=== PATIENT | female | born 1955 | race Caucasian/White ===

== ENCOUNTER 2021-11-22 07:41 | Inpatient (IN) | payer MEDICAID, OTHER ==
[~2021-11-22] VITALS: Ht 162.6 cm; Wt 72.6 kg
[2021-11-22] MEDS ORDERED: ONDANSETRON HCL 4 MG/2 ML VIAL ONE (08:42)
[2021-11-22] MEDS ORDERED: ONDANSETRON HCL 4 MG/2 ML VIAL IV ONE (08:45)
[2021-11-22] MEDS ORDERED: SODIUM CHLORIDE 0.9% 1,000 ML IV ONE ×2 (08:45→16:15)
[2021-11-22 08:47] LABS: Basophils # (auto) 0 10 ^3/uL (0-0.2); Basophils % (auto) 0.3 % (0.0-2.0); Eosinophils # (auto) 0 10 ^3/uL (0-0.8); Eosinophils % (auto) 0.1 % (0.0-7.0); Hematocrit 38.8 % (36.0-46.0); Hemoglobin 12.7 g/dL (12.2-16.2); Lymphocytes # (auto) 0.5 10 ^3/uL (0.4-5.4); Lymphocytes % (auto) 8.2 % (10.0-50.0); Mean Corpuscular Hemoglobin 30.4 pg (28.0-32.0); Mean Corpuscular Hgb Conc. 32.8 g/dL (32.0-36.0); Mean Corpuscular Volume 92.6 fL (80.0-100.0); Monocytes # (auto) 0.3 10 ^3/uL (0-1.3); Monocytes % (auto) 5.1 % (0.0-12.0); Neutrophils # (auto) 5.3 10 ^3/uL (1.6-8.6); Neutrophils % (auto) 86.3 % (37.0-80.0); Nucleated Red Blood Cells % 0.1 %; Red Blood Cells 4.19 10^6/uL (4.0-5.20); Red Cell Distribution Width 14.7 % (11.8-14.3); White Blood Cell 6.2 10^3/uL (4.4-10.8)
[2021-11-22 09:07] LABS: Calcium 9.7 mg/dL (8.5-10.1)
[2021-11-22 09:12] LABS: Bilirubin, Total 0.6 mg/dL (0.2-1.0); Total Protein 8.4 g/dL (6.4-8.2)
[2021-11-22] MEDS ORDERED: MORPHINE SULFATE 4 MG/ML SYR/VIAL IV ONE (09:15)
[2021-11-22 09:18] LABS: Potassium 2.8 mmol/L (3.5-5.1)
[2021-11-22] MEDS ORDERED: POTASSIUM EFFERVESENT TAB 25 MEQ PO ONE (10:15)
[2021-11-22] MEDS ORDERED: cloNIDine HCL 0.1 MG TAB PO ONE ×2 (11:15)
[2021-11-22] MEDS ORDERED: cefTRIAXone 1GM/50ML D5W 50 ML IV ONE (11:15)
[2021-11-22 12:04] LABS: BUN/Creatinine Ratio 14.1
[2021-11-22] MEDS ORDERED: KETOROLAC TROMETH 30 MG/ML 1ML VIAL IV ONE (12:45)
[2021-11-22] MEDS ORDERED: HYDROmorphone HCL 2 MG/ML VL/or syr IV ONE (13:00)
[2021-11-22] MEDS ORDERED: ACETAMINOPHEN 500 MG TAB PO PRN (16:00)
[2021-11-22] MEDS ORDERED: MORPHINE SULFATE INJ 2 MG/ml SYRG IV PRN (16:00)
[2021-11-22] MEDS ORDERED: ONDANSETRON HCL 4 MG/2 ML VIAL IV PRN (16:00)
[2021-11-22] MEDS ORDERED: NITROGLYCERIN 0.4 MG SL TAB SL PRN (16:00)
[2021-11-22] MEDS ORDERED: DexAMETHasone SOD PHOS 10MG/1ML VIAL INJ IV ONE (16:15)
[2021-11-22] MEDS ORDERED: SODIUM CHLORIDE 0.9% 1,000 ML IV SCH (16:15)
[2021-11-22 16:38] LABS: Urine Bacteria FEW /hpf (None Seen); Urine Blood 2+ /uL (Negative); Urine Specific Gravity 1.012 (1.001-1.035); Urine WBC 1 /hpf (0 - 5)
[2021-11-22 16:40] VITALS: BP 194/86
[2021-11-22 17:17] LABS: CRP High Sensitivity 0.46 mg/dL (< 0.3); Magnesium 1.7 mg/dL (1.6-2.6)
[2021-11-22 17:31] LABS: BUN/Creatinine Ratio 11.5; Calcium 9.1 mg/dL (8.5-10.1); Potassium 3.1 mmol/L (3.5-5.1)
[2021-11-22 17:44] LABS: Thyroid Stimulating Hormone 0.37 uIU/mL (0.358-3.74)
[2021-11-22] MEDS ORDERED: POTASSIUM CHL 20MEQ/100ML 100 ML IV ONE (20:15)
[2021-11-22] MEDS ORDERED: POTASSIUM CHL 20 Meq TABLET PO ONE (20:15)
[2021-11-22] MEDS ORDERED: MAGNESIUM SULFATE 1GM/100ML 100 ML IV ONE (20:15)
[2021-11-22] MEDS: MORPHINE SULFATE INJ 2 MG/ml SYRG IV PRN (20:16)
[2021-11-22] MEDS: SODIUM CHLORIDE 0.9% 1,000 ML IV SCH (20:30)
[2021-11-22] MEDS ORDERED: IOHEXOL 350 MG/ML 100ML IJ ONE (20:32)
[2021-11-22] MEDS ORDERED: amLODIPine BESYLATE 5 MG TAB PO SCH (22:00)
[2021-11-22] MEDS: BUDESONIDE (INHALATION) 180 MCG IH IN SCH (22:00)
[2021-11-22] MEDS: cloNIDine HCL 0.1 MG TAB PO SCH (22:10)
[2021-11-22] MEDS: ENOXAPARIN SOD 40 MG/0.4 ML SYRINGE SC SCH (22:10)
[2021-11-22] MEDS ORDERED: CLON-818 PO (22:49)
[2021-11-22] MEDS ORDERED: AMLO-489 PO (22:50)
[2021-11-23] MEDS: MORPHINE SULFATE INJ 2 MG/ml SYRG IV PRN ×3 (06:10→17:58)
[2021-11-23] MEDS: BUDESONIDE (INHALATION) 180 MCG IH IN SCH ×2 (06:10→18:26)
[2021-11-23] MEDS: ALBUTEROL SULF HFA 90MCG INH 200DOSE IN PRN ×2 (06:19→18:35)
[2021-11-23 06:56] LABS: Basophils # (auto) 0 10 ^3/uL (0-0.2); Basophils % (auto) 0.3 % (0.0-2.0); Eosinophils # (auto) 0 10 ^3/uL (0-0.8); Eosinophils % (auto) 0.1 % (0.0-7.0); Hematocrit 44.2 % (36.0-46.0); Hemoglobin 14.9 g/dL (12.2-16.2); Lymphocytes # (auto) 1.1 10 ^3/uL (0.4-5.4); Mean Corpuscular Hgb Conc. 33.7 g/dL (32.0-36.0); Mean Corpuscular Volume 92.1 fL (80.0-100.0); Monocytes # (auto) 0.5 10 ^3/uL (0-1.3); Monocytes % (auto) 8.9 % (0.0-12.0); Neutrophils % (auto) 70.7 % (37.0-80.0); Nucleated Red Blood Cells % 0.1 %; Red Cell Distribution Width 14.8 % (11.8-14.3); White Blood Cell 5.7 10^3/uL (4.4-10.8)
[2021-11-23 08:00] VITALS: BP 155/98
[2021-11-23 09:00] VITALS: BP 177/106
[2021-11-23 10:00] VITALS: BP 155/80
[2021-11-23] MEDS: AZITHROMYCIN 500MG/ 250ML 250 ML IV SCH (10:01)
[2021-11-23] MEDS: DexAMETHasone SOD PHOS 10MG/1ML VIAL INJ IV SCH (10:02)
[2021-11-23] MEDS: ENOXAPARIN SOD 40 MG/0.4 ML SYRINGE SC SCH ×2 (10:02→22:04)
[2021-11-23] MEDS: PANTOPRAZOLE 40 MG/10 ML VIAL INJ IV SCH (10:02)
[2021-11-23] MEDS: cloNIDine HCL 0.1 MG TAB PO SCH ×2 (10:03→22:07)
[2021-11-23] MEDS: amLODIPine BESYLATE 5 MG TAB PO SCH (10:03)
[2021-11-23] MEDS: SODIUM CHLORIDE 0.9% 1,000 ML IV SCH (10:05)
[2021-11-23 10:10] LABS: Potassium 3.4 mmol/L (3.5-5.1)
[2021-11-23 10:12] LABS: Albumin 3.3 g/dL (3.4-5.0); BUN/Creatinine Ratio 14.6; Bilirubin, Total 0.3 mg/dL (0.2-1.0); Calcium 9.3 mg/dL (8.5-10.1); Total Protein 8.5 g/dL (6.4-8.2)
[2021-11-23 13:00] VITALS: BP 155/80
[2021-11-23] MEDS ORDERED: MORPHINE SULFATE 4 MG/ML SYR/VIAL IV PRN (21:15)
[2021-11-23 22:00] VITALS: BP 167/105
[2021-11-23] MEDS: HYDROmorphone HCL 2 MG/ML VL/or syr IV PRN (22:06)
[2021-11-24] VITALS: BP 139/79
[2021-11-24] MEDS: HYDROmorphone HCL 2 MG/ML VL/or syr IV PRN ×4 (03:18→14:04)
[2021-11-24 05:00] VITALS: BP 167/83
[2021-11-24] MEDS: BUDESONIDE (INHALATION) 180 MCG IH IN SCH (07:22)
[2021-11-24] MEDS: ALBUTEROL SULF HFA 90MCG INH 200DOSE IN PRN (07:22)
[2021-11-24 08:00] VITALS: BP 163/83
[2021-11-24] MEDS: ENOXAPARIN SOD 40 MG/0.4 ML SYRINGE SC SCH (10:25)
[2021-11-24] MEDS: DexAMETHasone SOD PHOS 10MG/1ML VIAL INJ IV SCH (10:26)
[2021-11-24] MEDS: PANTOPRAZOLE 40 MG/10 ML VIAL INJ IV SCH (10:26)
[2021-11-24] MEDS: cloNIDine HCL 0.1 MG TAB PO SCH (10:26)
[2021-11-24] MEDS: amLODIPine BESYLATE 5 MG TAB PO SCH (10:27)
[2021-11-24] MEDS: AZITHROMYCIN 500MG/ 250ML 250 ML IV SCH (10:27)
[2021-11-24 13:00] VITALS: BP 137/77
[2021-11-24] MEDS ORDERED: CLON-818 PO (13:10)
[2021-11-24] MEDS ORDERED: ALBUAER3 IN (13:10)
[2021-11-24] MEDS ORDERED: PRED20TA2 PO (13:10)
[2021-11-24] MEDS ORDERED: AMLO-489 PO (13:10)
[2021-11-24 14:28] VITALS: BP 163/83
[2021-11-24 16:14] VITALS: BP 137/77
[2021-11-24] MEDS ORDERED: ASPITAB34 PO (17:34)
[2021-11-24] MEDS ORDERED: cloNIDine HCL 0.1 MG TAB PO SCH (22:00)
[2021-11-25] MEDS ORDERED: amLODIPine BESYLATE 5 MG TAB PO SCH (10:00)
== END 2021-11-24 16:40 | disposition home or self-care (01) | DRG 137 ==
LOC: EDBD 07:41 → ER 07:41 → TELE 16:14 → TELE-CENTR 11-23 08:14
PROVIDERS: ADMIT Registered Nurse; ATTEND Hospitalist
DX: U07.1 COVID-19 (principal); J12.82 Pneumonia due to coronavirus disease 2019; E87.6 Hypokalemia; R79.89 Other specified abnormal findings of blood chemistry; G43.909 Migraine, unspecified, not intractable, without status migrainosus; I10 Essential (primary) hypertension; I25.2 Old myocardial infarction; Z90.49 Acquired absence of other specified parts of digestive tract; Z95.1 Presence of aortocoronary bypass graft; Z86.711 Personal history of pulmonary embolism
CPT/HCPCS: 36415; 70450; 71045; 71275; 74176; 80048; 80053; 81001; 83036; 83605; 83615; 83735; 83880; 84443; 84484; 85025; 85379; 86141; 87040; 93005; 94640; 96365; 96375; C9113; G0378; J0696; J1100; J1885; J2405; J3480

== ENCOUNTER 2021-12-10 09:51 | Inpatient (IN) | payer MEDICAID ==
[~2021-12-10] VITALS: Ht 172.7 cm; Wt 75.3 kg
[~2021-12-10 09:51] MED LIST: ALBUAER3 IN; AMLO-489 PO; ASPITAB34 PO; CLON-818 PO; PRED20TA2 PO
[2021-12-10 10:41] LABS: Basophils # (auto) 0 10 ^3/uL (0-0.2); Basophils % (auto) 0.4 % (0.0-2.0); Eosinophils # (auto) 0 10 ^3/uL (0-0.8); Eosinophils % (auto) 0.5 % (0.0-7.0); Hematocrit 36.5 % (36.0-46.0); Hemoglobin 12.1 g/dL (12.2-16.2); Mean Corpuscular Hemoglobin 30.7 pg (28.0-32.0); Mean Corpuscular Hgb Conc. 33.1 g/dL (32.0-36.0); Mean Corpuscular Volume 92.6 fL (80.0-100.0); Monocytes # (auto) 0.7 10 ^3/uL (0-1.3); Monocytes % (auto) 9.4 % (0.0-12.0); Neutrophils # (auto) 6.1 10 ^3/uL (1.6-8.6); Neutrophils % (auto) 76.7 % (37.0-80.0); Red Blood Cells 3.94 10^6/uL (4.0-5.20); Red Cell Distribution Width 15.4 % (11.8-14.3); White Blood Cell 7.9 10^3/uL (4.4-10.8)
[2021-12-10 10:53] LABS: Albumin 3.7 g/dL (3.4-5.0); BUN/Creatinine Ratio 15.5; Calcium 9.3 mg/dL (8.5-10.1); Potassium 3.5 mmol/L (3.5-5.1)
[2021-12-10] MEDS ORDERED: ONDANSETRON HCL 4 MG/2 ML VIAL IV ONE (11:30)
[2021-12-10] MEDS ORDERED: ASPirin 81 mg TAB PO ONE (11:30)
[2021-12-10] MEDS ORDERED: MORPHINE SULFATE 4 MG/ML SYR/VIAL IV ONE (11:30)
[2021-12-10 11:51] LABS: Bilirubin, Total 0.8 mg/dL (0.2-1.0); Total Protein 8.1 g/dL (6.4-8.2)
[2021-12-10 12:14] LABS: Partial Thromboplastin Time 29.1 sec (24.6-33.4)
[2021-12-10] MEDS ORDERED: MORPHINE SULFATE INJ 2 MG/ml SYRG IV PRN (13:45)
[2021-12-10] MEDS ORDERED: NITROGLYCERIN 0.4 MG SL TAB SL PRN (13:45)
[2021-12-10] MEDS ORDERED: PANTOPRAZOLE 40 MG/10 ML VIAL INJ IV ONE (14:15)
[2021-12-10] MEDS ORDERED: DEXTROSE (50%) 50ML SYRG IV PRN (14:15)
[2021-12-10] MEDS: ACCU-CHEK COMFORT CURVE STRIP VI SCH ×2 (17:00→22:00)
[2021-12-10] MEDS: InsuLIN REG 1unit/0.01ml Soln (100units/ml) SC SCH ×2 (17:00→22:00)
[2021-12-10] MEDS: MORPHINE SULFATE INJ 2 MG/ml SYRG IV PRN ×2 (17:44→22:03)
[2021-12-10] MEDS: FUROSEMIDE 20 MG/2 ML VIAL IV SCH (18:29)
[2021-12-10 20:26] LABS: Urine Bacteria NONE SEEN /hpf (None Seen); Urine Blood TRACE /uL (Negative); Urine Specific Gravity 1.005 (1.001-1.035); Urine WBC 1 /hpf (0 - 5)
[2021-12-10 20:53] LABS: Alcohol, Urine < 3.0 mg/dL (0-10); Amphetamine Screen, Urine NEGATIVE (NEGATIVE); Benzodiazephine Screen, Urine NEGATIVE (NEGATIVE); Cannabinoid Screen, Urine NEGATIVE (NEGATIVE); Cocaine Screen, Urine NEGATIVE (NEGATIVE); Opiate Scree,Urine NEGATIVE (NEGATIVE); Phencyclidine Screen, Urine NEGATIVE (NEGATIVE)
[2021-12-10 21:02] LABS: Barbiturate Scree,Urine NEGATIVE (NEGATIVE)
[2021-12-10] MEDS: ENOXAPARIN SOD 80 MG/0.8ML SYRINGE SC SCH (21:59)
[2021-12-10] MEDS ORDERED: ATORVASTATIN 20 MG TAB PO SCH (22:00)
[2021-12-10] MEDS: CARVEDILOL 12.5 MG TAB PO SCH (22:02)
[2021-12-11] VITALS (8 sets, daily range): BP systolic 112–163; BP diastolic 65–91
[2021-12-11] MEDS: MORPHINE SULFATE INJ 2 MG/ml SYRG IV PRN ×5 (02:25→18:51)
[2021-12-11] MEDS ORDERED: AMLO-489 PO (03:09)
[2021-12-11] MEDS ORDERED: FURO1TAB33 PO (03:09)
[2021-12-11] MEDS ORDERED: LOSA-39 PO (03:09)
[2021-12-11] MEDS ORDERED: CALC667C PO (03:09)
[2021-12-11] MEDS: hydrALAZINE HCL 20 MG/ML VL IV PRN ×2 (05:49→13:49)
[2021-12-11] MEDS: FUROSEMIDE 20 MG/2 ML VIAL IV SCH ×2 (05:49→17:40)
[2021-12-11 06:04] LABS: Basophils # (auto) 0 10 ^3/uL (0-0.2); Basophils % (auto) 0.7 % (0.0-2.0); Eosinophils # (auto) 0 10 ^3/uL (0-0.8); Eosinophils % (auto) 0.6 % (0.0-7.0); Hematocrit 37.1 % (36.0-46.0); Hemoglobin 12.1 g/dL (12.2-16.2); Lymphocytes # (auto) 1.9 10 ^3/uL (0.4-5.4); Lymphocytes % (auto) 25.8 % (10.0-50.0); Mean Corpuscular Hemoglobin 29.9 pg (28.0-32.0); Mean Corpuscular Hgb Conc. 32.6 g/dL (32.0-36.0); Mean Corpuscular Volume 91.7 fL (80.0-100.0); Monocytes # (auto) 0.9 10 ^3/uL (0-1.3); Monocytes % (auto) 11.6 % (0.0-12.0); Neutrophils # (auto) 4.6 10 ^3/uL (1.6-8.6); Neutrophils % (auto) 61.3 % (37.0-80.0); Red Blood Cells 4.04 10^6/uL (4.0-5.20); White Blood Cell 7.5 10^3/uL (4.4-10.8)
[2021-12-11] MEDS: InsuLIN REG 1unit/0.01ml Soln (100units/ml) SC SCH ×4 (06:21→21:48)
[2021-12-11] MEDS: ACCU-CHEK COMFORT CURVE STRIP VI SCH ×4 (06:21→22:39)
[2021-12-11 06:42] LABS: Potassium 3.3 mmol/L (3.5-5.1)
[2021-12-11 06:54] LABS: Albumin 3.3 g/dL (3.4-5.0); BUN/Creatinine Ratio 15.7; Bilirubin, Total 0.5 mg/dL (0.2-1.0); Calcium 9.2 mg/dL (8.5-10.1); Magnesium 1.8 mg/dL (1.6-2.6)
[2021-12-11] MEDS ORDERED: ADENOSINE 62 MG in GIVE UN-DILUTED 0 ML IV STA (07:33)
[2021-12-11] MEDS: ENOXAPARIN SOD 80 MG/0.8ML SYRINGE SC SCH ×2 (09:39→21:48)
[2021-12-11] MEDS: CARVEDILOL 12.5 MG TAB PO SCH ×2 (09:40→21:47)
[2021-12-11] MEDS: ASPirin 81 mg TAB PO SCH (09:40)
[2021-12-11] MEDS: amLODIPine BESYLATE 5 MG TAB PO SCH (09:40)
[2021-12-11] MEDS ORDERED: ENOXAPARIN SOD 40 MG/0.4 ML SYRINGE SC SCH (10:00)
[2021-12-11] MEDS ORDERED: PANTOPRAZOLE 40 MG/10 ML VIAL INJ IV SCH (10:00)
[2021-12-11] MEDS ORDERED: LORA0.5T20 GT (13:56)
[2021-12-11] MEDS ORDERED: MAGNESIUM OXIDE 400 MG TAB PO ONE (14:00)
[2021-12-11] MEDS ORDERED: POTASSIUM CHL 20 Meq TABLET PO ONE ×2 (14:00→17:45)
[2021-12-11] MEDS ORDERED: LORazepam 2MG/ML-1ML VIAL IV ONE (14:30)
[2021-12-11] MEDS: LORazepam 2MG/ML-1ML VIAL IV PRN ×2 (14:39→22:45)
[2021-12-11] MEDS ORDERED: GABAPENTIN 100 MG CAP PO ONE (17:45)
[2021-12-11] MEDS ORDERED: ONDANSETRON HCL 4 MG/2 ML VIAL IV PRN (18:30)
[2021-12-11] MEDS: GABAPENTIN 100 MG CAP PO SCH (21:48)
[2021-12-12] MEDS: MORPHINE SULFATE INJ 2 MG/ml SYRG IV PRN ×5 (04:06→22:50)
[2021-12-12 05:00] VITALS: BP 137/77
[2021-12-12 05:44] LABS: Basophils # (auto) 0.1 10 ^3/uL (0-0.2); Basophils % (auto) 0.7 % (0.0-2.0); Eosinophils # (auto) 0 10 ^3/uL (0-0.8); Eosinophils % (auto) 0.6 % (0.0-7.0); Lymphocytes # (auto) 1.9 10 ^3/uL (0.4-5.4); Lymphocytes % (auto) 26.1 % (10.0-50.0); Mean Corpuscular Hemoglobin 29.8 pg (28.0-32.0); Mean Corpuscular Hgb Conc. 32.5 g/dL (32.0-36.0); Mean Corpuscular Volume 91.8 fL (80.0-100.0); Monocytes # (auto) 0.5 10 ^3/uL (0-1.3); Monocytes % (auto) 7.4 % (0.0-12.0); Neutrophils # (auto) 4.7 10 ^3/uL (1.6-8.6); Neutrophils % (auto) 65.2 % (37.0-80.0); Red Blood Cells 4.03 10^6/uL (4.0-5.20); Red Cell Distribution Width 16.4 % (11.8-14.3); White Blood Cell 7.2 10^3/uL (4.4-10.8)
[2021-12-12 05:57] LABS: Albumin 2.9 g/dL (3.4-5.0); Calcium 8.9 mg/dL (8.5-10.1); Potassium 3.4 mmol/L (3.5-5.1)
[2021-12-12 06:00] LABS: BUN/Creatinine Ratio 18.2; Bilirubin, Total 0.5 mg/dL (0.2-1.0); Total Protein 6.7 g/dL (6.4-8.2)
[2021-12-12] MEDS: ACCU-CHEK COMFORT CURVE STRIP VI SCH ×4 (06:32→22:23)
[2021-12-12] MEDS: InsuLIN REG 1unit/0.01ml Soln (100units/ml) SC SCH ×4 (06:34→22:00)
[2021-12-12] MEDS: GABAPENTIN 100 MG CAP PO SCH ×3 (06:56→22:21)
[2021-12-12] MEDS: LORazepam 2MG/ML-1ML VIAL IV PRN (06:58)
[2021-12-12 09:00] VITALS: BP 139/58
[2021-12-12] MEDS: ASPirin 81 mg TAB PO SCH (09:28)
[2021-12-12] MEDS: amLODIPine BESYLATE 5 MG TAB PO SCH (09:30)
[2021-12-12] MEDS: ENOXAPARIN SOD 80 MG/0.8ML SYRINGE SC SCH (09:31)
[2021-12-12] MEDS: CARVEDILOL 12.5 MG TAB PO SCH ×2 (09:40→22:20)
[2021-12-12] MEDS ORDERED: POTASSIUM CHL 20 Meq TABLET PO ONE (12:00)
[2021-12-12] MEDS: ALPRAZolam 0.25 MG TAB PO PRN (12:30)
[2021-12-12 13:00] VITALS: BP 130/71
[2021-12-12] MEDS ORDERED: POTASSIUM CHL 10 Meq TABLET PO ONE (14:15)
[2021-12-12 16:41] VITALS: BP 129/76
[2021-12-12 20:00] VITALS: BP 132/78
[2021-12-12] MEDS: RIVAROXABAN 15 MG TAB PO SCH (22:21)
[2021-12-13] MEDS: MORPHINE SULFATE INJ 2 MG/ml SYRG IV PRN ×3 (03:52→15:35)
[2021-12-13 04:37] LABS: Albumin 2.8 g/dL (3.4-5.0); Potassium 3.5 mmol/L (3.5-5.1)
[2021-12-13 04:38] LABS: BUN/Creatinine Ratio 14.4
[2021-12-13 04:46] LABS: Bilirubin, Total 0.4 mg/dL (0.2-1.0); Total Protein 6.9 g/dL (6.4-8.2)
[2021-12-13 05:00] VITALS: BP 143/84
[2021-12-13] MEDS: GABAPENTIN 100 MG CAP PO SCH ×2 (06:18→13:40)
[2021-12-13] MEDS: ACCU-CHEK COMFORT CURVE STRIP VI SCH ×3 (06:19→17:38)
[2021-12-13] MEDS: InsuLIN REG 1unit/0.01ml Soln (100units/ml) SC SCH ×3 (06:34→17:00)
[2021-12-13 08:00] VITALS: BP 139/84
[2021-12-13] MEDS: CARVEDILOL 12.5 MG TAB PO SCH (08:38)
[2021-12-13] MEDS: amLODIPine BESYLATE 5 MG TAB PO SCH (08:39)
[2021-12-13] MEDS: ALPRAZolam 0.25 MG TAB PO PRN (08:39)
[2021-12-13] MEDS: RIVAROXABAN 15 MG TAB PO SCH (08:42)
[2021-12-13 09:00] VITALS: BP 139/84
[2021-12-13] MEDS ORDERED: FUROSEMIDE 20 MG TAB PO SCH (10:00)
[2021-12-13] MEDS ORDERED: POTASSIUM CHL 10 Meq TABLET PO SCH (10:00)
[2021-12-13] MEDS ORDERED: DULO30CA PO (11:54)
[2021-12-13] MEDS ORDERED: CLON0.1T PO (11:54)
[2021-12-13] MEDS ORDERED: GAB100C PO (11:54)
[2021-12-13] MEDS ORDERED: DULoxetine HCL 30 MG CAP PO ONE (12:00)
[2021-12-13 12:28] LABS: Hepatitis A Ab IgM Negative
[2021-12-13 12:31] LABS: Hepatitis B Core IgM Negative
[2021-12-13 12:38] LABS: Hepatitis C Antibody Positive (Negative)
[2021-12-13 13:00] VITALS: BP 114/66
[2021-12-13 14:21] VITALS: BP 136/76
[2021-12-13 17:00] VITALS: BP 141/74
== END 2021-12-13 18:38 | disposition home or self-care (01) | DRG 198 ==
LOC: ER 09:51 → TELE 13:43 → TELE-WESTW 12-11 01:58
PROVIDERS: ADMIT Registered Nurse; ATTEND Internal Medicine
DX: I25.10 Atherosclerotic heart disease of native coronary artery without angina pectoris (principal); I11.0 Hypertensive heart disease with heart failure; I50.9 Heart failure, unspecified; E11.9 Type 2 diabetes mellitus without complications; Z95.1 Presence of aortocoronary bypass graft; I48.91 Unspecified atrial fibrillation; R01.1 Cardiac murmur, unspecified; E78.5 Hyperlipidemia, unspecified; F32.A Depression, unspecified; F41.9 Anxiety disorder, unspecified; R74.01 Elevation of levels of liver transaminase levels; R79.89 Other specified abnormal findings of blood chemistry; R91.1 Solitary pulmonary nodule; Z20.822 Contact with and (suspected) exposure to COVID-19; G89.29 Other chronic pain; Z85.05 Personal history of malignant neoplasm of liver; Z86.711 Personal history of pulmonary embolism; Z86.16 Personal history of COVID-19; Z86.73 Personal history of transient ischemic attack (TIA), and cerebral infarction without residual deficits; Z90.49 Acquired absence of other specified parts of digestive tract; Z86.718 Personal history of other venous thrombosis and embolism; Z79.84 Long term (current) use of oral hypoglycemic drugs
CPT/HCPCS: 36415; 71045; 71275; 76705; 78452; 80053; 80061; 80074; 80307; 81001; 82550; 82962; 83735; 83880; 84443; 84484; 85025; 85610; 85652; 85730; 87081; 93005; 93017; 93306; 93970; 96374; 96375; C9113; G0378; J0153; J1815; J2405

== ENCOUNTER → 2022-01-16 | Emergency (ER) | payer MEDICAID ==
[~2022-01-16] VITALS: Ht 172.7 cm; Wt 77.5 kg
[~2022-01-16] MED LIST changes: +CALC667C PO; +CLON0.1T PO; +DULO30CA PO; +FURO1TAB33 PO; +GAB100C PO; +LORA0.5T20 GT; +LOSA-39 PO
[2022-01-16 16:24] VITALS: BP 160/87
== END | disposition left against medical advice (07) ==
LOC: ER 15:59
DX: I10 Essential (primary) hypertension (principal); Z76.0 Encounter for issue of repeat prescription; Z53.21 Procedure and treatment not carried out due to patient leaving prior to being seen by health care provider

== ENCOUNTER → 2022-05-03 | Outpatient (CLI) | payer MEDICARE, MEDICAID ==
[2022-05-03 12:37] LABS: Basophils # (auto) 0 10 ^3/uL (0-0.2); Basophils % (auto) 0.2 % (0.0-2.0); Eosinophils # (auto) 0 10 ^3/uL (0-0.8); Eosinophils % (auto) 0.2 % (0.0-7.0); Hematocrit 45.6 % (36.0-46.0); Hemoglobin 14.9 g/dL (12.2-16.2); Lymphocytes # (auto) 1.2 10 ^3/uL (0.4-5.4); Lymphocytes % (auto) 16.9 % (10.0-50.0); Mean Corpuscular Hemoglobin 29.3 pg (28.0-32.0); Mean Corpuscular Hgb Conc. 32.7 g/dL (32.0-36.0); Mean Corpuscular Volume 89.6 fL (80.0-100.0); Monocytes # (auto) 0.4 10 ^3/uL (0-1.3); Monocytes % (auto) 6.1 % (0.0-12.0); Neutrophils # (auto) 5.5 10 ^3/uL (1.6-8.6); Neutrophils % (auto) 76.6 % (37.0-80.0); Nucleated Red Blood Cells % 0.1 %; Red Blood Cells 5.09 10^6/uL (4.0-5.20); Red Cell Distribution Width 15.9 % (11.8-14.3); White Blood Cell 7.3 10^3/uL (4.4-10.8)
[2022-05-03 12:49] LABS: Urine Blood TRACE /uL (Negative); Urine Specific Gravity 1.009 (1.001-1.035)
[2022-05-03 12:55] LABS: Albumin 3.9 g/dL (3.4-5.0); Calcium 9.7 mg/dL (8.5-10.1); Potassium 3.1 mmol/L (3.5-5.1)
[2022-05-03 13:01] LABS: Bilirubin, Direct 0.2 mg/dL (0-0.2); Bilirubin, Total 0.4 mg/dL (0.2-1.0); Total Protein 8.9 g/dL (6.4-8.2)
== END | disposition home or self-care (01) ==
LOC: LAB 11:30
PROVIDERS: ATTEND Internal Medicine Cardiovascular Disease
DX: I11.0 Hypertensive heart disease with heart failure (principal); I50.9 Heart failure, unspecified; E11.9 Type 2 diabetes mellitus without complications; D51.3 Other dietary vitamin B12 deficiency anemia; R00.2 Palpitations; R53.1 Weakness; R30.0 Dysuria; D64.9 Anemia, unspecified; E55.9 Vitamin D deficiency, unspecified; R06.01 Orthopnea
CPT/HCPCS: 36415; 80048; 80061; 80076; 81003; 83036; 83880; 84443; 85025

== ENCOUNTER → 2022-05-14 | Outpatient (CLI) | payer MEDICARE, MEDICAID ==
[~2022-05-14] VITALS: Ht 172.7 cm; Wt 81.2 kg
[~2022-05-14] MED LIST changes: +ADENOSINE 68 MG in GIVE UN-DILUTED 0 ML IV ONE; +ADENOSINE 90 MG/30 ML INJ IV ONE
== END | disposition home or self-care (01) ==
LOC: Rad HDHVI 08:11
PROVIDERS: ATTEND Internal Medicine Cardiovascular Disease
DX: R00.1 Bradycardia, unspecified (principal); R07.9 Chest pain, unspecified; R06.02 Shortness of breath; R94.31 Abnormal electrocardiogram [ECG] [EKG]; I10 Essential (primary) hypertension; I25.2 Old myocardial infarction; E78.5 Hyperlipidemia, unspecified; Z82.49 Family history of ischemic heart disease and other diseases of the circulatory system; Z86.711 Personal history of pulmonary embolism
CPT/HCPCS: 78452; 93005; 96374; 96375; A9500; J0153

== ENCOUNTER → 2022-05-22 | Outpatient (CLI) | payer MEDICARE, MEDICAID ==
[~2022-05-22] MED LIST changes: -ADENOSINE 68 MG in GIVE UN-DILUTED 0 ML IV ONE; -ADENOSINE 90 MG/30 ML INJ IV ONE
== END | disposition home or self-care (01) ==
LOC: Rad HDHVI 14:43
PROVIDERS: ATTEND Internal Medicine Cardiovascular Disease
DX: I08.8 Other rheumatic multiple valve diseases (principal); R00.1 Bradycardia, unspecified
CPT/HCPCS: 93306

== ENCOUNTER 2022-08-05 07:58 | Inpatient (IN) | payer MEDICARE, MEDICAID ==
[~2022-08-05] VITALS: Ht 162.6 cm; Wt 81.6 kg
[~2022-08-05 07:58] MED LIST changes: -AMLO-489 PO; +AMLO1TAB22 PO; +LORA-1121 GT; -LORA0.5T20 GT; -LOSA-39 PO; +LOSA100T58 PO
[2022-08-05] MEDS ORDERED: cloNIDine HCL 0.1 MG TAB PO ONE (08:15)
[2022-08-05 09:03] LABS: Hematocrit 43.1 % (36.0-46.0); Hemoglobin 14.6 g/dL (12.2-16.2); Mean Corpuscular Hemoglobin 30.7 pg (28.0-32.0); Mean Corpuscular Hgb Conc. 33.9 g/dL (32.0-36.0); Mean Corpuscular Volume 90.6 fL (80.0-100.0); Red Blood Cells 4.76 10^6/uL (4.0-5.20); Red Cell Distribution Width 15.1 % (11.8-14.3); White Blood Cell 15.7 10^3/uL (4.4-10.8)
[2022-08-05 09:15] LABS: Basophils % (manual) 0 (0.0-2.0); Blast Cells 0; Metamyelocytes % 0; Myelocytes % 0; Promyelocytes % 0; Reactive Lymphocytes 0
[2022-08-05] MEDS ORDERED: IOHEXOL 350 MG/ML 100ML IJ ONE ×2 (10:26→11:16)
[2022-08-05] MEDS ORDERED: LABETALOL HCL 5 MG/ML 4ML SYRINGE IV ONE (10:30)
[2022-08-05 10:37] LABS: Albumin 3.8 g/dL (3.4-5.0); Calcium 8.8 mg/dL (8.5-10.1); Magnesium 2.3 mg/dL (1.6-2.6); Potassium 3.2 mmol/L (3.5-5.1)
[2022-08-05 10:43] LABS: BUN/Creatinine Ratio 13.4 (10.0-20.0); Bilirubin, Total 0.5 mg/dL (0.2-1.0); Total Protein 8.8 g/dL (6.4-8.2)
[2022-08-05 10:54] LABS: Band Neutrophils % (manual) 1; Eosinophils % (manual) 1 (0-7); Lymphocytes % (manual) 11 (10.0-50.0); Monocytes % (manual) 5 (0-12)
[2022-08-05] MEDS ORDERED: cefTRIAXone 1GM/50ML D5W 50 ML IV ONE (11:30)
[2022-08-05] MEDS ORDERED: AZITHROMYCIN 500MG/ 250ML 250 ML IV ONE (11:30)
[2022-08-05] MEDS ORDERED: NITROGLYCERIN 0.4 MG SL TAB SL PRN (12:15)
[2022-08-05] MEDS ORDERED: DEXTROSE (50%) 50ML SYRG IV PRN (12:15)
[2022-08-05] MEDS ORDERED: ACETAMINOPHEN 325 MG TAB PO PRN (12:15)
[2022-08-05] MEDS ORDERED: ASPirin 325 MG TAB PO ONE (12:15)
[2022-08-05] MEDS ORDERED: ALBUTEROL SULF 2.5 MG/0.5ML(0.5%) NEB SOLN NEB PRN (12:15)
[2022-08-05] MEDS ORDERED: POTASSIUM EFFERVESENT TAB 25 MEQ PO ONE (12:15)
[2022-08-05 13:00] VITALS: BP 205/102
[2022-08-05 13:00] LABS: Urine Bacteria FEW /hpf (None Seen); Urine Blood 2+ /uL (Negative); Urine WBC 7 /hpf (0 - 5)
[2022-08-05 13:03] LABS: Urine Specific Gravity 1.035 (1.001-1.035)
[2022-08-05] MEDS: IPRATROPIUM BROM 0.5 MG/2.5ML INH SOL NEB SCH ×3 (14:13→22:10)
[2022-08-05] MEDS: ALBUTEROL SULF 2.5 MG/0.5ML(0.5%) NEB SOLN NEB SCH ×3 (14:13→22:10)
[2022-08-05] MEDS: HYDROcodone-ACET 5/325MG TAB PO PRN ×2 (14:29→21:36)
[2022-08-05 14:46] LABS: Cholesterol 163 mg/dL (< 200)
[2022-08-05 14:50] LABS: HDL Cholesterol 52 mg/dL (40-59); LDL Cholesterol 94 mg/dL (< 100); Triglycerides 92 mg/dL (< 150)
[2022-08-05] MEDS: hydrALAZINE HCL 20 MG/ML VL IV PRN (14:59)
[2022-08-05] MEDS: ONDANSETRON HCL 4 MG/2 ML VIAL IV PRN (15:31)
[2022-08-05] MEDS: MORPHINE SULFATE INJ 2 MG/ml SYRG IV PRN ×2 (15:33→19:36)
[2022-08-05] MEDS: ACCU-CHEK COMFORT CURVE STRIP VI SCH ×2 (17:55→21:33)
[2022-08-05] MEDS: InsuLIN REG 1unit/0.01ml Soln (100units/ml) SC SCH ×2 (18:13→21:32)
[2022-08-05] MEDS: CALCIUM ACETATE 667 MG CAP PO SCH (18:16)
[2022-08-05] MEDS: cloNIDine HCL 0.1 MG TAB PO SCH (21:32)
[2022-08-06] VITALS (48 sets, daily range): BP systolic 107–191; BP diastolic 65–105
[2022-08-06] MEDS: MORPHINE SULFATE INJ 2 MG/ml SYRG IV PRN ×5 (01:42→21:43)
[2022-08-06] MEDS: ALBUTEROL SULF 2.5 MG/0.5ML(0.5%) NEB SOLN NEB SCH ×6 (02:33→22:29)
[2022-08-06] MEDS: IPRATROPIUM BROM 0.5 MG/2.5ML INH SOL NEB SCH ×6 (02:33→22:29)
[2022-08-06 04:54] LABS: Potassium 3.3 mmol/L (3.5-5.1)
[2022-08-06 05:03] LABS: Albumin 3.1 g/dL (3.4-5.0); BUN/Creatinine Ratio 14.2 (10.0-20.0); Bilirubin, Total 0.4 mg/dL (0.2-1.0); Total Protein 7.4 g/dL (6.4-8.2)
[2022-08-06 05:06] LABS: Basophils # (auto) 0 10 ^3/uL (0-0.2); Basophils % (auto) 0.2 % (0.0-2.0); Eosinophils # (auto) 0.1 10 ^3/uL (0-0.8); Eosinophils % (auto) 0.8 % (0.0-7.0); Hematocrit 41.8 % (36.0-46.0); Hemoglobin 13.7 g/dL (12.2-16.2); Lymphocytes # (auto) 2.6 10 ^3/uL (0.4-5.4); Lymphocytes % (auto) 23.1 % (10.0-50.0); Mean Corpuscular Hemoglobin 30.1 pg (28.0-32.0); Mean Corpuscular Hgb Conc. 32.8 g/dL (32.0-36.0); Mean Corpuscular Volume 91.7 fL (80.0-100.0); Monocytes # (auto) 0.8 10 ^3/uL (0-1.3); Monocytes % (auto) 6.8 % (0.0-12.0); Neutrophils # (auto) 7.7 10 ^3/uL (1.6-8.6); Neutrophils % (auto) 69.1 % (37.0-80.0); Nucleated Red Blood Cells % 0.1 %; Red Blood Cells 4.56 10^6/uL (4.0-5.20); Red Cell Distribution Width 14.8 % (11.8-14.3); White Blood Cell 11.1 10^3/uL (4.4-10.8)
[2022-08-06] MEDS: hydrALAZINE HCL 20 MG/ML VL IV PRN ×2 (05:27→17:42)
[2022-08-06] MEDS: ACCU-CHEK COMFORT CURVE STRIP VI SCH ×4 (06:00→21:38)
[2022-08-06] MEDS: InsuLIN REG 1unit/0.01ml Soln (100units/ml) SC SCH ×4 (06:02→21:40)
[2022-08-06] MEDS: HYDROcodone-ACET 5/325MG TAB PO PRN ×2 (06:04→19:33)
[2022-08-06] MEDS: CALCIUM ACETATE 667 MG CAP PO SCH (08:24)
[2022-08-06] MEDS ORDERED: cefTRIAXone 1GM/50ML D5W 50 ML IV SCH (09:00)
[2022-08-06] MEDS ORDERED: AZITHROMYCIN 500MG/ 250ML 250 ML IV SCH (10:00)
[2022-08-06] MEDS: ASPirin 81 mg TAB PO SCH (10:00)
[2022-08-06] MEDS: cloNIDine HCL 0.1 MG TAB PO SCH (10:00)
[2022-08-06] MEDS: amLODIPine BESYLATE 5 MG TAB PO SCH (10:01)
[2022-08-06] MEDS: FUROSEMIDE 20 MG TAB PO SCH (10:01)
[2022-08-06] MEDS ORDERED: POTASSIUM EFFERVESENT TAB 25 MEQ PO ONE (10:30)
[2022-08-06] MEDS: METOPROLOL TARTRATE 50 MG TAB PO SCH ×2 (10:39→21:34)
[2022-08-06] MEDS: SACUBITRIL-VALSARTAN 24mg/26mg TAB PO SCH ×2 (10:39→21:33)
[2022-08-06] MEDS ORDERED: LABETALOL HCL 5 MG/ML 4ML SYRINGE IV ONE (19:00)
[2022-08-06] MEDS: TEMAZEPAM 15 MG CAP PO PRN (22:43)
[2022-08-06] MEDS: ONDANSETRON HCL 4 MG/2 ML VIAL IV PRN (22:47)
[2022-08-07] MEDS: hydrALAZINE HCL 20 MG/ML VL IV PRN ×2 (00:28→08:22)
[2022-08-07] MEDS: HYDROcodone-ACET 5/325MG TAB PO PRN ×3 (00:28→22:35)
[2022-08-07] MEDS: ALBUTEROL SULF 2.5 MG/0.5ML(0.5%) NEB SOLN NEB SCH ×6 (01:50→22:34)
[2022-08-07] MEDS: IPRATROPIUM BROM 0.5 MG/2.5ML INH SOL NEB SCH ×6 (01:50→22:34)
[2022-08-07] MEDS: MORPHINE SULFATE INJ 2 MG/ml SYRG IV PRN ×2 (04:22→08:22)
[2022-08-07 05:00] VITALS: BP 156/80
[2022-08-07] MEDS: InsuLIN REG 1unit/0.01ml Soln (100units/ml) SC SCH ×4 (06:01→22:38)
[2022-08-07] MEDS: ACCU-CHEK COMFORT CURVE STRIP VI SCH ×4 (06:02→22:35)
[2022-08-07 06:31] LABS: Basophils # (auto) 0 10 ^3/uL (0-0.2); Basophils % (auto) 0.4 % (0.0-2.0); Eosinophils # (auto) 0.1 10 ^3/uL (0-0.8); Hematocrit 42.5 % (36.0-46.0); Hemoglobin 14.3 g/dL (12.2-16.2); Lymphocytes # (auto) 1.9 10 ^3/uL (0.4-5.4); Lymphocytes % (auto) 24.5 % (10.0-50.0); Mean Corpuscular Hemoglobin 30.5 pg (28.0-32.0); Mean Corpuscular Hgb Conc. 33.6 g/dL (32.0-36.0); Mean Corpuscular Volume 90.9 fL (80.0-100.0); Monocytes # (auto) 0.7 10 ^3/uL (0-1.3); Monocytes % (auto) 9.8 % (0.0-12.0); Neutrophils # (auto) 4.9 10 ^3/uL (1.6-8.6); Neutrophils % (auto) 64.3 % (37.0-80.0); Nucleated Red Blood Cells % 0.1 %; Red Blood Cells 4.68 10^6/uL (4.0-5.20); Red Cell Distribution Width 15.2 % (11.8-14.3); White Blood Cell 7.6 10^3/uL (4.4-10.8)
[2022-08-07 06:41] LABS: Calcium 9.7 mg/dL (8.5-10.1); Potassium 3.7 mmol/L (3.5-5.1)
[2022-08-07] MEDS: ONDANSETRON HCL 4 MG/2 ML VIAL IV PRN (08:21)
[2022-08-07] MEDS: cefTRIAXone 1GM/50ML D5W 50 ML IV SCH (08:21)
[2022-08-07 09:00] VITALS: BP 169/100
[2022-08-07] MEDS ORDERED: METOPROLOL TARTRATE 1MG/1ML-5ML VIAL IV ONE (09:30)
[2022-08-07] MEDS ORDERED: KETOROLAC TROMETH 60MG/2ML VIAL IM ONE (09:45)
[2022-08-07] MEDS: SACUBITRIL-VALSARTAN 24mg/26mg TAB PO SCH ×2 (09:57→22:34)
[2022-08-07] MEDS: FUROSEMIDE 20 MG TAB PO SCH (09:57)
[2022-08-07] MEDS: amLODIPine BESYLATE 5 MG TAB PO SCH (12:04)
[2022-08-07] MEDS: ASPirin 81 mg TAB PO SCH (12:04)
[2022-08-07] MEDS: METOPROLOL TARTRATE 50 MG TAB PO SCH ×2 (12:06→22:35)
[2022-08-07 13:00] VITALS: BP 153/80
[2022-08-07] MEDS: HYDROmorphone HCL 2 MG/ML VL/or syr IV PRN ×2 (13:10→20:33)
[2022-08-07] MEDS ORDERED: cloNIDine HCL 0.1 MG TAB PO PRN (16:00)
[2022-08-07 17:00] VITALS: BP 135/71
[2022-08-07 22:00] VITALS: BP 145/83
[2022-08-07] MEDS ORDERED: cloNIDine HCL 0.1 MG TAB PO SCH (22:00)
[2022-08-07] MEDS: TEMAZEPAM 15 MG CAP PO PRN (22:34)
[2022-08-08] MEDS: ALBUTEROL SULF 2.5 MG/0.5ML(0.5%) NEB SOLN NEB SCH ×6 (02:08→22:30)
[2022-08-08] MEDS: IPRATROPIUM BROM 0.5 MG/2.5ML INH SOL NEB SCH ×6 (02:08→22:31)
[2022-08-08] MEDS: HYDROmorphone HCL 2 MG/ML VL/or syr IV PRN ×5 (04:18→21:40)
[2022-08-08 05:00] VITALS: BP 152/79
[2022-08-08] MEDS: HYDROcodone-ACET 5/325MG TAB PO PRN (06:21)
[2022-08-08] MEDS: ACCU-CHEK COMFORT CURVE STRIP VI SCH ×4 (06:33→23:40)
[2022-08-08] MEDS: InsuLIN REG 1unit/0.01ml Soln (100units/ml) SC SCH ×4 (06:33→23:41)
[2022-08-08] MEDS: hydrALAZINE HCL 20 MG/ML VL IV PRN (06:33)
[2022-08-08] MEDS: cefTRIAXone 1GM/50ML D5W 50 ML IV SCH (08:41)
[2022-08-08 09:08] VITALS: BP 112/57
[2022-08-08] MEDS: FUROSEMIDE 20 MG TAB PO SCH (10:18)
[2022-08-08] MEDS: ASPirin 81 mg TAB PO SCH (10:18)
[2022-08-08] MEDS: SACUBITRIL-VALSARTAN 24mg/26mg TAB PO SCH ×2 (10:18→21:38)
[2022-08-08] MEDS: METOPROLOL TARTRATE 50 MG TAB PO SCH ×2 (10:18→21:39)
[2022-08-08] MEDS: PANTOPRAZOLE 40 MG TAB PO SCH (10:19)
[2022-08-08] MEDS: amLODIPine BESYLATE 5 MG TAB PO SCH (10:22)
[2022-08-08 13:05] VITALS: BP 114/70
[2022-08-08 13:28] LABS: Hepatitis C Antibody Positive (Negative)
[2022-08-08] MEDS ORDERED: KETOROLAC TROMETH 30 MG/ML 1ML VIAL IV ONE (15:00)
[2022-08-08] MEDS ORDERED: KETOROLAC TROMETH 30 MG/ML 1ML VIAL IV PRN (15:00)
[2022-08-08 15:25] VITALS: BP 159/100
[2022-08-08 17:11] VITALS: BP 142/84
[2022-08-08 22:00] VITALS: BP 142/91
[2022-08-08] MEDS: TEMAZEPAM 15 MG CAP PO PRN (22:42)
[2022-08-08] MEDS: CARISOPRODOL 350 MG TAB PO SCH (23:00)
[2022-08-09] MEDS: ALBUTEROL SULF 2.5 MG/0.5ML(0.5%) NEB SOLN NEB SCH ×4 (02:17→15:04)
[2022-08-09] MEDS: IPRATROPIUM BROM 0.5 MG/2.5ML INH SOL NEB SCH ×4 (02:17→15:04)
[2022-08-09] MEDS: ONDANSETRON HCL 4 MG/2 ML VIAL IV PRN (03:31)
[2022-08-09] MEDS: hydrALAZINE HCL 20 MG/ML VL IV PRN (03:31)
[2022-08-09] MEDS: HYDROmorphone HCL 2 MG/ML VL/or syr IV PRN ×4 (03:32→16:23)
[2022-08-09 05:00] VITALS: BP 108/60
[2022-08-09] MEDS: ACCU-CHEK COMFORT CURVE STRIP VI SCH ×3 (06:52→16:31)
[2022-08-09] MEDS: InsuLIN REG 1unit/0.01ml Soln (100units/ml) SC SCH ×3 (06:53→16:31)
[2022-08-09 08:58] VITALS: BP 122/67
[2022-08-09] MEDS: SACUBITRIL-VALSARTAN 24mg/26mg TAB PO SCH (09:42)
[2022-08-09] MEDS: CARISOPRODOL 350 MG TAB PO SCH (09:42)
[2022-08-09] MEDS: ASPirin 81 mg TAB PO SCH (09:42)
[2022-08-09] MEDS: cefTRIAXone 1GM/50ML D5W 50 ML IV SCH (09:42)
[2022-08-09] MEDS: amLODIPine BESYLATE 5 MG TAB PO SCH (09:42)
[2022-08-09] MEDS: PANTOPRAZOLE 40 MG TAB PO SCH (09:42)
[2022-08-09] MEDS: FUROSEMIDE 20 MG TAB PO SCH (09:43)
[2022-08-09] MEDS: METOPROLOL TARTRATE 50 MG TAB PO SCH (09:43)
[2022-08-09] MEDS ORDERED: MET50T PO (10:05)
[2022-08-09] MEDS ORDERED: ASPI-325 PO (10:05)
[2022-08-09] MEDS ORDERED: SACU1TAB PO (10:05)
[2022-08-09] MEDS ORDERED: BACDST PO (10:05)
[2022-08-09] MEDS ORDERED: CARI-277 PO ×2 (10:29→10:31)
[2022-08-09] MEDS ORDERED: CLON0.1T PO (10:29)
[2022-08-09] MEDS ORDERED: [UNRECOGNIZED DRUG - CODE] PO ×2 (10:31→19:00)
[2022-08-09 13:00] VITALS: BP 148/85
[2022-08-09 16:29] VITALS: BP 149/95
[2022-08-09 18:00] VITALS: BP 148/85
[2022-08-09] MEDS ORDERED: IPRATROPIUM BROM 0.5 MG/2.5ML INH SOL NEB PRN (18:15)
[2022-08-09] MEDS ORDERED: ALBUTEROL SULF 2.5 MG/0.5ML(0.5%) NEB SOLN NEB PRN (18:15)
== END 2022-08-09 19:00 | disposition home health service (06) | DRG 720 ==
LOC: ER 07:58 → TELE 12:07 → ICU WEST 22:58 → TELE-EAST 08-06 17:08
PROVIDERS: ADMIT Nurse Practitioner Family; ATTEND Internal Medicine
DX: A41.9 Sepsis, unspecified organism (principal); I50.31 Acute diastolic (congestive) heart failure; C22.9 Malignant neoplasm of liver, not specified as primary or secondary; E87.0 Hyperosmolality and hypernatremia; I25.110 Atherosclerotic heart disease of native coronary artery with unstable angina pectoris; I11.0 Hypertensive heart disease with heart failure; I16.1 Hypertensive emergency; N30.01 Acute cystitis with hematuria; E66.9 Obesity, unspecified; E78.5 Hyperlipidemia, unspecified; E11.65 Type 2 diabetes mellitus with hyperglycemia; R07.9 Chest pain, unspecified; Z20.822 Contact with and (suspected) exposure to COVID-19; R80.9 Proteinuria, unspecified; G43.909 Migraine, unspecified, not intractable, without status migrainosus; E87.6 Hypokalemia; F41.9 Anxiety disorder, unspecified; Z95.1 Presence of aortocoronary bypass graft; Z85.05 Personal history of malignant neoplasm of liver; Z91.148 Patient's other noncompliance with medication regimen for other reason; Z98.61 Coronary angioplasty status; Z90.49 Acquired absence of other specified parts of digestive tract; I69.351 Hemiplegia and hemiparesis following cerebral infarction affecting right dominant side; Z68.30 Body mass index [BMI] 30.0-30.9, adult
CPT/HCPCS: 36415; 70450; 71045; 71275; 80048; 80053; 80061; 81001; 82962; 83036; 83735; 83880; 84443; 84484; 85007; 85025; 85027; 86803; 87081; 87340; 87426; 87804; 93005; 93976; 94640; 96365; 96367; 96375; 99291; G0378; J0696; J1815; J1885; J2405; J3490

== ENCOUNTER 2023-01-31 08:30 | Emergency (ER) | payer MEDICARE, MEDICAID ==
[~2023-01-31] VITALS: Ht 175.3 cm; Wt 77.3 kg
[~2023-01-31 08:30] MED LIST changes: -ALBUAER3 IN; +ASPI-325 PO; +BACDST PO; -CLON-818 PO; -LORA-1121 GT; -LOSA100T58 PO; +MET50T PO; -PRED20TA2 PO; +SACU1TAB PO; +[UNRECOGNIZED DRUG - CODE] PO
[2023-01-31] MEDS ORDERED: CLON0.2T PO (09:47)
[2023-01-31 09:55] VITALS: BP 138/78; PULSE 82; RESP 16; TEMP 96.6; O2SAT 100
== END 2023-01-31 09:57 | disposition home or self-care (01) ==
LOC: ER 08:30
DX: I11.0 Hypertensive heart disease with heart failure (principal); I50.9 Heart failure, unspecified; I25.2 Old myocardial infarction; E11.9 Type 2 diabetes mellitus without complications; E78.5 Hyperlipidemia, unspecified; Z76.0 Encounter for issue of repeat prescription; Z86.73 Personal history of transient ischemic attack (TIA), and cerebral infarction without residual deficits; Z95.1 Presence of aortocoronary bypass graft; Z90.49 Acquired absence of other specified parts of digestive tract; Z90.89 Acquired absence of other organs; Z79.82 Long term (current) use of aspirin; Z79.899 Other long term (current) drug therapy

== ENCOUNTER → 2023-04-09 | Outpatient (CLI) | payer MEDICARE, MEDICAID ==
[~2023-04-09] MED LIST changes: +AMLO1TAB23 PO; +ASPI1TAB19 PO; +CLON0.2T PO; +CLON0.3T46 PO; +TIZA2CAP7 PO
[2023-04-09 10:05] VITALS: BP 167/83; PULSE 53; RESP 18; O2SAT 96
[2023-04-09 10:24] VITALS: BP 144/78; PULSE 49; RESP 18; O2SAT 96
== END | disposition home or self-care (01) ==
LOC: CHF HDHVI 10:02
PROVIDERS: ATTEND Internal Medicine Cardiovascular Disease
DX: Z01.818 Encounter for other preprocedural examination (principal); R00.1 Bradycardia, unspecified; R07.89 Other chest pain; R06.02 Shortness of breath
CPT/HCPCS: 36415; 80048; 85025; 85610; 85730; 93005; G0463

== ENCOUNTER 2023-04-10 08:30 | Day surgery (SDC) | payer MEDICARE, MEDICAID ==
[2023-04-09 11:47] LABS: Basophils # (auto) 0 10 ^3/uL (0-0.2); Basophils % (auto) 0.5 % (0.0-2.0); Eosinophils # (auto) 0.1 10 ^3/uL (0-0.8); Eosinophils % (auto) 1.8 % (0.0-7.0); Hematocrit 38.1 % (36.0-46.0); Hemoglobin 12.6 g/dL (12.2-16.2); Lymphocytes # (auto) 2.7 10 ^3/uL (0.4-5.4); Lymphocytes % (auto) 37.7 % (10.0-50.0); Mean Corpuscular Hgb Conc. 33.2 g/dL (32.0-36.0); Mean Corpuscular Volume 93.2 fL (80.0-100.0); Monocytes # (auto) 0.6 10 ^3/uL (0-1.3); Neutrophils # (auto) 3.6 10 ^3/uL (1.6-8.6); Nucleated Red Blood Cells % 0.1 %; Red Blood Cells 4.09 10^6/uL (4.0-5.20); Red Cell Distribution Width 15.4 % (11.8-14.3); White Blood Cell 7.1 10^3/uL (4.4-10.8)
[2023-04-09 12:01] LABS: INR 1.03 (0.9-1.15); Partial Thromboplastin Time 26.3 SEC (24.5-34.5); Prothrombin Time 10.8 sec (9.3-11.8)
[2023-04-09 12:41] LABS: Chloride 107 mmol/L (98-107); Potassium 3.4 mmol/L (3.5-5.1); Sodium 142 mmol/L (136-145)
[2023-04-09 12:42] LABS: Anion Gap 8 (5-15); Carbon Dioxide 27 mmol/L (20-30)
[2023-04-09 12:43] LABS: Calcium 9.8 mg/dL (8.5-10.1)
[2023-04-09 12:48] LABS: BUN/Creatinine Ratio 16.2 (10.0-20.0); Blood Urea Nitrogen 24 mg/dL (9-23); Glucose 100 mg/dL (74-106)
[~2023-04-10] VITALS: Ht 172.7 cm; Wt 79.4 kg
[2023-04-10] VITALS (7 sets, daily range): BP systolic 132–166; BP diastolic 82–93; PULSE 65–85; RESP 16–21; TEMP 98; O2SAT 94–97
[~2023-04-10 08:30] MED LIST changes: -AMLO1TAB23 PO; -ASPI1TAB19 PO; -BACDST PO; -CLON0.1T PO; -CLON0.3T46 PO; -DULO30CA PO; -GAB100C PO; -MET50T PO; -[UNRECOGNIZED DRUG - CODE] PO
[2023-04-10] MEDS ORDERED: cloNIDine HCL 0.1 MG TAB PO ONE (10:15)
[2023-04-10] MEDS ORDERED: ACETAMINOPHEN 325 MG TAB PO ONE (10:45)
[2023-04-10] MEDS ORDERED: fentaNYL CITRATE 100 MCG/2 ML VL ONE (12:46)
[2023-04-10] MEDS ORDERED: ANGIOMAX 250 MG VIAL IV ONE (12:46)
[2023-04-10] MEDS ORDERED: MIDAZOLAM HCL 2MG/2ML 2ml VIAL (1mg/ml) ONE (12:46)
[2023-04-10] MEDS ORDERED: SODIUM CHL 0.9% 50 ML ONE (12:47)
[2023-04-10] MEDS ORDERED: LIDOCAINE 2%HCL (LOCAL ANESTH.) INJ 20ML MDV ONE (12:53)
[2023-04-10] MEDS ORDERED: IOHEXOL 350 MG/ML 100ML IJ ONE ×2 (12:57→13:33)
[2023-04-10] MEDS ORDERED: NITROGLYCERIN 0.4MG/DOSE SPRAY 4.9GM ONE (13:31)
[2023-04-10] MEDS ORDERED: ASPI1TAB19 PO (14:39)
[2023-04-10] MEDS ORDERED: ASPITAB34 PO (14:39)
[2023-04-10] MEDS ORDERED: SACU1TAB PO (14:39)
[2023-04-10] MEDS ORDERED: CALC667C PO (14:39)
[2023-04-10] MEDS ORDERED: CLON0.3T46 PO (14:39)
[2023-04-10] MEDS ORDERED: AMLO1TAB23 PO (14:39)
== END 2023-04-10 15:57 | disposition home or self-care (01) ==
LOC: CATH 08:30
PROVIDERS: ATTEND Internal Medicine Cardiovascular Disease
DX: R07.9 Chest pain, unspecified (principal); I20.9 Angina pectoris, unspecified; I11.0 Hypertensive heart disease with heart failure; I50.9 Heart failure, unspecified; E78.5 Hyperlipidemia, unspecified; E66.01 Morbid (severe) obesity due to excess calories; Z68.26 Body mass index [BMI] 26.0-26.9, adult; Z95.5 Presence of coronary angioplasty implant and graft; Z82.49 Family history of ischemic heart disease and other diseases of the circulatory system; Z72.89 Other problems related to lifestyle; Z87.891 Personal history of nicotine dependence; Z79.82 Long term (current) use of aspirin; Z79.899 Other long term (current) drug therapy
CPT/HCPCS: 36415; 80048; 85025; 85610; 85730; 93460; C1757; C1894; J0583; J1644; J2250; J3010; Q9967; 99152

== ENCOUNTER 2023-11-10 15:44 | Inpatient (IN) | payer MEDICARE, MEDICAID ==
[~2023-11-10] VITALS: Ht 172.7 cm; Wt 81.2 kg
[~2023-11-10 15:44] MED LIST changes: +AMLO1TAB23 PO; -ASPI-325 PO; +ASPI1TAB19 PO; +ASPI81CH59 PO; +ATOR-507 PO; -CLON0.2T PO; +CLON0.3T46 PO; +HYDR-2792 PO; +METO25TA93 PO; +POTA-180 PO; +SUMA50TA16 PO; +TIZA1TAB20 PO; +ZOFR4T PO
[2023-11-10] MEDS: ONDANSETRON HCL 4 MG/2 ML VIAL IV ONE ×2 (16:15→21:20)
[2023-11-10 17:23] LABS: Basophils # (auto) 0 10 ^3/uL (0-0.2); Basophils % (auto) 0.3 % (0.0-2.0); Eosinophils # (auto) 0 10 ^3/uL (0-0.8); Hematocrit 46.3 % (36.0-46.0); Hemoglobin 15.5 g/dL (12.2-16.2); Mean Corpuscular Hemoglobin 30.7 pg (28.0-32.0); Mean Corpuscular Hgb Conc. 33.6 g/dL (32.0-36.0); Mean Corpuscular Volume 91.4 fL (80.0-100.0); Monocytes # (auto) 0.2 10 ^3/uL (0-1.3); Monocytes % (auto) 2.5 % (0.0-12.0); Neutrophils # (auto) 8.1 10 ^3/uL (1.6-8.6); Neutrophils % (auto) 86.2 % (37.0-80.0); Nucleated Red Blood Cells % 0.2 %; Platelet Count (auto) 277 10^3/uL (140-450); Red Blood Cells 5.06 10^6/uL (4.0-5.20); Red Cell Distribution Width 14.7 % (11.8-14.3); White Blood Cell 9.4 10^3/uL (4.4-10.8)
[2023-11-10 17:32] LABS: Alanine Aminotransferase 80 U/L (7-40); Alkaline Phosphatase 153 U/L (46-116); Anion Gap 16 (5-15); Aspartate Aminotransferase 76 U/L (13-40); BUN/Creatinine Ratio 19.1 (10.0-20.0); Blood Urea Nitrogen 31 mg/dL (9-23); Calcium 10.9 mg/dL (8.7-10.4); Carbon Dioxide 21 mmol/L (20-30); Chloride 105 mmol/L (98-107); Glucose 171 mg/dL (74-106); Potassium 3.6 mmol/L (3.5-5.1); Sodium 142 mmol/L (136-145)
[2023-11-10 17:33] LABS: Albumin 5.2 g/dL (3.2-4.8); Bilirubin, Total 0.4 mg/dL (0.2-1.0); Total Protein 8.7 g/dL (5.7-8.2)
[2023-11-10 18:20] LABS: Lactic Acid w/Reflex 3.8 mmol/L (0.4-2.0)
[2023-11-10 18:41] LABS: Lipase 37 U/L (12-53)
[2023-11-10] MEDS: MORPHINE SULFATE 4 MG/ML SYR/VIAL IV ONE ×2 (18:43→21:20)
[2023-11-10] MEDS: SODIUM CHLORIDE 0.9% 1,000 ML IV ONE (18:43)
[2023-11-10 19:30] VITALS: PULSE 112; RESP 17; O2SAT 93
[2023-11-10 20:26] LABS: Urine Bacteria None Seen /hpf (None Seen)
[2023-11-10] MEDS: IOHEXOL 350 MG/ML 100ML IJ ONE ×2 (20:32→22:29)
[2023-11-10 20:37] LABS: Urine Blood 2+ /uL (Negative); Urine Clarity Clear (Clear); Urine Color Yellow (Yellow); Urine Hyaline Cast MOD /lpf (0 - 2); Urine Mucus FEW (None Seen); Urine Protein, UAD 3+ (Negative); Urine Specific Gravity 1.027 (1.001-1.035); Urine Urobilinogen Normal (Negative); Urine WBC 3 /hpf (0 - 5)
[2023-11-10] MEDS: cloNIDine HCL 0.1 MG TAB PO ONE (22:28)
[2023-11-10] MEDS ORDERED: ZOLP10TA6 PO (22:42)
[2023-11-10] MEDS ORDERED: NIFE1TAB31 PO (22:42)
[2023-11-10] MEDS ORDERED: SERT-206 PO (22:42)
[2023-11-10] MEDS ORDERED: ACETAMINOPHEN 325 MG TAB PO PRN (22:45)
[2023-11-10] MEDS ORDERED: MORPHINE SULFATE INJ 2 MG/ml SYRG IV PRN (22:45)
[2023-11-10] MEDS ORDERED: DOCUSATE SOD 100 MG CAP PO PRN (22:45)
[2023-11-10] MEDS ORDERED: NITROGLYCERIN 0.4 MG SL TAB SL PRN (22:45)
[2023-11-10] MEDS: SODIUM CHLORIDE 0.9% 1,000 ML IV SCH (22:53)
[2023-11-11] VITALS (7 sets, daily range): BP systolic 121–176; BP diastolic 61–105; PULSE 72–115; RESP 16–20; TEMP 98.2–98.9; O2SAT 93–98
[2023-11-11] MEDS: hydrALAZINE HCL 20 MG/ML VL IV PRN (00:25)
[2023-11-11] MEDS: MORPHINE SULFATE INJ 2 MG/ml SYRG IV PRN (03:41)
[2023-11-11 06:10] LABS: Basophils # (auto) 0 10 ^3/uL (0-0.2); Basophils % (auto) 0.4 % (0.0-2.0); Eosinophils # (auto) 0 10 ^3/uL (0-0.8); Eosinophils % (auto) 0.1 % (0.0-7.0); Hematocrit 39.9 % (36.0-46.0); Hemoglobin 13.7 g/dL (12.2-16.2); Lymphocytes # (auto) 1.7 10 ^3/uL (0.4-5.4); Lymphocytes % (auto) 17.8 % (10.0-50.0); Mean Corpuscular Hemoglobin 31.3 pg (28.0-32.0); Mean Corpuscular Hgb Conc. 34.2 g/dL (32.0-36.0); Mean Corpuscular Volume 91.3 fL (80.0-100.0); Monocytes # (auto) 0.8 10 ^3/uL (0-1.3); Monocytes % (auto) 8.8 % (0.0-12.0); Neutrophils # (auto) 6.9 10 ^3/uL (1.6-8.6); Neutrophils % (auto) 72.9 % (37.0-80.0); Nucleated Red Blood Cells % 0.2 %; Platelet Count (auto) 221 10^3/uL (140-450); Red Blood Cells 4.37 10^6/uL (4.0-5.20); Red Cell Distribution Width 14.8 % (11.8-14.3); White Blood Cell 9.5 10^3/uL (4.4-10.8)
[2023-11-11 06:16] LABS: Alanine Aminotransferase 52 U/L (7-40); Alkaline Phosphatase 117 U/L (46-116); Anion Gap 11 (5-15); BUN/Creatinine Ratio 13.6 (10.0-20.0); Blood Urea Nitrogen 20 mg/dL (9-23); Calcium 9.5 mg/dL (8.7-10.4); Carbon Dioxide 25 mmol/L (20-30); Chloride 107 mmol/L (98-107); Glucose 110 mg/dL (74-106); Potassium 2.6 mmol/L (3.5-5.1); Sodium 143 mmol/L (136-145)
[2023-11-11 06:17] LABS: Albumin 4.4 g/dL (3.2-4.8); Aspartate Aminotransferase 44 U/L (13-40)
[2023-11-11 06:18] LABS: Bilirubin, Total 0.3 mg/dL (0.2-1.0); Total Protein 7.6 g/dL (5.7-8.2)
[2023-11-11] MEDS: HYDROcodone-ACET 5/325MG TAB PO PRN (06:40)
[2023-11-11] MEDS: CALCIUM ACETATE 667 MG CAP PO SCH (08:30)
[2023-11-11] MEDS: SACUBITRIL-VALSARTAN 24mg/26mg TAB PO SCH (09:40)
[2023-11-11] MEDS: SERTRALINE HCL 50 MG TAB PO SCH (09:40)
[2023-11-11] MEDS: PANTOPRAZOLE 40 MG/10 ML VIAL INJ IV SCH (09:40)
[2023-11-11] MEDS: amLODIPine BESYLATE 5 MG TAB PO SCH ×2 (09:41→10:00)
[2023-11-11] MEDS: cloNIDine HCL 0.1 MG TAB PO SCH (09:42)
[2023-11-11] MEDS: NIFEdipine ER 30 MG TAB PO SCH (09:43)
[2023-11-11] MEDS: ENOXAPARIN SOD 40 MG/0.4 ML SYRINGE SC SCH (09:43)
[2023-11-11] MEDS: metroNIDAZOLE 500MG/100ML 100 ML IV SCH (14:29)
[2023-11-11] MEDS: levoFLOXacin 500MG 100 ML IV ONE (18:25)
[2023-11-11] MEDS: ONDANSETRON HCL 4 MG/2 ML VIAL IV PRN (18:26)
[2023-11-12] VITALS (8 sets, daily range): BP systolic 103–165; BP diastolic 63–100; PULSE 64–89; RESP 14–19; TEMP 98.1–98.7; O2SAT 92–99
[2023-11-12] MEDS: levoFLOXacin 250MG 50 ML IV SCH (09:45)
[2023-11-12] MEDS ORDERED: levoFLOXacin 500MG 100 ML IV SCH (10:00)
[2023-11-12] MEDS: POTASSIUM CHL 20 Meq TABLET PO ONE (14:48)
[2023-11-12] MEDS: POTASSIUM CHL 20MEQ/100ML 100 ML IV SCH (19:13)
[2023-11-13 01:00] VITALS: BP 114/74; PULSE 74; RESP 17; TEMP 98.3; O2SAT 99
[2023-11-13 04:30] LABS: Basophils # (auto) 0 10 ^3/uL (0-0.2); Basophils % (auto) 0.6 % (0.0-2.0); Eosinophils # (auto) 0.1 10 ^3/uL (0-0.8); Eosinophils % (auto) 1.9 % (0.0-7.0); Hematocrit 35.3 % (36.0-46.0); Hemoglobin 12.1 g/dL (12.2-16.2); Lymphocytes # (auto) 1.4 10 ^3/uL (0.4-5.4); Lymphocytes % (auto) 29.2 % (10.0-50.0); Mean Corpuscular Hemoglobin 31.5 pg (28.0-32.0); Mean Corpuscular Hgb Conc. 34.2 g/dL (32.0-36.0); Mean Corpuscular Volume 92.2 fL (80.0-100.0); Monocytes # (auto) 0.4 10 ^3/uL (0-1.3); Monocytes % (auto) 9.2 % (0.0-12.0); Neutrophils # (auto) 2.8 10 ^3/uL (1.6-8.6); Neutrophils % (auto) 59.1 % (37.0-80.0); Nucleated Red Blood Cells % 0.1 %; Platelet Count (auto) 160 10^3/uL (140-450); Red Blood Cells 3.83 10^6/uL (4.0-5.20); White Blood Cell 4.7 10^3/uL (4.4-10.8)
[2023-11-13 04:33] LABS: Chloride 111 mmol/L (98-107); Potassium 3.5 mmol/L (3.5-5.1); Sodium 145 mmol/L (136-145)
[2023-11-13 04:34] LABS: Anion Gap 8 (5-15); Calcium 9.5 mg/dL (8.7-10.4); Carbon Dioxide 26 mmol/L (20-30)
[2023-11-13 04:39] LABS: BUN/Creatinine Ratio 6.4 (10.0-20.0); Glucose 104 mg/dL (74-106); Magnesium 1.5 mg/dL (1.6-2.6)
[2023-11-13 04:47] LABS: Blood Urea Nitrogen 6 mg/dL (9-23)
[2023-11-13 05:00] VITALS: BP 144/82; PULSE 77; RESP 17; TEMP 98.3; O2SAT 98
[2023-11-13 08:31] VITALS: BP 155/91; PULSE 80; RESP 17; TEMP 98.9; O2SAT 99
[2023-11-13 09:02] LABS: Hepatitis B Core Total AB Negative (Negative)
[2023-11-13 09:51] LABS: Albumin 3.4 g/dL (3.2-4.8); Bilirubin, Direct 0.2 mg/dL (<0.3); Bilirubin, Total 0.3 mg/dL (0.2-1.0)
[2023-11-13 11:10] LABS: Hepatitis A Total Antibody Negative (Negative); Hepatitis B Surface Antibody Negative (Negative); Hepatitis B Surface Antigen Negative (Negative)
[2023-11-13 11:12] LABS: Hepatitis C Antibody Positive (Negative)
[2023-11-13 13:07] VITALS: BP 121/70; PULSE 66; RESP 16; TEMP 98.5; O2SAT 99
[2023-11-13] MEDS: MAGNESIUM SULFATE 1GM/100ML 100 ML IV SCH (16:04)
[2023-11-13 16:37] VITALS: BP 139/75; PULSE 81; RESP 17; TEMP 98.1; O2SAT 99
[2023-11-13 21:00] VITALS: BP 141/86; PULSE 85; RESP 20; TEMP 98.1; O2SAT 98
[2023-11-14 04:09] VITALS: BP 136/80; PULSE 72; RESP 18; TEMP 98.3; O2SAT 96
[2023-11-14 09:00] VITALS: BP 143/83; PULSE 83; RESP 16; TEMP 99.3; O2SAT 98
[2023-11-14 13:00] VITALS: BP 114/71; PULSE 79; RESP 16; TEMP 98.6; O2SAT 99
[2023-11-14] MEDS: POLYETHYLENE GLYCOL 17 GM PWDR PO ONE (13:46)
[2023-11-14] MEDS: LACTULOSE 20Gm/30ML SOLN PO ONE (13:46)
[2023-11-14 15:26] LABS: Basophils # (auto) 0 10 ^3/uL (0-0.2); Basophils % (auto) 0.7 % (0.0-2.0); Eosinophils # (auto) 0.1 10 ^3/uL (0-0.8); Eosinophils % (auto) 2.3 % (0.0-7.0); Hematocrit 36.7 % (36.0-46.0); Hemoglobin 12.2 g/dL (12.2-16.2); Lymphocytes # (auto) 1.1 10 ^3/uL (0.4-5.4); Mean Corpuscular Hemoglobin 30.5 pg (28.0-32.0); Mean Corpuscular Hgb Conc. 33.2 g/dL (32.0-36.0); Mean Corpuscular Volume 91.9 fL (80.0-100.0); Monocytes # (auto) 0.5 10 ^3/uL (0-1.3); Monocytes % (auto) 8.7 % (0.0-12.0); Neutrophils # (auto) 3.8 10 ^3/uL (1.6-8.6); Neutrophils % (auto) 68.3 % (37.0-80.0); Platelet Count (auto) 167 10^3/uL (140-450); Red Cell Distribution Width 14.9 % (11.8-14.3); White Blood Cell 5.6 10^3/uL (4.4-10.8)
[2023-11-14 15:44] LABS: Chloride 109 mmol/L (98-107); Potassium 3.4 mmol/L (3.5-5.1); Sodium 140 mmol/L (136-145)
[2023-11-14 15:45] LABS: Anion Gap 2 (5-15); Calcium 9.7 mg/dL (8.7-10.4); Carbon Dioxide 29 mmol/L (20-30)
[2023-11-14 15:50] LABS: BUN/Creatinine Ratio 5.5 (10.0-20.0); Blood Urea Nitrogen 5 mg/dL (9-23); Glucose 111 mg/dL (74-106)
[2023-11-14 16:56] VITALS: BP 127/71; PULSE 82; RESP 16; TEMP 98.8; O2SAT 95
[2023-11-14] MEDS: MAALOX PLUS or MAALOX 30 ML PO ONE (18:33)
[2023-11-14] MEDS: POTASSIUM EFFERVESENT TAB 25 MEQ PO ONE (18:34)
[2023-11-14 21:00] VITALS: BP 148/94; PULSE 87; RESP 18; TEMP 98; O2SAT 95
[2023-11-14] MEDS: DICYCLOMINE HCL 10 MG CAP PO SCH (22:08)
[2023-11-14] MEDS: ZOLPIDEM TARTRATE 5 MG TAB PO PRN (22:16)
[2023-11-15 05:00] VITALS: BP 138/92; PULSE 77; RESP 18; TEMP 98.1; O2SAT 94
[2023-11-15 06:38] LABS: Basophils # (auto) 0 10 ^3/uL (0-0.2); Basophils % (auto) 0.4 % (0.0-2.0); Eosinophils # (auto) 0.1 10 ^3/uL (0-0.8); Eosinophils % (auto) 3.1 % (0.0-7.0); Hemoglobin 12.3 g/dL (12.2-16.2); Lymphocytes # (auto) 1.5 10 ^3/uL (0.4-5.4); Lymphocytes % (auto) 31.6 % (10.0-50.0); Mean Corpuscular Hgb Conc. 34.1 g/dL (32.0-36.0); Monocytes # (auto) 0.4 10 ^3/uL (0-1.3); Monocytes % (auto) 7.9 % (0.0-12.0); Neutrophils # (auto) 2.7 10 ^3/uL (1.6-8.6); Nucleated Red Blood Cells % 0.1 %; Platelet Count (auto) 152 10^3/uL (140-450); Red Blood Cells 3.96 10^6/uL (4.0-5.20); Red Cell Distribution Width 15.1 % (11.8-14.3); White Blood Cell 4.7 10^3/uL (4.4-10.8)
[2023-11-15 06:53] LABS: Alanine Aminotransferase 34 U/L (7-40); Alkaline Phosphatase 93 U/L (46-116); Anion Gap 6 (5-15); Calcium 9.6 mg/dL (8.7-10.4); Carbon Dioxide 28 mmol/L (20-30); Chloride 106 mmol/L (98-107); Glucose 100 mg/dL (74-106); Potassium 3.7 mmol/L (3.5-5.1); Sodium 140 mmol/L (136-145)
[2023-11-15 06:55] LABS: Albumin 3.4 g/dL (3.2-4.8); Aspartate Aminotransferase 45 U/L (13-40); Bilirubin, Total 0.2 mg/dL (0.2-1.0); Total Protein 6.1 g/dL (5.7-8.2)
[2023-11-15 07:01] LABS: BUN/Creatinine Ratio 5.7 (10.0-20.0); Blood Urea Nitrogen < 5 mg/dL (9-23)
[2023-11-15 08:42] VITALS: BP 138/75; PULSE 70; RESP 16; TEMP 98.6; O2SAT 94
[2023-11-15] MEDS: POLYETHYLENE GLYCOL 17 GM PWDR PO PRN (09:56)
[2023-11-15] MEDS ORDERED: POLYETHYLENE GLYCOL 17 GM PWDR PO SCH (10:00)
[2023-11-15] MEDS: FLEET ENEMA(ADULT) 135 ML PR ONE (10:21)
[2023-11-15] MEDS: LACTULOSE 20Gm/30ML SOLN PO SCH (10:21)
[2023-11-15 12:39] VITALS: BP 120/86; PULSE 82; RESP 16; TEMP 99.3; O2SAT 96
[2023-11-15 17:00] VITALS: BP 114/78; PULSE 72; RESP 16; TEMP 98.8; O2SAT 95
[2023-11-15 21:00] VITALS: BP 147/90; PULSE 61; RESP 18; TEMP 97.6; O2SAT 96
[2023-11-16] VITALS (7 sets, daily range): BP systolic 106–159; BP diastolic 69–94; PULSE 60–82; RESP 17–20; TEMP 97.4–98.3; O2SAT 92–100
[2023-11-16 06:54] LABS: Basophils # (auto) 0.1 10 ^3/uL (0-0.2); Basophils % (auto) 1.3 % (0.0-2.0); Eosinophils # (auto) 0.2 10 ^3/uL (0-0.8); Eosinophils % (auto) 4.1 % (0.0-7.0); Hematocrit 35.5 % (36.0-46.0); Hemoglobin 11.8 g/dL (12.2-16.2); Lymphocytes # (auto) 1.8 10 ^3/uL (0.4-5.4); Lymphocytes % (auto) 33.7 % (10.0-50.0); Mean Corpuscular Hemoglobin 30.6 pg (28.0-32.0); Mean Corpuscular Hgb Conc. 33.3 g/dL (32.0-36.0); Mean Corpuscular Volume 91.9 fL (80.0-100.0); Monocytes # (auto) 0.4 10 ^3/uL (0-1.3); Monocytes % (auto) 7.1 % (0.0-12.0); Neutrophils # (auto) 2.9 10 ^3/uL (1.6-8.6); Neutrophils % (auto) 53.8 % (37.0-80.0); Platelet Count (auto) 154 10^3/uL (140-450); Red Blood Cells 3.86 10^6/uL (4.0-5.20); Red Cell Distribution Width 15.1 % (11.8-14.3); White Blood Cell 5.4 10^3/uL (4.4-10.8)
[2023-11-16 07:19] LABS: Alanine Aminotransferase 39 U/L (7-40); Albumin 3.4 g/dL (3.2-4.8); Alkaline Phosphatase 91 U/L (46-116); Anion Gap 5 (5-15); Aspartate Aminotransferase 45 U/L (13-40); BUN/Creatinine Ratio 6.4 (10.0-20.0); Blood Urea Nitrogen 6 mg/dL (9-23); Calcium 9.7 mg/dL (8.7-10.4); Carbon Dioxide 29 mmol/L (20-30); Chloride 107 mmol/L (98-107); Glucose 106 mg/dL (74-106); Potassium 3.8 mmol/L (3.5-5.1); Sodium 141 mmol/L (136-145)
[2023-11-16 07:20] LABS: Bilirubin, Total 0.2 mg/dL (0.2-1.0)
[2023-11-16] MEDS ORDERED: METR-344 PO (13:08)
[2023-11-16] MEDS ORDERED: LACT10SO3 PO (13:08)
[2023-11-16] MEDS ORDERED: METO-281 PO (13:08)
[2023-11-17] VITALS (7 sets, daily range): BP systolic 111–149; BP diastolic 59–83; PULSE 60–72; RESP 17–20; TEMP 97.9–98.4; O2SAT 92–94
[2023-11-17 05:49] LABS: Chloride 108 mmol/L (98-107); Potassium 3.8 mmol/L (3.5-5.1); Sodium 140 mmol/L (136-145)
[2023-11-17 05:50] LABS: Anion Gap 5 (5-15); Calcium 9.3 mg/dL (8.7-10.4); Carbon Dioxide 27 mmol/L (20-30)
[2023-11-17 05:55] LABS: BUN/Creatinine Ratio 5.8 (10.0-20.0); Blood Urea Nitrogen 6 mg/dL (9-23); Glucose 99 mg/dL (74-106)
[2023-11-17 06:00] LABS: Basophils # (auto) 0 10 ^3/uL (0-0.2); Basophils % (auto) 0.6 % (0.0-2.0); Eosinophils # (auto) 0.2 10 ^3/uL (0-0.8); Eosinophils % (auto) 3.7 % (0.0-7.0); Hematocrit 35.2 % (36.0-46.0); Hemoglobin 11.4 g/dL (12.2-16.2); Lymphocytes # (auto) 1.6 10 ^3/uL (0.4-5.4); Lymphocytes % (auto) 31.6 % (10.0-50.0); Mean Corpuscular Hemoglobin 30.9 pg (28.0-32.0); Mean Corpuscular Hgb Conc. 32.5 g/dL (32.0-36.0); Monocytes # (auto) 0.4 10 ^3/uL (0-1.3); Monocytes % (auto) 7.7 % (0.0-12.0); Neutrophils # (auto) 2.9 10 ^3/uL (1.6-8.6); Neutrophils % (auto) 56.4 % (37.0-80.0); Nucleated Red Blood Cells % 0.1 %; Platelet Count (auto) 135 10^3/uL (140-450); Red Cell Distribution Width 15.5 % (11.8-14.3); White Blood Cell 5.1 10^3/uL (4.4-10.8)
[2023-11-18] VITALS (7 sets, daily range): BP systolic 121–143; BP diastolic 73–80; PULSE 56–66; RESP 14–18; TEMP 97.9–98.9; O2SAT 92–99
[2023-11-19 01:00] VITALS: BP 140/79; PULSE 69; RESP 18; TEMP 98; O2SAT 92
[2023-11-19 05:00] VITALS: BP 138/81; PULSE 59; RESP 18; TEMP 97.9; O2SAT 94
[2023-11-19 08:10] VITALS: PULSE 64; RESP 16; O2SAT 95
[2023-11-19 09:00] VITALS: BP 126/69; PULSE 56; RESP 18; TEMP 98.1; O2SAT 95
[2023-11-19 12:54] VITALS: BP 113/71; PULSE 70; RESP 16; TEMP 98.3; O2SAT 93
[2023-11-19] MEDS: LACTULOSE 20Gm/30ML SOLN PO ONE (13:45)
[2023-11-19 16:39] VITALS: BP 117/66; PULSE 60; RESP 18; TEMP 98.2; O2SAT 96
== END 2023-11-19 18:40 | disposition home or self-care (01) | DRG 249 ==
LOC: ER 15:44 → OVERFLOW 22:39 → CENTRAL 11-11 03:00
PROVIDERS: ADMIT Nurse Practitioner; ATTEND Nurse Practitioner
PROC: 05HB33Z Insertion of Infusion Device into Right Basilic Vein, Percutaneous Approach (ICD-10-PCS; principal; 2023-11-10)
PROC: B54MZZA Ultrasonography of Right Upper Extremity Veins, Guidance (ICD-10-PCS; 2023-11-10)
DX: K52.9 Noninfective gastroenteritis and colitis, unspecified (principal); I24.89 Other forms of acute ischemic heart disease; I50.32 Chronic diastolic (congestive) heart failure; I11.0 Hypertensive heart disease with heart failure; I69.351 Hemiplegia and hemiparesis following cerebral infarction affecting right dominant side; K57.30 Diverticulosis of large intestine without perforation or abscess without bleeding; I25.10 Atherosclerotic heart disease of native coronary artery without angina pectoris; K59.00 Constipation, unspecified; E11.9 Type 2 diabetes mellitus without complications; E78.5 Hyperlipidemia, unspecified; B19.20 Unspecified viral hepatitis C without hepatic coma; E87.6 Hypokalemia; E86.0 Dehydration; Z85.05 Personal history of malignant neoplasm of liver; Z95.1 Presence of aortocoronary bypass graft; Z90.49 Acquired absence of other specified parts of digestive tract; Z79.4 Long term (current) use of insulin; Z79.899 Other long term (current) drug therapy
CPT/HCPCS: 36415; 70450; 71045; 71250; 71260; 74018; 74176; 74177; 80048; 80053; 80076; 81001; 82105; 83605; 83690; 83735; 83880; 84484; 85025; 86038; 86704; 86706; 86708; 86803; 87045; 87340; 87427; 87493; 93005; 93306; 93971; 96365; G0378; J1956; J2405; J2470; J3480; J3490

== ENCOUNTER 2023-11-20 17:08 | Inpatient (IN) | payer MEDICARE, MEDICAID ==
[~2023-11-20] VITALS: Ht 172.7 cm; Wt 74.5 kg
[~2023-11-20 17:08] MED LIST changes: -AMLO1TAB23 PO; -ASPI1TAB19 PO; +LACT10SO3 PO; +METO-281 PO; +METR-344 PO; +NIFE1TAB31 PO; +SERT-206 PO; -TIZA2CAP7 PO; +ZOLP10TA6 PO
[2023-11-20 17:42] VITALS: BP 152/80; PULSE 100; RESP 16; O2SAT 97
[2023-11-20] MEDS ORDERED: FAMOTIDINE (10MG/ML) 2ML VL IV ONE (18:15)
[2023-11-20] MEDS ORDERED: MORPHINE SULFATE 4 MG/ML SYR/VIAL IV ONE (18:15)
[2023-11-20] MEDS ORDERED: ONDANSETRON HCL 4 MG/2 ML VIAL IV ONE (18:15)
[2023-11-20] MEDS ORDERED: SODIUM CHLORIDE 0.9% 1,000 ML IV ONE (18:15)
[2023-11-20 18:50] LABS: Basophils # (auto) 0 10 ^3/uL (0-0.2); Basophils % (auto) 0.3 % (0.0-2.0); Eosinophils # (auto) 0 10 ^3/uL (0-0.8); Eosinophils % (auto) 0.2 % (0.0-7.0); Hematocrit 41.5 % (36.0-46.0); Lymphocytes # (auto) 0.9 10 ^3/uL (0.4-5.4); Lymphocytes % (auto) 11.6 % (10.0-50.0); Mean Corpuscular Hemoglobin 30.8 pg (28.0-32.0); Mean Corpuscular Hgb Conc. 33.6 g/dL (32.0-36.0); Mean Corpuscular Volume 91.7 fL (80.0-100.0); Monocytes # (auto) 0.5 10 ^3/uL (0-1.3); Monocytes % (auto) 6.8 % (0.0-12.0); Neutrophils # (auto) 6.5 10 ^3/uL (1.6-8.6); Neutrophils % (auto) 81.1 % (37.0-80.0); Platelet Count (auto) 252 10^3/uL (140-450); Red Blood Cells 4.53 10^6/uL (4.0-5.20); Red Cell Distribution Width 15.6 % (11.8-14.3)
[2023-11-20 19:32] LABS: Alanine Aminotransferase 48 U/L (7-40); Albumin 4.8 g/dL (3.2-4.8); Alkaline Phosphatase 121 U/L (46-116); Anion Gap 13 (5-15); Aspartate Aminotransferase 49 U/L (13-40); BUN/Creatinine Ratio 7.1 (10.0-20.0); Bilirubin, Total 0.2 mg/dL (0.2-1.0); Blood Urea Nitrogen 8 mg/dL (9-23); Calcium 10.5 mg/dL (8.7-10.4); Carbon Dioxide 22 mmol/L (20-30); Chloride 103 mmol/L (98-107); Glucose 124 mg/dL (74-106); Potassium 3.1 mmol/L (3.5-5.1); Sodium 138 mmol/L (136-145)
[2023-11-20 19:42] LABS: Total Protein 8.3 g/dL (5.7-8.2)
[2023-11-20 19:57] LABS: Lipase 39 U/L (12-53)
[2023-11-20] MEDS ORDERED: POTASSIUM CHL 20 Meq TABLET PO ONE (22:00)
[2023-11-21] MEDS ORDERED: hydrALAZINE HCL 20 MG/ML VL IV PRN
[2023-11-21] MEDS ORDERED: ONDANSETRON HCL 4 MG/2 ML VIAL IV PRN
[2023-11-21] MEDS ORDERED: DOCUSATE SOD 100 MG CAP PO PRN
[2023-11-21] MEDS ORDERED: MORPHINE SULFATE INJ 2 MG/ml SYRG IV PRN ×2
[2023-11-21] MEDS ORDERED: IBUPROFEN 600 MG TAB PO PRN
[2023-11-21] MEDS ORDERED: NITROGLYCERIN 0.4 MG SL TAB SL PRN
[2023-11-21] MEDS ORDERED: HYDROcodone-ACET 5/325MG TAB PO PRN
[2023-11-21] MEDS ORDERED: DEXTROSE (50%) 50ML SYRG IV PRN
[2023-11-21] MEDS ORDERED: SODIUM CHLOR 0.9% PF (SALINE LOCK) 10ML VIAL/SYR IV SCH (06:00)
[2023-11-21] MEDS ORDERED: InsuLIN REG 1unit/0.01ml Soln (100units/ml) SC SCH (07:00)
[2023-11-21] MEDS ORDERED: ACCU-CHEK COMFORT CURVE STRIP VI SCH (07:00)
[2023-11-21] MEDS ORDERED: amLODIPine BESYLATE 5 MG TAB PO SCH (10:00)
[2023-11-21] MEDS ORDERED: ASPirin 81 mg TAB PO SCH (10:00)
[2023-11-21] MEDS ORDERED: METOPROLOL TARTRATE 25 MG TAB PO SCH (10:00)
[2023-11-21] MEDS ORDERED: ATORVASTATIN 20 MG TAB PO SCH (22:00)
== END 2023-11-21 03:18 | disposition left against medical advice (07) | DRG 251 ==
LOC: ER 17:08 → TELE 11-21 00:02 → UNDODEPER 11-21 03:19
PROVIDERS: ADMIT Nurse Practitioner Family; ATTEND Nurse Practitioner Family
DX: R10.10 Upper abdominal pain, unspecified (principal); I11.0 Hypertensive heart disease with heart failure; I50.9 Heart failure, unspecified; E11.9 Type 2 diabetes mellitus without complications; E87.6 Hypokalemia; E78.5 Hyperlipidemia, unspecified; Z86.73 Personal history of transient ischemic attack (TIA), and cerebral infarction without residual deficits; Z95.1 Presence of aortocoronary bypass graft; I25.2 Old myocardial infarction; Z90.49 Acquired absence of other specified parts of digestive tract; Z86.711 Personal history of pulmonary embolism; R19.7 Diarrhea, unspecified; R11.2 Nausea with vomiting, unspecified
CPT/HCPCS: 36415; 74176; 80053; 83690; 85025; 93005; G0378

== ENCOUNTER → 2023-12-31 | Outpatient (CLI) | payer MEDICARE, MEDICAID ==
[2023-12-31 10:50] VITALS: BP 93/60; PULSE 75; RESP 18; O2SAT 95
[2023-12-31] MEDS: MAALOX PLUS or MAALOX 30 ML PO ONE (10:50)
[2023-12-31] MEDS: DONNATAL 5ml ORAL Elix (BELLADONNA ALK-PHENOBARB) PO ONE (10:50)
[2023-12-31] MEDS: LIDOCAINE VISCOUS 2% 15ML UD MT ONE (10:50)
[2023-12-31] MEDS: DONNATAL 5ml ORAL Elix (BELLADONNA ALK-PHENOBARB) ONE (11:06)
[2023-12-31] MEDS: MAALOX PLUS or MAALOX 30 ML ONE (11:06)
[2023-12-31] MEDS: LIDOCAINE VISCOUS 2% 15ML UD ONE (11:06)
[2023-12-31 11:20] VITALS: BP 98/55; PULSE 67; RESP 18; O2SAT 96
== END | disposition home or self-care (01) ==
LOC: CHF HDHVI 10:53
PROVIDERS: ATTEND Internal Medicine Cardiovascular Disease
DX: I50.9 Heart failure, unspecified (principal); R10.30 Lower abdominal pain, unspecified
CPT/HCPCS: G0463

== ENCOUNTER 2024-05-13 10:06 | Emergency (ER) | payer MEDICARE, MEDICAID ==
[~2024-05-13] VITALS: Ht 172.7 cm; Wt 72.5 kg
[2024-05-13 10:27] VITALS: PULSE 85; RESP 14; O2SAT 96
[2024-05-13] MEDS: cloNIDine HCL 0.1 MG TAB PO ONE ×2 (10:32→11:33)
[2024-05-13] MEDS: ACETAMINOPHEN 325 MG TAB PO ONE (10:51)
--- NOTE | 2024-05-13 11:17 | ED.PDOC ---
History of Present Illness HPI Comments 69-year-old female who comes in with chief complaint of elevated blood pressure. The patient states that she was at home and started getting some dizziness as well as a headache. The patient had an episode of vomiting last night. The patient was noncompliant with her medications as off late because she ran out of her medications. She typically takes clonidine 0.3 mg twice a day as well as Norvasc 10 mg q.day. ran out of her medications on Friday night. She was recently released from the hospital for CHF. Chief Complaint: High Blood Pressure Time Seen by MD: 10:26 Primary Care Provider: ELICIA Reviewed Notes: Nurses Notes, Medications, Allergies (No allergies to medications) Allergies: Coded Allergies: NO KNOWN ALLERGIES (Unverified , 04/09/23) Home Meds Active Scripts Lactulose (Lactulose) 10 Gm/15 Ml Nohemi, 10 GM PO TID for 30 Days, #450 ML Prov:BERTHA MURGUIA [facility] 11/16/23 Metoclopramide Hcl (Reglan) 10 Mg Tab, 10 MG PO BID for 14 Days, #28 TAB Prov:BERTHA MURGUIA [facility] 11/16/23 Metronidazole (Flagyl) 500 Mg Tab, 1 TAB PO BID for 14 Days, #28 TAB Prov:BERTHA MURGUIA [facility] 11/16/23 Reported Medications Atorvastatin Calcium (Lipitor) 40 Mg Tab, 1 TAB PO DAILY for 30 Days, #30 5 Refills 11/13/23 Metoprolol Succinate (Metoprolol Succinate Er) 25 Mg Tab, 1 TAB PO DAILY for 30 Days, #30 11/13/23 Hydralazine Hcl (Hydralazine Hcl) 10 Mg Tab, 1 TAB PO TID for 90 Days, #270 11/13/23 Potassium Chloride (Potassium Chloride ER) 20 Meq Tab, 1 TAB PO DAILY for 30 Days, #30 11/13/23 Ondansetron Odt 4MG Tab (ZOFRAN PO) 4 Mg Tb, 1 TAB PO DAILY for 90 Days, #90 ODT TAB-DISSOLVE IN MOUTH, THEN SWALLOW 11/13/23 Sumatriptan Succinate (Sumatriptan Succinate) 50 Mg Tab, 1 TAB PO PRN for 3 Days, #6 11/13/23 Aspirin (Aspirin Low Dose) 81 Mg Chw, 1 TAB PO DAILY for 90 Days, #90 11/13/23 Tizanidine Hydrochloride (Tizanidine Hcl) 2 Mg Tab, 1 TAB PO TID for 90 Days, #270 11/10/23 Amlodipine Besylate (Amlodipine Besylate) 5 Mg Tab, 1 TAB PO DAILY for 90 Days, #90 11/10/23 Nifedipine (Nifedipine Er) 30 Mg Tab, 1 TAB PO BID 11/10/23 Zolpidem Tartrate (Zolpidem Tartrate) 10 Mg Tab, 1 TAB PO QHSP PRN 11/10/23 Sertraline Hcl (Sertraline Hcl) 50 Mg Tab, 1 TAB PO DAILY 11/10/23 Calcium Acetate (Phosphate Bin (Calcium Acetate) 667 Mg Cap, 1 CAP PO TIDWM for SUPPLEMENT WITH MEALS 04/10/23 Sacubitril-Valsartan (Entresto 24-26 mg) 1 Tab Tab, 1 TAB PO BID for HYP ERTENSION 04/10/23 Clonidine Hydrochloride (Clonidine Hydrochloride) 0.3 Mg Tab, 1 TAB PO BID for HYPERTENSION 04/10/23 Onjntni-Glmhremuimxpx-Lrtgjuum (Excedrin Migraine) Migraine Tab, 1 TAB PO Q8HR PRN for MIGRAINE HEADACHE 04/10/23 Furosemide (Lasix) 20 Mg Tb, 1 TAB PO DAILY for PERPHERAL EDEMA for 90 Days, #90 12/11/21 Information Source: Patient Mode of Arrival: Ambulatory Severity: Mild Timing: Hours Duration: Since onset Prehospital treatment: None Associated signs and symptoms Dizziness with headache and one episode of vomiting Past Medical History PAST MEDICAL HISTORY: Cancer, CHF, CVA, DM, High Lipids, HTN, Liver, [place], PE Surgical History: Appendectomy, CABG, Cholecystectomy, Tonsillectomy Surgical History (Other): Aortic surgery, right leg surgery 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 LAY 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 WORKER History Family History Family History: Family hx of Cancer Social History Smoker: Non-Smoker Alcohol: Denies ETOH Use Drugs: Denies Drug Use Lives In: Home Constitutional: denies: chills, diaphoresis, fatigue, fever, malaise, sweats, weakness, others EENTM: denies: blurred vision, double vision, ear bleeding, ear discharge, ear drainage, ear pain, ear ringing, eye pain, eye redness, hearing loss, mouth pain, mouth swelling, nasal discharge, nose bleeding, nose congestion, nose pain, photophobia, tearing, throat pain, throat swelling, voice changes, others Respiratory: denies: cough, hemoptysis, orthopnea, SOB at rest, shortness of breath, SOB with excertion, stridor, wheezing, others Cardiovascular: denies: chest pain, dizzy spells, diaphoresis, Dyspnea on exertion, edema, irregular heart beat, left arm pain, lightheadedness, p alpitations, PND, syncope, others Gastrointestinal: reports: nausea, vomiting; denies: abdomen distended, abdominal pain, blood streaked bowels, constipated, diarrhea, dysphagia, difficulty swallowing, hematemesis, melena, poor appetite, poor fluid intake, rectal bleeding, rectal pain, others Genitourinary: denies: abnormal vagina bleeding, burning, dyspareunia, dysuria, flank pain, frequency, hematuria, incontinence, pain, , vagina discharge, urgency, others Neurological: reports: dizziness, headache; denies: fainting, left sided numbness, left sided weakness, numbness, paresthesia, pre-existing deficit, right sided numbness, right sided weakness, seizure, speech problems, tingling, tremors, weakness, others Musculoskeletal: denies: back pain, gout, joint pain, joint swelling, muscle pain, muscle stiffness, neck pain, others Integumetry: denies: bruises, change in color, change in hair/nails, dryness, laceration, lesions, lumps, rash, wounds, others Allergic/Immunocompromised: denies: Difficulty Healing, Frequent Infections, Hives, Itching, others Hematologic/Lymphatic: denies: anemia, blood clots, easy bleeding, easy bruising, swollen glands, others Endocrine: denies: excessive hunger, excessive sweating, excessive thirst, excessive urination, flushing, intolerance to cold, intolerance to heat, unexplained weight gain, unexplained weight loss, others Psychiatric: denies: anxiety, bipolar disorder, depression, hopeless, panic disorder, schizophrenia, sleepless, suicidal, others Physical Exam General Appearance: No Apparent Distress HEENT: Normal ENT Inspection, Pharynx Normal, TMs Normal Neck: Full Range of Motion, Non-Tender, Normal, Normal Inspection Respiratory: Chest Non-Tender, Lungs Clear, No Accessory Muscle Use, No Respiratory Distress, Normal Breath Sounds Cardiovascular: No Edema, No JVD, No Murmur, No Gallop, Normal Peripheral Pulses, Regular Rate/Rhythm Breast Exam: Deferred Gastrointestinal: No Organomegaly, Non Tender, No Pulsatile Mass, Normal Bowel Sounds, Soft Genitalia: Deferred Pelvic: Deferred Rectal: Deferred Extremities: No calf tenderness, Normal capillary refill, Normal inspection, Normal range of motion, Non-tender, No pedal edema Musculoskeletal : Apperance: Normal Neurologic: Alert, courier II-XII nml as Tested, No Motor Deficits, Normal Affect, Normal Mood, No Sensory Deficits Cerebellar Function: Normal Reflexes: Normal Skin: Dry, Normal Color, Warm Lymphatic: No Adenopathy Was a procedure done? Was a procedure done?: No Differential Dx Considerations may include: Hypertensive urgency, generalized weakness X-Ray, Labs, Meds, VS Vital Signs Date Time Temp Pulse Resp B/P (MAP) Pulse Ox O2 Delivery O2 Flow Rate FiO2 05/13/24 11:33 214/126 05/13/24 11:22 214/126 05/13/24 10:32 188/118 05/13/24 10:27 85 14 96 Room Air* 0 21 05/13/24 10:26 98.3 94 18 188/109 (135) 98 Current Medications Medications (Trade) Dose Ordered Sig/Aranza Route Start Time Stop Time Status Last Admin Clonidine HCl (Catapres Tablet) 0.2 mg ONCE ONCE PO 05/13/24 10:30 05/13/24 10:31 DC 05/13/24 10:32 Acetaminophen (Tylenol Tablet) 650 mg ONCE ONCE PO 05/13/24 10:45 05/13/24 10:46 DC 05/13/24 10:51 Clonidine HCl (Catapres Tablet) 0.1 mg ONCE ONCE PO 05/13/24 11:30 05/13/24 11:31 DC 05/13/24 11:33 The patient was given clonidine 0.2 mg here in the emergency department's The patient was also given acetaminophen 650 mg by mouth for the headache At this time, the patient is being discharged The patient was given an additional clonidine at 0.1 mg p.o. They are recently the patient was medications The patient was discharged Time of 1ST Reevaluation: 11:16 Reevaluation 1ST: Unchanged Patient Education/Counseling: Diagnosis, Treatment, Prognosis, Need For Follow Up Family Education/Counseling: No Family Present Departure 1 Departure Time of Disposition: 12:16 Impression: Primary Impression: Hypertensive urgency Disposition: 01 HOME / SELF CARE / HOMELESS Condition: Fair Discharged With: Self Critical Care Note Critical Care Time?: No Stability Stability form required: No Heart Score Heart Score: Heart Score Response (Comments) Value History N/A 0 EKG N/A 0 Age N/A 0 Risk Factors N/A 0 Troponin N/A 0 Total 0 LITO BRAVO MD May 13, 2024 11:17
[2024-05-13 12:19] VITALS: BP 146/95; PULSE 80; RESP 19; O2SAT 99
[2024-05-13] MEDS ORDERED: CLON0.2T PO (13:37)
[2024-05-13] MEDS ORDERED: AML5T PO (13:37)
== END 2024-05-13 12:30 | disposition home or self-care (01) ==
LOC: ER 10:06
DX: I16.0 Hypertensive urgency (principal); I11.0 Hypertensive heart disease with heart failure; I50.9 Heart failure, unspecified; E11.9 Type 2 diabetes mellitus without complications; E78.5 Hyperlipidemia, unspecified; I25.2 Old myocardial infarction; Z86.73 Personal history of transient ischemic attack (TIA), and cerebral infarction without residual deficits; Z90.49 Acquired absence of other specified parts of digestive tract; Z90.89 Acquired absence of other organs; Z95.1 Presence of aortocoronary bypass graft; Z79.82 Long term (current) use of aspirin; Z79.899 Other long term (current) drug therapy

== ENCOUNTER 2024-07-08 17:20 | Inpatient (IN) | payer MEDICARE, MEDICAID ==
[~2024-07-08] VITALS: Ht 172.7 cm; Wt 75.2 kg
[~2024-07-08 17:20] MED LIST changes: +AML5T PO; +CLON0.2T PO; +CLON0.3T PO; +FURO40TA4 PO; +HYDR-4072 PO; +HYOS0.1220 PO; +PANT40T PO; +PREG100C66 PO; +SACU1TAB7 PO; +SUCR1TAB PO; +VONO20TA PO
--- NOTE | 2024-07-08 18:16 | ED.PDOC ---
GI ASSESSMENT HPI Comments 69-year-old female with a history of hypertension, peptic ulcer disease and liver cancer in remission brought in by family complaining of epigastric pain, nausea and vomiting since last night. Patient states she has been out of her medications which include [place] and blood pressure medication for the last 2 days. She denies fever, diarrhea, constipation or urinary symptoms. She denies chest pain or shortness of breath. Chief Complaint: Abdominal Pain Time Seen by MD: 17:55 Primary Care Provider: ELICIA Reviewed Notes: Nurses Notes, Medications, Allergies Allergies: Coded Allergies: NO KNOWN ALLERGIES (Unverified , 04/09/23) Home Meds Active Scripts Clonidine Hydrochloride (Clonidine Hcl) 0.2 Mg Tab, 0.3 MG PO BID, #90 TAB Prov:LITO BRAVO MD 05/13/24 Amlodipine Besylate (NORVASC TABLET) 5 Mg Tb, 2 TAB PO DAILY, #90 TAB 1 Refill Prov:LITO BRAVO MD 05/13/24 Lactulose (Lactulose) 10 Gm/15 Ml Nohemi, 10 GM PO TID for 30 Days, #450 ML Prov:BERTHA MURGUIA [facility] 11/16/23 Metoclopramide Hcl (Reglan) 10 Mg Tab, 10 MG PO BID for 14 Days, #28 TAB Prov:BERTHA MURGUIA [facility] 11/16/23 Metronidazole (Flagyl) 500 Mg Tab, 1 TAB PO BID for 14 Days, #28 TAB Prov:BERTHA MURGUIA [facility] 11/16/23 Reported Medications Atorvastatin Calcium (Lipitor) 40 Mg Tab, 1 TAB PO DAILY for 30 Days, #30 5 Refills 11/13/23 Metoprolol Succinate (Metoprolol Succinate Er) 25 Mg Tab, 1 TAB PO DAILY for 30 Days, #30 11/13/23 Hydralazine Hcl (Hydralazine Hcl) 10 Mg Tab, 1 TAB PO TID for 90 Days, #270 11/13/23 Potassium Chloride (Potassium Chloride ER) 20 Meq Tab, 1 TAB PO DAILY for 30 Days, #30 11/13/23 Ondansetron Odt 4MG Tab (ZOFRAN PO) 4 Mg Tb, 1 TAB PO DAILY for 90 Days, #90 ODT TAB-DISSOLVE IN MOUTH, THEN SWALLOW 11/13/23 Sumatriptan Succinate (Sumatriptan Succinate) 50 Mg Tab, 1 TAB PO PRN for 3 Days, #6 11/13/23 Aspirin (Aspirin Low Dose) 81 Mg Chw, 1 TAB PO DAILY for 90 Days, #90 11/13/23 Tizanidine Hydrochloride (Tizanidine Hcl) 2 Mg Tab, 1 TAB PO TID for 90 Days, #270 11/10/23 Amlodipine Besylate (Amlodipine Besylate) 5 Mg Tab, 1 TAB PO DAILY for 90 Days, #90 11/10/23 Nifedipine (Nifedipine Er) 30 Mg Tab, 1 TAB PO BID 11/10/23 Zolpidem Tartrate (Zolpidem Tartrate) 10 Mg Tab, 1 TAB PO QHSP PRN 11/10/23 Sertraline Hcl (Sertraline Hcl) 50 Mg Tab, 1 TAB PO DAILY 11/10/23 Calcium Acetate (Phosphate Bin (Calcium Acetate) 667 Mg Cap, 1 CAP PO TIDWM for SUPPLEMENT WITH MEALS 04/10/23 Sacubitril-Valsartan (Entresto 24-26 mg) 1 Tab Tab, 1 TAB PO BID for HYPERTENSION 04/10/23 Clonidine Hydrochloride (Clonidine Hydrochloride) 0.3 Mg Tab, 1 TAB PO BID for HYPERTENSION 04/10/23 Qgjcycj-Txyyvwkzjpjdn-Fgxcnafq (Excedrin Migraine) Migraine Tab, 1 TAB PO Q8HR PRN for MIGRAINE HEADACHE 04/10/23 Furosemide (Lasix) 20 Mg Tb, 1 TAB PO DAILY for PERPHERAL EDEMA for 90 Days, #90 12/11/21 Information Source: Patient Mode of Arrival: Ambulatory Timing: Days Duration: Since onset Prehospital treatment: None Quality: Cramping Vomitus: Watery Stool: Normal Severity: Moderate Recent: None Recent Hx of: None Pain Location: Diffuse Modifying Factors: Nothing Associated sign and symptoms: Nausea, Vomiting Past Medical History PAST MEDICAL HISTORY: Cancer (Liver cancer in remission), CHF, CVA, DM, High Lipids, HTN, Liver, [place], PE Surgical History: Appendectomy, CABG, Cholecystectomy, Tonsillectomy Surgical History (Other): Aortic surgery 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 AIR ANTISUBMARINE OFFICER History Family History Family History: Family hx of Cancer Social History Smoker: Non-Smoker Alcohol: Denies ETOH Use Drugs: Denies Drug Use Lives In: Home Constitutional: denies: chills, diaphoresis, fatigue, fever, malaise, sweats, weakness, others EENTM: denies: blurred vision, double vision, ear bleeding, ear discharge, ear drainage, ear pain, ear ringing, eye pain, eye redness, hearing loss, mouth pain, mouth swelling, nasal discharge, nose bleeding, nose congestion, nose pain, photophobia, tearing, throat pain, throat swelling, voice changes, others Respiratory: denies: cough, hemoptysis, orthopnea, SOB at rest, shortness of breath, SOB with excertion, stridor, wheezing, others Cardiovascular: denies: chest pain, dizzy spells, diaphoresis, Dyspnea on exertion, edema, irregular heart beat, left arm pain, lightheadedness, palpitations, PND, syncope, others Gastrointestinal: reports: abdominal pain, nausea, vomiting; denies: abdomen distended, blood streaked bowels, constipated, diarrhea, dysphagia, difficulty swallowing, hematemesis, melena, poor appetite, poor fluid intake, rectal bleeding, rectal pain, others Genitourinary: denies: abnormal vagina bleeding, burning, dyspareunia, dysuria, flank pain, frequency, hematuria, incontinence, pain, , vagina discharge, urgency, others Neurological: denies: dizziness, fainting, headache, left sided numbness, left sided weakness, numbness, paresthesia, pre-existing deficit, right sided numbness, right sided weakness, seizure, speech problems, tingling, tremors, weakness, others Musculoskeletal: denies: back pain, gout, joint pain, joint swelling, muscle pain, muscle stiffness, neck pain, others Integumetry: denies: bruises, change in color, change in hair/nails, dryness, laceration, lesions, lumps, rash, wounds, others Allergic/Immunocompromised: denies: Difficulty Healing, Frequent Infections, Hives, Itching, others Hematologic/Lymphatic: denies: anemia, blood clots, easy bleeding, easy bruising, swollen glands, others Endocrine: denies: excessive hunger, excessive sweating, excessive thirst, excessive urination, flushing, intolerance to cold, intolerance to heat, unexplained weight gain, unexplained weight loss, others Psychiatric: denies: anxiety, bipolar disorder, depression, hopeless, panic disorder, schizophrenia, sleepless, suicidal, others All Other Systems: Reviewed and Negative Physical Exam General Appearance: Moderate Distress HEENT: Other (Pupils and face symmetric. Moist mucous membranes.) Neck: Full Range of Motion, Normal Inspection Respiratory: Lungs Clear, No Accessory Muscle Use, No Respiratory Distress, Nor mal Breath Sounds Cardiovascular: No Edema, No JVD, Regular Rate/Rhythm Breast Exam: Deferred Gastrointestinal: Epigastric, LUQ, Soft, Tenderness Genitalia: Deferred Pelvic: Deferred Rectal: Deferred Extremities: Normal inspection, Normal range of motion, Non-tender, No pedal edema Neurologic: Alert (Oriented x4), Normal Affect, Normal Mood, Other (Ambulatory without difficulty) Cerebellar Function: NOT DONE Reflexes: NOT DONE Skin: Dry, Normal Color, Warm Lymphatic: NOT DONE EKG EKG : Comments Sinus rhythm, rate 78, normal intervals, right axis deviation, possible old anteroseptal infarct, inferior and lateral T-wave inversion with ST depression Was a procedure done? Was a procedure done?: No GI differential Dx Differential Diagnosis: Angina/DC, Bowel Obstruction, Esophagitis, Gastritis/PUD, Gastroenteritis, Inflammatory BD, Ischemic Bowel, Pancreatitis, UTI, Dehydration, Diabetes/ DKA, Electrolyte Imbalance, Food Poisoning, Bacterial, Viral, Hypovolemia, Impaction, Stress Ulcer X-Ray, Labs, Meds, VS Vital Signs Date Time Temp Pulse Resp B/P (MAP) Pulse Ox O2 Delivery O2 Flow Rate FiO2 07/08/24 20:49 74 14 205/84 07/08/24 20:38 197/108 07/08/24 20:08 76 16 197/108 07/08/24 19:50 76 16 95 Room Air* 0 21 07/08/24 19:50 98.0 76 16 197/108 (137) 95 98.0 07/08/24 17:55 78 07/08/24 17:50 99.1 88 17 176/95 (122) 98 99.1 Lab Test 07/08/24 20:00 07/08/24 18:21 Range/Units Urine Color Light-brown Yellow Urine Clarity Ex.turbid Clear Urine pH 5.5 5.0-9.0 Urine Specific [place] 1.016 1.001-1.035 Urine Protein 2+ H Negative Urine Ketones Negative Negative Urine Blood 1+ H Negative /uL Urine Nitrite Negative Negative Urine Bilirubin Negative Negative Urine Urobilinogen Normal Negative mg/dL Urine Leukocyte Esterase 3+ Negative /uL Urine RBC 13 0 - 4 /hpf Urine WBC Clumps Present None Seen /hpf Urine Microscopic WBC 2320 H 0-5 /HPF Urine Squamous Epithelial Cells Few <5 /hpf Urine Bacteria None seen None Seen /hpf Urine Yeast (Budding) Many None Seen /hpf Urine Glucose 2+ H Normal mg/dL White Blood Count 6.0 4.4-10.8 10^3/uL Red Blood Count 4.51 4.0-5.20 10^6/uL Hemoglobin 13.4 12.2-16.2 g/dL Hematocrit 41.3 36.0-46.0 % Mean Corpuscular Volume 91.6 80.0-100.0 fL Mean Corpuscular Hemoglobin 29.8 28.0-32.0 pg Mean Corpuscular Hemoglobin Concent 32.5 32.0-36.0 g/dL Red Cell Distribution Width 16.8 H 11.8-14.3 % Platelet Count 211 140-450 10^3/uL Mean Platelet Volume 8.2 6.9-10.8 fL Neutrophils (%) (Auto) 60.7 37.0-80.0 % Lymphocytes (%) (Auto) 31.5 10.0-50.0 % Monocytes (%) (Auto) 6.7 0.0-12.0 % Eosinophils (%) (Auto) 0.7 0.0-7.0 % Basophils (%) (Auto) 0.4 0.0-2.0 % Neutrophils # (Auto) 3.7 1.6-8.6 10 ^3/uL Lymphocytes # (Auto) 1.9 0.4-5.4 10 ^3/uL Monocytes # (Auto) 0.4 0-1.3 10 ^3/uL Eosinophils # (Auto) 0 0-0.8 10 ^3/uL Basophils # (Auto) 0 0-0.2 10 ^3/uL Nucleated Red Blood Cells 0.0 % Sodium Level 144 136-145 mmol/L Potassium Level 3.8 3.5-5.1 mmol/L Chloride Level 110 H 98-107 mmol/L Carbon Dioxide Level 24 20-31 mmol/L Anion Gap 10 5-15 Blood Urea Nitrogen 24 H 9-23 mg/dL Creatinine 1.29 H 0.550-1.02 mg/dL Glomerular Filtration Rate Calc 45 >90 mL/min BUN/Creatinine Ratio 18.6 10.0-20.0 Serum Glucose 100 74-106 mg/dL Lactic Acid Level 1.6 0.4-2.0 mmol/L Calcium Level 9.9 8.7-10.4 mg/dL Total Bilirubin 0.2 0.2-1.0 mg/dL Aspartate Amino Transferase (AST) 29 13-40 U/L Alanine Aminotransferase (ALT) 24 7-40 U/L Alkaline Phosphatase 140 H 46-116 U/L Troponin I High Sensitivity 8 </=34 ng/L B-Type Natriuretic Peptide 263.29 0-100 pg/mL Total Protein 7.6 5.7-8.2 g/dL Albumin 4.6 3.2-4.8 g/dL Lipase 45 12-53 U/L Current Medications Medications (Trade) Dose Ordered Sig/Aranza Route Start Time Stop Time Status Last Admin Sodium Chloride 1,000 ml @ 1,000 mls/hr Q1H ONCE IV 07/08/24 18:15 07/08/24 19:14 DC 07/08/24 20:09 Ondansetron HCl (Zofran) 4 mg ONCE ONCE IV 07/08/24 18:15 07/08/24 18:16 DC 07/08/24 20:08 Morphine Sulfate 4 mg ONCE ONCE IV 07/08/24 18:15 07/08/24 18:16 DC 07/08/24 20:08 Pantoprazole Sodium (Protonix) 40 mg ONCE ONCE IV 07/08/24 18:15 07/08/24 18:16 DC 07/08/24 20:09 Hydralazine HCl (Apresoline Injection) 10 mg ONCE ONCE IV 07/08/24 18:15 07/08/24 18:16 DC 07/08/24 20:38 Hydromorphone HCl (Dilaudid Injection) 1 mg ONCE ONCE IV 07/08/24 20:45 07/08/24 20:46 DC 07/08/24 20:49 PROCEDURE(s): ABPL - CT AB PEL WO CON-NO ORAL OR IV REASON: epigastric pain, nausea, vomiting ORDER NUMBER(s): [id number], ACCESSION NUMBER(s): [id number] Exam: CT CT AB PEL WO CON-NO ORAL OR IV History: epigastric pain, nausea, vomiting Comparison Study: CT CT AB PEL WO CON-NO ORAL OR IV on DOS: 11/20/23, CT [facility] AB PEL WO CON-NO IV/ORAL on DOS: 11/10/23 TECHNIQUE: Multidetector CT of the abdomen and pelvis was performed from lung bases to pubic symphysis. Imaging was performed without IV contrast. Axial, coronal, and sagittal multiplanar reformats were obtained from the axial data set by the technologist. RADIATION DOSE: DLP 396.67 mGy.cm; CTDI vol 7.52 mGy. Findings: Limited evaluation given noncontrast technique. Lungs: The lung bases are clear. Heart: No cardiomegaly or pericardial effusion. Liver: Unremarkable. Gallbladder: Cholecystectomy. Spleen: Unremarkable Pancreas: Unremarkable Adrenals: Unremarkable Kidneys: Punctate nonobstructive left nephrolithiasis. Right renal cysts. GI tract: Unremarkable : Unremarkable. Vasculature: Mild aortoiliac atherosclerosis. Lymphadenopathy: Absent Peritoneum: No ascites Musculoskeletal: Unremarkable Soft tissues: Unremarkable Impression: 1. Limited evaluation given noncontrast technique. 2. No acute abdominopelvic abnormalities. 3. Punctate nonobstructive left nephrolithiasis. X-Ray, Labs, Meds, VS Comment 69-year-old female with a history of hypertension, CAD, CHF and peptic ulcer disease complaining of abdominal pain, nausea and vomiting, associated with elevated blood pressure Vitals remarkable for BP 208/94 Exam remarkable for upper abdominal tenderness to palpation and active vomiting Rhythm strip independently interpreted by me: Sinus rhythm, rate 78, no ectopy. CT abdomen and pelvis Impression: 1. Limited evaluation given noncontrast technique. 2. No acute abdominopelvic abnormalities. 3. Punctate nonobstructive left nephrolithiasis. CBC unremarkable, metabolic panel remarkable for BUN 24, creatinine 1.29, BNP 263.29, troponin negative, lipase normal Patient treated with the following in the ED: 1 L 0.9 normal saline IV bolus, morphine 4 mg IV, Zofran 4 mg IV, hydralazine 10 mg IV, Dilaudid 1 mg IV, Rocephin 1 g IV, Diflucan 200 mg p.o., labetalol 10 mg IV On re-evaluation after morphine, patient stated she was still in pain. Dilaudid was ordered. Plan is to admit the patient for pain and emesis control, blood pressure control and IV antibiotics. Time of 1ST Reevaluation: 18:25 Reevaluation 1ST: Unchanged Patient Education/Counseling: Diagnosis, Treatment Family Education/Counseling: No Family Present Departure 1 Departure Time of Disposition: 21:00 Impression: Primary Impression: Upper abdominal pain Additional Impressions: Nausea and vomiting Qualified Codes: R11.2 - Nausea with vomiting, unspecified UTI (urinary tract infection) Qualified Codes: N39.0 - Urinary tract infection, site not specified Hypertensive urgency Disposition: ADMITTED INPATIENT Admit to: Med Surg Condition: Guarded Critical Care Note Critical Care Time?: No Stability Stability form required: No Heart Score Heart Score: Heart Score Response (Comments) Value History N/A 0 EKG N/A 0 Age N/A 0 Risk Factors N/A 0 Troponin N/A 0 Total 0 I personally scribed for KEI HERMAN MD ([email or web address]) on 07/08/24 at 18:16. Electronically submitted by Jesusita Garcia [email or web address]). KEI HERMAN MD Jul 08, 2024 18:16
[2024-07-08 18:35] LABS: Basophils # (auto) 0 10 ^3/uL (0-0.2); Basophils % (auto) 0.4 % (0.0-2.0); Eosinophils # (auto) 0 10 ^3/uL (0-0.8); Eosinophils % (auto) 0.7 % (0.0-7.0); Hematocrit 41.3 % (36.0-46.0); Hemoglobin 13.4 g/dL (12.2-16.2); Lymphocytes # (auto) 1.9 10 ^3/uL (0.4-5.4); Lymphocytes % (auto) 31.5 % (10.0-50.0); Mean Corpuscular Hemoglobin 29.8 pg (28.0-32.0); Mean Corpuscular Hgb Conc. 32.5 g/dL (32.0-36.0); Mean Corpuscular Volume 91.6 fL (80.0-100.0); Monocytes # (auto) 0.4 10 ^3/uL (0-1.3); Monocytes % (auto) 6.7 % (0.0-12.0); Neutrophils # (auto) 3.7 10 ^3/uL (1.6-8.6); Neutrophils % (auto) 60.7 % (37.0-80.0); Platelet Count (auto) 211 10^3/uL (140-450); Red Blood Cells 4.51 10^6/uL (4.0-5.20); Red Cell Distribution Width 16.8 % (11.8-14.3)
[2024-07-08 18:51] LABS: Alanine Aminotransferase 24 U/L (7-40); Albumin 4.6 g/dL (3.2-4.8); Anion Gap 10 (5-15); Aspartate Aminotransferase 29 U/L (13-40); BUN/Creatinine Ratio 18.6 (10.0-20.0); Calcium 9.9 mg/dL (8.7-10.4); Carbon Dioxide 24 mmol/L (20-31); Glucose 100 mg/dL (74-106); Lipase 45 U/L (12-53); Potassium 3.8 mmol/L (3.5-5.1); Sodium 144 mmol/L (136-145); Total Protein 7.6 g/dL (5.7-8.2)
[2024-07-08 18:54] LABS: Alkaline Phosphatase 140 U/L (46-116); Bilirubin, Total 0.2 mg/dL (0.2-1.0); Blood Urea Nitrogen 24 mg/dL (9-23); Chloride 110 mmol/L (98-107)
--- NOTE | 2024-07-08 19:35 | DVH ---
Exam: CT CT AB PEL WO CON-NO ORAL OR IV History: epigastric pain, nausea, vomiting Comparison Study: CT CT AB PEL WO CON-NO ORAL OR IV on DOS: 11/20/23, CT [facility] AB PEL WO CON-NO IV/ORAL on DOS: 11/10/23 TECHNIQUE: Multidetector CT of the abdomen and pelvis was performed from lung bases to pubic symphysi s. Imaging was performed without IV contrast. Axial, coronal, and sagittal multiplanar reformats were obtained from the axial data set by the technologist. RADIATION DOSE: DLP 396.67 mGy.cm; CTDI vol 7.52 mGy. Findings: Limited evaluation given noncontrast technique. Lungs: The lung bases are clear. Heart: No cardiomegaly or pericardial effusion. Liver: Unremarkable. Gallbladder: Cholecystectomy. Spleen: Unremarkable Pancreas: Unremarkable Adrenals: Unremarkable Kidneys: Punctate nonobstructive left nephrolithiasis. Right renal cysts. GI tract: Unremarkable : Unremarkable. Vasculature: Mild aortoiliac atherosclerosis. Lymphadenopathy: Absent Peritoneum: No ascites Musculoskeletal: Unremarkable Soft tissues: Unremarkable Impression: 1. Limited evaluation given noncontrast technique. 2. No acute abdominopelvic abnormalities. 3. Punctate nonobstructive left nephrolithiasis.
[2024-07-08 19:50] VITALS: PULSE 76; RESP 16; O2SAT 95
[2024-07-08] MEDS: MORPHINE SULFATE 4 MG/ML SYR/VIAL IV ONE (20:08)
[2024-07-08] MEDS: ONDANSETRON HCL 4 MG/2 ML VIAL IV ONE (20:08)
[2024-07-08] MEDS: SODIUM CHLORIDE 0.9% 1,000 ML IV ONE (20:09)
[2024-07-08] MEDS: PANTOPRAZOLE 40 MG/10 ML VIAL INJ IV ONE (20:09)
[2024-07-08 20:28] LABS: Urine Bacteria None Seen /hpf (None Seen)
[2024-07-08 20:33] LABS: Urine Blood 1+ /uL (Negative); Urine Budding Yeast MANY /hpf (None Seen); Urine Clarity Ex.Turbid (Clear); Urine Color Light-Brown (Yellow); Urine Protein, UAD 2+ (Negative); Urine Specific Gravity 1.016 (1.001-1.035); Urine Squamous Epithelial Cell FEW /hpf (<5); Urine Urobilinogen Normal (Negative); Urine WBC 2320 /HPF (0-5); Urine WBC Clumps PRESENT /hpf (None Seen); Urine pH 5.5 (5.0-9.0)
[2024-07-08] MEDS: hydrALAZINE HCL 20 MG/ML VL IV ONE (20:38)
[2024-07-08] MEDS ORDERED: HYDROMORPHONE HCL 1 MG/ML INJ IV ONE (20:45)
[2024-07-08] MEDS: HYDROmorphone HCL 2 MG/ML VL/or syr IV ONE (20:49)
[2024-07-08] MEDS: LABETALOL HCL 20 MG/4 ML VL IV ONE (21:30)
[2024-07-08] MEDS: cefTRIAXone 1GM/50ML D5W 50 ML IV ONE (21:30)
[2024-07-08] MEDS: FLUCONAZOLE 100 MG TAB PO ONE (21:30)
--- NOTE | 2024-07-08 22:14 | DVHHPRES ---
History of Present Illness Resident Creating Document: CHICHI SANTORO RESIDENT History of Present Illness Ms Joy is a 69-year-old female patient PMH/PSH of congestive heart failure, chronic respiratory failure on 2 L home oxygen, hypertension, liver cancer s/p resection, right ankle surgery, history of laparotomy, cholecystectomy, PUD, untreated hepatitis-C , history of laparotomy presented to the ER with a chief complaint of intractable nausea, vomiting and diarrhea for the past 2 days along with chest pain for a day. Patient reports that she experienced diarrhea which was watery for the past 2 days followed by abdominal pain is diffuse, stabbing in nature and associated with intractable nausea and vomiting. Patient can not keep anything down including water. Says that she has been losing weight, around 12 lb in the last month Also reported chest pressure after the episode of vomiting this morning around 1:00 a.m. which lasted for couple of minutes, associated with left arm numbness, resolved on its own. Patient ran out of her clonidine 0.3 mg, Lasix for the past 2 days. On arrival to the ER, patient was hypertensive 197/108mmhg, BNP 63, Cr 1.29, troponin WNL. Past medical/surgical history: congestive heart failure, chronic respiratory failure on 2 L home oxygen, hypertension, liver cancer s/p resection, right ankle surgery, history of laparotomy, appendectomy, PUD Medications: Clonidine 0.3 mg, Lasix, amlodipine PCP: Dr. Rausch Social history: Moved to [place] an year back, lives with daughter, with a smoking more than 15 years back, denies history of drinking or illicit drug use Patient seen and examined in the ER. Decreased bilateral breath sounds. Has 2+ pitting edema. Diffuse abdominal tenderness. Smoke: No ALCOHOL: none Drugs: None Lives: with Family Review of Systems Constitutional: Yes: Chills Respiratory: Shortness of breath Cardiovascular: Chest Pain, Edema Gastrointestinal: Nausea, Vomiting, Abdominal Pain, Diarrhea Allergies: Coded Allergies: NO KNOWN ALLERGIES (Unverified , 04/09/23) Exam Vital Signs Vital Signs Date Time Temp Pulse Resp B/P (MAP) Pulse Ox O2 Delivery O2 Flow Rate FiO2 07/08/24 21:30 85 194/91 07/08/24 21:19 16 07/08/24 19:50 95 Room Air* 0 21 07/08/24 19:50 98.0 98.0 Exam Female patient sitting comfortably in the chair, conversational General: Well-built, afebrile, palor, mucosae are moist Cardiovascular: Regular S1 and S2. No murmurs, gallops or rubs. No JVD elevation. 2+ pedal edema pitting Respiratory: Tachypneic, decreased bilateral breath sounds. Decreased expiratory phase. No wheezing or crackles heard. Abdomen: Soft, diffusely tender, nondistended, hyperactive bowel sounds, no rebound tenderness, no organomegaly, no masses Genitourinary: Deferred MSK/skin: Mobilizes 4 limbs. Skin is dry and warm Neurological: No motor, no sensitive deficits, normal speech. Pupils are isocoric and reactive. Psych/Mental Status: A/Ox3 Labs/Xrays Labs Test 07/08/24 21:17 07/08/24 20:00 07/08/24 18:21 Range/Units Lactic Acid Level 0.9 0.4-2.0 mmol/L Urine Color Light-brown Yellow Urine Clarity Ex.turbid Clear Urine pH 5.5 5.0-9.0 Urine Specific [place] 1.016 1.001-1.035 Urine Protein 2+ H Negative Urine Ketones Negative Negative Urine Blood 1+ H Negative /uL Urine Nitrite Negative Negative Urine Bilirubin Negative Negative Urine Urobilinogen Normal Negative mg/dL Urine Leukocyte Esterase 3+ Negative /uL Urine RBC 13 0 - 4 /hpf Urine WBC Clumps Present None Seen /hpf Urine Microscopic WBC 2320 H 0-5 /HPF Urine Squamous Epithelial Cells Few <5 /hpf Urine Bacteria None seen None Seen /hpf Urine Yeast (Budding) Many None Seen /hpf Urine Glucose 2+ H Normal mg/dL White Blood Count 6.0 4.4-10.8 10^3/uL Red Blood Count 4.51 4.0-5.20 10^6/uL Hemoglobin 13.4 12.2-16.2 g/dL Hematocrit 41.3 36.0-46.0 % Mean Corpuscular Volume 91.6 80.0-100.0 fL Mean Corpuscular Hemoglobin 29.8 28.0-32.0 pg Mean Corpuscular Hemoglobin Concent 32.5 32.0-36.0 g/dL Red Cell Distribution Width 16.8 H 11.8-14.3 % Platelet Count 211 140-450 10^3/uL Mean Platelet Volume 8.2 6.9-10.8 fL Neutrophils (%) (Auto) 60.7 37.0-80.0 % Lymphocytes (%) (Auto) 31.5 10.0-50.0 % Monocytes (%) (Auto) 6.7 0.0-12.0 % Eosinophils (%) (Auto) 0.7 0.0-7.0 % Basophils (%) (Auto) 0.4 0.0-2.0 % Neutrophils # (Auto) 3.7 1.6-8.6 10 ^3/uL Lymphocytes # (Auto) 1.9 0.4-5.4 10 ^3/uL Monocytes # (Auto) 0.4 0-1.3 10 ^3/uL Eosinophils # (Auto) 0 0-0.8 10 ^3/uL Basophils # (Auto) 0 0-0.2 10 ^3/uL Nucleated Red Blood Cells 0.0 % Sodium Level 144 136-145 mmol/L Potassium Level 3.8 3.5-5.1 mmol/L Chloride Level 110 H 98-107 mmol/L Carbon Dioxide Level 24 20-31 mmol/L Anion Gap 10 5-15 Blood Urea Nitrogen 24 H 9-23 mg/dL Creatinine 1.29 H 0.550-1.02 mg/dL Glomerular Filtration Rate Calc 45 >90 mL/min BUN/Creatinine Ratio 18.6 10.0-20.0 Serum Glucose 100 74-106 mg/dL Calcium Level 9.9 8.7-10.4 mg/dL Total Bilirubin 0.2 0.2-1.0 mg/dL Aspartate Amino Transferase (AST) 29 13-40 U/L Alanine Aminotransferase (ALT) 24 7-40 U/L Alkaline Phosphatase 140 H 46-116 U/L Troponin I High Sensitivity 8 </=34 ng/L B-Type Natriuretic Peptide 263.29 0-100 pg/mL Total Protein 7.6 5.7-8.2 g/dL Albumin 4.6 3.2-4.8 g/dL Lipase 45 12-53 U/L Assessment/Plan Assessment/Plan Intractable abdominal pain secondary to probable peptic ulcer disease Acute gastroenteritis, likely etiology Infectious History of untreated hepatitis-C Hypertensive Crisis Chest pain rule out ACS History of liver cancer status post resection Chronic respiratory failure on 2 L home Congestive heart failure-NYHA class 2 RAUL likely vasomotor mediated Hypertension History of cholecystectomy, laparotomy Vitamin-D deficiency Amphetamine use dependence Prediabetes mellitus Plan: IV pantoprazole 40 mg daily, Carafate q.i.d., NPO GI consulted her untreated hepatitis and probable peptic ulcer disease, may need EGD IV fluids, IV ceftriaxone and metronidazole starting 07/08 Resumed patient's antihypertensive regimen IV Lasix 20 mg daily BNP 260, troponin unremarkable, EKG pending Supplemented vitamin-D Lovenox 40 mg sc daily Plan discussed with patient in which all questions have been answered Goals of care discussed for more than 20 minutes, full code status Case discussed with Dr. Olivo Plan discussed with: Patient My Orders Orders - CHICHI SANTORO Procedure Category Date Status Time Admit ADMIT 07/08/24 Transmitted 22:03 Nitroglycerin PHA 07/08/24 Transmitted Sublingual (Ntrostat 22:15 Morphine Sulfate PHA 07/08/24 Transmitted Injection 22:15 Oxygen By Nasal RT 07/08/24 Transmitted Cannula 22:03 Stat Ekg For Chest TITA 07/08/24 Transmitted Pain 22:03 Notify Md Of Changes BANNER 07/08/24 Transmitted From Base 22:03 Studio Hand For BANNER 07/08/24 Transmitted 24 Hours 22:03 Emergency Dysrhythmia B[facility] 07/08/24 Transmitted Protocol 22:03 Rhythm Strips Once BANNER 07/08/24 Transmitted Every Shift 22:03 Date of Service: Jul 08, 2024 Billing Provider: TIKA OLIVO MD Common Visit Codes: [id number] INP/OBS CARE (HIGH) CHICHI SANTORO RESIDENT Jul 08, 2024 22:14
[2024-07-08] MEDS ORDERED: NITROGLYCERIN 0.4 MG SL TAB SL PRN (22:15)
[2024-07-08] MEDS ORDERED: MORPHINE SULFATE INJ 2 MG/ml SYRG IV PRN ×2 (22:15→23:00)
[2024-07-08] MEDS: IPRATROPIUM BROM 0.5 MG/2.5ML INH SOL NEB ONE (22:35)
[2024-07-08] MEDS: SUCRALFATE 1 GM/10 ML ORAL SUSP PO SCH (22:49)
[2024-07-08] MEDS: ATORVASTATIN 20 MG TAB PO ONE (22:50)
[2024-07-08] MEDS: FUROSEMIDE 20 MG/2 ML VIAL IV ONE (22:50)
[2024-07-08] MEDS: cloNIDine HCL 0.1 MG TAB PO ONE (22:50)
[2024-07-08] MEDS: ASPirin-EC 81 mg tab PO ONE (22:51)
[2024-07-08] MEDS: amLODIPine BESYLATE 5 MG TAB PO ONE (22:51)
[2024-07-08] MEDS: NIFEdipine ER 30 MG TAB PO ONE (22:51)
[2024-07-08] MEDS: metroNIDAZOLE 500MG/100ML 100 ML IV SCH (22:51)
[2024-07-08 23:11] LABS: INR 1.03 (0.9-1.15); Partial Thromboplastin Time 25.5 SEC (24.5-34.5); Prothrombin Time 10.9 sec (9.3-11.8)
[2024-07-08 23:15] LABS: Amphetamine Screen, Urine Pos (NEGATIVE); Barbiturate Scree,Urine Neg (NEGATIVE); Benzodiazephine Screen, Urine Neg (NEGATIVE); Cannabinoid Screen, Urine Neg (NEGATIVE); Cocaine Screen, Urine Neg (NEGATIVE); Opiate Scree,Urine Neg (NEGATIVE); Phencyclidine Screen, Urine Neg (NEGATIVE)
--- NOTE | 2024-07-08 23:36 | DVH ---
CHEST RADIOGRAPH Indication: dec breath sounds Technique: Single frontal view of the chest was obtained COMPARISON: XY CHEST XRAY 1 VIEW on DOS: 08/05/2022 FINDINGS: Lines and Tubes: None Lungs: Clear Pleura: No effusion. No pneumothorax. Cardiomediastinal contours: Unremarkable Bones: Unremarkable. Sternotomy. IMPRESSION: No acute disease.
[2024-07-08] MEDS: HYDROmorphone HCL 2 MG/ML VL/or syr IV PRN (23:53)
[2024-07-09] VITALS (16 sets, daily range): BP systolic 101–191; BP diastolic 57–96; PULSE 61–85; RESP 16–22; TEMP 98.2–99; O2SAT 92–100
--- NOTE | 2024-07-09 00:10 | DVH ---
INDICATION: untreated hep c TECHNIQUE: Multiple real-time sonographic images of the abdomen were obtained. COMPARISON: LIVER on DOS: 12/10/21 FINDINGS: Liver is within normal limits in size measuring 15.4 cm and echogenicity. No focal lesion identified. No intrahepatic or extrahepatic biliary ductal dilatation. Common bile duct measures 4 mm. Gallbladder has been removed. Right kidney measures 9.1 cm and appears unremarkable with no hydronephrosis. Pancreas is obscured by overlying bowel gas. No fluid collection noted. IMPRESSION: No abnormality demonstrated.
[2024-07-09] MEDS: IPRATROPIUM BROM 0.5 MG/2.5ML INH SOL NEB SCH (00:26)
[2024-07-09 00:33] LABS: Rapid Influenza A Negative (Negative); Rapid Influenza B Negative (Negative)
[2024-07-09 00:34] LABS: COVID19 ANTIGEN SOFIA FIA NEGATIVE (NEGATIVE)
[2024-07-09] MEDS: ZOLPIDEM TARTRATE 5 MG TAB PO PRN (00:58)
[2024-07-09] MEDS: DOCUSATE SOD 100 MG CAP PO ONE (04:37)
[2024-07-09] MEDS: SUCRALFATE 1 GM/10 ML ORAL SUSP PO ONE (04:38)
[2024-07-09] MEDS: POLYETHYLENE GLYCOL 17 GM PWDR PO ONE (04:38)
[2024-07-09] MEDS: CYANOCOBALAMIN (B-12) 1000 MCG/1 ML VIAL IM ONE (04:40)
[2024-07-09] MEDS: HYDROMORPHONE HCL 1 MG/ML INJ IV ONE (05:27)
[2024-07-09] MEDS: HYDROmorphone HCL 2 MG/ML VL/or syr IV ONE (05:30)
[2024-07-09 07:55] LABS: Basophils # (auto) 0 10 ^3/uL (0-0.2); Basophils % (auto) 0.6 % (0.0-2.0); Eosinophils # (auto) 0.1 10 ^3/uL (0-0.8); Eosinophils % (auto) 1.3 % (0.0-7.0); Hematocrit 32.4 % (36.0-46.0); Hemoglobin 10.5 g/dL (12.2-16.2); Lymphocytes # (auto) 2.1 10 ^3/uL (0.4-5.4); Lymphocytes % (auto) 34.7 % (10.0-50.0); Mean Corpuscular Hemoglobin 29.7 pg (28.0-32.0); Mean Corpuscular Hgb Conc. 32.4 g/dL (32.0-36.0); Mean Corpuscular Volume 91.6 fL (80.0-100.0); Monocytes # (auto) 0.5 10 ^3/uL (0-1.3); Monocytes % (auto) 8.1 % (0.0-12.0); Neutrophils # (auto) 3.4 10 ^3/uL (1.6-8.6); Neutrophils % (auto) 55.3 % (37.0-80.0); Nucleated Red Blood Cells % 0.4 %; Platelet Count (auto) 182 10^3/uL (140-450); Red Blood Cells 3.54 10^6/uL (4.0-5.20); White Blood Cell 6.2 10^3/uL (4.4-10.8)
[2024-07-09 08:03] LABS: Alkaline Phosphatase 107 U/L (46-116)
[2024-07-09 08:04] LABS: Alanine Aminotransferase 17 U/L (7-40); Albumin 3.7 g/dL (3.2-4.8); Anion Gap 12 (5-15); Aspartate Aminotransferase 22 U/L (13-40); Calcium 8.9 mg/dL (8.7-10.4); Carbon Dioxide 23 mmol/L (20-31); Glucose 80 mg/dL (74-106); Sodium 144 mmol/L (136-145)
[2024-07-09 08:08] LABS: Chloride 109 mmol/L (98-107); Potassium 3.2 mmol/L (3.5-5.1)
[2024-07-09] MEDS: HYOSCYAMINE SULF 0.125 MG ODT TAB PO ONE (08:30)
[2024-07-09] MEDS ORDERED: POTASSIUM CHLORIDE 40 MEQ, LIDOCAINE 1% (LOCAL ANESTH.) 4 ML in SODIUM CHL 0.9% 250 ML IV ONE (08:30)
--- NOTE | 2024-07-09 08:49 | DVHPN2 ---
Progress Note - Dictate Date Seen: Jul 08, 2024 Medical Necessity Reason Pt with a Central, PICC or Fol: No Subjective ABD PAIN NAUSEA SYNCOPE SEVERE HYPOKALEMIA ? DYSRHYTHMIA DIARRHEA PT WELL KNOWN TO ME HX OF CAD DIABETES HTN HYPERLIPIDEMIA \S/P LHC 04/09 * Left main normal. * Left anterior descending artery without any flow restrictive lesion. * Circumflex dominant vessel without any flow restrictive lesion. * Right coronary artery nondominant vessel without any flow restrictive lesion. * Left ventricular function showed hyperdynamic contractility with an LV. Left ventricular ejection fraction greater than 65%. * LVEDP was 5 mmHg. Left ventricular systolic pressure 160. Right heart catheterization, [place] reading shows RA pressure of 4, RV pressure of 26/10, PA pressure of 26/10, and capillary wedge pressure of 5. * Left ventricular end-diastolic pressure as mentioned above was also 5. * At this time, no surgical intervention. No catheter-based intervention is warranted. The patient's blood pressure needs absolutely to be controlled. At this time, beta blockade may be a good option for this patient. TROPONIN NEGATIVE BNP WNL HX OF LIVER RESECTION LUNG NODULE THICKENED COLONIC WALL COLITIS HX OF OPEN HEART SURGERY vital signs Vital Sign Date Time Temp Pulse Resp B/P (MAP) Pulse Ox O2 Delivery O2 Flow Rate FiO2 07/09/24 07:58 98.5 65 16 120/57 (78) 94 98.5 07/09/24 05:22 Room Air* 0 21 Total Intake and Output 07/08/24 07/08/24 07/09/24 15:00 23:00 07:00 Intake Total 1050 ml 200 ml Balance 1050 ml 200 ml medications Current Medications Medications Dose Ordered Sig/Aranza Route Start Time Stop Time Status Last Admin Dose Admin Nitroglycerin 0.4 mg Q5MINP PRN SL 07/08/24 22:15 Morphine Sulfate 2 mg Q30M PRN IV 07/08/24 22:15 Amlodipine Besylate 5 mg DAILY PO 07/09/24 10:00 Sertraline HCl 50 mg DAILY PO 07/09/24 10:00 Clonidine HCl 0.3 mg BID PO 07/09/24 10:00 Aspirin 81 mg DAILY PO 07/09/24 10:00 Atorvastatin Calcium 40 mg HS PO 07/09/24 22:00 Ondansetron HCl 4 mg Q6HPRN PRN IV 07/08/24 22:15 Nifedipine 30 mg DAILY PO 07/09/24 10:00 Zolpidem Tartrate 5 mg HSPRN PRN PO 07/08/24 22:30 07/09/24 00:58 5 MG Ceftriaxone Sodium 50 ml @ 100 mls/hr DAILY@09 IV 07/09/24 09:00 Metronidazole 100 ml @ 100 mls/hr Q8HR IV 07/08/24 22:30 07/09/24 05:27 100 MLS/HR Enoxaparin Sodium 40 mg DAILY SC 07/09/24 10:00 Pantoprazole Sodium 40 mg DAILY IV 07/09/24 10:00 Sucralfate 1 gm QID@0600,1130,1700,2200 PO 07/08/24 22:30 07/09/24 05:27 1 GM Ipratropium [place] 0.5 mg Q6HR NEB 07/09/24 00:00 07/09/24 05:22 0.5 MG Hydromorphone HCl 0.5 mg Q8HPRN PRN IV 07/08/24 23:15 07/08/24 23:53 0.5 MG Ergocalciferol 50,000 unit Q7D PO 07/09/24 10:00 Hyoscyamine 0.125 mg Q4HPRN PRN PO 07/09/24 12:00 laboratory and microbiology Laboratory Tests 07/09/24 06:04 Test 07/09/24 06:04 Range/Units Serum Glucose 80 74-106 mg/dL Problem List ABD PAIN NAUSEA SYNCOPE SEVERE HYPOKALEMIA ? DYSRHYTHMIA DIARRHEA PT WELL KNOWN TO ME HX OF CAD DIABETES HTN HYPERLIPIDEMIA S/P C 04/09 * Left main normal. * Left anterior descending artery without any flow restrictive lesion. * Circumflex dominant vessel without any flow restrictive lesion. * Right coronary artery nondominant vessel without any flow restrictive lesion. * Left ventricular function showed hyperdynamic contractility with an LV. Left ventricular ejection fraction greater than 65%. * LVEDP was 5 mmHg. Left ventricular systolic pressure 160. Right heart catheterization, [place] reading shows RA pressure of 4, RV pressure of 26/10, PA pressure of 26/10, and capillary wedge pressure of 5. * Left ventricular end-diastolic pressure as mentioned above was also 5. * At this time, no surgical intervention. No catheter-based intervention is warranted. The patient's blood pressure needs absolutely to be controlled. At this time, beta blockade may be a good option for this patient. TROPONIN NEGATIVE BNP WNL HX OF LIVER RESECTION LUNG NODULE THICKENED COLONIC WALL COLITIS HX OF OPEN HEART SURGERY ANEMIA Assessment/Plan CORRECT HYPOKALEMIA CONSIDER MOTILITY TREATMENT ANTI SPASMATIC CONSIDER MOTAGRITY AND VONOPRAZAN Plan discussed with: Patient ELICIA ROBERTSON MD Jul 09, 2024 08:49
[2024-07-09] MEDS: ENOXAPARIN SOD 40 MG/0.4 ML SYRINGE SC SCH (09:29)
[2024-07-09] MEDS: cefTRIAXone 1GM/50ML D5W 50 ML IV SCH (09:30)
[2024-07-09] MEDS: PANTOPRAZOLE 40 MG/10 ML VIAL INJ IV SCH (09:30)
[2024-07-09] MEDS ORDERED: FUROSEMIDE 20 MG/2 ML VIAL IV SCH (10:00)
[2024-07-09] MEDS: NIFEdipine ER 30 MG TAB PO SCH (10:00)
[2024-07-09] MEDS: SERTRALINE HCL 50 MG TAB PO SCH (10:00)
[2024-07-09] MEDS: ASPirin-EC 81 mg tab PO SCH (10:00)
[2024-07-09] MEDS: amLODIPine BESYLATE 5 MG TAB PO SCH (10:00)
[2024-07-09] MEDS: cloNIDine HCL 0.1 MG TAB PO SCH (10:00)
[2024-07-09] MEDS: ERGOCALCIFEROL 50,000 UNIT(1.25MG) CAP PO SCH (10:00)
[2024-07-09 11:26] LABS: BUN/Creatinine Ratio 17.3 (10.0-20.0); Blood Urea Nitrogen 22 mg/dL (9-23); Total Protein 6.3 g/dL (5.7-8.2)
--- NOTE | 2024-07-09 11:28 | ECG ---
[facility] Test Date: 2024-07-09 Test Time: 01:27:07 Pat Name: ELIU PHILLIPS Department: Respiratoy Room: [address] [place] [address] 1 Gender: F [employer]: AUGIE : 1955 Requested By: CHICHI SANTORO Order Number: [id number] Reading MD: Valentin Jeter Measurements Intervals [place] Rate: 60 P: 21 SC: 172 QRS: 20 QRSD: 91 T: 32 QT: 441 QTc: 441 Interpretive Statements Sinus rhythm Probable left atrial enlargement Anterior infarct, old Electronically Signed On 07-11-2024 20:11:08 PDT by Valentin Jeter Please click the below link to view image of tracing.
[2024-07-09 11:33] LABS: Bilirubin, Total 0.2 mg/dL (0.2-1.0)
[2024-07-09] MEDS ORDERED: HYOSCYAMINE SULF 0.125 MG ODT TAB PO PRN (12:00)
[2024-07-09] MEDS: SODIUM CHL 0.9% 50 ML IV SCH (12:05)
[2024-07-09] MEDS: POTASSIUM CHL 20MEQ/50ML 50 ML IV SCH (12:05)
[2024-07-09] MEDS: DICYCLOMINE HCL 10 MG CAP PO ONE (13:15)
[2024-07-09] MEDS: ACETAMINOPHEN 325 MG TAB PO ONE (13:15)
[2024-07-09] MEDS ORDERED: HYDROmorphone HCL 2 MG/ML VL/or syr IV PRN (13:15)
--- NOTE | 2024-07-09 13:25 | DVHINCON2 ---
GI Consult Consult Note GI consult note Date of Consultation: 07/09/2024 Chief Complaint: Untreated Hepatitis-C Referring Physician: Dr. Hartley H&P: 69-year-old female presented to ER with complains of nausea vomiting and diarrhea and chest pain Patient is seen by Dr. Davis who is also the patient's PCP Patient also has another chart last name kristina Roe Patient complaining of epigastric pain on and off for the past two months, more severe last few days and that is what brought the patient into the hospital, and is requesting for more pain medications Patient has nausea and vomiting, yellow in color. No hematemesis Last BM two days ago, denies melena or red blood in stool. Patient denies GERD symptoms Diagnosed with liver cancer in 2008, status post liver resection. Patient is only aware of having hepatitis-C at this time, no treatment in the past Status post EGD two months ago Dr. Fitzgerald 2 cm sliding-type hiatal hernia, mild antral gastritis with pre-pyloric and antral gastric erosions, mild duodenitis Pathology report mild chronic inactive gastritis Status post colonoscopy two years ago, unsure about results Past Medical History: Cancer (Liver cancer in remission), CHF, CVA, DM, High Lipids, HTN, Liver, [place], PE Past Surgical History: Appendectomy, CABG, Cholecystectomy, Tonsillectomy, aortic surgery Social History: NO smoking, drinking ETOH and use of illegal drugs. Positive amphetamine 07/08/2024 per toxicology report Family History: Noncontributory Review of Systems: Constitutional: no fever, chill, weight loss HEENT: no eye pain, no hearing loss, no oral lesion, no scleral icterus Heart: no chest pain, no chest pressure Lung: no cough, no dyspnea with exertion Abdomen: see HPI Physical exam: General: NAD, AAOX3 Chest: lung sung clear to auscultation Heart: RRR, no murmur Abdomen: [id number] epigastric tenderness to palpation, +BS Labs: Labs Test 07/09/24 06:04 07/08/24 23:47 07/08/24 23:40 07/08/24 21:17 Range/Units White Blood Count 6.2 4.4-10.8 10^3/uL Red Blood Count 3.54 L 4.0-5.20 10^6/uL Hemoglobin 10.5 #L 12.2-16.2 g/dL Hematocrit 32.4 #L 36.0-46.0 % Mean Corpuscular Volume 91.6 80.0-100.0 fL Mean Corpuscular Hemoglobin 29.7 28.0-32.0 pg Mean Corpuscular Hemoglobin Concent 32.4 32.0-36.0 g/dL Red Cell Distribution Width 17.0 H 11.8-14.3 % Platelet Count 182 140-450 10^3/uL Mean Platelet Volume 9.0 6.9-10.8 fL Neutrophils (%) (Auto) 55.3 37.0-80.0 % Lymphocytes (%) (Auto) 34.7 10.0-50.0 % Monocytes (%) (Auto) 8.1 0.0-12.0 % Eosinophils (%) (Auto) 1.3 0.0-7.0 % Basophils (%) (Auto) 0.6 0.0-2.0 % Neutrophils # (Auto) 3.4 1.6-8.6 10 ^3/uL Lymphocytes # (Auto) 2.1 0.4-5.4 10 ^3/uL Monocytes # (Auto) 0.5 0-1.3 10 ^3/uL Eosinophils # (Auto) 0.1 0-0.8 10 ^3/uL Basophils # (Auto) 0 0-0.2 10 ^3/uL Nucleated Red Blood Cells 0.4 % Sodium Level 144 136-145 mmol/L Potassium Level 3.2 L 3.5-5.1 mmol/L Chloride Level 109 H 98-107 mmol/L Carbon Dioxide Level 23 20-31 mmol/L Anion Gap 12 5-15 Blood Urea Nitrogen 22 9-23 mg/dL Creatinine 1.27 H 0.550-1.02 mg/dL Glomerular Filtration Rate Calc 46 >90 mL/min BUN/Creatinine Ratio 17.3 10.0-20.0 Serum Glucose 80 74-106 mg/dL Calcium Level 8.9 8.7-10.4 mg/dL Total Bilirubin 0.2 0.2-1.0 mg/dL Aspartate Amino Transferase (AST) 22 13-40 U/L Alanine Aminotransferase (ALT) 17 7-40 U/L Alkaline Phosphatase 107 46-116 U/L Troponin I High Sensitivity 9 </=34 ng/L Total Protein 6.3 5.7-8.2 g/dL Albumin 3.7 3.2-4.8 g/dL Influenza Type A Antigen Negative Negative Influenza Type B Antigen Negative Negative SARS-CoV-2 Antigen (Rapid) Negative NEGATIVE Hemoglobin A1c 6.0 H <5.7 % A1C Lactic Acid Level 0.9 0.4-2.0 mmol/L Magnesium Level 1.7 1.6-2.6 mg/dL Thyroid Stimulating Hormone (TSH) 1.80 0.55-4.78 uIU/mL Test 07/08/24 20:00 07/08/24 18:21 Range/Units Urine Color Light-brown Yellow Urine Clarity Ex.turbid Clear Urine pH 5.5 5.0-9.0 Urine Specific [place] 1.016 1.001-1.035 Urine Protein 2+ H Negative Urine Ketones Negative Negative Urine Blood 1+ H Negative /uL Urine Nitrite Negative Negative Urine Bilirubin Negative Negative Urine Urobilinogen Normal Negative mg/dL Urine Leukocyte Esterase 3+ Negative /uL Urine RBC 13 0 - 4 /hpf Urine WBC Clumps Present None Seen /hpf Urine Microscopic WBC 2320 H 0-5 /HPF Urine Squamous Epithelial Cells Few <5 /hpf Urine Bacteria None seen None Seen /hpf Urine Yeast (Budding) Many None Seen /hpf Urine Glucose 2+ H Normal mg/dL Urine Opiates Screen Neg NEGATIVE Urine Fentanyl Screen Neg NEGATIVE Urine Barbiturates Screen Neg NEGATIVE Urine Phencyclidine Screen Neg NEGATIVE Urine Amphetamines Screen Pos NEGATIVE Urine Benzodiazepines Screen Neg NEGATIVE Urine Cocaine Screen Neg NEGATIVE Urine Cannabinoids Screen Neg NEGATIVE Prothrombin Time 10.9 9.3-11.8 sec Prothrombin Time INR 1.03 0.9-1.15 Activated Partial Thromboplast Time 25.5 24.5-34.5 SEC B-Type Natriuretic Peptide 263.29 0-100 pg/mL Lipase 45 12-53 U/L Vitamin B12 Level 346 211-911 pg/mL Vitamin D 25-Hydroxy 18.1 L 30.0-100 ng/mL Imaging: CT abdomen pelvis Impression: 1. Limited evaluation given noncontrast technique. 2. No acute abdominopelvic abnormalities. 3. Punctate nonobstructive left nephrolithiasis. Liver ultrasound IMPRESSION: No abnormality demonstrated. Assessment: Abdominal pain Nausea and vomiting History of liver cancer status post resection History of hepatitis-C untreated per patient Amphetamine use Plan: Discussed with Dr. Amilcar Protonix and Carafate Zofran Supportive management recommended at this time We will continue to follow patient Discussed plan with patient and RN Thank you for this consult Date of Service: Jul 09, 2024 Billing Provider: TONY LOU Common Visit Codes: CONSULT ONLY Consultation Codes: [id number] CONSULT <60MIN TONY LOU Jul 09, 2024 13:25
[2024-07-09] MEDS: HYDROcodone-ACET 10/325MG TAB PO PRN (14:16)
[2024-07-09] MEDS: HYDROmorphone HCL 2 MG/ML VL/or syr IV PRN (15:54)
[2024-07-09] MEDS: DONNATAL 5ml ORAL Elix (BELLADONNA ALK-PHENOBARB) PO SCH (15:54)
[2024-07-09 16:15] LABS: Hepatitis B Core Total AB Negative (Negative)
--- NOTE | 2024-07-09 18:25 | DVHPNRES ---
Progress Note Date Seen: Jul 09, 2024 Resident Creating Document: MALIHA DIAZ LARISSA Has the PT tested + for MRSA If YES, has PT been informed?: No Medical Necessity Reason Pt with a Central, PICC or Fol: No Subjective Review of Systems Ms Joy is a 69-year-old female patient PMH/PSH of congestive heart failure, chronic respiratory failure on 2 L home oxygen, hypertension, liver cancer s/p resection, right ankle surgery, history of laparotomy, cholecystectomy, PUD, untreated hepatitis-C , history of laparotomy presented to the ER with a chief complaint of intractable nausea, vomiting and diarrhea for the past 2 days along with chest pain for a day. Patient reports that she experienced diarrhea which was watery for the past 2 days followed by abdominal pain is diffuse, stabbing in nature and associated with intractable nausea and vomiting and dysuria, frequency. Patient can not keep anything down including water. Says that she has been losing weight, around 12 lb in the last month Also reported chest pressure after the episode of vomiting this morning around 1:00 a.m. which lasted for couple of minutes, associated with left arm numbness, resolved on its own. Patient ran out of her clonidine 0.3 mg, Lasix for the past 2 days. On arrival to the ER, patient was hypertensive 197/108mmhg, BNP 63, Cr 1.29, troponin WNL. Past medical/surgical history: congestive heart failure, chronic respiratory failure on 2 L home oxygen, hypertension, liver cancer s/p resection, right ankle surgery, history of laparotomy, appendectomy, PUD Medications: Clonidine 0.3 mg, Lasix, amlodipine PCP: Dr. Rausch Social history: Moved to [place] an year back, lives with daughter, with a smoking more than 15 years back, denies history of drinking or illicit drug use Patient seen and examined at the bedside. Patient is still complaining of abdominal pain. Patient reports: No new complaints Changes from previous H/P or p: No Changes Objective vital signs Vital Sign Date Time Temp Pulse Resp B/P (MAP) Pulse Ox O2 Delivery O2 Flow Rate FiO2 07/09/24 17:14 98.9 63 16 191/96 (127) 98 98.9 07/09/24 11:05 Room Air* 0 21 Total Intake and Output 07/08/24 07/08/24 07/09/24 15:00 23:00 07:00 Intake Total 1050 ml 200 ml Balance 1050 ml 200 ml medications Current Medications Medications Dose Ordered Sig/Aranza Route Start Time Stop Time Status Last Admin Dose Admin Nitroglycerin 0.4 mg Q5MINP PRN SL 07/08/24 22:15 Morphine Sulfate 2 mg Q30M PRN IV 07/08/24 22:15 Amlodipine Besylate 5 mg DAILY PO 07/09/24 10:00 Sertraline HCl 50 mg DAILY PO 07/09/24 10:00 Clonidine HCl 0.3 mg BID PO 07/09/24 10:00 Aspirin 81 mg DAILY PO 07/09/24 10:00 Atorvastatin Calcium 40 mg HS PO 07/09/24 22:00 Ondansetron HCl 4 mg Q6HPRN PRN IV 07/08/24 22:15 Nifedipine 30 mg DAILY PO 07/09/24 10:00 Zolpidem Tartrate 5 mg HSPRN PRN PO 07/08/24 22:30 07/09/24 00:58 5 MG Ceftriaxone Sodium 50 ml @ 100 mls/hr DAILY@09 IV 07/09/24 09:00 07/09/24 09:30 100 MLS/HR Metronidazole 100 ml @ 100 mls/hr Q8HR IV 07/08/24 22:30 07/09/24 05:27 100 MLS/HR Enoxaparin Sodium 40 mg DAILY SC 07/09/24 10:00 07/09/24 09:29 40 MG Pantoprazole Sodium 40 mg DAILY IV 07/09/24 10:00 07/09/24 09:30 40 MG Sucralfate 1 gm QID@0600,1130,1700,2200 PO 07/08/24 22:30 07/09/24 17:38 1 GM Ipratropium [place] 0.5 mg Q6HR NEB 07/09/24 00:00 07/09/24 11:05 0.5 MG Ergocalciferol 50,000 unit Q7D PO 07/09/24 10:00 Belladonna Alkaloids/ Phenobarbital 5 ml Q8HR PO 07/09/24 14:00 07/09/24 15:54 5 ML Acetaminophen 650 mg Q4HP PRN PO 07/09/24 19:00 Dicyclomine HCl 20 mg QID PO 07/09/24 18:00 Acetaminophen/ Hydrocodone Bitart 1 tab Q4HP PRN PO 07/09/24 13:15 07/09/24 14:16 1 TAB Hydromorphone HCl 0.5 mg Q4HPRN PRN IV 07/09/24 13:15 07/09/24 15:54 0.5 MG Examination General Appearance: Alert, Oriented X3, Cooperative, No acute distress HEENT: Atraumatic, PERRLA, EOMI, Mucous membrane moist/pink Respiratory: Clear to auscultation, Normal air movement Cardiovascular: Regular rate, Normal S1, Normal S2, No murmurs, no chest wall tenderness Abdominal: Abdominal tenderness Extremities: No clubbing, No cyanosis, No edema, Normal pulses, No tenderness/swelling Skin: No rashes, No breakdown, No significant lesion Neuro: Normal gait, Normal speech, Strength at 5/5 X4 ext, Normal tone, Sensation intact, Cranial nerves 3-12 NL, Reflexes 2+ Psych/Mental Status: Mental status NL, Mood NL laboratory and microbiology Laboratory Tests 07/09/24 06:04 Test 07/09/24 06:04 Range/Units Serum Glucose 80 74-106 mg/dL Microbiology Date/Time Source Procedure Growth Status 07/08/24 20:00 Voided Urine Urine Culture - Preliminary Resulted Labs and/or images reviewed: Labs reviewed by me, Image(s) reviewed by me Problem List/Assessment/Plan Problem List/Assessment/Plan Intractable abdominal pain, likely due to gastroenteritis/peptic ulcer disease Peptic ulcer disease Gastroenteritis, likely infectious History of hepatitis-C virus History of liver cancer, status post surgery Complicated UTI Abdominopelvic CT scan shows, Punctate nonobstructive left nephrolithiasis. GI consulted, recommended medical management Empiric antibiotic, Rocephin and Flagyl Protonix, Zofran IV fluid Pain management Hypertensive urgency History of congestive heart failure, on 2 L of oxygen at home Chronic respiratory failure, due to CHF Ruled out ACS RAUL, on CKD grade 3A, likely VMN IV fluid Hypokalemia, repleted Methamphetamine use disorder DIET: Clear liquid diet DVT PROPHYLAXIS: Lovenox GI PROPHYLAXIS:: Protonix CODE STATUS: Goal of care discussed for more than 18 minutes, full code DISPOSITION: Med/surge Patient's status and plan discussed with the patient. Case discussed with Dr. Chávez. Plan discussed with: Patient, Other (RN) My Orders My Orders Orders - MALIHA DIAZ RESDIENT Procedure Category Date Status Time Clear Liq Diet DIET 07/09/24 Transmitted Lunch Acetaminophen Tablet PHA 07/09/24 In Process (Tylenol Tablet) 19:00 Dicyclomine Capsule PHA 07/09/24 In Process (Bentyl Capsule) 18:00 Hydrocodone-Acet PHA 07/09/24 In Process 10/325mg Tab ([place] 13:15 Hydromorphone PHA 07/09/24 In Process Injection (Dilaudid 13:15 MALIHA DIAZ RESDIENT Jul 09, 2024 18:25
[2024-07-09 18:55] LABS: Hepatitis A Total Antibody Positive (Negative); Hepatitis B Surface Antibody Negative (Negative); Hepatitis B Surface Antigen Negative (Negative)
[2024-07-09 18:58] LABS: Hepatitis C Antibody Positive (Negative)
[2024-07-09] MEDS: DICYCLOMINE HCL 10 MG CAP PO SCH (18:59)
[2024-07-09] MEDS ORDERED: ACETAMINOPHEN 325 MG TAB PO PRN (19:00)
[2024-07-09] MEDS: amLODIPine BESYLATE 5 MG TAB PO ONE (19:23)
[2024-07-09] MEDS: hydrALAZINE HCL 20 MG/ML VL IV ONE (19:23)
[2024-07-09] MEDS: NIFEdipine ER 30 MG TAB PO ONE (19:24)
[2024-07-09] MEDS: MAGNESIUM SULFATE 1GM/100ML 100 ML IV ONE (20:34)
[2024-07-09] MEDS: ATORVASTATIN 20 MG TAB PO SCH (21:54)
[2024-07-10] VITALS (15 sets, daily range): BP systolic 135–182; BP diastolic 85–91; PULSE 69–99; RESP 16–20; TEMP 98.2–98.7; O2SAT 95–100
[2024-07-10 07:33] LABS: Alanine Aminotransferase 20 U/L (7-40); Blood Urea Nitrogen 13 mg/dL (9-23); Glucose 98 mg/dL (74-106); Potassium 3.8 mmol/L (3.5-5.1); Sodium 141 mmol/L (136-145); Total Protein 7.1 g/dL (5.7-8.2)
[2024-07-10 07:34] LABS: Albumin 4.3 g/dL (3.2-4.8); Aspartate Aminotransferase 26 U/L (13-40); Bilirubin, Total 0.3 mg/dL (0.2-1.0)
[2024-07-10 07:39] LABS: Alkaline Phosphatase 130 U/L (46-116); Chloride 110 mmol/L (98-107)
[2024-07-10 07:48] LABS: Anion Gap 12 (5-15)
[2024-07-10 07:49] LABS: Carbon Dioxide 19 mmol/L (20-31)
[2024-07-10 11:17] LABS: Basophils # (auto) 0 10 ^3/uL (0-0.2); Basophils % (auto) 0.7 % (0.0-2.0); Eosinophils # (auto) 0.1 10 ^3/uL (0-0.8); Eosinophils % (auto) 2.3 % (0.0-7.0); Hematocrit 34.9 % (36.0-46.0); Hemoglobin 11.5 g/dL (12.2-16.2); Lymphocytes # (auto) 1.6 10 ^3/uL (0.4-5.4); Lymphocytes % (auto) 26.5 % (10.0-50.0); Mean Corpuscular Hemoglobin 29.7 pg (28.0-32.0); Mean Corpuscular Hgb Conc. 33.1 g/dL (32.0-36.0); Mean Corpuscular Volume 89.8 fL (80.0-100.0); Monocytes # (auto) 0.5 10 ^3/uL (0-1.3); Monocytes % (auto) 8.9 % (0.0-12.0); Neutrophils # (auto) 3.7 10 ^3/uL (1.6-8.6); Neutrophils % (auto) 61.6 % (37.0-80.0); Platelet Count (auto) 166 10^3/uL (140-450); Red Blood Cells 3.89 10^6/uL (4.0-5.20); Red Cell Distribution Width 16.5 % (11.8-14.3); White Blood Cell 6.1 10^3/uL (4.4-10.8)
--- NOTE | 2024-07-10 17:48 | DVHPN2 ---
Subjective Ms Joy is a 69-year-old female patient PMH/PSH of congestive heart failure, chronic respiratory failure on 2 L home oxygen, hypertension, liver cancer s/p resection, right ankle surgery, history of laparotomy, cholecystectomy, PUD, untreated hepatitis-C , history of laparotomy presented to the ER with a chief complaint of intractable nausea, vomiting and diarrhea for the past 2 days along with chest pain for a day. Patient reports that she experienced diarrhea which was watery for the past 2 days followed by abdominal pain is diffuse, stabbing in nature and associated with intractable nausea and vomiting and dysuria, frequency. Patient can not keep anything down including water. Says that she has been losing weight, around 12 lb in the last month Also reported chest pressure after the episode of vomiting this morning around 1:00 a.m. which lasted for couple of minutes, associated with left arm numbness, resolved on its own. Patient ran out of her clonidine 0.3 mg, Lasix for the past 2 days. On arrival to the ER, patient was hypertensive 197/108mmhg, BNP 63, Cr 1.29, troponin WNL. Past medical/surgical history: congestive heart failure, chronic respiratory failure on 2 L home oxygen, hypertension, liver cancer s/p resection, right ankle surgery, history of laparotomy, appendectomy, PUD Medications: Clonidine 0.3 mg, Lasix, amlodipine PCP: Dr. Rausch Social history: Moved to [place] an year back, lives with daughter, with a smoking more than 15 years back, denies history of drinking or illicit drug use Patient seen and examined at the bedside. Patient is still complaining of abdominal pain. Reviewed: H&P Changes from previous H/P or p: No Changes General: Per HPI Cardiovascular: Chest Pain, Edema Respiratory: Shortness of breath Gastrointestinal: Nausea, Vomiting, Abdominal Pain, Diarrhea Objective Vitals Vital Signs Date Time Temp Pulse Resp B/P (MAP) Pulse Ox O2 Delivery O2 Flow Rate FiO2 07/10/24 16:41 98.5 78 17 135/86 (102) 97 98.5 07/10/24 10:00 Room Air 0.0 07/10/24 10:00 21 Intake/Output Intake and Output 07/10/24 07:00 Intake Total 3500 ml Balance 3500 ml Intake Oral 3300 ml IV Total 200 ml # Voids 10 Exam General Appearance: Alert, Oriented X3, Cooperative, No acute distress HEENT: Atraumatic, PERRLA, EOMI, Mucous membrane moist/pink Respiratory: Clear to auscultation, Normal air movement Cardiovascular: Regular rate, Normal S1, Normal S2, No murmurs, no chest wall tenderness Abdominal: Abdominal tenderness Extremities: No clubbing, No cyanosis, No edema, Normal pulses, No tenderness/swelling Skin: No rashes, No breakdown, No significant lesion Neuro: Normal gait, Normal speech, Strength at 5/5 X4 ext, Normal tone, Sensation intact, Cranial nerves 3-12 NL, Reflexes 2+ Psych/Mental Status: Mental status NL, Mood NL Medications Current Medications Medications Dose Ordered Sig/Aranza Route Start Time Stop Time Status Last Admin Dose Admin Nitroglycerin 0.4 mg Q5MINP PRN SL 07/08/24 22:15 Morphine Sulfate 2 mg Q30M PRN IV 07/08/24 22:15 Amlodipine Besylate 5 mg DAILY PO 07/09/24 10:00 07/10/24 10:39 5 MG Sertraline HCl 50 mg DAILY PO 07/09/24 10:00 07/10/24 09:06 50 MG Clonidine HCl 0.3 mg BID PO 07/09/24 10:00 07/10/24 09:06 0.3 MG Aspirin 81 mg DAILY PO 07/09/24 10:00 07/10/24 09:06 81 MG Atorvastatin Calcium 40 mg HS PO 07/09/24 22:00 07/09/24 21:54 40 MG Ondansetron HCl 4 mg Q6HPRN PRN IV 07/08/24 22:15 Nifedipine 30 mg DAILY PO 07/09/24 10:00 07/10/24 09:06 30 MG Ceftriaxone Sodium 50 ml @ 100 mls/hr DAILY@09 IV 07/09/24 09:00 07/10/24 09:04 100 MLS/HR Metronidazole 100 ml @ 100 mls/hr Q8HR IV 07/08/24 22:30 07/10/24 14:06 100 MLS/HR Enoxaparin Sodium 40 mg DAILY SC 07/09/24 10:00 07/10/24 09:07 40 MG Pantoprazole Sodium 40 mg DAILY IV 07/09/24 10:00 07/10/24 09:05 40 MG Sucralfate 1 gm QID@0600,1130,1700,2200 PO 07/08/24 22:30 07/10/24 17:41 1 GM Ipratropium [place] 0.5 mg Q6HR NEB 07/09/24 00:00 07/10/24 11:55 0.5 MG Ergocalciferol 50,000 unit Q7D PO 07/09/24 10:00 Belladonna Alkaloids/ Phenobarbital 5 ml Q8HR PO 07/09/24 14:00 07/10/24 14:06 5 ML Acetaminophen 650 mg Q4HP PRN PO 07/09/24 19:00 Dicyclomine HCl 20 mg QID PO 07/09/24 18:00 07/10/24 17:41 20 MG Acetaminophen/ Hydrocodone Bitart 1 tab Q4HP PRN PO 07/09/24 13:15 07/09/24 14:16 1 TAB Hydromorphone HCl 0.5 mg Q4HPRN PRN IV 07/09/24 13:15 07/10/24 15:33 0.5 MG Zolpidem Tartrate 10 mg HSPRN PRN PO 07/10/24 16:45 Lorazepam 1 mg Q6HP PRN PO 07/10/24 16:45 Laboratory Results Laboratory Tests 07/10/24 06:23 07/10/24 10:45 Chemistry Test 07/10/24 06:23 Albumin 4.3 g/dL (3.2-4.8) Calcium Level 10.0 mg/dL (8.7-10.4) Total Protein 7.1 g/dL (5.7-8.2) LFT Test 07/10/24 06:23 Alanine Aminotransferase (ALT) 20 U/L (7-40) Alkaline Phosphatase 130 U/L (46-116) H Aspartate Amino Transferase (AST) 26 U/L (13-40) Total Bilirubin 0.3 mg/dL (0.2-1.0) Urinalysis Test 07/08/24 20:00 Urine Color Light-brown (Yellow) Urine Clarity Ex.turbid (Clear) Urine pH 5.5 (5.0-9.0) Urine Specific [place] 1.016 (1.001-1.035) Urine Protein 2+ (Negative) H Urine Ketones Negative (Negative) Urine Blood 1+ /uL (Negative) H Urine Nitrite Negative (Negative) Urine Bilirubin Negative (Negative) Urine Urobilinogen Normal mg/dL (Negative) Urine Leukocyte Esterase 3+ /uL (Negative) Urine RBC 13 /hpf (0 - 4) Urine WBC Clumps Present /hpf (None Seen) Urine Microscopic WBC 2320 /HPF (0-5) H Urine Squamous Epithelial Cells Few /hpf (<5) Urine Bacteria None seen /hpf (None Seen) Urine Yeast (Budding) Many /hpf (None Seen) Urine Glucose 2+ mg/dL (Normal) H Microbiology Microbiology Date/Time Source Procedure Growth Status 07/08/24 21:17 Blood Blood Culture - Preliminary NO GROWTH AFTER 24 HOURS OF INCUBATION. Resulted 07/08/24 20:00 Voided Urine Urine Culture - Preliminary Resulted Labs and/or images reviewed: Labs reviewed by me, Image(s) reviewed by me Assessment/Plan Assessment/Plan Update 07/10 patient continues to have right flank pain radiating to the back, unclear if there is any CVA tenderness.. Creatinine levels are improved likely baseline 1 to 1.10. Continuing to treat as possible UTI pending urine culture. Patient hepatitis panel positive for HIV/HCV which will be followed up outpatient with GI. We will observe overnight to assess p.o. tolerance and symptom improvement. Follow up with urine culture and renal function. Intractable abdominal pain, likely due to gastroenteritis/peptic ulcer disease Peptic ulcer disease Gastroenteritis, likely infectious History of hepatitis-C virus History of liver cancer, status post surgery Complicated UTI Abdominopelvic CT scan shows, Punctate nonobstructive left nephrolithiasis. GI consulted, recommended medical management Empiric antibiotic, Rocephin and Flagyl Protonix, Zofran IV fluid Pain management Hypertensive urgency History of congestive heart failure, on 2 L of oxygen at home Chronic respiratory failure, due to CHF Ruled out ACS RAUL, on CKD grade 3A, likely VMN IV fluid Hypokalemia, repleted Methamphetamine use disorder DIET: cardiac DVT PROPHYLAXIS: Lovenox GI PROPHYLAXIS:: Protonix CODE STATUS: Goal of care discussed for more than 18 minutes, full code DISPOSITION: Med/surge Plan discussed with: Patient My Orders Orders - CIELO ROSSI MD Procedure Category Date Status Time Zolpidem Tartrate PHA 07/10/24 In Process (Ambien) 16:45 Cardiac DIET 07/10/24 Transmitted Diet-2gna,Lofat,Lochol Dinner Lorazepam Tablet PHA 07/10/24 In Process (Ativan Tablet) 16:45 Date of Service: Jul 10, 2024 Billing Provider: CIELO ROSSI MD Common Visit Codes: [id number] INP/OBS CARE(HIGH) CIELO ROSSI MD Jul 10, 2024 17:48
--- NOTE | 2024-07-10 18:37 | DVHPN2 ---
Progress Note - Dictate Date Seen: Jul 10, 2024 Has the PT tested + for MRSA If YES, has PT been informed?: No Medical Necessity Reason Pt with a Central, PICC or Fol: No Subjective No new complaints, patient is resting comfortably She complains of some lower abdominal pain UA was positive for UTI with over 2000 WBC and 3+ positive leukocyte esterase vital signs Vital Sign Date Time Temp Pulse Resp B/P (MAP) Pulse Ox O2 Delivery O2 Flow Rate FiO2 07/10/24 16:41 98.5 78 17 135/86 (102) 97 98.5 07/10/24 10:00 Room Air 0.0 07/10/24 10:00 21 Total Intake and Output 07/09/24 07/09/24 07/10/24 15:00 23:00 07:00 Intake Total 50 ml 750 ml 2700 ml Balance 50 ml 750 ml 2700 ml medications Current Medications Medications Dose Ordered Sig/Aranza Route Start Time Stop Time Status Last Admin Dose Admin Nitroglycerin 0.4 mg Q5MINP PRN SL 07/08/24 22:15 Morphine Sulfate 2 mg Q30M PRN IV 07/08/24 22:15 Amlodipine Besylate 5 mg DAILY PO 07/09/24 10:00 07/10/24 10:39 5 MG Sertraline HCl 50 mg DAILY PO 07/09/24 10:00 07/10/24 09:06 50 MG Clonidine HCl 0.3 mg BID PO 07/09/24 10:00 07/10/24 09:06 0.3 MG Aspirin 81 mg DAILY PO 07/09/24 10:00 07/10/24 09:06 81 MG Atorvastatin Calcium 40 mg HS PO 07/09/24 22:00 07/09/24 21:54 40 MG Ondansetron HCl 4 mg Q6HPRN PRN IV 07/08/24 22:15 Nifedipine 30 mg DAILY PO 07/09/24 10:00 07/10/24 09:06 30 MG Ceftriaxone Sodium 50 ml @ 100 mls/hr DAILY@09 IV 07/09/24 09:00 07/10/24 09:04 100 MLS/HR Metronidazole 100 ml @ 100 mls/hr Q8HR IV 07/08/24 22:30 07/10/24 14:06 100 MLS/HR Enoxaparin Sodium 40 mg DAILY SC 07/09/24 10:00 07/10/24 09:07 40 MG Pantoprazole Sodium 40 mg DAILY IV 07/09/24 10:00 07/10/24 09:05 40 MG Sucralfate 1 gm QID@0600,1130,1700,2200 PO 07/08/24 22:30 07/10/24 17:41 1 GM Ipratropium [place] 0.5 mg Q6HR NEB 07/09/24 00:00 07/10/24 11:55 0.5 MG Ergocalciferol 50,000 unit Q7D PO 07/09/24 10:00 Belladonna Alkaloids/ Phenobarbital 5 ml Q8HR PO 07/09/24 14:00 07/10/24 14:06 5 ML Acetaminophen 650 mg Q4HP PRN PO 07/09/24 19:00 Dicyclomine HCl 20 mg QID PO 07/09/24 18:00 07/10/24 17:41 20 MG Acetaminophen/ Hydrocodone Bitart 1 tab Q4HP PRN PO 07/09/24 13:15 07/09/24 14:16 1 TAB Hydromorphone HCl 0.5 mg Q4HPRN PRN IV 07/09/24 13:15 07/10/24 15:33 0.5 MG Zolpidem Tartrate 10 mg HSPRN PRN PO 07/10/24 16:45 Lorazepam 1 mg Q6HP PRN PO 07/10/24 16:45 objective General Appearance: Alert, Oriented X3, Cooperative, No acute distress HEENT: Atraumatic, PERRLA, EOMI, Mucous membrane moist/pink Respiratory: Clear to auscultation, Normal air movement Cardiovascular: Regular rate, Normal S1, Normal S2, No murmurs, no chest wall tenderness Abdominal: Abdominal tenderness Extremities: No clubbing, No cyanosis, No edema, Normal pulses, No tenderness/swelling Skin: No rashes, No breakdown, No significant lesion Neuro: Normal gait, Normal speech, Strength at 5/5 X4 ext, Normal tone, Sensation intact, Cranial nerves 3-12 NL, Reflexes 2+ Psych/Mental Status: Mental status NL, Mood NL laboratory and microbiology Laboratory Tests 07/10/24 10:45 07/10/24 06:23 Test 07/10/24 06:23 Range/Units Serum Glucose 98 74-106 mg/dL Problems(with codes): (1) Nausea and vomiting (2) UTI (urinary tract infection) (3) Vomiting and diarrhea Prognosis Plan IV fluid hydration IV antibiotics Consider IV micafungin Urine culture showed mixed colony type and yeast ; final culture is pending Patient had an EGD about two months ago which showed gastritis biopsies were negative. Patient has two charts; second under the name of Deanna Roe with a different MR number supportive care, advance diet as tolerated, pain control Outpatient follow up with GI Services in 4-6 weeks after discharge for further management of hepatitis-C and also to discuss elective screening colonoscopy Once again thank you for allowing me to participate in the care of this patient Dietary Evaluation Review Recommendations by RD: Dietary education by RD Comments: 1) Initiate Glucerna qd. Encourage optimal PO intake 2) Refer to outpatient RD/[facility] for prediabetes education 3) Follow-up with gastroenterology, oncology, and hepatology 4) Continue to monitor I&O, labs, and skin integrity Expected Outcomes/Goals: 1) appetite and labs to improve 2) f/u in 3-5 days Plan discussed with: Patient GAVINO MENDOZA MD Jul 10, 2024 18:37
[2024-07-10] MEDS: ZOLPIDEM TARTRATE 5 MG TAB PO PRN (21:10)
[2024-07-10] MEDS: LORazepam 0.5 MG TAB PO PRN (23:13)
[2024-07-11] VITALS (18 sets, daily range): BP systolic 130–169; BP diastolic 80–104; PULSE 75–100; RESP 16–20; TEMP 96.6–99.4; O2SAT 92–100
[2024-07-11 07:12] LABS: Basophils # (auto) 0 10 ^3/uL (0-0.2); Basophils % (auto) 0.6 % (0.0-2.0); Eosinophils # (auto) 0.2 10 ^3/uL (0-0.8); Eosinophils % (auto) 2.3 % (0.0-7.0); Hematocrit 41.1 % (36.0-46.0); Hemoglobin 13.4 g/dL (12.2-16.2); Lymphocytes # (auto) 3.1 10 ^3/uL (0.4-5.4); Mean Corpuscular Hemoglobin 29.7 pg (28.0-32.0); Mean Corpuscular Hgb Conc. 32.5 g/dL (32.0-36.0); Mean Corpuscular Volume 91.5 fL (80.0-100.0); Monocytes # (auto) 0.5 10 ^3/uL (0-1.3); Monocytes % (auto) 6.2 % (0.0-12.0); Neutrophils # (auto) 3.7 10 ^3/uL (1.6-8.6); Neutrophils % (auto) 49.9 % (37.0-80.0); Platelet Count (auto) 191 10^3/uL (140-450); Red Cell Distribution Width 16.8 % (11.8-14.3); White Blood Cell 7.5 10^3/uL (4.4-10.8)
[2024-07-11 07:24] LABS: Alanine Aminotransferase 18 U/L (7-40); Anion Gap 12 (5-15); BUN/Creatinine Ratio 7.5 (10.0-20.0); Calcium 10.4 mg/dL (8.7-10.4); Potassium 3.8 mmol/L (3.5-5.1); Sodium 139 mmol/L (136-145); Total Protein 7.5 g/dL (5.7-8.2)
[2024-07-11 07:25] LABS: Albumin 4.5 g/dL (3.2-4.8); Aspartate Aminotransferase 24 U/L (13-40); Bilirubin, Total 0.4 mg/dL (0.2-1.0)
[2024-07-11 07:26] LABS: Alkaline Phosphatase 142 U/L (46-116); Blood Urea Nitrogen 8 mg/dL (9-23); Carbon Dioxide 19 mmol/L (20-31); Chloride 108 mmol/L (98-107); Glucose 108 mg/dL (74-106)
--- NOTE | 2024-07-11 13:45 | DVHPN2 ---
Progress Note - Dictate Date Seen: Jul 11, 2024 Has the PT tested + for MRSA If YES, has PT been informed?: No Medical Necessity Reason Pt with a Central, PICC or Fol: No Subjective No new complaints, patient is resting comfortably Patient is getting a breathing treatment She states her abdominal pain is better and it is actually more in the right flank Patient has moved her bowels which are normal without any bleeding UA was positive for UTI with over 2000 WBC and 3+ positive leukocyte esterase vital signs Vital Sign Date Time Temp Pulse Resp B/P (MAP) Pulse Ox O2 Delivery O2 Flow Rate FiO2 07/11/24 11:16 77 18 155/93 07/11/24 11:13 97 Room Air 0.0 07/11/24 11:13 21 07/11/24 09:00 98.3 98.3 Total Intake and Output 07/10/24 07/10/24 07/11/24 15:00 23:00 07:00 Intake Total 50 ml 1200 ml 500 ml Output Total 1050 ml Balance 50 ml 150 ml 500 ml medications Current Medications Medications Dose Ordered Sig/Aranza Route Start Time Stop Time Status Last Admin Dose Admin Nitroglycerin 0.4 mg Q5MINP PRN SL 07/08/24 22:15 Morphine Sulfate 2 mg Q30M PRN IV 07/08/24 22:15 Amlodipine Besylate 5 mg DAILY PO 07/09/24 10:00 07/11/24 09:17 5 MG Sertraline HCl 50 mg DAILY PO 07/09/24 10:00 07/11/24 09:18 50 MG Clonidine HCl 0.3 mg BID PO 07/09/24 10:00 07/11/24 09:17 0.3 MG Aspirin 81 mg DAILY PO 07/09/24 10:00 07/11/24 09:17 81 MG Atorvastatin Calcium 40 mg HS PO 07/09/24 22:00 07/10/24 21:11 40 MG Ondansetron HCl 4 mg Q6HPRN PRN IV 07/08/24 22:15 Nifedipine 30 mg DAILY PO 07/09/24 10:00 07/11/24 09:18 30 MG Ceftriaxone Sodium 50 ml @ 100 mls/hr DAILY@09 IV 07/09/24 09:00 07/11/24 11:41 100 MLS/HR Metronidazole 100 ml @ 100 mls/hr Q8HR IV 07/08/24 22:30 07/11/24 05:55 100 MLS/HR Enoxaparin Sodium 40 mg DAILY SC 07/09/24 10:00 07/11/24 09:18 40 MG Pantoprazole Sodium 40 mg DAILY IV 07/09/24 10:00 07/11/24 10:45 40 MG Sucralfate 1 gm QID@0600,1130,1700,2200 PO 07/08/24 22:30 07/11/24 11:41 1 GM Ipratropium [place] 0.5 mg Q6HR NEB 07/09/24 00:00 07/11/24 11:13 0.5 MG Ergocalciferol 50,000 unit Q7D PO 07/09/24 10:00 Belladonna Alkaloids/ Phenobarbital 5 ml Q8HR PO 07/09/24 14:00 07/11/24 05:55 5 ML Acetaminophen 650 mg Q4HP PRN PO 07/09/24 19:00 Dicyclomine HCl 20 mg QID PO 07/09/24 18:00 07/11/24 11:41 20 MG Acetaminophen/ Hydrocodone Bitart 1 tab Q4HP PRN PO 07/09/24 13:15 07/11/24 04:35 1 TAB Hydromorphone HCl 0.5 mg Q4HPRN PRN IV 07/09/24 13:15 07/11/24 10:46 0.5 MG Zolpidem Tartrate 10 mg HSPRN PRN PO 07/10/24 16:45 07/10/24 21:10 10 MG Lorazepam 1 mg Q6HP PRN PO 07/10/24 16:45 07/11/24 09:16 1 MG objective General Appearance: Alert, Oriented X3, Cooperative, No acute distress HEENT: Atraumatic, PERRLA, EOMI, Mucous membrane moist/pink Respiratory: Clear to auscultation, Normal air movement Cardiovascular: Regular rate, Normal S1, Normal S2, No murmurs, no chest wall tenderness Abdominal: Abdominal tenderness Extremities: No clubbing, No cyanosis, No edema, Normal pulses, No tenderness/swelling Skin: No rashes, No breakdown, No significant lesion Neuro: Normal gait, Normal speech, Strength at 5/5 X4 ext, Normal tone, Sensation intact, Cranial nerves 3-12 NL, Reflexes 2+ Psych/Mental Status: Mental status NL, Mood NL laboratory and microbiology Laboratory Tests 07/11/24 06:23 Test 07/11/24 06:23 Range/Units Serum Glucose 108 H 74-106 mg/dL CT ABD and USG negative Problems(with codes): (1) Pyelonephritis (2) Right flank pain (3) Vomiting and diarrhea (4) Nausea and vomiting (5) UTI (urinary tract infection) Prognosis Plan Advance diet as tolerated Continue IV antibiotics for a UTI suspected pyelonephritis Bentyl 10 mg p.o. twice a day as needed for abdominal pain Continue Protonix and Carafate Outpatient follow up with GI Services for elective colonoscopy and management of hep C Once again thank you for allowing me to participate in the care of this patient Dietary Evaluation Review Recommendations by RD: Dietary education by RD Comments: 1) Initiate Glucerna qd. Encourage optimal PO intake 2) Refer to outpatient RD/[facility] for prediabetes education 3) Follow-up with gastroenterology, oncology, and hepatology 4) Continue to monitor I&O, labs, and skin integrity Expected Outcomes/Goals: 1) appetite and labs to improve 2) f/u in 3-5 days Plan discussed with: Patient, Other (Dr Vick) GAVINO MENDOZA MD Jul 11, 2024 13:45
--- NOTE | 2024-07-11 16:31 | DVHPNRES ---
Progress Note Date Seen: Jul 11, 2024 Resident Creating Document: MALIHA DIAZ LARISSA Has the PT tested + for MRSA If YES, has PT been informed?: No Medical Necessity Reason Pt with a Central, PICC or Fol: No Subjective Review of Systems Patient seen and examined at the bedside. Patient is still complaining of intractable abdominal pain. Patient reports: No new complaints Changes from previous H/P or p: No Changes Objective vital signs Vital Sign Date Time Temp Pulse Resp B/P (MAP) Pulse Ox O2 Delivery O2 Flow Rate FiO2 07/11/24 11:16 77 18 155/93 07/11/24 11:13 97 Room Air 0.0 07/11/24 11:13 21 07/11/24 09:00 98.3 98.3 Total Intake and Output 07/10/24 07/10/24 07/11/24 15:00 23:00 07:00 Intake Total 50 ml 1200 ml 500 ml Output Total 1050 ml Balance 50 ml 150 ml 500 ml medications Current Medications Medications Dose Ordered Sig/Aranza Route Start Time Stop Time Status Last Admin Dose Admin Nitroglycerin 0.4 mg Q5MINP PRN SL 07/08/24 22:15 Morphine Sulfate 2 mg Q30M PRN IV 07/08/24 22:15 Amlodipine Besylate 5 mg DAILY PO 07/09/24 10:00 07/11/24 09:17 5 MG Sertraline HCl 50 mg DAILY PO 07/09/24 10:00 07/11/24 09:18 50 MG Clonidine HCl 0.3 mg BID PO 07/09/24 10:00 07/11/24 09:17 0.3 MG Aspirin 81 mg DAILY PO 07/09/24 10:00 07/11/24 09:17 81 MG Atorvastatin Calcium 40 mg HS PO 07/09/24 22:00 07/10/24 21:11 40 MG Ondansetron HCl 4 mg Q6HPRN PRN IV 07/08/24 22:15 Nifedipine 30 mg DAILY PO 07/09/24 10:00 07/11/24 09:18 30 MG Ceftriaxone Sodium 50 ml @ 100 mls/hr DAILY@09 IV 07/09/24 09:00 07/11/24 11:41 100 MLS/HR Metronidazole 100 ml @ 100 mls/hr Q8HR IV 07/08/24 22:30 07/11/24 14:24 100 MLS/HR Enoxaparin Sodium 40 mg DAILY SC 07/09/24 10:00 07/11/24 09:18 40 MG Pantoprazole Sodium 40 mg DAILY IV 07/09/24 10:00 07/11/24 10:45 40 MG Sucralfate 1 gm QID@0600,1130,1700,2200 PO 07/08/24 22:30 07/11/24 11:41 1 GM Ipratropium [place] 0.5 mg Q6HR NEB 07/09/24 00:00 07/11/24 11:13 0.5 MG Ergocalciferol 50,000 unit Q7D PO 07/09/24 10:00 Belladonna Alkaloids/ Phenobarbital 5 ml Q8HR PO 07/09/24 14:00 07/11/24 05:55 5 ML Acetaminophen 650 mg Q4HP PRN PO 07/09/24 19:00 Dicyclomine HCl 20 mg QID PO 07/09/24 18:00 07/11/24 11:41 20 MG Acetaminophen/ Hydrocodone Bitart 1 tab Q4HP PRN PO 07/09/24 13:15 07/11/24 04:35 1 TAB Hydromorphone HCl 0.5 mg Q4HPRN PRN IV 07/09/24 13:15 07/11/24 10:46 0.5 MG Zolpidem Tartrate 10 mg HSPRN PRN PO 07/10/24 16:45 07/10/24 21:10 10 MG Lorazepam 1 mg Q6HP PRN PO 07/10/24 16:45 07/11/24 09:16 1 MG Examination General Appearance: Alert, Oriented X3, Cooperative, No acute distress HEENT: Atraumatic, PERRLA, EOMI, Mucous membrane moist/pink Respiratory: Clear to auscultation, Normal air movement Cardiovascular: Regular rate, Normal S1, Normal S2, No murmurs, no chest wall tenderness Abdominal: Abdominal tenderness Extremities: No clubbing, No cyanosis, No edema, Normal pulses, No tenderness/swelling Skin: No rashes, No breakdown, No significant lesion Neuro: Normal gait, Normal speech, Strength at 5/5 X4 ext, Normal tone, Sensation intact, Cranial nerves 3-12 NL, Reflexes 2+ Psych/Mental Status: Mental status NL, Mood NL laboratory and microbiology Laboratory Tests 07/11/24 06:23 Test 07/11/24 06:23 Range/Units Serum Glucose 108 H 74-106 mg/dL Microbiology Date/Time Source Procedure Growth Status 07/08/24 21:17 Blood Blood Culture - Preliminary NO GROWTH AFTER 48 HOURS OF INCUBATION. Resulted 07/08/24 20:00 Voided Urine Urine Culture - Final Complete Labs and/or images reviewed: Labs reviewed by me, Image(s) reviewed by me Problem List/Assessment/Plan Problem List/Assessment/Plan Intractable abdominal pain, likely due to gastroenteritis/peptic ulcer disease Peptic ulcer disease Gastroenteritis, likely infectious History of hepatitis-C virus History of liver cancer, status post surgery Complicated UTI Abdominopelvic CT scan shows, Punctate nonobstructive left nephrolithiasis. GI consulted, patient had an EGD, 2 months back, showed gastritis with normal biopsy finding. GI recommended medical management, and GI follow up with the elective colonoscopy and management of hepatitis-C on outpatient basis Empiric antibiotic, Rocephin and Flagyl Protonix, Zofran IV fluid Pain management Hypertensive urgency History of congestive heart failure, on 2 L of oxygen at home Chronic respiratory failure, due to CHF Ruled out ACS RAUL, on CKD grade 3A, likely VMN IV fluid Hypokalemia, repleted Methamphetamine use disorder DIET: Clear liquid diet DVT PROPHYLAXIS: Lovenox GI PROPHYLAXIS:: Protonix CODE STATUS: Goal of care discussed for more than 18 minutes, full code DISPOSITION: Med/surge Patient is still complained of intractable abdominal pain, we will continue medical management and observe the patient for the p.o. tolerance. Patient's status and plan discussed with the patient. Case discussed with Dr. Chávez. Plan discussed with: Patient, Other (RN) Dietary Evaluation Review Recommendations by RD: Dietary education by RD Comments: 1) Initiate Glucerna qd. Encourage optimal PO intake 2) Refer to outpatient RD/CDCES for prediabetes education 3) Follow-up with gastroenterology, oncology, and hepatology 4) Continue to monitor I&O, labs, and skin integrity Expected Outcomes/Goals: 1) appetite and labs to improve 2) f/u in 3-5 days MALIHA DIAZ Jul 11, 2024 16:31
[2024-07-11] MEDS: ONDANSETRON HCL 4 MG/2 ML VIAL IV PRN (21:17)
[2024-07-12] VITALS (10 sets, daily range): BP systolic 101–150; BP diastolic 33–87; PULSE 60–82; RESP 16–18; TEMP 96.6–98.3; O2SAT 92–100
[2024-07-12 07:05] LABS: Basophils # (auto) 0 10 ^3/uL (0-0.2); Basophils % (auto) 0.7 % (0.0-2.0); Eosinophils # (auto) 0.1 10 ^3/uL (0-0.8); Eosinophils % (auto) 2.4 % (0.0-7.0); Hematocrit 35.5 % (36.0-46.0); Hemoglobin 11.5 g/dL (12.2-16.2); Lymphocytes # (auto) 1.8 10 ^3/uL (0.4-5.4); Lymphocytes % (auto) 31.7 % (10.0-50.0); Mean Corpuscular Hemoglobin 29.9 pg (28.0-32.0); Mean Corpuscular Hgb Conc. 32.5 g/dL (32.0-36.0); Mean Corpuscular Volume 92.1 fL (80.0-100.0); Monocytes # (auto) 0.5 10 ^3/uL (0-1.3); Monocytes % (auto) 8.1 % (0.0-12.0); Neutrophils # (auto) 3.2 10 ^3/uL (1.6-8.6); Neutrophils % (auto) 57.1 % (37.0-80.0); Nucleated Red Blood Cells % 0.2 %; Platelet Count (auto) 153 10^3/uL (140-450); Red Blood Cells 3.86 10^6/uL (4.0-5.20); Red Cell Distribution Width 16.6 % (11.8-14.3); White Blood Cell 5.6 10^3/uL (4.4-10.8)
[2024-07-12 07:28] LABS: Alanine Aminotransferase 15 U/L (7-40); Albumin 3.8 g/dL (3.2-4.8); Alkaline Phosphatase 111 U/L (46-116); Anion Gap 9 (5-15); Aspartate Aminotransferase 22 U/L (13-40); BUN/Creatinine Ratio 10.7 (10.0-20.0); Blood Urea Nitrogen 13 mg/dL (9-23); Calcium 9.5 mg/dL (8.7-10.4); Carbon Dioxide 23 mmol/L (20-31); Glucose 99 mg/dL (74-106); Potassium 3.8 mmol/L (3.5-5.1); Sodium 140 mmol/L (136-145); Total Protein 6.2 g/dL (5.7-8.2)
[2024-07-12 07:29] LABS: Bilirubin, Total 0.2 mg/dL (0.2-1.0); Chloride 108 mmol/L (98-107)
--- NOTE | 2024-07-12 12:04 | ECG ---
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
--- NOTE | 2024-07-12 12:47 | DVHPN2 ---
Progress Note - Dictate Date Seen: Jul 11, 2024 Has the PT tested + for MRSA If YES, has PT been informed?: No Medical Necessity Reason Pt with a Central, PICC or Fol: No Subjective ABD PAIN NAUSEA SYNCOPE SEVERE HYPOKALEMIA ? DYSRHYTHMIA DIARRHEA PT WELL KNOWN TO ME HX OF CAD DIABETES HTN HYPERLIPIDEMIA \S/P C 04/09 * Left main normal. * Left anterior descending artery without any flow restrictive lesion. * Circumflex dominant vessel without any flow restrictive lesion. * Right coronary artery nondominant vessel without any flow restrictive lesion. * Left ventricular function showed hyperdynamic contractility with an LV. Left ventricular ejection fraction greater than 65%. * LVEDP was 5 mmHg. Left ventricular systolic pressure 160. Right heart catheterization, [place] reading shows RA pressure of 4, RV pressure of 26/10, PA pressure of 26/10, and capillary wedge pressure of 5. * Left ventricular end-diastolic pressure as mentioned above was also 5. * At this time, no surgical intervention. No catheter-based intervention is warranted. The patient's blood pressure needs absolutely to be controlled. At this time, beta blockade may be a good option for this patient. TROPONIN NEGATIVE BNP WNL HX OF LIVER RESECTION LUNG NODULE THICKENED COLONIC WALL COLITIS HX OF OPEN HEART SURGERY vital signs Vital Sign Date Time Temp Pulse Resp B/P (MAP) Pulse Ox O2 Delivery O2 Flow Rate FiO2 07/12/24 10:18 69 17 139/81 07/12/24 10:00 94 Room Air 07/12/24 10:00 0 21 07/12/24 05:00 96.6 96.6 Total Intake and Output 07/11/24 07/11/24 07/12/24 15:00 23:00 07:00 Intake Total 50 ml 1400 ml 580 ml Balance 50 ml 1400 ml 580 ml medications Current Medications Medications Dose Ordered Sig/Aranza Route Start Time Stop Time Status Last Admin Dose Admin Nitroglycerin 0.4 mg Q5MINP PRN SL 07/08/24 22:15 Morphine Sulfate 2 mg Q30M PRN IV 07/08/24 22:15 Amlodipine Besylate 5 mg DAILY PO 07/09/24 10:00 07/12/24 09:55 5 MG Sertraline HCl 50 mg DAILY PO 07/09/24 10:00 07/12/24 09:54 50 MG Clonidine HCl 0.3 mg BID PO 07/09/24 10:00 07/12/24 09:54 0.3 MG Aspirin 81 mg DAILY PO 07/09/24 10:00 07/12/24 09:54 81 MG Atorvastatin Calcium 40 mg HS PO 07/09/24 22:00 07/11/24 23:17 40 MG Ondansetron HCl 4 mg Q6HPRN PRN IV 07/08/24 22:15 07/11/24 21:17 4 MG Nifedipine 30 mg DAILY PO 07/09/24 10:00 07/12/24 09:54 30 MG Ceftriaxone Sodium 50 ml @ 100 mls/hr DAILY@09 IV 07/09/24 09:00 07/12/24 09:53 100 MLS/HR Metronidazole 100 ml @ 100 mls/hr Q8HR IV 07/08/24 22:30 07/12/24 06:48 100 MLS/HR Enoxaparin Sodium 40 mg DAILY SC 07/09/24 10:00 07/12/24 09:54 40 MG Pantoprazole Sodium 40 mg DAILY IV 07/09/24 10:00 07/12/24 09:53 40 MG Sucralfate 1 gm QID@0600,1130,1700,2200 PO 07/08/24 22:30 07/12/24 11:32 1 GM Ipratropium [place] 0.5 mg Q6HR NEB 07/09/24 00:00 07/12/24 07:00 0.5 MG Ergocalciferol 50,000 unit Q7D PO 07/09/24 10:00 Belladonna Alkaloids/ Phenobarbital 5 ml Q8HR PO 07/09/24 14:00 07/11/24 05:55 5 ML Acetaminophen 650 mg Q4HP PRN PO 07/09/24 19:00 Dicyclomine HCl 20 mg QID PO 07/09/24 18:00 07/12/24 11:33 20 MG Acetaminophen/ Hydrocodone Bitart 1 tab Q4HP PRN PO 07/09/24 13:15 07/11/24 04:35 1 TAB Hydromorphone HCl 0.5 mg Q4HPRN PRN IV 07/09/24 13:15 07/12/24 10:18 0.5 MG Zolpidem Tartrate 10 mg HSPRN PRN PO 07/10/24 16:45 07/11/24 23:16 10 MG Lorazepam 1 mg Q6HP PRN PO 07/10/24 16:45 07/12/24 00:04 1 MG laboratory and microbiology Laboratory Tests 07/12/24 05:59 Test 07/12/24 05:59 Range/Units Serum Glucose 99 74-106 mg/dL Problem List ABD PAIN NAUSEA SYNCOPE SEVERE HYPOKALEMIA ? DYSRHYTHMIA DIARRHEA PT WELL KNOWN TO ME HX OF CAD DIABETES HTN HYPERLIPIDEMIA S/P [facility] 04/09 * Left main normal. * Left anterior descending artery without any flow restrictive lesion. * Circumflex dominant vessel without any flow restrictive lesion. * Right coronary artery nondominant vessel without any flow restrictive lesion. * Left ventricular function showed hyperdynamic contractility with an LV. Left ventricular ejection fraction greater than 65%. * LVEDP was 5 mmHg. Left ventricular systolic pressure 160. Right heart catheterization, [place] reading shows RA pressure of 4, RV pressure of 26/10, PA pressure of 26/10, and capillary wedge pressure of 5. * Left ventricular end-diastolic pressure as mentioned above was also 5. * At this time, no surgical intervention. No catheter-based intervention is warranted. The patient's blood pressure needs absolutely to be controlled. At this time, beta blockade may be a good option for this patient. TROPONIN NEGATIVE BNP WNL HX OF LIVER RESECTION LUNG NODULE THICKENED COLONIC WALL COLITIS HX OF OPEN HEART SURGERY ANEMIA Assessment/Plan CORRECT HYPOKALEMIA CONSIDER MOTILITY TREATMENT ANTI SPASMATIC CONSIDER MOTAGRITY AND VONOPRAZAN Dietary Evaluation Review Recommendations by RD: Dietary education by RD Comments: 1) Initiate Glucerna qd. Encourage optimal PO intake 2) Refer to outpatient RD/CDCES for prediabetes education 3) Follow-up with gastroenterology, oncology, and hepatology 4) Continue to monitor I&O, labs, and skin integrity Expected Outcomes/Goals: 1) appetite and labs to improve 2) f/u in 3-5 days Plan discussed with: Patient ELICIA ROBERTSON MD Jul 12, 2024 12:47
--- NOTE | 2024-07-12 12:48 | DVHPN2 ---
Progress Note - Dictate Date Seen: Jul 12, 2024 Has the PT tested + for MRSA If YES, has PT been informed?: No Medical Necessity Reason Pt with a Central, PICC or Fol: No Subjective ABD PAIN NAUSEA SYNCOPE SEVERE HYPOKALEMIA ? DYSRHYTHMIA DIARRHEA PT WELL KNOWN TO ME HX OF CAD DIABETES HTN HYPERLIPIDEMIA \S/P C 04/09 * Left main normal. * Left anterior descending artery without any flow restrictive lesion. * Circumflex dominant vessel without any flow restrictive lesion. * Right coronary artery nondominant vessel without any flow restrictive lesion. * Left ventricular function showed hyperdynamic contractility with an LV. Left ventricular ejection fraction greater than 65%. * LVEDP was 5 mmHg. Left ventricular systolic pressure 160. Right heart catheterization, [place] reading shows RA pressure of 4, RV pressure of 26/10, PA pressure of 26/10, and capillary wedge pressure of 5. * Left ventricular end-diastolic pressure as mentioned above was also 5. * At this time, no surgical intervention. No catheter-based intervention is warranted. The patient's blood pressure needs absolutely to be controlled. At this time, beta blockade may be a good option for this patient. TROPONIN NEGATIVE BNP WNL HX OF LIVER RESECTION LUNG NODULE THICKENED COLONIC WALL COLITIS HX OF OPEN HEART SURGERY vital signs Vital Sign Date Time Temp Pulse Resp B/P (MAP) Pulse Ox O2 Delivery O2 Flow Rate FiO2 07/12/24 10:18 69 17 139/81 07/12/24 10:00 94 Room Air 07/12/24 10:00 0 21 07/12/24 05:00 96.6 96.6 Total Intake and Output 07/11/24 07/11/24 07/12/24 15:00 23:00 07:00 Intake Total 50 ml 1400 ml 580 ml Balance 50 ml 1400 ml 580 ml medications Current Medications Medications Dose Ordered Sig/Aranza Route Start Time Stop Time Status Last Admin Dose Admin Nitroglycerin 0.4 mg Q5MINP PRN SL 07/08/24 22:15 Morphine Sulfate 2 mg Q30M PRN IV 07/08/24 22:15 Amlodipine Besylate 5 mg DAILY PO 07/09/24 10:00 07/12/24 09:55 5 MG Sertraline HCl 50 mg DAILY PO 07/09/24 10:00 07/12/24 09:54 50 MG Clonidine HCl 0.3 mg BID PO 07/09/24 10:00 07/12/24 09:54 0.3 MG Aspirin 81 mg DAILY PO 07/09/24 10:00 07/12/24 09:54 81 MG Atorvastatin Calcium 40 mg HS PO 07/09/24 22:00 07/11/24 23:17 40 MG Ondansetron HCl 4 mg Q6HPRN PRN IV 07/08/24 22:15 07/11/24 21:17 4 MG Nifedipine 30 mg DAILY PO 07/09/24 10:00 07/12/24 09:54 30 MG Ceftriaxone Sodium 50 ml @ 100 mls/hr DAILY@09 IV 07/09/24 09:00 07/12/24 09:53 100 MLS/HR Metronidazole 100 ml @ 100 mls/hr Q8HR IV 07/08/24 22:30 07/12/24 06:48 100 MLS/HR Enoxaparin Sodium 40 mg DAILY SC 07/09/24 10:00 07/12/24 09:54 40 MG Pantoprazole Sodium 40 mg DAILY IV 07/09/24 10:00 07/12/24 09:53 40 MG Sucralfate 1 gm QID@0600,1130,1700,2200 PO 07/08/24 22:30 07/12/24 11:32 1 GM Ipratropium [place] 0.5 mg Q6HR NEB 07/09/24 00:00 07/12/24 07:00 0.5 MG Ergocalciferol 50,000 unit Q7D PO 07/09/24 10:00 Belladonna Alkaloids/ Phenobarbital 5 ml Q8HR PO 07/09/24 14:00 07/11/24 05:55 5 ML Acetaminophen 650 mg Q4HP PRN PO 07/09/24 19:00 Dicyclomine HCl 20 mg QID PO 07/09/24 18:00 07/12/24 11:33 20 MG Acetaminophen/ Hydrocodone Bitart 1 tab Q4HP PRN PO 07/09/24 13:15 07/11/24 04:35 1 TAB Hydromorphone HCl 0.5 mg Q4HPRN PRN IV 07/09/24 13:15 07/12/24 10:18 0.5 MG Zolpidem Tartrate 10 mg HSPRN PRN PO 07/10/24 16:45 07/11/24 23:16 10 MG Lorazepam 1 mg Q6HP PRN PO 07/10/24 16:45 07/12/24 00:04 1 MG laboratory and microbiology Laboratory Tests 07/12/24 05:59 Test 07/12/24 05:59 Range/Units Serum Glucose 99 74-106 mg/dL Problem List ABD PAIN NAUSEA SYNCOPE SEVERE HYPOKALEMIA ? DYSRHYTHMIA DIARRHEA PT WELL KNOWN TO ME HX OF CAD DIABETES HTN HYPERLIPIDEMIA S/P [facility] 04/09 * Left main normal. * Left anterior descending artery without any flow restrictive lesion. * Circumflex dominant vessel without any flow restrictive lesion. * Right coronary artery nondominant vessel without any flow restrictive lesion. * Left ventricular function showed hyperdynamic contractility with an LV. Left ventricular ejection fraction greater than 65%. * LVEDP was 5 mmHg. Left ventricular systolic pressure 160. Right heart catheterization, [place] reading shows RA pressure of 4, RV pressure of 26/10, PA pressure of 26/10, and capillary wedge pressure of 5. * Left ventricular end-diastolic pressure as mentioned above was also 5. * At this time, no surgical intervention. No catheter-based intervention is warranted. The patient's blood pressure needs absolutely to be controlled. At this time, beta blockade may be a good option for this patient. TROPONIN NEGATIVE BNP WNL HX OF LIVER RESECTION LUNG NODULE THICKENED COLONIC WALL COLITIS HX OF OPEN HEART SURGERY ANEMIA Assessment/Plan CORRECT HYPOKALEMIA CONSIDER MOTILITY TREATMENT ANTI SPASMATIC CONSIDER MOTAGRITY AND VONOPRAZAN MRI OF ABD PELVIS Dietary Evaluation Review Recommendations by RD: Dietary education by RD Comments: 1) Initiate Glucerna qd. Encourage optimal PO intake 2) Refer to outpatient RD/CDCES for prediabetes education 3) Follow-up with gastroenterology, oncology, and hepatology 4) Continue to monitor I&O, labs, and skin integrity Expected Outcomes/Goals: 1) appetite and labs to improve 2) f/u in 3-5 days Plan discussed with: Patient ELICIA ROBERTSON MD Jul 12, 2024 12:48
[2024-07-12] MEDS ORDERED: GADOTERATE MEG 10 MMOL/20ml INJ (0.5MMOL/ml) IV ONE (13:16)
--- NOTE | 2024-07-12 14:27 | DVH ---
[id number] MRI MRI ABDOMEN W AND WO Attending Name: MALIHA DIAZ RESDIENT COMPARISON: CT abdomen done 11/20/2023 INDICATION: RECURRENT ADMISSION OF ABD PAIN, HX OF LIVER CA TECHNIQUE: MRCP was performed without the use of intravenous contrast using a MRI imaging system. 15 cc Gadavist given Three-dimensional MRCP was performed using maximum intensity projection reconstruction on an [employer] workstation under concurrent supervision. FINDINGS: Visualized lower thorax: Limited imaging of the thorax demonstrates no suspicious pleural or parenchy mal disease. Liver: There has been resection of portion of the left lobe of the liver. There is a 1.7 cm cyst high in the right lobe of the liver. Gallbladder: No evidence of cholelithiasis or gallbladder wall thickening. Biliary system: Gallbladder has been resected. There are no dilated intrahepatic bile ducts. Spleen: Normal in morphology and signal intensity. Pancreas: Normal in morphology and signal intensity. Adrenal glands: Normal in morphology and signal intensity. Kidneys: Right kidney is rotated. Multiple cysts in the right kidney with the largest measuring 3 cm . No hydronephrosis Urinary tract: The included ureters, as visualized, are normal in course and caliber. GI tract: The included portions of the bowel are within normal limits. Lymph nodes: No enlarged lymph nodes. Peritoneum: No ascites. Musculoskeletal: The bone marrow signal intensity is within normal limits. IMPRESSION: 1. Compared to prior CT no change. No evidence of hepatic tumor recurrence. There has been prior left hepatectomy 2. Stable cyst high in the right lobe of the liver 3. Multiple renal cysts measuring up to 3 cm
--- NOTE | 2024-07-12 14:27 | DVHPNRES ---
Progress Note Date Seen: Jul 12, 2024 Resident Creating Document: MALIHA DIAZ LARISSA Has the PT tested + for MRSA If YES, has PT been informed?: No Medical Necessity Reason Pt with a Central, PICC or Fol: No Subjective Review of Systems Patient seen and examined at the bedside. Patient is still complaining of abdominal pain. Patient reports: No new complaints, Feels better Changes from previous H/P or p: Changes Objective vital signs Vital Sign Date Time Temp Pulse Resp B/P (MAP) Pulse Ox O2 Delivery O2 Flow Rate FiO2 07/12/24 13:00 72 18 100 07/12/24 13:00 98.1 101/33 (55) 98.1 07/12/24 10:00 Room Air 07/12/24 10:00 0 21 Total Intake and Output 07/11/24 07/11/24 07/12/24 15:00 23:00 07:00 Intake Total 50 ml 1400 ml 580 ml Balance 50 ml 1400 ml 580 ml medications Current Medications Medications Dose Ordered Sig/Aranza Route Start Time Stop Time Status Last Admin Dose Admin Nitroglycerin 0.4 mg Q5MINP PRN SL 07/08/24 22:15 Morphine Sulfate 2 mg Q30M PRN IV 07/08/24 22:15 Amlodipine Besylate 5 mg DAILY PO 07/09/24 10:00 07/12/24 09:55 5 MG Sertraline HCl 50 mg DAILY PO 07/09/24 10:00 07/12/24 09:54 50 MG Clonidine HCl 0.3 mg BID PO 07/09/24 10:00 07/12/24 09:54 0.3 MG Aspirin 81 mg DAILY PO 07/09/24 10:00 07/12/24 09:54 81 MG Atorvastatin Calcium 40 mg HS PO 07/09/24 22:00 07/11/24 23:17 40 MG Ondansetron HCl 4 mg Q6HPRN PRN IV 07/08/24 22:15 07/11/24 21:17 4 MG Nifedipine 30 mg DAILY PO 07/09/24 10:00 07/12/24 09:54 30 MG Ceftriaxone Sodium 50 ml @ 100 mls/hr DAILY@09 IV 07/09/24 09:00 07/12/24 09:53 100 MLS/HR Metronidazole 100 ml @ 100 mls/hr Q8HR IV 07/08/24 22:30 07/12/24 06:48 100 MLS/HR Enoxaparin Sodium 40 mg DAILY SC 07/09/24 10:00 07/12/24 09:54 40 MG Pantoprazole Sodium 40 mg DAILY IV 07/09/24 10:00 07/12/24 09:53 40 MG Sucralfate 1 gm QID@0600,1130,1700,2200 PO 07/08/24 22:30 07/12/24 11:32 1 GM Ipratropium [place] 0.5 mg Q6HR NEB 07/09/24 00:00 07/12/24 12:59 0.5 MG Ergocalciferol 50,000 unit Q7D PO 07/09/24 10:00 Belladonna Alkaloids/ Phenobarbital 5 ml Q8HR PO 07/09/24 14:00 07/11/24 05:55 5 ML Acetaminophen 650 mg Q4HP PRN PO 07/09/24 19:00 Dicyclomine HCl 20 mg QID PO 07/09/24 18:00 07/12/24 11:33 20 MG Acetaminophen/ Hydrocodone Bitart 1 tab Q4HP PRN PO 07/09/24 13:15 07/12/24 13:19 1 TAB Hydromorphone HCl 0.5 mg Q4HPRN PRN IV 07/09/24 13:15 07/12/24 10:18 0.5 MG Zolpidem Tartrate 10 mg HSPRN PRN PO 07/10/24 16:45 07/11/24 23:16 10 MG Lorazepam 1 mg Q6HP PRN PO 07/10/24 16:45 07/12/24 00:04 1 MG Examination General Appearance: Alert, Oriented X3, Cooperative, No acute distress HEENT: Atraumatic, PERRLA, EOMI, Mucous membrane moist/pink Respiratory: Clear to auscultation, Normal air movement Cardiovascular: Regular rate, Normal S1, Normal S2, No murmurs, no chest wall tenderness Abdominal: Abdominal tenderness Extremities: No clubbing, No cyanosis, No edema, Normal pulses, No tenderness/swelling Skin: No rashes, No breakdown, No significant lesion Neuro: Normal gait, Normal speech, Strength at 5/5 X4 ext, Normal tone, Sensation intact, Cranial nerves 3-12 NL, Reflexes 2+ Psych/Mental Status: Mental status NL, Mood NL laboratory and microbiology Laboratory Tests 07/12/24 05:59 Test 07/12/24 05:59 Range/Units Serum Glucose 99 74-106 mg/dL Microbiology Date/Time Source Procedure Growth Status 07/08/24 21:17 Blood Blood Culture - Preliminary NO GROWTH AFTER 72 HOURS OF INCUBATION. Resulted 07/08/24 20:00 Voided Urine Urine Culture - Final Complete Labs and/or images reviewed: Labs reviewed by me, Image(s) reviewed by me Problem List/Assessment/Plan Problem List/Assessment/Plan Intractable abdominal pain, likely due to gastroenteritis/peptic ulcer disease Peptic ulcer disease Gastroenteritis, likely infectious History of hepatitis-C virus History of liver cancer, status post surgery Complicated UTI Abdominopelvic CT scan shows, Punctate nonobstructive left nephrolithiasis. GI consulted, patient had an EGD, 2 months back, showed gastritis with normal biopsy finding. GI recommended medical management, and GI follow up with the elective colonoscopy and management of hepatitis-C on outpatient basis Empiric antibiotic, Rocephin and Flagyl Protonix, Zofran IV fluid Pain management Dr. Rausch recommended MRI. Hypertensive urgency History of congestive heart failure, on 2 L of oxygen at home Chronic respiratory failure, due to CHF Ruled out ACS RAUL, on CKD grade 3A, likely VMN IV fluid Hypokalemia, repleted Methamphetamine use disorder DIET: Clear liquid diet DVT PROPHYLAXIS: Lovenox GI PROPHYLAXIS:: Protonix CODE STATUS: Goal of care discussed for more than 18 minutes, full code DISPOSITION: Med/surge Patient is still complained of intractable abdominal pain, we will continue medical management and observe the patient for the p.o. tolerance. Patient's status and plan discussed with the patient. Case discussed with Dr. Chávez. Plan discussed with: Patient, Other (RN) My Orders My Orders Orders - MALIHA DIAZ RESDIENT Procedure Category Date Status Time Discharge DISCHARGE 07/12/24 Transmitted 11:50 Dietary Evaluation Review Recommendations by RD: Dietary education by RD Comments: 1) Initiate Glucerna qd. Encourage optimal PO intake 2) Refer to outpatient RD/CDCES for prediabetes education 3) Follow-up with gastroenterology, oncology, and hepatology 4) Continue to monitor I&O, labs, and skin integrity Expected Outcomes/Goals: 1) appetite and labs to improve 2) f/u in 3-5 days MALIHA DIAZ Jul 12, 2024 14:27
--- NOTE | 2024-07-12 14:47 | DVHPN2 ---
Progress Note Date Seen: Jul 12, 2024 Resident Creating Document: ROHIT ROTH RESIDENT Has the PT tested + for MRSA If YES, has PT been informed?: No Medical Necessity Reason Pt with a Central, PICC or Fol: No Subjective Review of Systems Patient seen and examined at the bedside. Patient is more awake and alert, reported no new complaints except abdominal pain. advanced diet as tolerated. Objective vital signs Vital Sign Date Time Temp Pulse Resp B/P (MAP) Pulse Ox O2 Delivery O2 Flow Rate FiO2 07/12/24 13:00 72 18 100 07/12/24 13:00 98.1 101/33 (55) 98.1 07/12/24 10:00 Room Air 07/12/24 10:00 0 21 Total Intake and Output 07/11/24 07/11/24 07/12/24 14:59 22:59 06:59 Intake Total 50 ml 1400 ml 580 ml Balance 50 ml 1400 ml 580 ml medications Current Medications Medications Dose Ordered Sig/Aranza Route Start Time Stop Time Status Last Admin Dose Admin Nitroglycerin 0.4 mg Q5MINP PRN SL 07/08/24 22:15 Morphine Sulfate 2 mg Q30M PRN IV 07/08/24 22:15 Amlodipine Besylate 5 mg DAILY PO 07/09/24 10:00 07/12/24 09:55 5 MG Sertraline HCl 50 mg DAILY PO 07/09/24 10:00 07/12/24 09:54 50 MG Clonidine HCl 0.3 mg BID PO 07/09/24 10:00 07/12/24 09:54 0.3 MG Aspirin 81 mg DAILY PO 07/09/24 10:00 07/12/24 09:54 81 MG Atorvastatin Calcium 40 mg HS PO 07/09/24 22:00 07/11/24 23:17 40 MG Ondansetron HCl 4 mg Q6HPRN PRN IV 07/08/24 22:15 07/11/24 21:17 4 MG Nifedipine 30 mg DAILY PO 07/09/24 10:00 07/12/24 09:54 30 MG Ceftriaxone Sodium 50 ml @ 100 mls/hr DAILY@09 IV 07/09/24 09:00 07/12/24 09:53 100 MLS/HR Metronidazole 100 ml @ 100 mls/hr Q8HR IV 07/08/24 22:30 07/12/24 06:48 100 MLS/HR Enoxaparin Sodium 40 mg DAILY SC 07/09/24 10:00 07/12/24 09:54 40 MG Pantoprazole Sodium 40 mg DAILY IV 07/09/24 10:00 07/12/24 09:53 40 MG Sucralfate 1 gm QID@0600,1130,1700,2200 PO 07/08/24 22:30 07/12/24 11:32 1 GM Ipratropium [place] 0.5 mg Q6HR NEB 07/09/24 00:00 07/12/24 12:59 0.5 MG Ergocalciferol 50,000 unit Q7D PO 07/09/24 10:00 Belladonna Alkaloids/ Phenobarbital 5 ml Q8HR PO 07/09/24 14:00 07/11/24 05:55 5 ML Acetaminophen 650 mg Q4HP PRN PO 07/09/24 19:00 Dicyclomine HCl 20 mg QID PO 07/09/24 18:00 07/12/24 11:33 20 MG Acetaminophen/ Hydrocodone Bitart 1 tab Q4HP PRN PO 07/09/24 13:15 07/12/24 13:19 1 TAB Hydromorphone HCl 0.5 mg Q4HPRN PRN IV 07/09/24 13:15 07/12/24 10:18 0.5 MG Zolpidem Tartrate 10 mg HSPRN PRN PO 07/10/24 16:45 07/11/24 23:16 10 MG Lorazepam 1 mg Q6HP PRN PO 07/10/24 16:45 07/12/24 00:04 1 MG Examination Pt is lying on bed General Appearance: Alert, Oriented X3, Cooperative, Not in acute distress HEENT: Atraumatic, Mucous membranes moist/pink Respiratory: Clear to auscultation, Normal air movement, No added sounds Cardiovascular: Regular rate, Normal S1, Normal S2, No murmurs Abdominal: Generalized abdominal tenderness but no distention Extremities: no edema, cyanosis Skin: No Significant rash, except past surgical scars Neuro: Normal speech, sensorimotor deficits none Psych/Mental Status: Mental status NL, Mood NL Nurse was there as sharperone during examination laboratory and microbiology Laboratory Tests 07/12/24 05:59 Test 07/12/24 05:59 Range/Units Serum Glucose 99 74-106 mg/dL Microbiology Date/Time Source Procedure Growth Status 07/08/24 21:17 Blood Blood Culture - Preliminary NO GROWTH AFTER 72 HOURS OF INCUBATION. Resulted 07/08/24 20:00 Voided Urine Urine Culture - Final Complete Labs and/or images reviewed: Labs reviewed by me, Image(s) reviewed by me Problem List/Assessment/Plan Problem List/Assessment/Plan Abdominal pain likely somatic versus pyelonephritis Pyelonephritis Vomiting and diarrhea Nausea, vomiting Plan Advance diet as tolerated Continue IV antibiotics for a UTI suspected pyelonephritis Bentyl 10 mg p.o. twice a day as needed for abdominal pain Continue Protonix and Carafate Outpatient follow up with GI Services for elective colonoscopy and management of hep C Once again thank you for allowing me to participate in the care of this patient EGD done 2 months ago which showed no abnormalities. Thank you so much for the opportunity to consult on your patient. GI team will follow the patient Case an action plan discussed with Dr. Salima Fitzgerald. Complex care planning needed total 49 minutes of detailed discussion. Plan discussed with: Patient Dietary Evaluation Review Recommendations by RD: Dietary education by RD Comments: 1) Initiate Glucerna qd. Encourage optimal PO intake 2) Refer to outpatient RD/CD[facility] for prediabetes education 3) Follow-up with gastroenterology, oncology, and hepatology 4) Continue to monitor I&O, labs, and skin integrity Expected Outcomes/Goals: 1) appetite and labs to improve 2) f/u in 3-5 days ROHIT ROTH RESIDENT Jul 12, 2024 14:47
[2024-07-12] MEDS ORDERED: PANT40TA2 PO (15:32)
[2024-07-12] MEDS ORDERED: CEPH500C PO (15:32)
[2024-07-12] MEDS ORDERED: SUCR1SUS5 PO (15:32)
[2024-07-12] MEDS ORDERED: ZOLP10TA PO (17:37)
[2024-07-12] MEDS ORDERED: CLON0.2T PO (17:40)
[2024-07-12] MEDS ORDERED: MELA3TAB27 PO (17:40)
[2024-07-12] MEDS ORDERED: CEPH500T PO (17:54)
--- NOTE | 2024-07-12 17:55 | DVHDSRES ---
Discharge Summary Date of Admission Resident Creating Document: MALIHA DIAZ RESDIENT Jul 08, 2024 at 22:03 Date of Discharge: Jul 12, 2024 Admitting Diagnosis Abdominal pain Labs/Diagnostic Data: Laboratory Results Test 07/12/24 05:59 07/09/24 15:09 07/09/24 06:04 07/08/24 23:47 White Blood Count 5.6 10^3/uL (4.4-10.8) Red Blood Count 3.86 10^6/uL (4.0-5.20) Hemoglobin 11.5 g/dL (12.2-16.2) Hematocrit 35.5 % (36.0-46.0) Mean Corpuscular Volume 92.1 fL (80.0-100.0) Mean Corpuscular Hemoglobin 29.9 pg (28.0-32.0) Mean Corpuscular Hemoglobin Concent 32.5 g/dL (32.0-36.0) Red Cell Distribution Width 16.6 % (11.8-14.3) Platelet Count 153 10^3/uL (140-450) Mean Platelet Volume 8.3 fL (6.9-10.8) Neutrophils (%) (Auto) 57.1 % (37.0-80.0) Lymphocytes (%) (Auto) 31.7 % (10.0-50.0) Monocytes (%) (Auto) 8.1 % (0.0-12.0) Eosinophils (%) (Auto) 2.4 % (0.0-7.0) Basophils (%) (Auto) 0.7 % (0.0-2.0) Neutrophils # (Auto) 3.2 10 ^3/uL (1.6-8.6) Lymphocytes # (Auto) 1.8 10 ^3/uL (0.4-5.4) Monocytes # (Auto) 0.5 10 ^3/uL (0-1.3) Eosinophils # (Auto) 0.1 10 ^3/uL (0-0.8) Basophils # (Auto) 0 10 ^3/uL (0-0.2) Nucleated Red Blood Cells 0.2 % Sodium Level 140 mmol/L (136-145) Potassium Level 3.8 mmol/L (3.5-5.1) Chloride Level 108 mmol/L (98-107) Carbon Dioxide Level 23 mmol/L (20-31) Anion Gap 9 (5-15) Blood Urea Nitrogen 13 mg/dL (9-23) Creatinine 1.21 mg/dL (0.550-1.02) Glomerular Filtration Rate Calc 49 mL/min (>90) BUN/Creatinine Ratio 10.7 (10.0-20.0) Serum Glucose 99 mg/dL (74-106) Calcium Level 9.5 mg/dL (8.7-10.4) Total Bilirubin 0.2 mg/dL (0.2-1.0) Aspartate Amino Transferase (AST) 22 U/L (13-40) Alanine Aminotransferase (ALT) 15 U/L (7-40) Alkaline Phosphatase 111 U/L (46-116) Total Protein 6.2 g/dL (5.7-8.2) Albumin 3.8 g/dL (3.2-4.8) Hepatitis A Antibody Total Positive (Negative) Hepatitis B Surface Antigen Negative (Negative) Hepatitis B Surface Antibody Negative (Negative) Hepatitis B Core Total Antibody Negative (Negative) Hepatitis C Antibody Positive (Negative) Troponin I High Sensitivity 9 ng/L (</=34) Tumor Marker Alpha Fetoprotein 3.7 ng/mL (0.0-9.2) Test 07/08/24 23:40 07/08/24 21:17 07/08/24 20:00 07/08/24 18:21 Influenza Type A Antigen Negative (Negative) Influenza Type B Antigen Negative (Negative) SARS-CoV-2 Antigen (Rapid) Negative (NEGATIVE) Hemoglobin A1c 6.0 % A1C (<5.7) Lactic Acid Level 0.9 mmol/L (0.4-2.0) Magnesium Level 1.7 mg/dL (1.6-2.6) Thyroid Stimulating Hormone (TSH) 1.80 uIU/mL (0.55-4.78) Urine Color Light-brown (Yellow) Urine Clarity Ex.turbid (Clear) Urine pH 5.5 (5.0-9.0) Urine Specific [place] 1.016 (1.001-1.035) Urine Protein 2+ (Negative) Urine Ketones Negative (Negative) Urine Blood 1+ /uL (Negative) Urine Nitrite Negative (Negative) Urine Bilirubin Negative (Negative) Urine Urobilinogen Normal mg/dL (Negative) Urine Leukocyte Esterase 3+ /uL (Negative) Urine RBC 13 /hpf (0 - 4) Urine WBC Clumps Present /hpf (None Seen) Urine Microscopic WBC 2320 /HPF (0-5) Urine Squamous Epithelial Cells Few /hpf (<5) Urine Bacteria None seen /hpf (None Seen) Urine Yeast (Budding) Many /hpf (None Seen) Urine Glucose 2+ mg/dL (Normal) Urine Opiates Screen Neg (NEGATIVE) Urine Fentanyl Screen Neg (NEGATIVE) Urine Barbiturates Screen Neg (NEGATIVE) Urine Phencyclidine Screen Neg (NEGATIVE) Urine Amphetamines Screen Pos (NEGATIVE) Urine Benzodiazepines Screen Neg (NEGATIVE) Urine Cocaine Screen Neg (NEGATIVE) Urine Cannabinoids Screen Neg (NEGATIVE) Prothrombin Time 10.9 sec (9.3-11.8) Prothrombin Time INR 1.03 (0.9-1.15) Activated Partial Thromboplast Time 25.5 SEC (24.5-34.5) B-Type Natriuretic Peptide 263.29 pg/mL (0-100) Lipase 45 U/L (12-53) Vitamin B12 Level 346 pg/mL (211-911) Vitamin D 25-Hydroxy 18.1 ng/mL (30.0-100) Other Laboratory Tests 07/12/24 05:59 Brief Hx & Hospital Course: Ms Joy is a 69-year-old female patient PMH/PSH of congestive heart failure, chronic respiratory failure on 2 L home oxygen, hypertension, liver cancer s/p resection, right ankle surgery, history of laparotomy, cholecystectomy, PUD, untreated hepatitis-C , history of laparotomy presented to the ER with a chief complaint of intractable nausea, vomiting and diarrhea for the past 2 days along with chest pain for a day. Patient reports that she experienced diarrhea which was watery for the past 2 days followed by abdominal pain is diffuse, stabbing in nature and associated with intractable nausea and vomiting and dysuria, frequency. Patient can not keep anything down including water. Says that she has been losing weight, around 12 lb in the last month Also reported chest pressure after the episode of vomiting this morning around 1:00 a.m. which lasted for couple of minutes, associated with left arm numbness, resolved on its own. Patient ran out of her clonidine 0.3 mg, Lasix for the past 2 days. On arrival to the ER, patient was hypertensive 197/108mmhg, BNP 63, Cr 1.29, troponin WNL. Past medical/surgical history: congestive heart failure, chronic respiratory failure on 2 L home oxygen, hypertension, liver cancer s/p resection, right ankle surgery, history of laparotomy, appendectomy, PUD Medications: Clonidine 0.3 mg, Lasix, amlodipine PCP: Dr. Rausch Social history: Moved to [place] an year back, lives with daughter, with a smoking more than 15 years back, denies history of drinking or illicit drug use Hospital course: Patient was admitted at the line of complicated UTI and intractable abdominal pain. CT scan showed, Punctate nonobstructive left nephrolithiasis, MRI showed Stable cyst high in the right lobe of the liver multiple renal cysts measuring up to 3 cm. Patient was started on empiric antibiotic of Rocephin and Flagyl, IV fluid and pain management. GI consulted, recommended medical management and outpatient follow up for elective colonoscopy and hepatitis-C virus treadmill. Patient underwent EGD 2 months back showed gastritis with normal biopsy finding. Upon admission, the patient had hypertensive urgency which was controlled with oral medication of clonidine and amlodipine. Patient also had RAUL which was managed with IV fluid. MRI performed, showed no acute intra abdominal abnormalities. On 07/07/2024, the patient was feeling better since admission. Discharge plan with the patient the patient discharged home. Discharge plan: Follow up with the PCP within 1 week of the discharge. Follow up with the GI on outpatient basis. Protonix 40 mg daily Bentyl 10 mg b.i.d. as needed for pain Carafate 1 g b.i.d. Keflex 500 mg b.i.d. for 5 days Continue home meds Condition at Discharge: Stable Final Diagnosis/Problems List Intractable abdominal pain, likely due to gastroenteritis/peptic ulcer disease Peptic ulcer disease Gastroenteritis, likely infectious History of hepatitis-C virus History of liver cancer, status post surgery Complicated UTI Hypertensive urgency RAUL, on CKD grade 3A, likely VMN Hypokalemia, repleted Methamphetamine use disorder Renal cyst Prediabetes Vitamin-D deficiency History of coronary artery disease Dyslipidemia Hypokalemia Ruled out syncope Ruled out the arrhythmia Possible colitis Mild anemia Discharge Disposition: Home Discharge Instruct/Medications Diet: Cardiac 2g Na,low cholest Activity: No Restrictions, As Tolerated Follow Up/Referral: Follow up with the PCP within 1 week of the discharge Follow up with the GI on outpatient basis for possible colonoscopy and hepatitis-C virus treatment Medications: Keflex 500 mg b.i.d. for 4 days Bentyl 10 mg twice daily as needed for abdominal Carafate 1 g b.i.d., 1 hour before meal or 2 hours after meal Protonix 40 mg daily Continue home meds Discharge Statement: "Patient was advised to return to the ER or call 911 if any headaches, dizziness, shortness of breath, chest pain, abdominal pain, bleeding, fevers, or worsening of medical condition. Patient was counseled about treatment plan, medications, possible side effects, patientverbalized understanding. All questions were answered to the best of my ability. This discharge took greater then 30 minutes in planning, reviewing documentation, counseling the patient, and discussing with other team members." ASSESSMENT ASSESSMENT Assessment Complicated UTI Gastroenteritis [facility] Jul 12, 2024 17:55
[2024-07-12] MEDS ORDERED: HYDR-4902 PO (19:21)
== END 2024-07-12 18:32 | disposition home or self-care (01) | DRG 391 ==
LOC: ER 17:22 → OVERFLOW 22:03 → TELE-EAST 23:55
PROVIDERS: ADMIT Student in an Organized Health Care Education/Training Program; ATTEND Student in an Organized Health Care Education/Training Program
DX: A09 Infectious gastroenteritis and colitis, unspecified (principal); N17.0 Acute kidney failure with tubular necrosis; I13.0 Hypertensive heart and chronic kidney disease with heart failure and stage 1 through stage 4 chronic kidney disease, or unspecified chronic kidney disease; J96.10 Chronic respiratory failure, unspecified whether with hypoxia or hypercapnia; N39.0 Urinary tract infection, site not specified; K27.9 Peptic ulcer, site unspecified, unspecified as acute or chronic, without hemorrhage or perforation; E55.9 Vitamin D deficiency, unspecified; Z20.822 Contact with and (suspected) exposure to COVID-19; E11.22 Type 2 diabetes mellitus with diabetic chronic kidney disease; E78.5 Hyperlipidemia, unspecified; E87.6 Hypokalemia; I50.9 Heart failure, unspecified; I25.10 Atherosclerotic heart disease of native coronary artery without angina pectoris; N18.31 Chronic kidney disease, stage 3a; F15.10 Other stimulant abuse, uncomplicated; I16.0 Hypertensive urgency; Z79.82 Long term (current) use of aspirin; Z79.899 Other long term (current) drug therapy; Z95.1 Presence of aortocoronary bypass graft; Z90.49 Acquired absence of other specified parts of digestive tract; Z85.05 Personal history of malignant neoplasm of liver; Z86.73 Personal history of transient ischemic attack (TIA), and cerebral infarction without residual deficits; Z87.442 Personal history of urinary calculi; Z99.81 Dependence on supplemental oxygen
CPT/HCPCS: 36415; 71045; 74176; 74183; 76705; 80053; 80307; 81001; 82105; 82306; 82607; 83036; 83605; 83690; 83735; 83880; 84443; 84484; 85025; 85610; 85730; 86704; 86706; 86708; 86803; 87040; 87086; 87340; 87426; 87804; 93005; 94640; 96361; 96374; 96375; G0378; J2003; J2405; J2470; J3490

== ENCOUNTER → 2024-07-26 | Outpatient (CLI) | payer MEDICARE, MEDICAID ==
[~2024-07-26] MED LIST changes: -AML5T PO; -ASPITAB34 PO; +CEPH500C PO; +CEPH500T PO; -CLON0.3T46 PO; -FURO1TAB33 PO; +HYDR-4902 PO; +MELA3TAB27 PO; -METO-281 PO; -METR-344 PO; +PANT40TA2 PO; -SACU1TAB PO; +SUCR1SUS5 PO; +ZOLP10TA PO
--- NOTE | 2024-07-26 16:38 | DVH ---
XY CHEST TWO VIEWS ROUTINE CLINICAL HISTORY: SOB/ COUGH COMPARISON: None TECHNIQUE: Frontal and lateral view of the chest was obtained FINDINGS: Lines and Tubes: Sternal wire sutures Lungs: No focal consolidation. Pleura: No effusion. No pneumothorax. Cardiomediastinal contours: Unremarkable Bones: No acute osseous abnormality. IMPRESSION: 1. No acute cardiopulmonary disease.
== END | disposition home or self-care (01) ==
LOC: Rad HDHVI 15:29
PROVIDERS: ATTEND Internal Medicine Cardiovascular Disease
DX: R09.89 Other specified symptoms and signs involving the circulatory and respiratory systems (principal); R05.9 Cough, unspecified; R10.9 Unspecified abdominal pain
CPT/HCPCS: 71046

== ENCOUNTER 2024-09-25 05:59 | Inpatient (IN) | payer MEDICARE, MEDICAID ==
[~2024-09-25] VITALS: Ht 172.7 cm; Wt 89.2 kg
[2024-09-25] MEDS: SODIUM CHLORIDE 0.9% 1,000 ML IV ONE (07:00)
--- NOTE | 2024-09-25 07:07 | ED.PDOC ---
GI ASSESSMENT HPI Comments A 69 year-old female, with a PMHX of High Lipids, HTN, and Ulcers, presents to the ED with a chief complaint of abdominal pain as of X11 hours ago after eating soup. Patient reports that with abdominal pain, she is experiencing associated N/V. Patient has no further complaints at this time and otherwise denies fever, chills, dizziness, chest pain, dysuria, or hematuria. Chief Complaint: Abdominal Pain Time Seen by MD: 06:45 Primary Care Provider: ELICIA Reviewed Notes: Nurses Notes, Medications, Allergies Allergies: Coded Allergies: NO KNOWN ALLERGIES (Unverified , 04/09/23) Home Meds Active Scripts Hydrocodone-Acetaminophen (Hydrocodone Bitartrate/AC 5-325 mg) 1 Tab Tab, 1 TAB PO TIDP PRN for 7 Days, #20 TAB 0 Refills Prov:CIELO ROSSI MD 07/12/24 Cephalexin Monohydrate (Cephalexin) 500 Mg Tab, 500 MG PO BID for 5 Days, #10 TAB Prov:MALIHA DIAZ RESDIENT 07/12/24 Melatonin (KP MELATONIN) 3 Mg Tab, 3 MG PO HS for 20 Days, #20 TAB Prov:MALIHA DIAZ RESDIENT 07/12/24 Clonidine Hydrochloride (Clonidine Hcl) 0.2 Mg Tab, 0.3 MG PO BID for 20 Days, #60 TAB Prov:MALIHA DIAZ RESDIENT 07/12/24 Cephalexin Monohydrate (Cephalexin) 500 Mg Cap, 1 CAP PO BID for 4 Days, #10 CAP Prov:MALIHA DIAZ RESDIENT 07/12/24 Pantoprazole Sodium Sesquihydr (Protonix) 40 Mg Tab, 40 MG PO DAILY for 20 Days, #20 TAB Prov:MALIHA DIAZ RESDIENT 07/12/24 Sucralfate (Carafate) 1 Gm/10 Ml Leslie, 1 GM PO BID for 20 Days, #60 ML Prov:MALIHA DIAZ RESDIENT 07/12/24 Lactulose (Lactulose) 10 Gm/15 Ml Nohemi, 10 GM PO TID for 30 Days, #450 ML Prov:BERTHA MURGUIA 11/16/23 Reported Medications Zolpidem Tartrate (Ambien) 10 Mg Tab, 10 MG PO HS for 20 Days, #20 TAB 07/12/24 Pregabalin (Pregabalin) 100 Mg Cap, 1 CAP PO BID for 30 Days, #60 07/09/24 Hyoscyamine Sulfate (Hyoscyamine Sulfate) 0.125 Mg Tab, 1 TAB PO BID for 90 Days, #180 07/09/24 Aspirin (Aspirin Low Dose) 81 Mg Chw, 1 TAB PO DAILY for 90 Days, #90 07/09/24 Vonoprazan Fumarate (Voquezna) 20 Mg Tab, 1 TAB PO DAILY for 30 Days, #30 07/09/24 Hydrocodone-Acetaminophen (Hydrocodone/Acetaminophen 10-325 mg) 1 Tab Tab, 1 TAB PO TID for 30 Days, #90 07/09/24 Sacubitril-Valsartan (Entresto 49-51 mg) 1 Tab Tab, 1 TAB PO BID for 30 Days, #60 07/09/24 Clonidine Hydrochloride (Clonidine Hcl) 0.3 Mg Tab, 1 TAB PO BID for 30 Days, #60 07/09/24 Sumatriptan Succinate (Sumatriptan Succinate) 50 Mg Tab, 1 TAB PO PRN for 30 Days, #18 07/09/24 Sucralfate (Sucralfate) 1 Gm Tab, 1 TAB PO QID for 30 Days, #120 07/09/24 Pantoprazole Sodium Sesquihydr (Pantoprazole Sodium) 40 Mg Tab, 1 TAB PO BID for 30 Days, #60 07/09/24 Amlodipine Besylate (Amlodipine Besylate) 5 Mg Tab, 1 TAB PO BID for 30 Days, #60 07/09/24 Furosemide (Furosemide) 40 Mg Tab, 1 TAB PO DAILY for 30 Days, #30 07/09/24 Atorvastatin Calcium (Lipitor) 40 Mg Tab, 1 TAB PO DAILY for 30 Days, #30 5 Refills 11/13/23 Metoprolol Succinate (Metoprolol Succinate Er) 25 Mg Tab, 1 TAB PO DAILY for 30 Days, #30 11/13/23 Hydralazine Hcl (Hydralazine Hcl) 10 Mg Tab, 1 TAB PO TID for 30 Days, #90 11/13/23 Potassium Chloride (Potassium Chloride ER) 20 Meq Tab, 1 TAB PO DAILY for 30 Days, #30 11/13/23 Ondansetron Odt 4MG Tab (ZOFRAN PO) 4 Mg Tb, 1 TAB PO DAILY for 90 Days, #90 ODT TAB-DISSOLVE IN MOUTH, THEN SWALLOW 11/13/23 Tizanidine Hydrochloride (Tizanidine Hcl) 2 Mg Tab, 1 TAB PO TID for 30 Days, #90 11/10/23 Nifedipine (Nifedipine Er) 30 Mg Tab, 1 TAB PO BID 11/10/23 Zolpidem Tartrate (Zolpidem Tartrate) 10 Mg Tab, 1 TAB PO QHSP for 30 Days, #30 11/10/23 Sertraline Hcl (Sertraline Hcl) 50 Mg Tab, 1 TAB PO DAILY 11/10/23 Calcium Acetate (Phosphate Bin (Calcium Acetate) 667 Mg Cap, 1 CAP PO TIDWM for SUPPLEMENT WITH MEALS 04/10/23 Information Source: Patient Mode of Arrival: EMS Timing: Hours Duration: Since onset Severity: Moderate Associated sign and symptoms: Nausea, Vomiting, Abdominal Pain Past Medical History PAST MEDICAL HISTORY: Cancer, CHF, CVA, DM, High Lipids, HTN, Liver, ME, PE Surgical History: Appendectomy, CABG, Cholecystectomy, Tonsillectomy [employer] [address] WORKER History: No Pertinent [employer] [address] WORKER History Family History Family History: Family hx of Cancer Social History Smoker: Non-Smoker Alcohol: Denies ETOH Use Drugs: Denies Drug Use Lives In: Home Constitutional: denies: chills, diaphoresis, fatigue, fever, malaise, sweats, weakness, others EENTM: denies: blurred vision, double vision, ear bleeding, ear discharge, ear drainage, ear pain, ear ringing, eye pain, eye redness, hearing loss, mouth pain, mouth swelling, nasal discharge, nose bleeding, nose congestion, nose pain, photophobia, tearing, throat pain, throat swelling, voice changes, others Respiratory: denies: cough, hemoptysis, orthopnea, SOB at rest, shortness of breath, SOB with excertion, stridor, wheezing, others Cardiovascular: denies: chest pain, dizzy spells, diaphoresis, Dyspnea on exertion, edema, irregular heart beat, left arm pain, lightheadedness, palpitations, PND, syncope, others Gastrointestinal: reports: abdominal pain, nausea, vomiting; denies: abdomen distended, blood streaked bowels, constipated, diarrhea, dysphagia, difficulty swallowing, hematemesis, melena, poor appetite, poor fluid intake, rectal bleeding, rectal pain, others Genitourinary: denies: abnormal vagina bleeding, burning, dyspareunia, dysuria, flank pain, frequency, hematuria, incontinence, pain, , vagina discharge, urgency, others Neurological: denies: dizziness, fainting, headache, left sided numbness, left sided weakness, numbness, paresthesia, pre-existing deficit, right sided numbness, right sided weakness, seizure, speech problems, tingling, tremors, weakness, others Musculoskeletal: denies: back pain, gout, joint pain, joint swelling, muscle pain, muscle stiffness, neck pain, others Integumetry: denies: bruises, change in color, change in hair/nails, dryness, laceration, lesions, lumps, rash, wounds, others Allergic/Immunocompromised: denies: Difficulty Healing, Frequent Infections, Hives, Itching, others Hematologic/Lymphatic: denies: anemia, blood clots, easy bleeding, easy bruising, swollen glands, others Endocrine: denies: excessive hunger, excessive sweating, excessive thirst, excessive urination, flushing, intolerance to cold, intolerance to heat, unexplained weight gain, unexplained weight loss, others Psychiatric: denies: anxiety, bipolar disorder, depression, hopeless, panic disorder, schizophrenia, sleepless, suicidal, others All Other Systems: Reviewed and Negative Physical Exam General Appearance: Moderate Distress, Obese, Severe Distress HEENT: Normal ENT Inspection, PERRL/EOMI Neck: Full Range of Motion, Non-Tender, Normal, Normal Inspection Respiratory: Chest Non-Tender, Lungs Clear, No Accessory Muscle Use, No Respiratory Distress, Normal Breath Sounds Cardiovascular: No Edema, No JVD, No Murmur, No Gallop, Normal Peripheral Pulses, Regular Rate/Rhythm Breast Exam: Deferred Gastrointestinal: Diffuse, Distended, Epigastric, No Organomegaly, No Pulsatile Mass, RUQ Genitalia: Deferred Pelvic: Deferred Rectal: Deferred Extremities: No calf tenderness, Normal capillary refill, Normal inspection, Normal range of motion, Non-tender, No pedal edema Neurologic: Alert, inspector and sorter II-XII nml as Tested, No Motor Deficits, Normal Affect, Normal Mood, No Sensory Deficits Cerebellar Function: Normal Reflexes: NOT DONE Skin: Dry, Normal Color, Warm Peripheral Pulses: 1+ carotid (R), 1+ carotid (L) Lymphatic: No Adenopathy Was a procedure done? Was a procedure done?: No GI differential Dx Differential Diagnosis: Esophagitis, Gastritis/PUD, GI hemorrhage, Inflammatory BD, Ischemic Bowel, Pancreatitis, UTI, Dehydration, Diabetes/ DKA, Drug toxicity, Electrolyte Imbalance, Food Poisoning, Bacterial, Parasitic, Viral, Stress Ulcer, Kidney Stone X-Ray, Labs, Meds, VS Vital Signs Date Time Temp Pulse Resp B/P (MAP) Pulse Ox O2 Delivery O2 Flow Rate FiO2 09/25/24 11:03 106 24 194/119 09/25/24 09:48 91 37 188/107 09/25/24 09:15 103 30 185/100 09/25/24 08:57 101 28 92 Room Air* 0 21 09/25/24 08:23 114 22 181/113 09/25/24 07:49 99.5 114 22 181/113 (135) 96 99.5 09/25/24 07:49 114 22 96 Room Air* 0 21 09/25/24 06:08 98.6 89 20 191/107 (135) 98 98.6 Lab Test 09/25/24 07:15 Range/Units White Blood Count 10.8 4.4-10.8 10^3/uL Red Blood Count 4.65 4.0-5.20 10^6/uL Hemoglobin 14.1 12.2-16.2 g/dL Hematocrit 42.7 36.0-46.0 % Mean Corpuscular Volume 91.9 80.0-100.0 fL Mean Corpuscular Hemoglobin 30.4 28.0-32.0 pg Mean Corpuscular Hemoglobin Concent 33.0 32.0-36.0 g/dL Red Cell Distribution Width 16.6 H 11.8-14.3 % Platelet Count 270 140-450 10^3/uL Mean Platelet Volume 8.7 6.9-10.8 fL Neutrophils (%) (Auto) 92.6 H 37.0-80.0 % Lymphocytes (%) (Auto) 5.1 L 10.0-50.0 % Monocytes (%) (Auto) 2.0 0.0-12.0 % Eosinophils (%) (Auto) 0.0 0.0-7.0 % Basophils (%) (Auto) 0.3 0.0-2.0 % Neutrophils # (Auto) 10.0 H 1.6-8.6 10 ^3/uL Lymphocytes # (Auto) 0.6 0.4-5.4 10 ^3/uL Monocytes # (Auto) 0.2 0-1.3 10 ^3/uL Eosinophils # (Auto) 0 0-0.8 10 ^3/uL Basophils # (Auto) 0 0-0.2 10 ^3/uL Nucleated Red Blood Cells 0.1 % Sodium Level 141 136-145 mmol/L Potassium Level 3.5 3.5-5.1 mmol/L Chloride Level 104 98-107 mmol/L Carbon Dioxide Level 23 20-31 mmol/L Anion Gap 14 5-15 Blood Urea Nitrogen 17 9-23 mg/dL Creatinine 1.10 H 0.550-1.02 mg/dL Glomerular Filtration Rate Calc 55 >90 mL/min BUN/Creatinine Ratio 15.5 10.0-20.0 Serum Glucose 146 H 74-106 mg/dL Calcium Level 11.1 H 8.7-10.4 mg/dL Magnesium Level 1.7 1.6-2.6 mg/dL Total Bilirubin 0.4 0.2-1.0 mg/dL Aspartate Amino Transferase (AST) 42 H 13-40 U/L Alanine Aminotransferase (ALT) 23 7-40 U/L Alkaline Phosphatase 119 H 46-116 U/L Total Protein 7.6 5.7-8.2 g/dL Albumin 4.8 3.2-4.8 g/dL Lipase 31 12-53 U/L Current Medications Medications (Trade) Dose Ordered Sig/Aranza Route Start Time Stop Time Status Last Admin Metoclopramide HCl (Reglan Injection) 10 mg ONCE ONCE IV 09/25/24 07:00 09/25/24 07:01 DC 09/25/24 08:22 Morphine Sulfate 3 mg ONCE ONCE IV 09/25/24 07:00 09/25/24 07:01 DC 09/25/24 08:23 Sodium Chloride 500 ml @ 500 mls/hr Q1H ONCE IVB 09/25/24 07:00 09/25/24 07:59 DC 09/25/24 08:23 Hydromorphone HCl (Dilaudid Injection) 0.5 mg ONCE ONCE IV 09/25/24 09:45 09/25/24 09:46 DC 09/25/24 09:[address] [address] Ph: [phone] DIAGNOSTIC IMAGING Diagnostic Imaging Report : [id number] Signed PATIENT: ARIC CHUAT: [id number] UNIT: [id number] : 1955 LOC: ER ROOM / BED: / AGE / SEX: 69 / F ADM STATUS: REG ER SERVICE [id number] ORDERING PHYSICIAN: ELEANOR DAY MD PROCEDURE(s): ABPLIV - CT AB PEL WITH IV CON ONLY REASON: pud ORDER NUMBER(s): [id number], ACCESSION NUMBER(s): [id number] EXAM DESCRIPTION: CT CT AB PEL WITH IV CON ONLY CLINICAL HISTORY: pud COMPARISON: CT CT CHEST/AB/PL W CON- IV ONLY on DOS: 11/10/23 TECHNIQUE: CT abdomen and pelvis with IV contrast was performed. Coronal and sagittal MPR images were generated. CTDI, DLP = 8.81 / 480.67 Dose reduction technique with one or more of the following methods was performed: Automated exposure control, adjustment of the mA and/or kV according to patient size, use of iterative reconstruction technique FINDINGS: Lower chest: Clear lung bases. Liver: Status post left hepatectomy. Homogeneous enhancement of the right hepatic lobe. Water attenuation cyst. Biliary: Status post cholecystectomy. No biliary ductal dilatation. Pancreas: No fat stranding or focal lesion. Spleen: Normal in size.. Adrenal glands: No nodularity. Kidneys: Symmetric enhancement. No hydroureteronephrosis. Water attenuation lesion and subcentimeter hypoattenuating lesion which is too small to characterize on CT. Punctate left renal calculus. Bladder: Underdistended, limiting evaluation. Reproductive organs: Normal. Bowel: Small hiatal hernia. Mild - Moderate gastric distension. There are multiple dilated small bowel loops with air fluid levels with transition point noted at the right lower quadrant. At the region of the transition point there is circumferential wall thickening of the small bowel. The small bowel distal to the transition point is decompressed.There is also mesenteric edema / stranding in the small bowel mesentery the small bowel enhances normally throughout. the proximal colon is normal in caliber, but the mid-distal colon is decompressed. Colonic diverticulosis without evidence of diverticulitis. Peritoneum: No free fluid. No free air. Vessels: Normal caliber abdominal aorta. Moderate atherosclerotic vascular calcifications Lymph nodes: No suspicious lymph nodes. Soft tissues: Unremarkable. . Osseous structures: No acute fracture or subluxation. No suspicious osseous lesions. Degenerative changes of the visualized thoracolumbar spine. Status post median sternotomy. IMPRESSION: 1. Findings suspicious for high grade small bowel obstruction with transition point at the right lower quadrant. There are also findings concerning for impending small bowel schema. Recommend emergent surgical evaluation. 2. Status post left hepatectomy and cholecystectomy. Critical findings discussed with Dr. Eleanor Day by Dr. Decker via phone on 09/25/2024 at 10:25 AM. X-Ray, Labs, Meds, VS Comment Course in the emergency department patient came in with severe abdominal pain CT of the abdomen shows high-grade obstruction Laboratory data is all normal Surgeon has been consulted patient has been admitted Images Reviewed?: Images reviewed and evaluated by me Time of 1ST Reevaluation: 07:30 Reevaluation 1ST: Unchanged Reevaluation 2ND: Unchanged Patient Education/Counseling: Diagnosis, Treatment, Prognosis, Need For Follow Up Family Education/Counseling: Diagnosis, Treatment, Prognosis, Need For Follow Up, No Family Present Medical Screening: No EMC Exist At This Time SEPSIS Sepsis Screen Date sepsis recognized/suspect: Sep 25, 2024 Time Sepsis recognized/suspect: 604 Recent Procedure: No On Antibiotic Therapy: No Respiratory Rate >20: No Heart Rate >90: No Temp<36 C (96.8 F) or >38.3 C: No SBP <90 or MAP <65 mmHG: No New Acute Mental Status Change: No Is the patient on CPAP, BIPAP,: No Physician Orders Urinalysis (09/25/24 06:53) Ct Ab Pel With Iv Con Only (09/25/24 06:53) Heplock Iv (09/25/24 06:53) Truck Driving (09/25/24 06:53) Blood Pressure (09/25/24 06:53) Electrocardigram (09/25/24 06:53) Sodium Chloride 0.9% (09/25/24 07:00) Ng To Lcs (09/25/24 10:28) Hydromorphone Injection (Dilaudid Inject (09/25/24 11:00) Chest Portable (09/25/24 10:57) Vital Signs Date Time Temp Pulse Resp B/P (MAP) Pulse Ox O2 Delivery O2 Flow Rate FiO2 09/25/24 11:03 106 24 194/119 09/25/24 09:48 91 37 188/107 09/25/24 09:15 103 30 185/100 09/25/24 08:57 101 28 92 Room Air* 0 21 09/25/24 08:23 114 22 181/113 09/25/24 07:49 99.5 114 22 181/113 (135) 96 99.5 09/25/24 07:49 114 22 96 Room Air* 0 21 09/25/24 06:08 98.6 89 20 191/107 (135) 98 98.6 Laboratory Tests Test 09/25/24 07:15 White Blood Count 10.8 10^3/uL (4.4-10.8) Medications Medications Dose Ordered Sig/Aranza Route Start Time Stop Time Status Last Admin Dose Admin Hydromorphone HCl 0.5 mg ONCE ONCE IV 09/25/24 09:45 09/25/24 09:46 DC 09/25/24 09:48 Metoclopramide HCl 10 mg ONCE ONCE IV 09/25/24 07:00 09/25/24 07:01 DC 09/25/24 08:22 Morphine Sulfate 3 mg ONCE ONCE IV 09/25/24 07:00 09/25/24 07:01 DC 09/25/24 08:23 Sodium Chloride 500 ml @ 500 mls/hr Q1H ONCE IVB 09/25/24 07:00 09/25/24 07:59 DC 09/25/24 08:23 Departure 1 Departure Time of Disposition: 11:17 Impression: Primary Impression: Acute abdominal pain Additional Impression: Small bowel obstruction Disposition: ADMITTED INPATIENT Admit to: Tele Condition: Guarded Discharged With: Self Critical Care Note Critical Care Time?: No Stability Stability form required: Yes Heart Score Heart Score: Heart Score Response (Comments) Value History N/A 0 EKG N/A 0 Age >65 2 Risk Factors >3 or Hx ASHD 2 Troponin N/A 0 Total 4 I personally scribed for ELEANOR DAY MD ([email or web address]) on 09/25/24 at 07:07. Electronically submitted by Amanda Landeros ([employer]). I personally scribed for ELEANOR DAY MD ([email or web address]) on 09/25/24 at 07:09. Electronically submitted by Amanda Landeros ([employer]). I personally scribed for ELEANOR DAY MD ([email or web address]) on 09/25/24 at 07:11. Electronically submitted by Amanda Landeros ([employer]). I personally scribed for ELEANOR DAY MD ([email or web address]) on 09/25/24 at 10:32. Electronically submitted by Amanda Landeros ([employer]). ELEANOR DAY MD Sep 25, 2024 07:07
[2024-09-25 07:49] VITALS: PULSE 114; RESP 22; O2SAT 96
[2024-09-25 08:00] LABS: Hematocrit 42.7 % (36.0-46.0); Hemoglobin 14.1 g/dL (12.2-16.2); Mean Corpuscular Hemoglobin 30.4 pg (28.0-32.0); Mean Corpuscular Volume 91.9 fL (80.0-100.0); Nucleated Red Blood Cells % 0.1 %
[2024-09-25 08:17] LABS: Alanine Aminotransferase 23 U/L (7-40); Albumin 4.8 g/dL (3.2-4.8); Anion Gap 14 (5-15); BUN/Creatinine Ratio 15.5 (10.0-20.0); Bilirubin, Total 0.4 mg/dL (0.2-1.0); Blood Urea Nitrogen 17 mg/dL (9-23); Carbon Dioxide 23 mmol/L (20-31); Chloride 104 mmol/L (98-107); Magnesium 1.7 mg/dL (1.6-2.6); Potassium 3.5 mmol/L (3.5-5.1); Sodium 141 mmol/L (136-145); Total Protein 7.6 g/dL (5.7-8.2)
[2024-09-25 08:20] LABS: Alkaline Phosphatase 119 U/L (46-116); Calcium 11.1 mg/dL (8.7-10.4); Glucose 146 mg/dL (74-106)
[2024-09-25] MEDS: METOCLOPRAMIDE HCL 5MG/ml INJ 2ml VIAL IV ONE (08:22)
[2024-09-25] MEDS: SODIUM CHLORIDE 0.9% 500 ML IVB ONE (08:23)
[2024-09-25] MEDS: MORPHINE SULFATE 4 MG/ML SYR/VIAL IV ONE (08:23)
[2024-09-25 08:54] LABS: Lipase 31 U/L (12-53)
[2024-09-25 08:57] VITALS: PULSE 101; RESP 28; O2SAT 92
[2024-09-25] MEDS: IOHEXOL 300 MG/ML 100ML BOTTLE IJ ONE (09:41)
[2024-09-25] MEDS: HYDROmorphone HCL 2 MG/ML VL/or syr IV ONE (09:48)
--- NOTE | 2024-09-25 10:27 | DVH ---
EXAM DESCRIPTION: CT CT AB PEL WITH IV CON ONLY CLINICAL HISTORY: pud COMPARISON: CT CT CHEST/AB/PL W CON- IV ONLY on DOS: 11/10/23 TECHNIQUE: CT abdomen and pelvis with IV contrast was performed. Coronal and sagittal MPR images were generated. CTDI, DLP = 8.81 / 480.67 Dose reduction technique with one or more of the following methods was performed: Automated exposure control, adjustment of the mA and/or kV according to patient size, use of iterative reconstruction te chnique FINDINGS: Lower chest: Clear lung bases. Liver: Status post left hepatectomy. Homogeneous enhancement of the right hepatic lobe. Water attenu ation cyst. Biliary: Status post cholecystectomy. No biliary ductal dilatation. Pancreas: No fat stranding or focal lesion. Spleen: Normal in size.. Adrenal glands: No nodularity. Kidneys: Symmetric enhancement. No hydroureteronephrosis. Water attenuation lesion and subcentimeter hypoattenuating lesion which is too small to characterize on CT. Punctate left renal calculus. Bladder: Underdistended, limiting evaluation. Reproductive organs: Normal. Bowel: Small hiatal hernia. Mild - Moderate gastric distension. There are multiple dilated small lupe l loops with air fluid levels with transition point noted at the right lower quadrant. At the region of the transition point there is circumferential wall thickening of the small bowel. The small bowel distal to the transition point is decompressed.There is also mesenteric edema / stranding in the smal l bowel mesentery the small bowel enhances normally throughout. the proximal colon is normal in yessy olegario, but the mid-distal colon is decompressed. Colonic diverticulosis without evidence of diverticuli tis. Peritoneum: No free fluid. No free air. Vessels: Normal caliber abdominal aorta. Moderate atherosclerotic vascular calcifications Lymph nodes: No suspicious lymph nodes. Soft tissues: Unremarkable. . Osseous structures: No acute fracture or subluxation. No suspicious osseous lesions. Degenerative c hanges of the visualized thoracolumbar spine. Status post median sternotomy. IMPRESSION: 1. Findings suspicious for high grade small bowel obstruction with transition point at the right lowe r quadrant. There are also findings concerning for impending small bowel schema. Recommend emergent s urgical evaluation. 2. Status post left hepatectomy and cholecystectomy. Critical findings discussed with Dr. Daren Day by Dr. Decker via phone on 09/25/2024 at 10:25 AM.
--- NOTE | 2024-09-25 10:52 | DVHINCON2 ---
Date of service: Sep 25, 2024 Family History: FH: breast cancer G8 MOTHER Hypertension G8 MOTHER G8 FATHER 19 CHILD Allergies: Coded Allergies: NO KNOWN ALLERGIES (Unverified , 04/09/23) Home Meds Active Scripts Hydrocodone-Acetaminophen (Hydrocodone Bitartrate/AC 5-325 mg) 1 Tab Tab, 1 TAB PO TIDP PRN for 7 Days, #20 TAB 0 Refills Prov:CIELO ROSSI MD 07/12/24 Cephalexin Monohydrate (Cephalexin) 500 Mg Tab, 500 MG PO BID for 5 Days, #10 TAB Prov:MALIHA DIAZ RESDIENT 07/12/24 Melatonin (KP MELATONIN) 3 Mg Tab, 3 MG PO HS for 20 Days, #20 TAB Prov:MALIHA DIAZ RESDIENT 07/12/24 Clonidine Hydrochloride (Clonidine Hcl) 0.2 Mg Tab, 0.3 MG PO BID for 20 Days, #60 TAB Prov:MALIHA DIAZ RESDIENT 07/12/24 Cephalexin Monohydrate (Cephalexin) 500 Mg Cap, 1 CAP PO BID for 4 Days, #10 CAP Prov:MALIHA DIAZ RESDIENT 07/12/24 Pantoprazole Sodium Sesquihydr (Protonix) 40 Mg Tab, 40 MG PO DAILY for 20 Days, #20 TAB Prov:MALIHA DIAZ RESDIENT 07/12/24 Sucralfate (Carafate) 1 Gm/10 Ml Elslie, 1 GM PO BID for 20 Days, #60 ML Prov:MALIHA IDAZ RESDIENT 07/12/24 Lactulose (Lactulose) 10 Gm/15 Ml Nohemi, 10 GM PO TID for 30 Days, #450 ML Prov:BERTHA MURGUIA 11/16/23 Reported Medications Zolpidem Tartrate (Ambien) 10 Mg Tab, 10 MG PO HS for 20 Days, #20 TAB 07/12/24 Pregabalin (Pregabalin) 100 Mg Cap, 1 CAP PO BID for 30 Days, #60 07/09/24 Hyoscyamine Sulfate (Hyoscyamine Sulfate) 0.125 Mg Tab, 1 TAB PO BID for 90 Days, #180 07/09/24 Aspirin (Aspirin Low Dose) 81 Mg Chw, 1 TAB PO DAILY for 90 Days, #90 07/09/24 Vonoprazan Fumarate (Voquezna) 20 Mg Tab, 1 TAB PO DAILY for 30 Days, #30 07/09/24 Hydrocodone-Acetaminophen (Hydrocodone/Acetaminophen 10-325 mg) 1 Tab Tab, 1 TAB PO TID for 30 Days, #90 07/09/24 Sacubitril-Valsartan (Entresto 49-51 mg) 1 Tab Tab, 1 TAB PO BID for 30 Days, #60 07/09/24 Clonidine Hydrochloride (Clonidine Hcl) 0.3 Mg Tab, 1 TAB PO BID for 30 Days, #60 07/09/24 Sumatriptan Succinate (Sumatriptan Succinate) 50 Mg Tab, 1 TAB PO PRN for 30 Days, #18 07/09/24 Sucralfate (Sucralfate) 1 Gm Tab, 1 TAB PO QID for 30 Days, #120 07/09/24 Pantoprazole Sodium Sesquihydr (Pantoprazole Sodium) 40 Mg Tab, 1 TAB PO BID for 30 Days, #60 07/09/24 Amlodipine Besylate (Amlodipine Besylate) 5 Mg Tab, 1 TAB PO BID for 30 Days, #60 07/09/24 Furosemide (Furosemide) 40 Mg Tab, 1 TAB PO DAILY for 30 Days, #30 07/09/24 Atorvastatin Calcium (Lipitor) 40 Mg Tab, 1 TAB PO DAILY for 30 Days, #30 5 Refills 11/13/23 Metoprolol Succinate (Metoprolol Succinate Er) 25 Mg Tab, 1 TAB PO DAILY for 30 Days, #30 11/13/23 Hydralazine Hcl (Hydralazine Hcl) 10 Mg Tab, 1 TAB PO TID for 30 Days, #90 11/13/23 Potassium Chloride (Potassium Chloride ER) 20 Meq Tab, 1 TAB PO DAILY for 30 Days, #30 11/13/23 Ondansetron Odt 4MG Tab (ZOFRAN PO) 4 Mg Tb, 1 TAB PO DAILY for 90 Days, #90 ODT TAB-DISSOLVE IN MOUTH, THEN SWALLOW 11/13/23 Tizanidine Hydrochloride (Tizanidine Hcl) 2 Mg Tab, 1 TAB PO TID for 30 Days, #90 11/10/23 Nifedipine (Nifedipine Er) 30 Mg Tab, 1 TAB PO BID 11/10/23 Zolpidem Tartrate (Zolpidem Tartrate) 10 Mg Tab, 1 TAB PO QHSP for 30 Days, #30 11/10/23 Sertraline Hcl (Sertraline Hcl) 50 Mg Tab, 1 TAB PO DAILY 11/10/23 Calcium Acetate (Phosphate Bin (Calcium Acetate) 667 Mg Cap, 1 CAP PO TIDWM for SUPPLEMENT WITH MEALS 04/10/23 Vital Signs Vital Signs Date Time Temp Pulse Resp B/P (MAP) Pulse Ox O2 Delivery O2 Flow Rate FiO2 09/25/24 09:48 91 37 188/107 09/25/24 08:57 92 Room Air* 0 21 09/25/24 07:49 99.5 99.5 Labs/Diagnostic Data Labs Test 09/25/24 07:15 Range/Units White Blood Count 10.8 4.4-10.8 10^3/uL Red Blood Count 4.65 4.0-5.20 10^6/uL Hemoglobin 14.1 12.2-16.2 g/dL Hematocrit 42.7 36.0-46.0 % Mean Corpuscular Volume 91.9 80.0-100.0 fL Mean Corpuscular Hemoglobin 30.4 28.0-32.0 pg Mean Corpuscular Hemoglobin Concent 33.0 32.0-36.0 g/dL Red Cell Distribution Width 16.6 H 11.8-14.3 % Platelet Count 270 140-450 10^3/uL Mean Platelet Volume 8.7 6.9-10.8 fL Neutrophils (%) (Auto) 92.6 H 37.0-80.0 % Lymphocytes (%) (Auto) 5.1 L 10.0-50.0 % Monocytes (%) (Auto) 2.0 0.0-12.0 % Eosinophils (%) (Auto) 0.0 0.0-7.0 % Basophils (%) (Auto) 0.3 0.0-2.0 % Neutrophils # (Auto) 10.0 H 1.6-8.6 10 ^3/uL Lymphocytes # (Auto) 0.6 0.4-5.4 10 ^3/uL Monocytes # (Auto) 0.2 0-1.3 10 ^3/uL Eosinophils # (Auto) 0 0-0.8 10 ^3/uL Basophils # (Auto) 0 0-0.2 10 ^3/uL Nucleated Red Blood Cells 0.1 % Sodium Level 141 136-145 mmol/L Potassium Level 3.5 3.5-5.1 mmol/L Chloride Level 104 98-107 mmol/L Carbon Dioxide Level 23 20-31 mmol/L Anion Gap 14 5-15 Blood Urea Nitrogen 17 9-23 mg/dL Creatinine 1.10 H 0.550-1.02 mg/dL Glomerular Filtration Rate Calc 55 >90 mL/min BUN/Creatinine Ratio 15.5 10.0-20.0 Serum Glucose 146 H 74-106 mg/dL Calcium Level 11.1 H 8.7-10.4 mg/dL Magnesium Level 1.7 1.6-2.6 mg/dL Total Bilirubin 0.4 0.2-1.0 mg/dL Aspartate Amino Transferase (AST) 42 H 13-40 U/L Alanine Aminotransferase (ALT) 23 7-40 U/L Alkaline Phosphatase 119 H 46-116 U/L Total Protein 7.6 5.7-8.2 g/dL Albumin 4.8 3.2-4.8 g/dL Lipase 31 12-53 U/L Assessment [id number] AFEBRILE VSS ABD SOFT NON DISTENDED TENDER NO REBOUND R/O SBO KEEP NPO NG CLOSE OBSERVATION CONSIDER EMERGENT SURGERY BASED ON ONGOING EVAL Plan discussed with: Patient AG MENDOZA MD Sep 25, 2024 10:51
[2024-09-25] MEDS: HYDROmorphone HCL 2 MG/ML VL/or syr IV PRN (11:17)
--- NOTE | 2024-09-25 11:45 | DVH ---
CHEST RADIOGRAPH Indication: NG TUBE PLACEMENT Technique: Single frontal view of the chest was obtained COMPARISON: XY CHEST XRAY 1 VIEW on DOS: 07/08/24, XY CHEST XRAY 1 VIEW on DOS: 11/10/23, XY CHEST PORT ABLE on DOS: 08/05/22, CHEST PORTABLE on DOS: 12/10/21, CXRP on DOS: 11/23/21 FINDINGS: Lines and Tubes: Median sternotomy. Nasogastric tube in satisfactory position. Lungs: Congestion Pleura: No effusion. No pneumothorax. Cardiomediastinal contours: Unremarkable Bones: Unremarkable IMPRESSION: Nasogastric tube in satisfactory position
[2024-09-25] MEDS ORDERED: DEXTROSE (50%) 50ML SYRG IV PRN (12:00)
[2024-09-25] MEDS: ACCU-CHEK COMFORT CURVE STRIP VI SCH (12:00)
[2024-09-25] MEDS: SUCRALFATE 1 GM TAB PO SCH (12:00)
[2024-09-25] MEDS ORDERED: ACETAMINOPHEN 325 MG TAB PO PRN (12:00)
[2024-09-25] MEDS: CALCIUM ACETATE 667 MG CAP PO SCH (12:00)
--- NOTE | 2024-09-25 12:09 | DVHHP2 ---
History of Present Illness Reason for Visit: Abdominal pain with nausea and vomiting History of Present Illness Deanna Carson is a 69-year-old female with past medical history of diabetes, CHF, CVA with right-sided deficits, liver cancer status post resection, hypertension, hyperlipidemia, SD, PE in 2007 no longer on ant icoagulants, hepatitis-C, appendectomy, CABG, tonsillectomy, right ankle surgery, ex lap and cholecystectomy who presents to the ED with abdominal pain with nausea and vomiting x1 day. Patient reports that her current pain is 8/10 stabbing twisting like and constant in nature. She reports that there are no triggering or alleviating factors. Patient denies any chest pain, shortness of breath, fever, chills, lightheadedness, weakness, dizziness, recent ingestion of spoiled food, recent trauma or injury, recent sick contacts, recent travels, urinary symptoms, or diarrhea. 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 Dad with hypertension.) Smoke: No ALCOHOL: none Drugs: None Lives: with Family Domestic Violence: Neg Review of Systems Gastrointestinal: Nausea, Vomiting, Abdominal Pain Allergies: Coded Allergies: NO KNOWN ALLERGIES (Unverified , 04/09/23) Medications Current Medications Medications Dose Ordered Sig/Aranza Route Start Time Stop Time Status Last Admin Dose Admin Hydromorphone HCl 0.25 mg Q4HPRN PRN IV 09/25/24 11:00 09/25/24 11:17 0.25 MG Sodium Chloride 1,000 ml @ 120 mls/hr Q8H20M IV 09/25/24 12:00 UNV Acetaminophen/ Hydrocodone Bitart 1 tab Q4HP PRN PO 09/25/24 12:00 UNV Ondansetron HCl 4 mg Q4HP PRN IV 09/25/24 12:00 UNV Acetaminophen 650 mg Q6HP PRN PO 09/25/24 12:00 UNV Morphine Sulfate 2 mg Q4HPRN PRN IV 09/25/24 12:00 UNV Piperacillin Sod/ Tazobactam Sod 100 ml @ 25 mls/hr Q8HR IV 09/25/24 14:00 UNV Exam Vital Signs Vital Signs Date Time Temp Pulse Resp B/P (MAP) Pulse Ox O2 Delivery O2 Flow Rate FiO2 09/25/24 11:17 109 27 186/110 09/25/24 08:57 92 Room Air* 0 21 09/25/24 07:49 99.5 99.5 General Appearance: Alert, Oriented X3, Cooperative, No acute distress HEENT: Atraumatic, PERRLA, EOMI, Mucous membr. moist/pink Respiratory: Normal air movement Cardiovascular: Normal S1, Normal S2 Abdominal: Soft Extremities: No edema, Normal pulses Skin: No significant lesion Neuro: Normal speech, Strength at 5/5 X4 ext, Normal tone, Sensation intact Psych/Mental Status: Mental status NL, Mood NL Labs/Xrays Labs Test 09/25/24 07:15 Range/Units White Blood Count 10.8 4.4-10.8 10^3/uL Red Blood Count 4.65 4.0-5.20 10^6/uL Hemoglobin 14.1 12.2-16.2 g/dL Hematocrit 42.7 36.0-46.0 % Mean Corpuscular Volume 91.9 80.0-100.0 fL Mean Corpuscular Hemoglobin 30.4 28.0-32.0 pg Mean Corpuscular Hemoglobin Concent 33.0 32.0-36.0 g/dL Red Cell Distribution Width 16.6 H 11.8-14.3 % Platelet Count 270 140-450 10^3/uL Mean Platelet Volume 8.7 6.9-10.8 fL Neutrophils (%) (Auto) 92.6 H 37.0-80.0 % Lymphocytes (%) (Auto) 5.1 L 10.0-50.0 % Monocytes (%) (Auto) 2.0 0.0-12.0 % Eosinophils (%) (Auto) 0.0 0.0-7.0 % Basophils (%) (Auto) 0.3 0.0-2.0 % Neutrophils # (Auto) 10.0 H 1.6-8.6 10 ^3/uL Lymphocytes # (Auto) 0.6 0.4-5.4 10 ^3/uL Monocytes # (Auto) 0.2 0-1.3 10 ^3/uL Eosinophils # (Auto) 0 0-0.8 10 ^3/uL Basophils # (Auto) 0 0-0.2 10 ^3/uL Nucleated Red Blood Cells 0.1 % Sodium Level 141 136-145 mmol/L Potassium Level 3.5 3.5-5.1 mmol/L Chloride Level 104 98-107 mmol/L Carbon Dioxide Level 23 20-31 mmol/L Anion Gap 14 5-15 Blood Urea Nitrogen 17 9-23 mg/dL Creatinine 1.10 H 0.550-1.02 mg/dL Glomerular Filtration Rate Calc 55 >90 mL/min BUN/Creatinine Ratio 15.5 10.0-20.0 Serum Glucose 146 H 74-106 mg/dL Calcium Level 11.1 H 8.7-10.4 mg/dL Magnesium Level 1.7 1.6-2.6 mg/dL Total Bilirubin 0.4 0.2-1.0 mg/dL Aspartate Amino Transferase (AST) 42 H 13-40 U/L Alanine Aminotransferase (ALT) 23 7-40 U/L Alkaline Phosphatase 119 H 46-116 U/L Total Protein 7.6 5.7-8.2 g/dL Albumin 4.8 3.2-4.8 g/dL Lipase 31 12-53 U/L CHEST RADIOGRAPH Indication: NG TUBE PLACEMENT Technique: Single frontal view of the chest was obtained COMPARISON: XY CHEST XRAY 1 VIEW on DOS: 07/08/24, XY CHEST XRAY 1 VIEW on DOS: 11/10/23, XY CHEST PORTABLE on DOS: 08/05/22, CHEST PORTABLE on DOS: 12/10/21, CXRP on DOS: 11/23/21 FINDINGS: Lines and Tubes: Median sternotomy. Nasogastric tube in satisfactory position. Lungs: Congestion Pleura: No effusion. No pneumothorax. Cardiomediastinal contours: Unremarkable Bones: Unremarkable IMPRESSION: Nasogastric tube in satisfactory position EXAM DESCRIPTION: CT CT AB PEL WITH IV CON ONLY CLINICAL HISTORY: pud COMPARISON: CT CT CHEST/AB/PL W CON- IV ONLY on DOS: 11/10/23 TECHNIQUE: CT abdomen and pelvis with IV contrast was performed. Coronal and sagittal MPR images were generated. CTDI, DLP = 8.81 / 480.67 Dose reduction technique with one or more of the following methods was performed: Automated exposure control, adjustment of the mA and/or kV according to patient size, use of iterative reconstruction technique FINDINGS: Lower chest: Clear lung bases. Liver: Status post left hepatectomy. Homogeneous enhancement of the right hepatic lobe. Water attenuation cyst. Biliary: Status post cholecystectomy. No biliary ductal dilatation. Pancreas: No fat stranding or focal lesion. Spleen: Normal in size.. Adrenal glands: No nodularity. Kidneys: Symmetric enhancement. No hydroureteronephrosis. Water attenuation lesion and subcentimeter hypoattenuating lesion which is too small to characterize on CT. Punctate left renal calculus. Bladder: Underdistended, limiting evaluation. Reproductive organs: Normal. Bowel: Small hiatal hernia. Mild - Moderate gastric distension. There are multiple dilated small bowel loops with air fluid levels with transition point noted at the right lower quadrant. At the region of the transition point there is circumferential wall thickening of the small bowel. The small bowel distal to the transition point is decompressed.There is also mesenteric edema / stranding in the small bowel mesentery the small bowel enhances normally throughout. the proximal colon is normal in caliber, but the mid-distal colon is decompressed. Colonic diverticulosis without evidence of diverticulitis. Peritoneum: No free fluid. No free air. Vessels: Normal caliber abdominal aorta. Moderate atherosclerotic vascular calcifications Lymph nodes: No suspicious lymph nodes. Soft tissues: Unremarkable. . Osseous structures: No acute fracture or subluxation. No suspicious osseous lesions. Degenerative changes of the visualized thoracolumbar spine. Status post median sternotomy. IMPRESSION: 1. Findings suspicious for high grade small bowel obstruction with transition point at the right lower quadrant. There are also findings concerning for impending small bowel schema. Recommend emergent surgical evaluation. 2. Status post left hepatectomy and cholecystectomy. SEPSIS Sepsis Screen Date sepsis recognized/suspect: Sep 25, 2024 Time Sepsis recognized/suspect: 604 Recent Procedure: No On Antibiotic Therapy: No Respiratory Rate >20: No Heart Rate >90: No Temp<36 C (96.8 F) or >38.3 C: No SBP <90 or MAP <65 mmHG: No New Acute Mental Status Change: No Is the patient on CPAP, BIPAP,: No Physician Orders Urinalysis (09/25/24 06:53) Ct Ab Pel With Iv Con Only (09/25/24 06:53) Heplock Iv (09/25/24 06:53) Clerical Office Worker (09/25/24 06:53) Blood Pressure (09/25/24 06:53) Electrocardigram (09/25/24 06:53) Sodium Chloride 0.9% (09/25/24 07:00) Ng To Lcs (09/25/24 10:28) Hydromorphone Injection (Dilaudid Inject (09/25/24 11:00) Chest Portable (09/25/24 10:57) Admit (09/25/24 11:52) Allergies (09/25/24 11:52) Code Status (09/25/24 11:52) Sodium Chloride 0.9% (09/25/24 12:00) Hydrocodone-Acet 5/325mg Tab ([place] 5/32 (09/25/24 12:00) Ondansetron Hcl (Zofran) (09/25/24 12:00) Complete Blood Count (09/26/24 04:00) Comprehensive Metabolic Panel (09/26/24 04:00) Npo (Nothing By Mouth) Diet (09/25/24 Lunch) Acetaminophen Tablet (Tylenol Tablet) (09/25/24 12:00) Morphine Sulfate Injection (09/25/24 12:00) Sequential Compression Device (09/25/24 ) Piperacillin-Tazob 3.375gm (Zosyn 3.375g (09/25/24 14:00) Amlodipine Tablet (Norvasc Tablet) (09/25/24 22:00) Calcium Acetate Capsule (Phoslo Capsule) (09/25/24 12:00) Hydralazine Hcl Tablet (Apresoline Table (09/25/24 14:00) Nifedipine Er (Procardia Xl (Time-Releas (09/25/24 22:00) Sertraline Hcl (Zoloft) (09/26/24 10:00) (Nf) Aspirin (Aspirin Low Dose) (09/26/24 10:00) (Nf) Atorvastatin Calcium (Lipitor) (09/26/24 10:00) (Nf) Clonidine Hydrochloride (Clonidine (09/25/24 22:00) (Nf) Hyoscyamine Sulfate (09/25/24 22:00) (Nf) Metoprolol Succinate (Metoprolol Fan (09/26/24 10:00) (Nf) Pregabalin (09/25/24 22:00) (Nf) Sacubitril-Valsartan (Entresto 49-5 (09/25/24 22:00) (Nf) Tizanidine Hydrochloride (Tizanidin (09/25/24 14:00) (Nf) Vonoprazan Fumarate (Voquezna) (09/26/24 10:00) Sucralfate Tab (Carafate Tab) (09/25/24 12:00) Vital Signs Date Time Temp Pulse Resp B/P (MAP) Pulse Ox O2 Delivery O2 Flow Rate FiO2 09/25/24 11:17 109 27 186/110 09/25/24 11:03 106 24 194/119 09/25/24 09:48 91 37 188/107 09/25/24 09:15 103 30 185/100 09/25/24 08:57 101 28 92 Room Air* 0 21 09/25/24 08:23 114 22 181/113 09/25/24 07:49 99.5 114 22 181/113 (135) 96 99.5 09/25/24 07:49 114 22 96 Room Air* 0 21 09/25/24 06:08 98.6 89 20 191/107 (135) 98 98.6 Laboratory Tests Test 09/25/24 07:15 White Blood Count 10.8 10^3/uL (4.4-10.8) Medications Medications Dose Ordered Sig/Aranza Route Start Time Stop Time Status Last Admin Dose Admin Hydromorphone HCl 0.25 mg Q4HPRN PRN IV 09/25/24 11:00 09/25/24 11:17 0.25 MG Hydromorphone HCl 0.5 mg ONCE ONCE IV 09/25/24 09:45 09/25/24 09:46 DC 09/25/24 09:48 0.5 MG Metoclopramide HCl 10 mg ONCE ONCE IV 09/25/24 07:00 09/25/24 07:01 DC 09/25/24 08:22 10 MG Morphine Sulfate 3 mg ONCE ONCE IV 09/25/24 07:00 09/25/24 07:01 DC 09/25/24 08:23 3 MG Sodium Chloride 500 ml @ 500 mls/hr Q1H ONCE IVB 09/25/24 07:00 09/25/24 07:59 DC 09/25/24 08:23 500 MLS/HR Assessment/Plan Assessment/Plan Assessment Intractable abdominal pain likely due to small bowel obstruction and possible ischemia Hypertension likely due to pain Elevated ALP Hypercalcemia likely due to history of liver cancer RAUL likely prerenal Diabetes type 2 with hyperglycemia History of status post left hepatectomy History of CHF History of CVA with right-sided deficits History of liver cancer status post resection History of hyperlipidemia History of SD History of PE in 2007 no longer on anticoagulants History of hepatitis-C History of appendectomy History of CABG History of tonsillectomy History of cholecystectomy History of ex lap History of right ankle surgery Plan Admit to med surge Antiemetics Lactic Pain management Chest x-ray noted NG tube per General surgery Mag level CT abdomen and pelvis noted UA Lipase Antihypertensives Hemoglobin A1c ISS and Accu-Cheks IV antibiotics-Zosyn Strict I&Os Daily weight NG tube to low continuous suction per General surgery NPO IV fluids Home medications reconciled DVT prophylaxis-SCDs PUD prophylaxis-PPIs Discussed plan of care with patient and nurse [place] [id number] Preventive counseling healthy eating habits, physical activity, and regular checkups Plan discussed with: Patient My Orders Orders - TIFFANIE AVILA REGISTERED NURSES Procedure Category Date Status Time Admit ADMIT 09/25/24 Transmitted 11:52 Allergies TITA 09/25/24 In Process 11:52 Code Status CODE 09/25/24 Transmitted 11:52 Sodium Chloride 0.9% PHA 09/25/24 Logged 12:00 Hydrocodone-Acet PHA 09/25/24 Logged 5/325mg Tab ([place] 12:00 Ondansetron Hcl PHA 09/25/24 Logged (Zofran) 12:00 Complete Blood Count LAB 09/26/24 Verified 04:00 Comprehensive LAB 09/26/24 Verified Metabolic Panel 04:00 Npo (Nothing By DIET 09/25/24 Transmitted Mouth) Diet Lunch Acetaminophen Tablet PHA 09/25/24 Logged (Tylenol Tablet) 12:00 Morphine Sulfate PHA 09/25/24 Logged Injection 12:00 Sequential TITA 09/25/24 In Process Compression Device Piperacillin-Tazob PHA 09/25/24 Logged 3.375gm (Zosyn 3.375g 14:00 Amlodipine Tablet PHA 09/25/24 Transmitted (Norvasc Tablet) 22:00 Calcium Acetate PHA 09/25/24 Transmitted Capsule (Phoslo 12:00 Hydralazine Hcl PHA 09/25/24 Transmitted Tablet (Apresoline 14:00 Nifedipine Er PHA 09/25/24 Transmitted (Procardia Xl 22:00 Sertraline Hcl PHA 09/26/24 Transmitted (Zoloft) 10:00 (Nf) Aspirin (Aspirin PHA 09/26/24 Transmitted Low Dose) 10:00 (Nf) Atorvastatin PHA 09/26/24 Transmitted Calcium (Lipitor) 10:00 (Nf) Clonidine PHA 09/25/24 Transmitted Hydrochloride 22:00 (Nf) Hyoscyamine PHA 09/25/24 Transmitted Sulfate 22:00 (Nf) Metoprolol PHA 09/26/24 Transmitted Succinate (Metoprolol 10:00 (Nf) Pregabalin PHA 09/25/24 Transmitted 22:00 (NF) PHA 09/25/24 Transmitted Sacubitril-Valsartan 22:00 (Nf) Tizanidine PHA 09/25/24 Transmitted Hydrochloride 14:00 (Nf) Vonoprazan PHA 09/26/24 Transmitted Fumarate (Voquezna) 10:00 Sucralfate Tab PHA 09/25/24 Transmitted (Carafate Tab) 12:00 Date of Service: Sep 25, 2024 Billing Provider: TIFFANIE AVILA Common Visit Codes: [id number] INP/OBS CARE (HIGH) Secondary Visit Codes: [id number] COUNSELING IND TIFFANIE AVILA Sep 25, 2024 12:09
[2024-09-25] MEDS: SODIUM CHLORIDE 0.9% 1,000 ML IV SCH (12:50)
[2024-09-25] MEDS: PANTOPRAZOLE 40 MG/10 ML VIAL INJ IV SCH (12:51)
[2024-09-25] MEDS: InsuLIN REG 1unit/0.01ml Soln (100units/ml) SC SCH (12:51)
[2024-09-25] MEDS: ONDANSETRON HCL 4 MG/2 ML VIAL IV PRN (13:39)
[2024-09-25] MEDS: hydrALAZINE HCL 20 MG/ML VL IV PRN (13:40)
[2024-09-25] MEDS: TIZANIDINE HYDROCHLORIDE 2 MG PO SCH (14:00)
[2024-09-25] MEDS: PIPERACILLIN-TAZOB 3.375GM 100 ML IV SCH (14:07)
[2024-09-25 17:11] VITALS: BP 153/94; PULSE 85; PULSE 91; RESP 18; TEMP 100.4; O2SAT 95
[2024-09-25] MEDS: MORPHINE SULFATE INJ 2 MG/ml SYRG IV PRN (19:02)
[2024-09-25 20:00] VITALS: PULSE 79; RESP 16; O2SAT 97
[2024-09-25 21:00] VITALS: BP 174/90; PULSE 79; RESP 16; TEMP 99.8; O2SAT 97
[2024-09-25] MEDS: PREGABALIN 25 MG CAP PO SCH (22:00)
[2024-09-25] MEDS: HYOSCYAMINE SULF 0.125 MG ODT TAB PO SCH (22:00)
[2024-09-25] MEDS: ATORVASTATIN 20 MG TAB PO SCH (22:00)
[2024-09-25] MEDS: LORazepam 2MG/ML-1ML VIAL IV PRN (22:22)
--- NOTE | 2024-09-25 23:11 | DVHINCON2 ---
DATE OF CONSULTATION: 09/25/2024 HISTORY OF PRESENT ILLNESS: This patient is 69 years old, coming in with abdominal pain, some nausea. She did have a bowel movement yesterday and some flutters. No hematemesis or melena. No bleeding per rectum. PAST MEDICAL HISTORY: No diabetes. Possibly hypertension. She is not taking any medication. PAST SURGICAL HISTORY: She has had two laparotomies done for possible bowel obstruction. Details are not clear. She had surgery done for liver cancer and liver lesions were removed as well and appendectomy. PHYSICAL EXAMINATION: VITAL SIGNS: She is currently afebrile with stable signs. HEENT: No evidence of pallor, cyanosis, or jaundice. NECK: Supple, nontender with no thyromegaly or lymphadenopathy. CHEST AND LUNGS: Clear. HEART: Within normal limits. ABDOMEN: Soft, tender. No rebound. EXTREMITIES: Unremarkable. NEUROLOGIC: Intact. CLINICAL IMPRESSION: Rule out small bowel obstruction secondary to adhesions and/or metastatic disease. PLAN: Will be to keep her under close observation, keep her n.p.o., continue close observation, and consider emergent surgery based upon ongoing evaluation. Reed Fitzgerald MD RG/CJ TID: [id number] RECEIPT: [id number] cc: Daren Day MD
[2024-09-26] VITALS (7 sets, daily range): BP systolic 145–174; BP diastolic 79–107; PULSE 84–95; RESP 16–18; TEMP 98.3–99.4; O2SAT 92–100
[2024-09-26] MEDS: HYDROmorphone HCL 2 MG/ML VL/or syr IV PRN ×2 (04:35→16:55)
[2024-09-26 06:10] LABS: Urine Protein, UAD 2+ (Negative)
[2024-09-26 06:58] LABS: Hematocrit 37.5 % (36.0-46.0); Hemoglobin 12.5 g/dL (12.2-16.2); Mean Corpuscular Hemoglobin 30.0 pg (28.0-32.0); Mean Corpuscular Volume 90.2 fL (80.0-100.0); Nucleated Red Blood Cells % 0.2 %
[2024-09-26 07:10] LABS: Alanine Aminotransferase 15 U/L (7-40); Albumin 4.0 g/dL (3.2-4.8); Alkaline Phosphatase 90 U/L (46-116); Anion Gap 12 (5-15); Bilirubin, Total 0.5 mg/dL (0.2-1.0); Blood Urea Nitrogen 17 mg/dL (9-23); Calcium 9.6 mg/dL (8.7-10.4); Carbon Dioxide 24 mmol/L (20-31); Glucose 88 mg/dL (74-106); Total Protein 6.5 g/dL (5.7-8.2)
[2024-09-26 07:15] LABS: Chloride 110 mmol/L (98-107); Potassium 2.8 mmol/L (3.5-5.1); Sodium 146 mmol/L (136-145)
[2024-09-26 07:28] LABS: BUN/Creatinine Ratio 14.4 (10.0-20.0)
[2024-09-26] MEDS: VONOPRAZAN FUMARATE 20 MG PO SCH (08:28)
[2024-09-26] MEDS: METOPROLOL SUCCINATE XL 50 MG TAB PO SCH (08:29)
[2024-09-26] MEDS: SERTRALINE HCL 50 MG TAB PO SCH (08:29)
[2024-09-26] MEDS: FUROSEMIDE 40 MG/4 ML VIAL IV SCH (09:00)
[2024-09-26] MEDS: POTASSIUM CHL 20MEQ/100ML 100 ML IV SCH (09:14)
[2024-09-26] MEDS: LABETALOL HCL 20 MG/4 ML VL IV PRN (09:14)
[2024-09-26] MEDS ORDERED: HYDROmorphone HCL 2 MG/ML VL/or syr ONE ×2 (10:31→15:29)
[2024-09-26] MEDS ORDERED: KETAMINE 50mg/ML 1ml syringe ONE (10:31)
[2024-09-26] MEDS ORDERED: fentaNYL CITRATE 100 MCG/2 ML VL ONE ×3 (10:31→14:37)
[2024-09-26] MEDS ORDERED: PROPOFOL 10 MG/ML 20 ML IV ONE (10:32)
[2024-09-26] MEDS ORDERED: LIDOCAINE 2% (LOCAL ANESTH.) PF 5ml SDV ONE (10:32)
[2024-09-26] MEDS ORDERED: GLYCOPYRROLATE 0.2 MG/ML 1ML VIAL ONE (10:32)
[2024-09-26] MEDS ORDERED: KETOROLAC TROMETH 30 MG/ML 1ML VIAL ONE (10:32)
[2024-09-26] MEDS ORDERED: ONDANSETRON HCL 4 MG/2 ML VIAL ONE (10:32)
[2024-09-26] MEDS ORDERED: MIDAZOLAM HCL 2MG/2ML 2ml VIAL (1mg/ml) ONE (10:32)
[2024-09-26] MEDS ORDERED: ROCURONIUM 10MG/ML 10ML VIAL IV ONE (10:32)
--- NOTE | 2024-09-26 11:36 | DVHPN2 ---
Progress Note Date Seen: Sep 26, 2024 Medical Necessity Reason Pt with a Central, PICC or Fol: No Objective vital signs Vital Sign Date Time Temp Pulse Resp B/P (MAP) Pulse Ox O2 Delivery O2 Flow Rate FiO2 09/26/24 10:14 79 190/117 09/26/24 09:32 19 09/26/24 08:00 Room Air* 0 21 09/26/24 05:00 98.3 95 98.3 Total Intake and Output 09/25/24 09/25/24 09/26/24 15:00 23:00 07:00 Intake Total 740 ml 340 ml 620 ml Output Total 600 ml Balance 140 ml 340 ml 620 ml medications Current Medications Medications Dose Ordered Sig/Aranza Route Start Time Stop Time Status Last Admin Dose Admin Hydromorphone HCl 0.25 mg Q4HPRN PRN IV 09/25/24 11:00 Hold 09/25/24 16:09 0.25 MG Sodium Chloride 1,000 ml @ 120 mls/hr Q8H20M IV 09/25/24 12:00 09/26/24 04:36 120 MLS/HR Acetaminophen/ Hydrocodone Bitart 1 tab Q4HP PRN PO 09/25/24 12:00 Ondansetron HCl 4 mg Q4HP PRN IV 09/25/24 12:00 09/25/24 13:39 4 MG Acetaminophen 650 mg Q6HP PRN PO 09/25/24 12:00 Piperacillin Sod/ Tazobactam Sod 100 ml @ 25 mls/hr Q8HR IV 09/25/24 14:00 09/26/24 05:12 25 MLS/HR Amlodipine Besylate 5 mg BID PO 09/25/24 22:00 Calcium Acetate 667 mg TIDWM PO 09/25/24 12:00 Hydralazine HCl 10 mg TID PO 09/25/24 14:00 Nifedipine 30 mg BID PO 09/25/24 22:00 UNV Sertraline HCl 50 mg DAILY PO 09/26/24 10:00 Sucralfate 1 gm QID PO 09/25/24 12:00 Aspirin 81 mg DAILY PO 09/26/24 10:00 Atorvastatin Calcium 40 mg HS PO 09/25/24 22:00 Clonidine HCl 0.3 mg BID PO 09/25/24 22:00 Hyoscyamine 0.125 mg BID PO 09/25/24 22:00 Metoprolol Succinate 25 mg DAILY PO 09/26/24 10:00 Pregabalin 100 mg BID PO 09/25/24 22:00 Patient Own Medication 1 tab BID PO 09/25/24 22:00 Patient Own Medication 1 tab TID PO 09/25/24 14:00 Patient Own Medication 1 tab DAILY PO 09/26/24 10:00 Furosemide 40 mg DAILY IV 09/26/24 10:00 Pantoprazole Sodium 40 mg DAILY IV 09/25/24 12:00 09/26/24 09:00 40 MG Diagnostic Test (Pha) 1 strip Q6HR 09/25/24 12:00 09/26/24 05:10 1 STRIP Insulin Human Regular Q6HR SC 09/25/24 12:00 09/25/24 12:51 3 UNITS Dextrose 50 ml UD PRN IV 09/25/24 12:00 Hydralazine HCl 10 mg Q6HP PRN IV 09/25/24 12:15 09/26/24 04:34 10 MG Hydromorphone HCl 0.25 mg Q4HPRN PRN IV 09/25/24 19:45 09/26/24 09:02 0.25 MG Lorazepam 0.25 mg Q6HP PRN IV 09/25/24 19:45 09/26/24 10:38 0.25 MG Potassium Chloride 100 ml @ 50 mls/hr Q2H IV 09/26/24 08:00 09/26/24 13:59 09/26/24 11:13 50 MLS/HR Labetalol HCl 10 mg Q2HPRN PRN IV 09/26/24 08:45 09/26/24 09:14 10 MG laboratory and microbiology Laboratory Tests 09/26/24 05:12 Test 09/26/24 05:12 Range/Units Serum Glucose 88 74-106 mg/dL Problem List/Assessment/Plan Problem List/Assessment/Plan AFEBRILE VSS C/O OF LOWER ABD PAIN ABD SOFT TENDER RLQ AND LOWER ABD NO BM FLATUS TODAY NG IN PLACE PROCEED WITH EMERGENT EXPLORATORY LAPAROTOMY, POSSIBLE BOWEL RESECTION COLOSTOMY BENEFITS RISKS DISCUSSED PT AGREES WITH THE PLAN Plan discussed with: Patient My Orders My Orders Orders - AG MENDOZA MD Procedure Category Date Status Time Hydromorphone PHA 09/25/24 In Process Injection (Dilaudid 19:45 Lorazepam 2mg/Ml Inj PHA 09/25/24 In Process (Ativan Inj) 19:45 Obtain Consent For: ORDERS 09/26/24 Verified 11:32 Obtain Consent For TITA 09/26/24 Verified Anesthesia 11:32 AG MENDOZA MD Sep 26, 2024 11:36
--- NOTE | 2024-09-26 11:51 | DVHPNRES ---
Progress Note Date Seen: Sep 26, 2024 Resident Creating Document: ROHIT ROTH RESIDENT Medical Necessity Reason Pt with a Central, PICC or Fol: No Subjective Review of Systems ELIU CHUA Is a 69 years old female with a PMH of CHF, chronic respiratory failure on 2 L home oxygen, HTN, liver cancer s/p resection, right ankle surgery, history of laparotomy, cholecystectomy, PUD, untreated hepatitis- C , history of laparotomy presented to the ED with the chief complaints of abdominal pain and vomiting since Friday. patient reported she has been having this abdominal pain for past 2-3 months for which PCP thinks it might be gastric ulcer enteritis oral medications but no results were seen. Eventually pain got worsen over the past month and for past couple of days patient started having severe abdominal pain 10/10 mostly in umbilical area associated with severe vomiting initially orange: And sometimes blood also seen which prompted her to visit ED. on my assessment patient denies fever, diarrhea, chest pain, shortness of breath, sick contacts, recent travel and other associated symptoms. PMH: CHF, chronic respiratory failure on 2 L home oxygen, HTN, liver cancer s/p resection, right ankle surgery, history of laparotomy, cholecystectomy, PUD, untreated hepatitis-C , history of laparotomy PSH: Appendectomy, cholecystectomy, CABG, tonsillectomy Family history: Cancer, Hypertension, Other (Mom with hypertension and breast cancer. Dad with hypertension.) Personal history: Lives at home with the family. Denies smoking, alcohol and other drug abuse Allergies: no known allergies Patient seen and examined at the bedside. Overnight events reviewed, patient is complaining of severe abdominal pain 10/10 and vomiting has been controlled right now. Patient is on NG tube. CT abdominal pelvis showed possible SBO, Possible surgery today. Objective vital signs Vital Sign Date Time Temp Pulse Resp B/P (MAP) Pulse Ox O2 Delivery O2 Flow Rate FiO2 09/26/24 10:14 79 190/117 09/26/24 09:32 19 09/26/24 08:00 Room Air* 0 21 09/26/24 05:00 98.3 95 98.3 Total Intake and Output 09/25/24 09/25/24 09/26/24 15:00 23:00 07:00 Intake Total 740 ml 340 ml 620 ml Output Total 600 ml Balance 140 ml 340 ml 620 ml medications Current Medications Medications Dose Ordered Sig/Aranza Route Start Time Stop Time Status Last Admin Dose Admin Hydromorphone HCl 0.25 mg Q4HPRN PRN IV 09/25/24 11:00 Hold 09/25/24 16:09 0.25 MG Sodium Chloride 1,000 ml @ 120 mls/hr Q8H20M IV 09/25/24 12:00 09/26/24 04:36 120 MLS/HR Acetaminophen/ Hydrocodone Bitart 1 tab Q4HP PRN PO 09/25/24 12:00 Ondansetron HCl 4 mg Q4HP PRN IV 09/25/24 12:00 09/25/24 13:39 4 MG Acetaminophen 650 mg Q6HP PRN PO 09/25/24 12:00 Piperacillin Sod/ Tazobactam Sod 100 ml @ 25 mls/hr Q8HR IV 09/25/24 14:00 09/26/24 05:12 25 MLS/HR Amlodipine Besylate 5 mg BID PO 09/25/24 22:00 Calcium Acetate 667 mg TIDWM PO 09/25/24 12:00 Hydralazine HCl 10 mg TID PO 09/25/24 14:00 Nifedipine 30 mg BID PO 09/25/24 22:00 UNV Sertraline HCl 50 mg DAILY PO 09/26/24 10:00 Sucralfate 1 gm QID PO 09/25/24 12:00 Aspirin 81 mg DAILY PO 09/26/24 10:00 Atorvastatin Calcium 40 mg HS PO 09/25/24 22:00 Clonidine HCl 0.3 mg BID PO 09/25/24 22:00 Hyoscyamine 0.125 mg BID PO 09/25/24 22:00 Metoprolol Succinate 25 mg DAILY PO 09/26/24 10:00 Pregabalin 100 mg BID PO 09/25/24 22:00 Patient Own Medication 1 tab BID PO 09/25/24 22:00 Patient Own Medication 1 tab TID PO 09/25/24 14:00 Patient Own Medication 1 tab DAILY PO 09/26/24 10:00 Furosemide 40 mg DAILY IV 09/26/24 10:00 Pantoprazole Sodium 40 mg DAILY IV 09/25/24 12:00 09/26/24 09:00 40 MG Diagnostic Test (Pha) 1 strip Q6HR 09/25/24 12:00 09/26/24 05:10 1 STRIP Insulin Human Regular Q6HR SC 09/25/24 12:00 09/25/24 12:51 3 UNITS Dextrose 50 ml UD PRN IV 09/25/24 12:00 Hydralazine HCl 10 mg Q6HP PRN IV 09/25/24 12:15 09/26/24 04:34 10 MG Hydromorphone HCl 0.25 mg Q4HPRN PRN IV 09/25/24 19:45 09/26/24 09:02 0.25 MG Lorazepam 0.25 mg Q6HP PRN IV 09/25/24 19:45 09/26/24 10:38 0.25 MG Potassium Chloride 100 ml @ 50 mls/hr Q2H IV 09/26/24 08:00 09/26/24 13:59 09/26/24 11:13 50 MLS/HR Labetalol HCl 10 mg Q2HPRN PRN IV 09/26/24 08:45 09/26/24 09:14 10 MG Examination Pt is lying on bed General Appearance: Alert, Oriented X3, Cooperative, Severe distress due to pain HEENT: Atraumatic, Mucous membranes moist/pink Respiratory: Clear to auscultation, Normal air movement, No added sounds Cardiovascular: Regular rate, Normal S1, Normal S2, No murmurs Abdominal: severe abdominal tenderness mostly in the umbilical area, lower right and left quadrants Extremities: No edema, Normal pulses, No tenderness/swelling Skin: No Significant rash, except past surgical scars Neuro: Normal speech, sensorimotor deficits none Psych/Mental Status: Mental status NL, Mood NL Nurse was there as senior microstrategy developer during examination laboratory and microbiology Laboratory Tests 09/26/24 05:12 Test 09/26/24 05:12 Range/Units Serum Glucose 88 74-106 mg/dL Labs and/or images reviewed: Labs reviewed by me, Image(s) reviewed by me Problem List/Assessment/Plan Problem List/Assessment/Plan # ? SBO # rule out small-bowel ischemia - med surge - NPO for now - NG tube - CT ABD/pelvis showed high-grade SBO with a transfusion had tried lower quadrant - pain management and antiemetics - IVF - surgical consult, possible surgery today after correcting potassium - empiric antibiotic Zosyn # Hypokalemia - Repleting with 60 meq - Monitor lab # hypertensive urgency /emergency likely pain induced - pain management - continuously monitor blood pressure - hydralazine and IV labetalol p.r.n. - resume home medications # R/o RAUL - monitor lab for now # chronic systolic/diastolic CHF not in exacerbation -resume home meds -consult Dr. Shalom FELIZ PPX: Protonix VTE ppx: SCDs Diet: NPO Home meds: reconsiled Goals of care addressed with the patient for more than 27 minutes: Full code status Case discussed with ,patient and nurse Plan discussed with: Patient My Orders My Orders Orders - ROHIT ROTH Procedure Category Date Status Time Potassium Chl PHA 09/26/24 In Process 20meq/100ml 08:00 Labetalol Hcl PHA 09/26/24 In Process (Labetalol Hcl) 08:45 Date of Service: Sep 26, 2024 Billing Provider: FLORENTINO YIN MD Common Visit Codes: [id number] INP/OBS CARE(HIGH) ROHIT ROTH Sep 26, 2024 11:51 FLORENTINO YIN MD Sep 26, 2024 23:51
[2024-09-26] MEDS ORDERED: ETOMIDATE (2MG/ML) 20ML VIAL IV ONE (12:52)
[2024-09-26 13:22] LABS: INR 1.26 (0.9-1.15); Prothrombin Time 13.1 sec (9.3-11.8)
--- NOTE | 2024-09-26 16:48 | DVHOP2 ---
Operative Report [id number] DISTAL SMALL BOWEL OBSTRUCTION EXTENSIVE LYSIS OF ADHESIONS SUTURE CLOSURE OF TW0 MINOR ENTEROTOMIES NO COMPLICATIONS EBL 200CC NO DRAIN AG MENDOZA MD Sep 26, 2024 16:48
--- NOTE | 2024-09-26 17:00 | DVHOP ---
DATE OF SURGERY: 09/26/2024 PREOPERATIVE DIAGNOSIS: Small bowel obstruction. POSTOPERATIVE DIAGNOSIS: Small bowel obstruction. PROCEDURE: Exploratory laparotomy with extensive lysis of adhesions and suture closure of two enterotomies. SURGEON: Reed Fitzgerald MD. MODEL SET ARTIST: None. ANESTHESIA: General. ESTIMATED BLOOD LOSS: Close to 200 mL. DRAINS: No drains were used. DESCRIPTION OF PROCEDURE: The patient was prepped and draped in the usual sterile fashion in the supine position and a vertical midline incision was applied. It was taken down to the deeper tissues. The bowel was adherent to the anterior abdominal wall. Meticulous dissection was carried out to release the bowel. There were some areas of weak spot in the bowel and there were two areas, one in the proximal jejunum and the second one in the distal jejunum close to the ileum. Suture in interrupted fashion to prevent leakage and with this being done, then meticulous dissection was carried out with a lot of care avoiding injury to the bowel or to the vessels and her obstruction was located in the distal ileum. She had a lot of pelvic adhesions as well and they were all released. The ileocecal junction was identified. The small bowel was released from all these adhesions and was taken up to the DJ flexure. Once all of this was identified, the bowel contents were noted to go into the distal ileum into the large bowel as well and there was no leakage noted and irrigation was performed. Hemostasis was secured. Sponge and needle counts were reported correct. With this being done, no further intervention was necessary. The irrigation fluid was removed. The hemostasis was excellent with no problems and the small bowel was replaced back into the abdomen in its anatomic location and the sponge count and needle count was reported correct. The fascia was brought together using PDS suture and the skin incision was brought together using a staple device. Dressing was applied. The patient tolerated the procedure well. She as taken back to the recovery room in stable condition. MD LEONCIO Mohan/LUDA TID: [id number] RECEIPT: [id number] cc: MASON Flannery
[2024-09-26] MEDS: ACETAMINOPHEN IV 1000 MG/100ML (10MG/ML) IV ONE (17:18)
[2024-09-26] MEDS: fentaNYL CITRATE 100 MCG/2 ML VL IV ONE (18:05)
[2024-09-26 20:52] LABS: Hematocrit 41.1 % (36.0-46.0); Hemoglobin 13.1 g/dL (12.2-16.2); Mean Corpuscular Hemoglobin 29.7 pg (28.0-32.0); Mean Corpuscular Volume 93.1 fL (80.0-100.0); Nucleated Red Blood Cells % 0.0 %
[2024-09-26 21:08] LABS: Alanine Aminotransferase 15 U/L (7-40); Albumin 3.4 g/dL (3.2-4.8); Alkaline Phosphatase 78 U/L (46-116); Anion Gap 11 (5-15); BUN/Creatinine Ratio 12.7 (10.0-20.0); Bilirubin, Total 0.4 mg/dL (0.2-1.0); Blood Urea Nitrogen 14 mg/dL (9-23); Potassium 4.3 mmol/L (3.5-5.1); Sodium 144 mmol/L (136-145); Total Protein 5.7 g/dL (5.7-8.2)
[2024-09-26 21:09] LABS: Calcium 8.2 mg/dL (8.7-10.4); Carbon Dioxide 20 mmol/L (20-31); Chloride 113 mmol/L (98-107); Glucose 130 mg/dL (74-106)
[2024-09-26] MEDS ORDERED: LORazepam 2MG/ML-1ML VIAL IV PRN (22:45)
[2024-09-27] VITALS (9 sets, daily range): BP systolic 133–186; BP diastolic 78–107; PULSE 79–92; RESP 16–22; TEMP 98.1–99.6; O2SAT 94–98
[2024-09-27 07:28] LABS: Hematocrit 38.7 % (36.0-46.0); Hemoglobin 12.6 g/dL (12.2-16.2); Mean Corpuscular Hemoglobin 30.2 pg (28.0-32.0); Mean Corpuscular Volume 92.8 fL (80.0-100.0); Nucleated Red Blood Cells % 0.0 %
[2024-09-27] MEDS: ONDANSETRON HCL 4 MG/2 ML VIAL IV ONE (07:35)
[2024-09-27 07:36] LABS: Alanine Aminotransferase 14 U/L (7-40); Albumin 3.4 g/dL (3.2-4.8); Alkaline Phosphatase 71 U/L (46-116); Anion Gap 10 (5-15); BUN/Creatinine Ratio 12.7 (10.0-20.0); Bilirubin, Total 0.5 mg/dL (0.2-1.0); Blood Urea Nitrogen 14 mg/dL (9-23); Calcium 9.1 mg/dL (8.7-10.4); Carbon Dioxide 22 mmol/L (20-31); Glucose 88 mg/dL (74-106); Potassium 4.0 mmol/L (3.5-5.1); Sodium 144 mmol/L (136-145)
[2024-09-27 07:38] LABS: Chloride 112 mmol/L (98-107); Total Protein 5.5 g/dL (5.7-8.2)
[2024-09-27] MEDS: SODIUM CHLORIDE 0.9% 1,000 ML IV SCH (08:45)
[2024-09-27] MEDS ORDERED: MORPHINE SULFATE INJ 2 MG/ml SYRG IV PRN (08:45)
[2024-09-27] MEDS: MORPHINE SULFATE INJ 2 MG/ml SYRG IV ONE (08:57)
[2024-09-27] MEDS: HYDROmorphone HCL 2 MG/ML VL/or syr IV PRN ×2 (11:00→15:11)
[2024-09-27] MEDS: KETOROLAC TROMETH 30 MG/ML 1ML VIAL IV ONE (11:11)
--- NOTE | 2024-09-27 15:40 | DVHPN2 ---
Progress Note - Dictate Date Seen: Sep 26, 2024 Medical Necessity Reason Pt with a Central, PICC or Fol: No Subjective PT WITH ABD PAIN NAUSEA VOMITING HEMATEMESIS PMH; HX SEVERE HYPOKALEMIA ? DYSRHYTHMIA DIARRHEA PT WELL KNOWN TO ME HX OF CAD DIABETES HTN HYPERLIPIDEMIA S/P LHC 04/09 * Left main normal. * Left anterior descending artery without any flow restrictive lesion. * Circumflex dominant vessel without any flow restrictive lesion. * Right coronary artery nondominant vessel without any flow restrictive lesion. * Left ventricular function showed hyperdynamic contractility with an LV. Left ventricular ejection fraction greater than 65%. * LVEDP was 5 mmHg. Left ventricular systolic pressure 160. Right heart catheterization, Worth-Randall reading shows RA pressure of 4, RV pressure of 26/10, PA pressure of 26/10, and capillary wedge pressure of 5. * Left ventricular end-diastolic pressure as mentioned above was also 5. * At this time, no surgical intervention. No catheter-based intervention is warranted. The patient's blood pressure needs absolutely to be controlled. At this time, beta blockade may be a good option for this patient. TROPONIN NEGATIVE BNP WNL HX OF LIVER RESECTION LUNG NODULE THICKENED COLONIC WALL COLITIS HX OF OPEN HEART SURGERY ANEMIA vital signs Vital Sign Date Time Temp Pulse Resp B/P (MAP) Pulse Ox O2 Delivery O2 Flow Rate FiO2 09/27/24 15:11 94 16 169/96 09/27/24 13:00 98.1 98 98.1 09/27/24 07:59 Room Air* 0 21 Total Intake and Output 09/26/24 09/26/24 09/27/24 15:00 23:00 07:00 Intake Total 400 ml 720 ml 100 ml Output Total 50 ml Balance 400 ml 670 ml 100 ml medications Current Medications Medications Dose Ordered Sig/Aranza Route Start Time Stop Time Status Last Admin Dose Admin Acetaminophen/ Hydrocodone Bitart 1 tab Q4HP PRN PO 09/25/24 12:00 Ondansetron HCl 4 mg Q4HP PRN IV 09/25/24 12:00 09/25/24 13:39 4 MG Acetaminophen 650 mg Q6HP PRN PO 09/25/24 12:00 Piperacillin Sod/ Tazobactam Sod 100 ml @ 25 mls/hr Q8HR IV 09/25/24 14:00 09/27/24 13:15 25 MLS/HR Amlodipine Besylate 5 mg BID PO 09/25/24 22:00 Calcium Acetate 667 mg TIDWM PO 09/25/24 12:00 Hydralazine HCl 10 mg TID PO 09/25/24 14:00 Nifedipine 30 mg BID PO 09/25/24 22:00 UNV Sertraline HCl 50 mg DAILY PO 09/26/24 10:00 Sucralfate 1 gm QID PO 09/25/24 12:00 Aspirin 81 mg DAILY PO 09/26/24 10:00 Atorvastatin Calcium 40 mg HS PO 09/25/24 22:00 Clonidine HCl 0.3 mg BID PO 09/25/24 22:00 Hyoscyamine 0.125 mg BID PO 09/25/24 22:00 Metoprolol Succinate 25 mg DAILY PO 09/26/24 10:00 Pregabalin 100 mg BID PO 09/25/24 22:00 Patient Own Medication 1 tab BID PO 09/25/24 22:00 Patient Own Medication 1 tab TID PO 09/25/24 14:00 Patient Own Medication 1 tab DAILY PO 09/26/24 10:00 Pantoprazole Sodium 40 mg DAILY IV 09/25/24 12:00 09/27/24 09:00 40 MG Diagnostic Test (Pha) 1 strip Q6HR 09/25/24 12:00 09/27/24 12:00 1 STRIP Insulin Human Regular Q6HR SC 09/25/24 12:00 09/25/24 12:51 3 UNITS Dextrose 50 ml UD PRN IV 09/25/24 12:00 Hydralazine HCl 10 mg Q6HP PRN IV 09/25/24 12:15 09/27/24 12:42 10 MG Lorazepam 0.25 mg Q6HP PRN IV 09/25/24 19:45 09/27/24 12:48 0.25 MG Labetalol HCl 10 mg Q2HPRN PRN IV 09/26/24 08:45 09/27/24 06:59 10 MG Lorazepam 0.25 mg Q6HP PRN IV 09/26/24 22:45 Cancel Sodium Chloride 1,000 ml @ 100 mls/hr Q10H IV 09/27/24 08:45 Hydromorphone HCl 1 mg Q3HPRN PRN IV 09/27/24 13:30 09/27/24 15:11 1 MG laboratory and microbiology Laboratory Tests 09/27/24 05:55 Test 09/27/24 05:55 Range/Units Serum Glucose 88 74-106 mg/dL Problem List ABD PAIN NAUSEA VOMITING HEMATEMESIS PMH; HX SEVERE HYPOKALEMIA ? DYSRHYTHMIA DIARRHEA PT WELL KNOWN TO ME HX OF CAD DIABETES HTN HYPERLIPIDEMIA S/P LHC 04/09 * Left main normal. * Left anterior descending artery without any flow restrictive lesion. * Circumflex dominant vessel without any flow restrictive lesion. * Right coronary artery nondominant vessel without any flow restrictive lesion. * Left ventricular function showed hyperdynamic contractility with an LV. Left ventricular ejection fraction greater than 65%. * LVEDP was 5 mmHg. Left ventricular systolic pressure 160. Right heart catheterization, Worth-Randall reading shows RA pressure of 4, RV pressure of 26/10, PA pressure of 26/10, and capillary wedge pressure of 5. * Left ventricular end-diastolic pressure as mentioned above was also 5. * At this time, no surgical intervention. No catheter-based intervention is warranted. The patient's blood pressure needs absolutely to be controlled. At this time, beta blockade may be a good option for this patient. TROPONIN NEGATIVE BNP WNL HX OF LIVER RESECTION LUNG NODULE THICKENED COLONIC WALL COLITIS HX OF OPEN HEART SURGERY ANEMIA Assessment/Plan S/P EXP LAP LYSIS OF ADHESIONS CLOSURE OF 2 ENTEROTOMIES SERIAL LAB START TPN Plan discussed with: Patient Critical Care Time(min): 35 ELICIA ROBERTSON MD Sep 27, 2024 15:40 DESEAN LESTER RESIDENT Sep 27, 2024 17:55
[2024-09-27] MEDS ORDERED: TPN PER PHARMACY 0 ML IV SCH (15:45)
--- NOTE | 2024-09-27 16:34 | DVHPNRES ---
Progress Note Date Seen: Sep 27, 2024 Resident Creating Document: DESEAN LESTER RESIDENT Medical Necessity Reason Pt with a Central, PICC or Fol: No Subjective Review of Systems ELIU CHUA Is a 69 years old female with a PMH of CHF, chronic respiratory failure on 2 L home oxygen, HTN, liver cancer s/p resection, right ankle surgery, history of laparotomy, cholecystectomy, PUD, untreated hepatitis- C , history of laparotomy presented to the ED with the chief complaints of abdominal pain and vomiting since Friday. patient reported she has been having this abdominal pain for past 2-3 months for which PCP thinks it might be gastric ulcer enteritis oral medications but no results were seen. Eventually pain got worsen over the past month and for past couple of days patient started having severe abdominal pain 10/10 mostly in umbilical area associated with severe vomiting initially orange: And sometimes blood also seen which prompted her to visit ED. on my assessment patient denies fever, diarrhea, chest pain, shortness of breath, sick contacts, recent travel and other associated symptoms. PMH: CHF, chronic respiratory failure on 2 L home oxygen, HTN, liver cancer s/p resection, right ankle surgery, history of laparotomy, cholecystectomy, PUD, untreated hepatitis-C , history of laparotomy PSH: Appendectomy, cholecystectomy, CABG, tonsillectomy Family history: Cancer, Hypertension, Other (Mom with hypertension and breast cancer. Dad with hypertension.) Personal history: Lives at home with the family. Denies smoking, alcohol and other drug abuse Allergies: no known allergies ROS: Patient seen and examined at the bedside. Overnight events reviewed, patient is complaining of severe abdominal pain 10/10. Patient is on NG tube. S/P surgery EXP LAP, LYSIS OF ADHESIONS,CLOSURE OF 2 ENTEROTOMIES. Objective vital signs Vital Sign Date Time Temp Pulse Resp B/P (MAP) Pulse Ox O2 Delivery O2 Flow Rate FiO2 09/27/24 15:11 94 16 169/96 09/27/24 13:00 98.1 98 98.1 09/27/24 07:59 Room Air* 0 21 Total Intake and Output 09/26/24 09/26/24 09/27/24 15:00 23:00 07:00 Intake Total 400 ml 720 ml 100 ml Output Total 50 ml Balance 400 ml 670 ml 100 ml medications Current Medications Medications Dose Ordered Sig/Aranza Route Start Time Stop Time Status Last Admin Dose Admin Acetaminophen/ Hydrocodone Bitart 1 tab Q4HP PRN PO 09/25/24 12:00 Ondansetron HCl 4 mg Q4HP PRN IV 09/25/24 12:00 09/25/24 13:39 4 MG Acetaminophen 650 mg Q6HP PRN PO 09/25/24 12:00 Piperacillin Sod/ Tazobactam Sod 100 ml @ 25 mls/hr Q8HR IV 09/25/24 14:00 09/27/24 13:15 25 MLS/HR Amlodipine Besylate 5 mg BID PO 09/25/24 22:00 Calcium Acetate 667 mg TIDWM PO 09/25/24 12:00 Hydralazine HCl 10 mg TID PO 09/25/24 14:00 Nifedipine 30 mg BID PO 09/25/24 22:00 UNV Sertraline HCl 50 mg DAILY PO 09/26/24 10:00 Sucralfate 1 gm QID PO 09/25/24 12:00 Aspirin 81 mg DAILY PO 09/26/24 10:00 Atorvastatin Calcium 40 mg HS PO 09/25/24 22:00 Clonidine HCl 0.3 mg BID PO 09/25/24 22:00 Hyoscyamine 0.125 mg BID PO 09/25/24 22:00 Metoprolol Succinate 25 mg DAILY PO 09/26/24 10:00 Pregabalin 100 mg BID PO 09/25/24 22:00 Patient Own Medication 1 tab BID PO 09/25/24 22:00 Patient Own Medication 1 tab TID PO 09/25/24 14:00 Patient Own Medication 1 tab DAILY PO 09/26/24 10:00 Pantoprazole Sodium 40 mg DAILY IV 09/25/24 12:00 09/27/24 09:00 40 MG Diagnostic Test (Pha) 1 strip Q6HR 09/25/24 12:00 09/27/24 12:00 1 STRIP Insulin Human Regular Q6HR SC 09/25/24 12:00 09/25/24 12:51 3 UNITS Dextrose 50 ml UD PRN IV 09/25/24 12:00 Hydralazine HCl 10 mg Q6HP PRN IV 09/25/24 12:15 09/27/24 12:42 10 MG Lorazepam 0.25 mg Q6HP PRN IV 09/25/24 19:45 09/27/24 12:48 0.25 MG Labetalol HCl 10 mg Q2HPRN PRN IV 09/26/24 08:45 09/27/24 06:59 10 MG Lorazepam 0.25 mg Q6HP PRN IV 09/26/24 22:45 Cancel Sodium Chloride 1,000 ml @ 100 mls/hr Q10H IV 09/27/24 08:45 Hydromorphone HCl 1 mg Q3HPRN PRN IV 09/27/24 13:30 09/27/24 15:11 1 MG Amino Acids 0 ml @ 0 mls/hr PER PHARMACY IV 09/27/24 15:45 UNV Examination Pt is lying on bed General Appearance: Alert, Oriented X3, Cooperative, Severe distress due to pain HEENT: Atraumatic, Mucous membranes moist/pink Respiratory: Clear to auscultation, Normal air movement, No added sounds Cardiovascular: Regular rate, Normal S1, Normal S2, No murmurs Abdominal: bandage on abdomen post surgery Extremities: No edema, Normal pulses, No tenderness/swelling Skin: No Significant rash, except past surgical scars Neuro: Normal speech, sensorimotor deficits none Psych/Mental Status: Mental status NL, Mood NL Nurse was there as ic designer gate arrays during examination laboratory and microbiology Laboratory Tests 09/27/24 05:55 Test 09/27/24 05:55 Range/Units Serum Glucose 88 74-106 mg/dL Labs and/or images reviewed: Labs reviewed by me, Image(s) reviewed by me Problem List/Assessment/Plan Problem List/Assessment/Plan # ? SBO # rule out small-bowel ischemia - med surge - NPO for now - NG tube - CT ABD/pelvis showed high-grade SBO with a transfusion had tried lower quadrant - pain management and antiemetics - IVF - S/P EXP LAP, LYSIS OF ADHESIONS,CLOSURE OF 2 ENTEROTOMIES, SERIAL LAB, START TPN - empiric antibiotic Zosyn - hydromorphine given # Hypokalemia - Repleted - Monitor lab # hypertensive urgency /emergency likely pain induced - pain management - continuously monitor blood pressure - hydralazine and IV labetalol p.r.n. - resume home medications # R/o RAUL - monitor lab for now # chronic systolic/diastolic CHF not in exacerbation -resume home meds -consult Dr. Shalom GI PPX: Protonix VTE ppx: SCDs Diet: NPO Home meds: reconsiled Goals of care addressed with the patient for more than 27 minutes: Full code status Case discussed with ,patient and nurse Plan discussed with: Patient, Other (rn) Date of Service: Sep 28, 2024 Billing Provider: FLORENTINO YIN MD Common Visit Codes: [id number] INP/OBS CARE(HIGH) DESEAN LESTER RESIDENT Sep 27, 2024 16:34 FLORENTINO YIN MD Sep 28, 2024 17:54
[2024-09-27] MEDS ORDERED: DEXTROSE (50%) 50ML SYRG IV SCH (17:00)
[2024-09-27 17:18] LABS: Triglycerides 109.0 mg/dL (< 150)
[2024-09-27] MEDS: InsuLIN REG 1unit/0.01ml Soln (100units/ml) SC SCH (17:23)
[2024-09-27] MEDS: ACCU-CHEK COMFORT CURVE STRIP VI SCH (17:23)
[2024-09-27] MEDS: MAGNESIUM SULFATE 1GM/100ML 100 ML IV ONE (18:16)
[2024-09-27] MEDS: AMINO ACID INFUSION IN D5W 1,000 ML IV ONE (22:18)
[2024-09-28] VITALS (8 sets, daily range): BP systolic 156–199; BP diastolic 71–117; PULSE 72–94; RESP 18–22; TEMP 97.7–98.7; O2SAT 93–100
[2024-09-28 07:12] LABS: Alanine Aminotransferase 12 U/L (7-40); Albumin 3.4 g/dL (3.2-4.8); Alkaline Phosphatase 64 U/L (46-116); Anion Gap 10 (5-15); BUN/Creatinine Ratio 13.5 (10.0-20.0); Bilirubin, Total 0.5 mg/dL (0.2-1.0); Blood Urea Nitrogen 13 mg/dL (9-23); Calcium 9.1 mg/dL (8.7-10.4); Carbon Dioxide 21 mmol/L (20-31); Glucose 96 mg/dL (74-106); Magnesium 1.9 mg/dL (1.6-2.6); Potassium 3.6 mmol/L (3.5-5.1); Sodium 141 mmol/L (136-145)
[2024-09-28 07:14] LABS: Chloride 110 mmol/L (98-107); Total Protein 5.5 g/dL (5.7-8.2)
[2024-09-28] MEDS: HYDROmorphone HCL 2 MG/ML VL/or syr IV PRN (10:06)
--- NOTE | 2024-09-28 10:44 | DVHPN2 ---
Progress Note - Dictate Date Seen: Sep 28, 2024 Medical Necessity Reason Pt with a Central, PICC or Fol: No Subjective PT WITH ABD PAIN NAUSEA VOMITING HEMATEMESIS PMH; HX SEVERE HYPOKALEMIA ? DYSRHYTHMIA DIARRHEA PT WELL KNOWN TO ME HX OF CAD DIABETES HTN HYPERLIPIDEMIA S/P LHC 04/09 * Left main normal. * Left anterior descending artery without any flow restrictive lesion. * Circumflex dominant vessel without any flow restrictive lesion. * Right coronary artery nondominant vessel without any flow restrictive lesion. * Left ventricular function showed hyperdynamic contractility with an LV. Left ventricular ejection fraction greater than 65%. * LVEDP was 5 mmHg. Left ventricular systolic pressure 160. Right heart catheterization, [facility] reading shows RA pressure of 4, RV pressure of 26/10, PA pressure of 26/10, and capillary wedge pressure of 5. * Left ventricular end-diastolic pressure as mentioned above was also 5. * At this time, no surgical intervention. No catheter-based intervention is warranted. The patient's blood pressure needs absolutely to be controlled. At this time, beta blockade may be a good option for this patient. TROPONIN NEGATIVE BNP WNL HX OF LIVER RESECTION LUNG NODULE THICKENED COLONIC WALL COLITIS HX OF OPEN HEART SURGERY ANEMIA vital signs Vital Sign Date Time Temp Pulse Resp B/P (MAP) Pulse Ox O2 Delivery O2 Flow Rate FiO2 09/28/24 10:06 82 22 173/103 09/28/24 08:30 97.7 94 97.7 09/27/24 20:00 Room Air* 0 21 Total Intake and Output 09/27/24 09/27/24 09/28/24 15:00 23:00 07:00 Intake Total 100 ml 100 ml 100 ml Output Total 600 ml 450 ml Balance 100 ml -500 ml -350 ml medications Current Medications Medications Dose Ordered Sig/Aranza Route Start Time Stop Time Status Last Admin Dose Admin Acetaminophen/ Hydrocodone Bitart 1 tab Q4HP PRN PO 09/25/24 12:00 Ondansetron HCl 4 mg Q4HP PRN IV 09/25/24 12:00 09/25/24 13:39 4 MG Acetaminophen 650 mg Q6HP PRN PO 09/25/24 12:00 Piperacillin Sod/ Tazobactam Sod 100 ml @ 25 mls/hr Q8HR IV 09/25/24 14:00 09/28/24 05:55 25 MLS/HR Amlodipine Besylate 5 mg BID PO 09/25/24 22:00 Calcium Acetate 667 mg TIDWM PO 09/25/24 12:00 Hydralazine HCl 10 mg TID PO 09/25/24 14:00 Nifedipine 30 mg BID PO 09/25/24 22:00 UNV Sertraline HCl 50 mg DAILY PO 09/26/24 10:00 Sucralfate 1 gm QID PO 09/25/24 12:00 Aspirin 81 mg DAILY PO 09/26/24 10:00 Atorvastatin Calcium 40 mg HS PO 09/25/24 22:00 Clonidine HCl 0.3 mg BID PO 09/25/24 22:00 Hyoscyamine 0.125 mg BID PO 09/25/24 22:00 Metoprolol Succinate 25 mg DAILY PO 09/26/24 10:00 Pregabalin 100 mg BID PO 09/25/24 22:00 Patient Own Medication 1 tab BID PO 09/25/24 22:00 Patient Own Medication 1 tab TID PO 09/25/24 14:00 Patient Own Medication 1 tab DAILY PO 09/26/24 10:00 Pantoprazole Sodium 40 mg DAILY IV 09/25/24 12:00 09/27/24 09:00 40 MG Hydralazine HCl 10 mg Q6HP PRN IV 09/25/24 12:15 09/28/24 05:56 10 MG Lorazepam 0.25 mg Q6HP PRN IV 09/25/24 19:45 09/28/24 06:05 0.25 MG Labetalol HCl 10 mg Q2HPRN PRN IV 09/26/24 08:45 09/28/24 04:35 10 MG Lorazepam 0.25 mg Q6HP PRN IV 09/26/24 22:45 Cancel Amino Acids 0 ml @ 0 mls/hr PER PHARMACY IV 09/27/24 15:45 Diagnostic Test (Pha) 1 strip Q6HR 09/27/24 18:00 09/28/24 05:57 1 STRIP Insulin Human Regular FOLLOW SLIDING SCALE Q6HR SC 09/27/24 18:00 Dextrose 50 ml UD IV 09/27/24 17:00 Hydromorphone HCl 1 mg Q2HPRN PRN IV 09/28/24 09:15 09/28/24 10:06 1 MG laboratory and microbiology Laboratory Tests 09/28/24 05:49 09/27/24 05:55 Test 09/28/24 05:49 Range/Units Serum Glucose 96 74-106 mg/dL Problem List ABD PAIN NAUSEA VOMITING HEMATEMESIS PMH; HX SEVERE HYPOKALEMIA ? DYSRHYTHMIA DIARRHEA PT WELL KNOWN TO ME HX OF CAD DIABETES HTN HYPERLIPIDEMIA S/P LHC 04/09 * Left main normal. * Left anterior descending artery without any flow restrictive lesion. * Circumflex dominant vessel without any flow restrictive lesion. * Right coronary artery nondominant vessel without any flow restrictive lesion. * Left ventricular function showed hyperdynamic contractility with an LV. Left ventricular ejection fraction greater than 65%. * LVEDP was 5 mmHg. Left ventricular systolic pressure 160. Right heart catheterization, [facility] reading shows RA pressure of 4, RV pressure of 26/10, PA pressure of 26/10, and capillary wedge pressure of 5. * Left ventricular end-diastolic pressure as mentioned above was also 5. * At this time, no surgical intervention. No catheter-based intervention is warranted. The patient's blood pressure needs absolutely to be controlled. At this time, beta blockade may be a good option for this patient. TROPONIN NEGATIVE BNP WNL HX OF LIVER RESECTION LUNG NODULE THICKENED COLONIC WALL COLITIS HX OF OPEN HEART SURGERY ANEMIA Assessment/Plan S/P EXP LAP LYSIS OF ADHESIONS CLOSURE OF 2 ENTEROTOMIES SERIAL LAB START TPN INCREASE PAIN MANAGEMENT TPN STARTED LASIX 40 MG IV SECONDARY TO INCREASE FLUID RETENTION Dietary Evaluation Review Comments: 1. TPN per pharmacy meeting 75% of her needs 2, TF Glucerna@65ml/hr (94g Protein 1872 kcal, 1256ml free water) if EN feasible, 3. advance to [facility]-60 diet if GI accessible and medically feasible. Expected Outcomes/Goals: avoid wt loss. avoid hyperglycemia and uremic syndrome Plan discussed with: Patient Critical Care Time(min): 35 ELICIA ROBERTSON MD Sep 28, 2024 10:44
[2024-09-28] MEDS: FUROSEMIDE 40 MG/4 ML VIAL IV ONE (10:45)
--- NOTE | 2024-09-28 14:40 | DVHPNRES ---
Progress Note Date Seen: Sep 28, 2024 Resident Creating Document: DESEAN LESTER RESIDENT Medical Necessity Reason Pt with a Central, PICC or Fol: No Subjective Review of Systems ELIU CHUA Is a 69 years old female with a PMH of CHF, chronic respiratory failure on 2 L home oxygen, HTN, liver cancer s/p resection, right ankle surgery, history of laparotomy, cholecystectomy, PUD, untreated hepatitis- C , history of laparotomy presented to the ED with the chief complaints of abdominal pain and vomiting since Friday. patient reported she has been having this abdominal pain for past 2-3 months for which PCP thinks it might be gastric ulcer enteritis oral medications but no results were seen. Eventually pain got worsen over the past month and for past couple of days patient started having severe abdominal pain 10/10 mostly in umbilical area associated with severe vomiting initially orange: And sometimes blood also seen which prompted her to visit ED. on my assessment patient denies fever, diarrhea, chest pain, shortness of breath, sick contacts, recent travel and other associated symptoms. PMH: CHF, chronic respiratory failure on 2 L home oxygen, HTN, liver cancer s/p resection, right ankle surgery, history of laparotomy, cholecystectomy, PUD, untreated hepatitis-C , history of laparotomy PSH: Appendectomy, cholecystectomy, CABG, tonsillectomy Family history: Cancer, Hypertension, Other (Mom with hypertension and breast cancer. Dad with hypertension.) Personal history: Lives at home with the family. Denies smoking, alcohol and other drug abuse Allergies: no known allergies ROS: Patient seen and examined by me at the bedside. Overnight events reviewed. Patient reports feeling better the floor but that the pain is still there and rates it as 5/10 in intensity. She reports having passed flatus at night yesterday and early this morning. rest of the ROS is negative Objective vital signs Vital Sign Date Time Temp Pulse Resp B/P (MAP) Pulse Ox O2 Delivery O2 Flow Rate FiO2 09/28/24 13:00 98.2 87 20 190/106 (134) 93 98.2 09/27/24 20:00 Room Air* 0 21 Total Intake and Output 09/27/24 09/27/24 09/28/24 15:00 23:00 07:00 Intake Total 100 ml 100 ml 100 ml Output Total 600 ml 450 ml Balance 100 ml -500 ml -350 ml medications Current Medications Medications Dose Ordered Sig/Aranza Route Start Time Stop Time Status Last Admin Dose Admin Acetaminophen/ Hydrocodone Bitart 1 tab Q4HP PRN PO 09/25/24 12:00 Ondansetron HCl 4 mg Q4HP PRN IV 09/25/24 12:00 09/25/24 13:39 4 MG Acetaminophen 650 mg Q6HP PRN PO 09/25/24 12:00 Piperacillin Sod/ Tazobactam Sod 100 ml @ 25 mls/hr Q8HR IV 09/25/24 14:00 09/28/24 05:55 25 MLS/HR Amlodipine Besylate 5 mg BID PO 09/25/24 22:00 Calcium Acetate 667 mg TIDWM PO 09/25/24 12:00 Hydralazine HCl 10 mg TID PO 09/25/24 14:00 Nifedipine 30 mg BID PO 09/25/24 22:00 UNV Sertraline HCl 50 mg DAILY PO 09/26/24 10:00 Sucralfate 1 gm QID PO 09/25/24 12:00 Aspirin 81 mg DAILY PO 09/26/24 10:00 Atorvastatin Calcium 40 mg HS PO 09/25/24 22:00 Clonidine HCl 0.3 mg BID PO 09/25/24 22:00 Hyoscyamine 0.125 mg BID PO 09/25/24 22:00 Metoprolol Succinate 25 mg DAILY PO 09/26/24 10:00 Pregabalin 100 mg BID PO 09/25/24 22:00 Patient Own Medication 1 tab BID PO 09/25/24 22:00 Patient Own Medication 1 tab TID PO 09/25/24 14:00 Patient Own Medication 1 tab DAILY PO 09/26/24 10:00 Pantoprazole Sodium 40 mg DAILY IV 09/25/24 12:00 09/28/24 10:45 40 MG Hydralazine HCl 10 mg Q6HP PRN IV 09/25/24 12:15 09/28/24 05:56 10 MG Lorazepam 0.25 mg Q6HP PRN IV 09/25/24 19:45 09/28/24 06:05 0.25 MG Labetalol HCl 10 mg Q2HPRN PRN IV 09/26/24 08:45 09/28/24 04:35 10 MG Lorazepam 0.25 mg Q6HP PRN IV 09/26/24 22:45 Cancel Amino Acids 0 ml @ 0 mls/hr PER PHARMACY IV 09/27/24 15:45 Diagnostic Test (Pha) 1 strip Q6HR 09/27/24 18:00 09/28/24 12:00 1 STRIP Insulin Human Regular FOLLOW SLIDING SCALE Q6HR SC 09/27/24 18:00 Dextrose 50 ml UD IV 09/27/24 17:00 Hydromorphone HCl 1 mg Q2HPRN PRN IV 09/28/24 09:15 09/28/24 12:45 1 MG Examination Pt is lying on bed General Appearance: Alert, Oriented X3, Cooperative, Not in acute distress HEENT: Atraumatic, Mucous membranes moist/pink Respiratory: lungs are clear to auscultation, no added sounds heard Abdominal: abdominal binder wrapped around, on removal a sterile gauze is placed on the abdomen, on auscultation Active bowel sounds heard Extremities: No edema, Normal pulses, No tenderness/swelling Skin: No Significant rash, breakage in skin Neuro: Normal speech, sensorimotor deficits none Psych/Mental Status: Mental status NL, Mood NL Nurse was there as oracle e business developer during examination laboratory and microbiology Laboratory Tests 09/28/24 05:49 09/27/24 05:55 Test 09/28/24 05:49 Range/Units Serum Glucose 96 74-106 mg/dL Labs and/or images reviewed: Labs reviewed by me, Image(s) reviewed by me Problem List/Assessment/Plan Problem List/Assessment/Plan # SBO # ruled out small-bowel ischemia # SIRS due to SBO with acute organ dysfunction ( mild RAUL) - NPO for now - NG tube - CT ABD/pelvis showed high-grade SBO with a transfusion had tried lower quadrant - pain management and antiemetics - IVF - S/P 2 EXP LAP, LYSIS OF ADHESIONS,CLOSURE OF 2 ENTEROTOMIES, SERIAL LAB, START TPN - empiric antibiotic Zosyn - hydromorphine increased to 2 hourly doses - physical therapy evaluation requested # Hypokalemia - Repleted - Monitor lab # hypertensive urgency possible secondary to history of hypertension and pain uncontrolled - pain management - continuously monitor blood pressure - hydralazine and IV labetalol p.r.n. - resume home medications # Mild RAUL d/t VMN likely, resolved - monitor lab for now # chronic systolic/diastolic CHF not in exacerbation -resume home meds -consult Dr. Rausch # hypercalcemia -Resolved GI PPX: Protonix VTE ppx: SCDs Diet: NPO Home meds: reconsiled Goals of care addressed with the patient for more than 27 minutes: Full code status Case discussed with ,patient and nurse Plan discussed with: Patient, Other (rn) My Orders My Orders Orders - DESEAN LESTER RESIDENT Procedure Category Date Status Time Pt Request For Service PT 09/28/24 Logged 14:05 Dietary Evaluation Review Comments: 1. TPN per pharmacy meeting 75% of her needs 2, TF Glucerna@65ml/hr (94g Protein 1872 kcal, 1256ml free water) if EN feasible, 3. advance to [facility]-60 diet if GI accessible and medically feasible. Expected Outcomes/Goals: avoid wt loss. avoid hyperglycemia and uremic syndrome Date of Service: Sep 28, 2024 Billing Provider: FLORENTINO YIN MD Common Visit Codes: [id number] INP/OBS CARE(HIGH) DESEAN LESTER RESIDENT Sep 28, 2024 14:40 ROHIT ROTH RESIDENT Sep 28, 2024 14:57 FLORENTINO YIN MD Sep 28, 2024 18:01
--- NOTE | 2024-09-28 18:04 | CODING ---
Date of Service: Sep 27, 2024 Billing Provider: FLORENTINO YIN MD Common Visit Codes: [id number] INP/OBS CARE(HIGH) FLORENTINO YIN MD Sep 28, 2024 18:04
[2024-09-28] MEDS: AMINO ACID INFUSION IN D5W 1,000 ML IV ONE (22:06)
[2024-09-29] VITALS (9 sets, daily range): BP systolic 153–195; BP diastolic 95–108; PULSE 77–92; RESP 17–20; TEMP 97.9–98.6; O2SAT 94–96
[2024-09-29 07:46] LABS: Alanine Aminotransferase 13 U/L (7-40); Alkaline Phosphatase 72 U/L (46-116); Anion Gap 12 (5-15); BUN/Creatinine Ratio 15.3 (10.0-20.0); Blood Urea Nitrogen 13 mg/dL (9-23); Calcium 9.7 mg/dL (8.7-10.4); Carbon Dioxide 21 mmol/L (20-31); Chloride 105 mmol/L (98-107); Glucose 96 mg/dL (74-106); Sodium 138 mmol/L (136-145)
[2024-09-29 07:47] LABS: Magnesium 1.8 mg/dL (1.6-2.6); Total Protein 6.2 g/dL (5.7-8.2)
[2024-09-29 07:48] LABS: Albumin 3.8 g/dL (3.2-4.8); Bilirubin, Total 0.5 mg/dL (0.2-1.0)
[2024-09-29 07:52] LABS: Potassium 3.3 mmol/L (3.5-5.1)
--- NOTE | 2024-09-29 13:08 | DVHPN2 ---
Progress Note - Dictate Date Seen: Sep 29, 2024 Medical Necessity Reason Pt with a Central, PICC or Fol: No Subjective PT WITH ABD PAIN NAUSEA VOMITING HEMATEMESIS PMH; HX SEVERE HYPOKALEMIA ? DYSRHYTHMIA DIARRHEA PT WELL KNOWN TO ME HX OF CAD DIABETES HTN HYPERLIPIDEMIA S/P LHC 04/09 * Left main normal. * Left anterior descending artery without any flow restrictive lesion. * Circumflex dominant vessel without any flow restrictive lesion. * Right coronary artery nondominant vessel without any flow restrictive lesion. * Left ventricular function showed hyperdynamic contractility with an LV. Left ventricular ejection fraction greater than 65%. * LVEDP was 5 mmHg. Left ventricular systolic pressure 160. Right heart catheterization, [place] reading shows RA pressure of 4, RV pressure of 26/10, PA pressure of 26/10, and capillary wedge pressure of 5. * Left ventricular end-diastolic pressure as mentioned above was also 5. * At this time, no surgical intervention. No catheter-based intervention is warranted. The patient's blood pressure needs absolutely to be controlled. At this time, beta blockade may be a good option for this patient. TROPONIN NEGATIVE BNP WNL HX OF LIVER RESECTION LUNG NODULE THICKENED COLONIC WALL COLITIS HX OF OPEN HEART SURGERY ANEMIA vital signs Vital Sign Date Time Temp Pulse Resp B/P (MAP) Pulse Ox O2 Delivery O2 Flow Rate FiO2 09/29/24 12:35 81 18 188/100 09/29/24 09:00 98.2 95 98.2 09/29/24 08:15 Room Air* 0 21 Total Intake and Output 09/28/24 09/28/24 09/29/24 15:00 23:00 07:00 Intake Total 612.5 ml 100 ml Output Total 400 ml 950 ml Balance 212.5 ml -850 ml medications Current Medications Medications Dose Ordered Sig/Aranza Route Start Time Stop Time Status Last Admin Dose Admin Acetaminophen/ Hydrocodone Bitart 1 tab Q4HP PRN PO 09/25/24 12:00 Ondansetron HCl 4 mg Q4HP PRN IV 09/25/24 12:00 09/25/24 13:39 4 MG Acetaminophen 650 mg Q6HP PRN PO 09/25/24 12:00 Piperacillin Sod/ Tazobactam Sod 100 ml @ 25 mls/hr Q8HR IV 09/25/24 14:00 09/29/24 06:40 25 MLS/HR Amlodipine Besylate 5 mg BID PO 09/25/24 22:00 Calcium Acetate 667 mg TIDWM PO 09/25/24 12:00 Hydralazine HCl 10 mg TID PO 09/25/24 14:00 Nifedipine 30 mg BID PO 09/25/24 22:00 UNV Sertraline HCl 50 mg DAILY PO 09/26/24 10:00 Sucralfate 1 gm QID PO 09/25/24 12:00 Aspirin 81 mg DAILY PO 09/26/24 10:00 Atorvastatin Calcium 40 mg HS PO 09/25/24 22:00 Clonidine HCl 0.3 mg BID PO 09/25/24 22:00 Hyoscyamine 0.125 mg BID PO 09/25/24 22:00 Metoprolol Succinate 25 mg DAILY PO 09/26/24 10:00 Pregabalin 100 mg BID PO 09/25/24 22:00 Patient Own Medication 1 tab BID PO 09/25/24 22:00 Patient Own Medication 1 tab TID PO 09/25/24 14:00 Patient Own Medication 1 tab DAILY PO 09/26/24 10:00 Pantoprazole Sodium 40 mg DAILY IV 09/25/24 12:00 09/29/24 08:13 40 MG Hydralazine HCl 10 mg Q6HP PRN IV 09/25/24 12:15 09/29/24 10:24 10 MG Lorazepam 0.25 mg Q6HP PRN IV 09/25/24 19:45 09/28/24 06:05 0.25 MG Labetalol HCl 10 mg Q2HPRN PRN IV 09/26/24 08:45 09/28/24 17:56 10 MG Lorazepam 0.25 mg Q6HP PRN IV 09/26/24 22:45 Cancel Amino Acids 0 ml @ 0 mls/hr PER PHARMACY IV 09/27/24 15:45 Diagnostic Test (Pha) 1 strip Q6HR 09/27/24 18:00 09/29/24 12:03 1 STRIP Insulin Human Regular FOLLOW SLIDING SCALE Q6HR SC 09/27/24 18:00 Dextrose 50 ml UD IV 09/27/24 17:00 Hydromorphone HCl 1 mg Q2HPRN PRN IV 09/28/24 09:15 7/16/25 12:35 1 MG Amino Acids/ Electrolytes/ Dextrose 1,000 ml @ 41 mls/hr DAILY@2200 IV 09/29/24 22:00 09/30/24 21:59 laboratory and microbiology Laboratory Tests 09/29/24 05:57 09/27/24 05:55 Test 09/29/24 05:57 Range/Units Serum Glucose 96 74-106 mg/dL Problem List ABD PAIN NAUSEA VOMITING HEMATEMESIS PMH; HX SEVERE HYPOKALEMIA ? DYSRHYTHMIA DIARRHEA PT WELL KNOWN TO ME HX OF CAD DIABETES HTN HYPERLIPIDEMIA S/P C 04/09 * Left main normal. * Left anterior descending artery without any flow restrictive lesion. * Circumflex dominant vessel without any flow restrictive lesion. * Right coronary artery nondominant vessel without any flow restrictive lesion. * Left ventricular function showed hyperdynamic contractility with an LV. Left ventricular ejection fraction greater than 65%. * LVEDP was 5 mmHg. Left ventricular systolic pressure 160. Right heart catheterization, [place] reading shows RA pressure of 4, RV pressure of 26/10, PA pressure of 26/10, and capillary wedge pressure of 5. * Left ventricular end-diastolic pressure as mentioned above was also 5. * At this time, no surgical intervention. No catheter-based intervention is warranted. The patient's blood pressure needs absolutely to be controlled. At this time, beta blockade may be a good option for this patient. TROPONIN NEGATIVE BNP WNL HX OF LIVER RESECTION LUNG NODULE THICKENED COLONIC WALL COLITIS HX OF OPEN HEART SURGERY ANEMIA Assessment/Plan S/P EXP LAP LYSIS OF ADHESIONS CLOSURE OF 2 ENTEROTOMIES SERIAL LAB START TPN INCREASE PAIN MANAGEMENT TPN STARTED LASIX 40 MG IV SECONDARY TO INCREASE FLUID RETENTION Dietary Evaluation Review Comments: 1. TPN per pharmacy meeting 75% of her needs 2, TF Glucerna@65ml/hr (94g Protein 1872 kcal, 1256ml free water) if EN feasible, [facility]. [facility] if [facility] accessible and medically feasible. Expected Outcomes/Goals: avoid wt loss. avoid hyperglycemia and uremic syndrome Plan discussed with: Patient ELICIA ROBERTSON MD Sep 29, 2024 13:08
--- NOTE | 2024-09-29 16:56 | DVHPNRES ---
Progress Note Date Seen: Sep 29, 2024 Resident Creating Document: DESEAN LESTER RESIDENT Medical Necessity Reason Pt with a Central, PICC or Fol: Yes The following are medically ne: Laird Catheter Subjective Review of Systems ELIU CHUA Is a 69 years old female with a PMH of CHF, chronic respiratory failure on 2 L home oxygen, HTN, liver cancer s/p resection, right ankle surgery, history of laparotomy, cholecystectomy, PUD, untreated hepatitis- C , history of laparotomy presented to the ED with the chief complaints of abdominal pain and vomiting since Friday. patient reported she has been having this abdominal pain for past 2-3 months for which PCP thinks it might be gastric ulcer enteritis oral medications but no results were seen. Eventually pain got worsen over the past month and for past couple of days patient started having severe abdominal pain 10/10 mostly in umbilical area associated with severe vomiting initially orange: And sometimes blood also seen which prompted her to visit ED. on my assessment patient denies fever, diarrhea, chest pain, shortness of breath, sick contacts, recent travel and other associated symptoms. PMH: CHF, chronic respiratory failure on 2 L home oxygen, HTN, liver cancer s/p resection, right ankle surgery, history of laparotomy, cholecystectomy, PUD, untreated hepatitis-C , history of laparotomy PSH: Appendectomy, cholecystectomy, CABG, tonsillectomy Family history: Cancer, Hypertension, Other (Mom with hypertension and breast cancer. Dad with hypertension.) Personal history: Lives at home with the family. Denies smoking, alcohol and other drug abuse Allergies: no known allergies ROS: Patient seen and examined by me at the bedside. Overnight events reviewed. Patient reports feeling better the floor but that the pain is still there and rates it as 5/10 in intensity. She reports having passed flatus at night yesterday and early this morning. Rest of the ROS is negative Objective vital signs Vital Sign Date Time Temp Pulse Resp B/P (MAP) Pulse Ox O2 Delivery O2 Flow Rate FiO2 09/29/24 14:37 78 19 188/101 09/29/24 13:00 98.1 95 98.1 09/29/24 08:15 Room Air* 0 21 Total Intake and Output 09/28/24 09/28/24 09/29/24 15:00 23:00 07:00 Intake Total 612.5 ml 100 ml Output Total 400 ml 950 ml Balance 212.5 ml -850 ml medications Current Medications Medications Dose Ordered Sig/Aranza Route Start Time Stop Time Status Last Admin Dose Admin Acetaminophen/ Hydrocodone Bitart 1 tab Q4HP PRN PO 09/25/24 12:00 Ondansetron HCl 4 mg Q4HP PRN IV 09/25/24 12:00 09/25/24 13:39 4 MG Acetaminophen 650 mg Q6HP PRN PO 09/25/24 12:00 Piperacillin Sod/ Tazobactam Sod 100 ml @ 25 mls/hr Q8HR IV 09/25/24 14:00 09/29/24 14:30 25 MLS/HR Amlodipine Besylate 5 mg BID PO 09/25/24 22:00 Calcium Acetate 667 mg TIDWM PO 09/25/24 12:00 Hydralazine HCl 10 mg TID PO 09/25/24 14:00 Nifedipine 30 mg BID PO 09/25/24 22:00 UNV Sertraline HCl 50 mg DAILY PO 09/26/24 10:00 Sucralfate 1 gm QID PO 09/25/24 12:00 Aspirin 81 mg DAILY PO 09/26/24 10:00 Atorvastatin Calcium 40 mg HS PO 09/25/24 22:00 Clonidine HCl 0.3 mg BID PO 09/25/24 22:00 Hyoscyamine 0.125 mg BID PO 09/25/24 22:00 Metoprolol Succinate 25 mg DAILY PO 09/26/24 10:00 Pregabalin 100 mg BID PO 09/25/24 22:00 Patient Own Medication 1 tab BID PO 09/25/24 22:00 Patient Own Medication 1 tab TID PO 09/25/24 14:00 Patient Own Medication 1 tab DAILY PO 09/26/24 10:00 Pantoprazole Sodium 40 mg DAILY IV 09/25/24 12:00 09/29/24 08:13 40 MG Hydralazine HCl 10 mg Q6HP PRN IV 09/25/24 12:15 09/29/24 10:24 10 MG Lorazepam 0.25 mg Q6HP PRN IV 09/25/24 19:45 09/29/24 15:41 0.25 MG Labetalol HCl 10 mg Q2HPRN PRN IV 09/26/24 08:45 09/28/24 17:56 10 MG Lorazepam 0.25 mg Q6HP PRN IV 09/26/24 22:45 Cancel Amino Acids 0 ml @ 0 mls/hr PER PHARMACY IV 09/27/24 15:45 Diagnostic Test (Pha) 1 strip Q6HR 09/27/24 18:00 09/29/24 12:03 1 STRIP Insulin Human Regular FOLLOW SLIDING SCALE Q6HR SC 09/27/24 18:00 Dextrose 50 ml UD IV 09/27/24 17:00 Hydromorphone HCl 1 mg Q2HPRN PRN IV 09/28/24 09:15 09/29/24 14:37 1 MG Amino Acids/ Electrolytes/ Dextrose 1,000 ml @ 41 mls/hr DAILY@2200 IV 09/29/24 22:00 09/30/24 21:59 Examination Pt is lying on bed General Appearance: Alert, Oriented X3, Cooperative, Not in acute distress HEENT: Atraumatic, Mucous membranes moist/pink. NGT in place Respiratory: lungs are clear to auscultation, no added sounds heard Abdominal: placement of abdominal binder around abdomen, on removal a sterile gauze extending from epigastric area to suprapubic region seen- absence of any soakage; abdomen is soft on palpation and active bowel sounds heard on auscultation Extremities: No edema, Normal pulses, No tenderness/swelling Skin: No Significant rash, breakage in skin Neuro: Normal speech, sensorimotor deficits none Psych/Mental Status: Mental status NL, Mood NL laboratory and microbiology Laboratory Tests 09/29/24 05:57 09/27/24 05:55 Test 09/29/24 05:57 Range/Units Serum Glucose 96 74-106 mg/dL Labs and/or images reviewed: Labs reviewed by me, Image(s) reviewed by me Problem List/Assessment/Plan Problem List/Assessment/Plan # SBO, s/p day 3 EXP LAP for adhesiolysis with closure of 2 enterotomies # ruled out small-bowel ischemia # Suspected sepsis due to suspected intraabdominal infection - NPO - CT ABD/pelvis showed high-grade SBO with a transfusion had tried lower quadrant - pain management and antiemetics - IVF -started Clinimix per pharmacy - empiric antibiotic Zosyn - hydromorphone increased to 2 hourly doses - physical therapy evaluation - Surgery came and saw the patient, recommended NG removal and to start sips of water - NG removed # Hypokalemia - Repleting - Monitor lab # Hypertensive urgency possible secondary to history of hypertension and uncontrolled pain - pain management - continuously monitor blood pressure - hydralazine and IV labetalol p.r.n. - oral medications begun as NG tube removed # Mild RAUL d/t VMN likely, resolved - monitor lab for now # chronic systolic/diastolic CHF not in exacerbation -resume home meds -consult Dr. Rausch # hypercalcemia -Resolved GI PPX: Protonix VTE ppx: SCDs Diet: NPO Home meds: reconciled Goals of care addressed with the patient for 20 minutes: Full code status Case discussed with , patient and nurse Plan discussed with: Patient, Other (RN) Dietary Evaluation Review Comments: 1. TPN per pharmacy meeting 75% of her needs 2, TF Glucerna@65ml/hr (94g Protein 1872 kcal, 1256ml free water) if EN feasible, [facility]. [facility] if GI accessible and medically feasible. Expected Outcomes/Goals: avoid wt loss. avoid hyperglycemia and uremic syndrome Addendum Addendum Addendum I was physically present for the lai portions of the service provided to patient by THE RESIDENT. I have reviewed the documentation, discussed the case with resident and agree with the resident's documentation except as noted. Also the patient's clinical case was discussed with the patient's nurse. This medical document was created using an electronic medical record system with computerized dictation system. Although this document has been carefully reviewed, there might still be some phonetic and typographical errors. These areas are purely typographical due to imperfections of the software programs, and do not reflect any compromise in the patient's medical care. Late signature. Date of Service: Sep 29, 2024 Billing Provider: LISSA BABIN MD Common Visit Codes: 91517-[id number] INP/OBS CARE(HIGH) Secondary Visit Codes: 16820-ADVAFAPE CARE PLAN 30 MINUTES (20 minutes) DESEAN LESTER Sep 29, 2024 16:56 LISSA BABIN MD Oct 01, 2024 04:23
--- NOTE | 2024-09-29 17:38 | DVHPN2 ---
Progress Note Date Seen: Sep 27, 2024 Medical Necessity Reason Pt with a Central, PICC or Fol: Yes The following are medically ne: Laird Catheter Objective vital signs Vital Sign Date Time Temp Pulse Resp B/P (MAP) Pulse Ox O2 Delivery O2 Flow Rate FiO2 09/29/24 17:09 94 18 185/106 09/29/24 13:00 98.1 95 98.1 09/29/24 08:15 Room Air* 0 21 Total Intake and Output 09/28/24 09/28/24 09/29/24 15:00 23:00 07:00 Intake Total 612.5 ml 100 ml Output Total 400 ml 950 ml Balance 212.5 ml -850 ml medications Current Medications Medications Dose Ordered Sig/Aranza Route Start Time Stop Time Status Last Admin Dose Admin Acetaminophen/ Hydrocodone Bitart 1 tab Q4HP PRN PO 09/25/24 12:00 Ondansetron HCl 4 mg Q4HP PRN IV 09/25/24 12:00 09/25/24 13:39 4 MG Acetaminophen 650 mg Q6HP PRN PO 09/25/24 12:00 Piperacillin Sod/ Tazobactam Sod 100 ml @ 25 mls/hr Q8HR IV 09/25/24 14:00 09/29/24 14:30 25 MLS/HR Amlodipine Besylate 5 mg BID PO 09/25/24 22:00 Calcium Acetate 667 mg TIDWM PO 09/25/24 12:00 Hydralazine HCl 10 mg TID PO 09/25/24 14:00 Nifedipine 30 mg BID PO 09/25/24 22:00 UNV Sertraline HCl 50 mg DAILY PO 09/26/24 10:00 Sucralfate 1 gm QID PO 09/25/24 12:00 Aspirin 81 mg DAILY PO 09/26/24 10:00 Atorvastatin Calcium 40 mg HS PO 09/25/24 22:00 Clonidine HCl 0.3 mg BID PO 09/25/24 22:00 Hyoscyamine 0.125 mg BID PO 09/25/24 22:00 Metoprolol Succinate 25 mg DAILY PO 09/26/24 10:00 Pregabalin 100 mg BID PO 09/25/24 22:00 Patient Own Medication 1 tab BID PO 09/25/24 22:00 Patient Own Medication 1 tab TID PO 09/25/24 14:00 Patient Own Medication 1 tab DAILY PO 09/26/24 10:00 Pantoprazole Sodium 40 mg DAILY IV 09/25/24 12:00 09/29/24 08:13 40 MG Hydralazine HCl 10 mg Q6HP PRN IV 09/25/24 12:15 09/29/24 17:09 10 MG Lorazepam 0.25 mg Q6HP PRN IV 09/25/24 19:45 09/29/24 15:41 0.25 MG Labetalol HCl 10 mg Q2HPRN PRN IV 09/26/24 08:45 09/28/24 17:56 10 MG Lorazepam 0.25 mg Q6HP PRN IV 09/26/24 22:45 Cancel Amino Acids 0 ml @ 0 mls/hr PER PHARMACY IV 09/27/24 15:45 Diagnostic Test (Pha) 1 strip Q6HR 09/27/24 18:00 09/29/24 12:03 1 STRIP Insulin Human Regular FOLLOW SLIDING SCALE Q6HR SC 09/27/24 18:00 Dextrose 50 ml UD IV 09/27/24 17:00 Hydromorphone HCl 1 mg Q2HPRN PRN IV 09/28/24 09:15 09/29/24 17:09 1 MG Amino Acids/ Electrolytes/ Dextrose 1,000 ml @ 41 mls/hr DAILY@2200 IV 09/29/24 22:00 09/30/24 21:59 Sodium Chloride 10 ml QSHIFT@10,22 IV 09/29/24 22:00 UNV laboratory and microbiology Laboratory Tests 09/29/24 05:57 09/27/24 05:55 Test 09/29/24 05:57 Range/Units Serum Glucose 96 74-106 mg/dL Problem List/Assessment/Plan Problem List/Assessment/Plan AFEBRILE VSS C/O OF LOWER ABD PAIN ABD SOFT TENDER RLQ AND LOWER ABD NO BM FLATUS TODAY NG IN PLACE CONTINUE NPO NG Plan discussed with: Patient My Orders My Orders Orders - AG MENDOZA MD Procedure Category Date Status Time Npo Except For TITA 09/29/24 In Process Medications 17:16 Npo (Nothing By DIET 09/29/24 Transmitted Mouth) Diet Dinner Communication Order ORDERS 09/29/24 Transmitted 17:16 Dietary Evaluation Review Comments: 1. TPN per pharmacy meeting 75% of her needs 2, TF Glucerna@65ml/hr (94g Protein 1872 kcal, 1256ml free water) if EN feasible, 3. advance to [facility]-60 diet if GI accessible and medically feasible. Expected Outcomes/Goals: avoid wt loss. avoid hyperglycemia and uremic syndrome AG MENDOZA MD Sep 29, 2024 17:38
--- NOTE | 2024-09-29 17:39 | DVHPN2 ---
Progress Note Date Seen: Sep 28, 2024 Medical Necessity Reason Pt with a Central, PICC or Fol: Yes The following are medically ne: Laird Catheter Objective vital signs Vital Sign Date Time Temp Pulse Resp B/P (MAP) Pulse Ox O2 Delivery O2 Flow Rate FiO2 09/29/24 17:09 94 18 185/106 09/29/24 13:00 98.1 95 98.1 09/29/24 08:15 Room Air* 0 21 Total Intake and Output 09/28/24 09/28/24 09/29/24 15:00 23:00 07:00 Intake Total 612.5 ml 100 ml Output Total 400 ml 950 ml Balance 212.5 ml -850 ml medications Current Medications Medications Dose Ordered Sig/Aranza Route Start Time Stop Time Status Last Admin Dose Admin Acetaminophen/ Hydrocodone Bitart 1 tab Q4HP PRN PO 09/25/24 12:00 Ondansetron HCl 4 mg Q4HP PRN IV 09/25/24 12:00 09/25/24 13:39 4 MG Acetaminophen 650 mg Q6HP PRN PO 09/25/24 12:00 Piperacillin Sod/ Tazobactam Sod 100 ml @ 25 mls/hr Q8HR IV 09/25/24 14:00 09/29/24 14:30 25 MLS/HR Amlodipine Besylate 5 mg BID PO 09/25/24 22:00 Calcium Acetate 667 mg TIDWM PO 09/25/24 12:00 Hydralazine HCl 10 mg TID PO 09/25/24 14:00 Nifedipine 30 mg BID PO 09/25/24 22:00 UNV Sertraline HCl 50 mg DAILY PO 09/26/24 10:00 Sucralfate 1 gm QID PO 09/25/24 12:00 Aspirin 81 mg DAILY PO 09/26/24 10:00 Atorvastatin Calcium 40 mg HS PO 09/25/24 22:00 Clonidine HCl 0.3 mg BID PO 09/25/24 22:00 Hyoscyamine 0.125 mg BID PO 09/25/24 22:00 Metoprolol Succinate 25 mg DAILY PO 09/26/24 10:00 Pregabalin 100 mg BID PO 09/25/24 22:00 Patient Own Medication 1 tab BID PO 09/25/24 22:00 Patient Own Medication 1 tab TID PO 09/25/24 14:00 Patient Own Medication 1 tab DAILY PO 09/26/24 10:00 Pantoprazole Sodium 40 mg DAILY IV 09/25/24 12:00 09/29/24 08:13 40 MG Hydralazine HCl 10 mg Q6HP PRN IV 09/25/24 12:15 09/29/24 17:09 10 MG Lorazepam 0.25 mg Q6HP PRN IV 09/25/24 19:45 09/29/24 15:41 0.25 MG Labetalol HCl 10 mg Q2HPRN PRN IV 09/26/24 08:45 09/28/24 17:56 10 MG Lorazepam 0.25 mg Q6HP PRN IV 09/26/24 22:45 Cancel Amino Acids 0 ml @ 0 mls/hr PER PHARMACY IV 09/27/24 15:45 Diagnostic Test (Pha) 1 strip Q6HR 09/27/24 18:00 09/29/24 12:03 1 STRIP Insulin Human Regular FOLLOW SLIDING SCALE Q6HR SC 09/27/24 18:00 Dextrose 50 ml UD IV 09/27/24 17:00 Hydromorphone HCl 1 mg Q2HPRN PRN IV 09/28/24 09:15 09/29/24 17:09 1 MG Amino Acids/ Electrolytes/ Dextrose 1,000 ml @ 41 mls/hr DAILY@2200 IV 09/29/24 22:00 09/30/24 21:59 Sodium Chloride 10 ml QSHIFT@10,22 IV 09/29/24 22:00 UNV laboratory and microbiology Laboratory Tests 09/29/24 05:57 09/27/24 05:55 Test 09/29/24 05:57 Range/Units Serum Glucose 96 74-106 mg/dL Problem List/Assessment/Plan Problem List/Assessment/Plan AFEBRILE VSS C/O OF LOWER ABD PAIN ABD SOFT TENDER RLQ AND LOWER ABD NO BM FLATUS + NG IN PLACE CONTINUE NPO NG CLOSE OBSERVATION Plan discussed with: Patient My Orders My Orders Orders - AG MENDOZA MD Procedure Category Date Status Time Npo Except For TITA 09/29/24 In Process Medications 17:16 Npo (Nothing By DIET 09/29/24 Transmitted Mouth) Diet Dinner Communication Order ORDERS 09/29/24 Transmitted 17:16 Dietary Evaluation Review Comments: 1. TPN per pharmacy meeting 75% of her needs 2, TF Glucerna@65ml/hr (94g Protein 1872 kcal, 1256ml free water) if EN feasible, 3. advance to [facility] diet if GI accessible and medically feasible. Expected Outcomes/Goals: avoid wt loss. avoid hyperglycemia and uremic syndrome AG MENDOZA MD Sep 29, 2024 17:39
--- NOTE | 2024-09-29 17:40 | DVHPN2 ---
Progress Note Date Seen: Sep 29, 2024 Medical Necessity Reason Pt with a Central, PICC or Fol: Yes The following are medically ne: Laird Catheter Objective vital signs Vital Sign Date Time Temp Pulse Resp B/P (MAP) Pulse Ox O2 Delivery O2 Flow Rate FiO2 09/29/24 17:09 94 18 185/106 09/29/24 13:00 98.1 95 98.1 09/29/24 08:15 Room Air* 0 21 Total Intake and Output 09/28/24 09/28/24 09/29/24 15:00 23:00 07:00 Intake Total 612.5 ml 100 ml Output Total 400 ml 950 ml Balance 212.5 ml -850 ml medications Current Medications Medications Dose Ordered Sig/Aranza Route Start Time Stop Time Status Last Admin Dose Admin Acetaminophen/ Hydrocodone Bitart 1 tab Q4HP PRN PO 09/25/24 12:00 Ondansetron HCl 4 mg Q4HP PRN IV 09/25/24 12:00 09/25/24 13:39 4 MG Acetaminophen 650 mg Q6HP PRN PO 09/25/24 12:00 Piperacillin Sod/ Tazobactam Sod 100 ml @ 25 mls/hr Q8HR IV 09/25/24 14:00 09/29/24 14:30 25 MLS/HR Amlodipine Besylate 5 mg BID PO 09/25/24 22:00 Calcium Acetate 667 mg TIDWM PO 09/25/24 12:00 Hydralazine HCl 10 mg TID PO 09/25/24 14:00 Nifedipine 30 mg BID PO 09/25/24 22:00 UNV Sertraline HCl 50 mg DAILY PO 09/26/24 10:00 Sucralfate 1 gm QID PO 09/25/24 12:00 Aspirin 81 mg DAILY PO 09/26/24 10:00 Atorvastatin Calcium 40 mg HS PO 09/25/24 22:00 Clonidine HCl 0.3 mg BID PO 09/25/24 22:00 Hyoscyamine 0.125 mg BID PO 09/25/24 22:00 Metoprolol Succinate 25 mg DAILY PO 09/26/24 10:00 Pregabalin 100 mg BID PO 09/25/24 22:00 Patient Own Medication 1 tab BID PO 09/25/24 22:00 Patient Own Medication 1 tab TID PO 09/25/24 14:00 Patient Own Medication 1 tab DAILY PO 09/26/24 10:00 Pantoprazole Sodium 40 mg DAILY IV 09/25/24 12:00 09/29/24 08:13 40 MG Hydralazine HCl 10 mg Q6HP PRN IV 09/25/24 12:15 09/29/24 17:09 10 MG Lorazepam 0.25 mg Q6HP PRN IV 09/25/24 19:45 09/29/24 15:41 0.25 MG Labetalol HCl 10 mg Q2HPRN PRN IV 09/26/24 08:45 09/28/24 17:56 10 MG Lorazepam 0.25 mg Q6HP PRN IV 09/26/24 22:45 Cancel Amino Acids 0 ml @ 0 mls/hr PER PHARMACY IV 09/27/24 15:45 Diagnostic Test (Pha) 1 strip Q6HR 09/27/24 18:00 09/29/24 12:03 1 STRIP Insulin Human Regular FOLLOW SLIDING SCALE Q6HR SC 09/27/24 18:00 Dextrose 50 ml UD IV 09/27/24 17:00 Hydromorphone HCl 1 mg Q2HPRN PRN IV 09/28/24 09:15 09/29/24 17:09 1 MG Amino Acids/ Electrolytes/ Dextrose 1,000 ml @ 41 mls/hr DAILY@2200 IV 09/29/24 22:00 09/30/24 21:59 Sodium Chloride 10 ml QSHIFT@10,22 IV 09/29/24 22:00 UNV laboratory and microbiology Laboratory Tests 09/29/24 05:57 09/27/24 05:55 Test 09/29/24 05:57 Range/Units Serum Glucose 96 74-106 mg/dL Problem List/Assessment/Plan Problem List/Assessment/Plan AFEBRILE VSS C/O OF LOWER ABD PAIN BUT CONTROLLED AMBULATED NO BM FLATUS + NG IN PLACE DC NG ALLOW SIPS OF WATER AND PO MEDS CLOSE OBSERVATION NURSE AT BEDSIDE Plan discussed with: Patient My Orders My Orders Orders - AG MENDOZA MD Procedure Category Date Status Time Npo Except For TITA 09/29/24 In Process Medications 17:16 Npo (Nothing By DIET 09/29/24 Transmitted Mouth) Diet Dinner Communication Order ORDERS 09/29/24 Transmitted 17:16 Dietary Evaluation Review Comments: 1. TPN per pharmacy meeting 75% of her needs 2, TF Glucerna@65ml/hr (94g Protein 1872 kcal, 1256ml free water) if EN feasible, [facility]. [facility] if GI accessible and medically feasible. Expected Outcomes/Goals: avoid wt loss. avoid hyperglycemia and uremic syndrome AG MENDOZA MD Sep 29, 2024 17:40
[2024-09-29] MEDS: AMINO ACID INFUSION IN D10W 1,000 ML IV SCH (21:51)
[2024-09-29] MEDS: SODIUM CHLOR 0.9% PF (SALINE LOCK) 10ML VIAL/SYR IV SCH (22:02)
[2024-09-30] VITALS (8 sets, daily range): BP systolic 100–161; BP diastolic 62–99; PULSE 63–80; RESP 18–20; TEMP 97.7–99.4; O2SAT 95–97
[2024-09-30] MEDS: HYDROcodone-ACET 5/325MG TAB PO PRN (01:10)
[2024-09-30 06:35] LABS: Alanine Aminotransferase 12 U/L (7-40); Albumin 3.3 g/dL (3.2-4.8); Alkaline Phosphatase 67 U/L (46-116); Anion Gap 9 (5-15); BUN/Creatinine Ratio 14.9 (10.0-20.0); Blood Urea Nitrogen 14 mg/dL (9-23); Calcium 9.5 mg/dL (8.7-10.4); Carbon Dioxide 21 mmol/L (20-31); Chloride 106 mmol/L (98-107); Magnesium 1.9 mg/dL (1.6-2.6); Sodium 136 mmol/L (136-145)
[2024-09-30 06:36] LABS: Bilirubin, Total 0.8 mg/dL (0.2-1.0); Potassium 3.2 mmol/L (3.5-5.1); Total Protein 5.5 g/dL (5.7-8.2)
[2024-09-30 07:04] LABS: Glucose 94 mg/dL (74-106)
[2024-09-30] MEDS: POTASSIUM CHL 20 Meq TABLET PO ONE (09:03)
--- NOTE | 2024-09-30 11:26 | DVHPN2 ---
Progress Note - Dictate Date Seen: Sep 30, 2024 Medical Necessity Reason Pt with a Central, PICC or Fol: Yes The following are medically ne: Laird Catheter Subjective PT WITH ABD PAIN NAUSEA VOMITING HEMATEMESIS PMH; HX SEVERE HYPOKALEMIA ? DYSRHYTHMIA DIARRHEA PT WELL KNOWN TO ME HX OF CAD DIABETES HTN HYPERLIPIDEMIA S/P [facility] 04/09 * Left main normal. * Left anterior descending artery without any flow restrictive lesion. * Circumflex dominant vessel without any flow restrictive lesion. * Right coronary artery nondominant vessel without any flow restrictive lesion. * Left ventricular function showed hyperdynamic contractility with an LV. Left ventricular ejection fraction greater than 65%. * LVEDP was 5 mmHg. Left ventricular systolic pressure 160. Right heart catheterization, [place] reading shows RA pressure of 4, RV pressure of 26/10, PA pressure of 26/10, and capillary wedge pressure of 5. * Left ventricular end-diastolic pressure as mentioned above was also 5. * At this time, no surgical intervention. No catheter-based intervention is warranted. The patient's blood pressure needs absolutely to be controlled. At this time, beta blockade may be a good option for this patient. TROPONIN NEGATIVE BNP WNL HX OF LIVER RESECTION LUNG NODULE THICKENED COLONIC WALL COLITIS HX OF OPEN HEART SURGERY ANEMIA vital signs Vital Sign Date Time Temp Pulse Resp B/P (MAP) Pulse Ox O2 Delivery O2 Flow Rate FiO2 09/30/24 09:05 74 146/99 09/30/24 09:02 20 09/30/24 08:10 Room Air* 0 21 09/30/24 08:02 99.4 95 99.4 Total Intake and Output 09/29/24 09/29/24 09/30/24 15:00 23:00 07:00 Intake Total 100 ml 877 ml 469 ml Output Total 550 ml 900 ml Balance 100 ml 327 ml -431 ml medications Current Medications Medications Dose Ordered Sig/Aranza Route Start Time Stop Time Status Last Admin Dose Admin Acetaminophen/ Hydrocodone Bitart 1 tab Q4HP PRN PO 09/25/24 12:00 09/30/24 01:10 1 TAB Ondansetron HCl 4 mg Q4HP PRN IV 09/25/24 12:00 09/25/24 13:39 4 MG Acetaminophen 650 mg Q6HP PRN PO 09/25/24 12:00 Piperacillin Sod/ Tazobactam Sod 100 ml @ 25 mls/hr Q8HR IV 09/25/24 14:00 09/30/24 06:53 25 MLS/HR Amlodipine Besylate 5 mg BID PO 09/25/24 22:00 09/30/24 09:04 5 MG Calcium Acetate 667 mg TIDWM PO 09/25/24 12:00 09/30/24 09:03 667 MG Hydralazine HCl 10 mg TID PO 09/25/24 14:00 09/30/24 06:51 10 MG Nifedipine 30 mg BID PO 09/25/24 22:00 UNV Sertraline HCl 50 mg DAILY PO 09/26/24 10:00 09/30/24 09:03 50 MG Sucralfate 1 gm QID PO 09/25/24 12:00 09/30/24 06:52 1 GM Aspirin 81 mg DAILY PO 09/26/24 10:00 09/30/24 09:04 81 MG Atorvastatin Calcium 40 mg HS PO 09/25/24 22:00 09/29/24 21:53 40 MG Clonidine HCl 0.3 mg BID PO 09/25/24 22:00 09/30/24 09:03 0.3 MG Hyoscyamine 0.125 mg BID PO 09/25/24 22:00 09/30/24 09:05 0.125 MG Metoprolol Succinate 25 mg DAILY PO 09/26/24 10:00 09/30/24 09:05 25 MG Pregabalin 100 mg BID PO 09/25/24 22:00 09/30/24 09:02 100 MG Patient Own Medication 1 tab BID PO 09/25/24 22:00 Patient Own Medication 1 tab TID PO 09/25/24 14:00 Patient Own Medication 1 tab DAILY PO 09/26/24 10:00 Pantoprazole Sodium 40 mg DAILY IV 09/25/24 12:00 09/30/24 09:01 40 MG Hydralazine HCl 10 mg Q6HP PRN IV 09/25/24 12:15 09/29/24 17:09 10 MG Lorazepam 0.25 mg Q6HP PRN IV 09/25/24 19:45 09/29/24 15:41 0.25 MG Labetalol HCl 10 mg Q2HPRN PRN IV 09/26/24 08:45 09/28/24 17:56 10 MG Lorazepam 0.25 mg Q6HP PRN IV 09/26/24 22:45 Cancel Amino Acids 0 ml @ 0 mls/hr PER PHARMACY IV 09/27/24 15:45 Diagnostic Test (Pha) 1 strip Q6HR 09/27/24 18:00 09/30/24 06:00 1 STRIP Insulin Human Regular FOLLOW SLIDING SCALE Q6HR SC 09/27/24 18:00 Dextrose 50 ml UD IV 09/27/24 17:00 Hydromorphone HCl 1 mg Q2HPRN PRN IV 09/28/24 09:15 09/30/24 09:02 1 MG Amino Acids/ Electrolytes/ Dextrose 1,000 ml @ 41 mls/hr DAILY@2200 IV 09/29/24 22:00 09/30/24 21:59 09/29/24 21:51 41 MLS/HR Sodium Chloride 10 ml QSHIFT@10,22 IV 09/29/24 22:00 09/30/24 09:05 10 ML laboratory and microbiology Laboratory Tests 09/30/24 05:47 09/27/24 05:55 Test 09/30/24 05:47 Range/Units Serum Glucose 94 74-106 mg/dL Problem List ABD PAIN NAUSEA VOMITING HEMATEMESIS PMH; HX SEVERE HYPOKALEMIA ? DYSRHYTHMIA DIARRHEA PT WELL KNOWN TO ME HX OF CAD DIABETES HTN HYPERLIPIDEMIA S/P [facility] 04/09 * Left main normal. * Left anterior descending artery without any flow restrictive lesion. * Circumflex dominant vessel without any flow restrictive lesion. * Right coronary artery nondominant vessel without any flow restrictive lesion. * Left ventricular function showed hyperdynamic contractility with an LV. Left ventricular ejection fraction greater than 65%. * LVEDP was 5 mmHg. Left ventricular systolic pressure 160. Right heart catheterization, [place] reading shows RA pressure of 4, RV pressure of 26/10, PA pressure of 26/10, and capillary wedge pressure of 5. * Left ventricular end-diastolic pressure as mentioned above was also 5. * At this time, no surgical intervention. No catheter-based intervention is warranted. The patient's blood pressure needs absolutely to be controlled. At this time, beta blockade may be a good option for this patient. TROPONIN NEGATIVE BNP WNL HX OF LIVER RESECTION LUNG NODULE THICKENED COLONIC WALL COLITIS HX OF OPEN HEART SURGERY ANEMIA Assessment/Plan S/P EXP LAP LYSIS OF ADHESIONS CLOSURE OF 2 ENTEROTOMIES SERIAL LAB START TPN INCREASE PAIN MANAGEMENT TPN STARTED LASIX 40 MG IV SECONDARY TO INCREASE FLUID RETENTION NOW STARTED ON CLEAR LIQUID ONCE DIET IS ADVANCED CAN DC TPN WROTE FOR FENTANYL PATCH BUT PHARMACY REFUSES TO DISPENSE THERE WILL BE DELAY IN PTs [facility] HAS DECIDED TO MANAGE PAIN MANAGEMENT AND COMPLICATIONS ASSOCIATED WITH SURGICAL PAIN Dietary Evaluation Review Comments: 1. TPN per pharmacy meeting 75% of her needs 2, TF Glucerna@65ml/hr (94g Protein 1872 kcal, 1256ml free water) if EN feasible, 3. advance to [facility]-60 diet if GI accessible and medically feasible. Expected Outcomes/Goals: avoid wt loss. avoid hyperglycemia and uremic syndrome Plan discussed with: Patient ELICIA ROBERTSON MD Sep 30, 2024 11:26
--- NOTE | 2024-09-30 12:55 | DVHPNRES ---
Progress Note Date Seen: Sep 30, 2024 Resident Creating Document: DESEAN LESTER RESIDENT Medical Necessity Reason Pt with a Central, PICC or Fol: No Subjective Review of Systems ELIU CHUA Is a 69 years old female with a PMH of CHF, chronic respiratory failure on 2 L home oxygen, HTN, liver cancer s/p resection, right ankle surgery, history of laparotomy, cholecystectomy, PUD, untreated hepatitis- C , history of laparotomy presented to the ED with the chief complaints of abdominal pain and vomiting since Friday. patient reported she has been having this abdominal pain for past 2-3 months for which PCP thinks it might be gastric ulcer enteritis oral medications but no results were seen. Eventually pain got worsen over the past month and for past couple of days patient started having severe abdominal pain 10/10 mostly in umbilical area associated with severe vomiting initially orange: And sometimes blood also seen which prompted her to visit ED. on my assessment patient denies fever, diarrhea, chest pain, shortness of breath, sick contacts, recent travel and other associated symptoms. PMH: CHF, chronic respiratory failure on 2 L home oxygen, HTN, liver cancer s/p resection, right ankle surgery, history of laparotomy, cholecystectomy, PUD, untreated hepatitis-C , history of laparotomy PSH: Appendectomy, cholecystectomy, CABG, tonsillectomy Family history: Cancer, Hypertension, Other (Mom with hypertension and breast cancer. Dad with hypertension.) Personal history: Lives at home with the family. Denies smoking, alcohol and other drug abuse Allergies: no known allergies ROS: Patient seen and examined by me at the bedside. Overnight events reviewed. Patient reports that she feels much better than she has previously with the pain is there unless she takes morphine. She reports that she has been passing flatus yesterday night and today morning but has not passed any stool. she reports she feels better after the NG tube has been removed as well. She walked a few steps yesterday when PT came. She says she feels slightly hungry. Rest of the ROS is negative Pt is lying on bed Objective vital signs Vital Sign Date Time Temp Pulse Resp B/P (MAP) Pulse Ox O2 Delivery O2 Flow Rate FiO2 09/30/24 12:04 62 18 148/77 09/30/24 08:10 Room Air* 0 21 09/30/24 08:02 99.4 95 99.4 Total Intake and Output 09/29/24 09/29/24 09/30/24 15:00 23:00 07:00 Intake Total 100 ml 877 ml 469 ml Output Total 550 ml 900 ml Balance 100 ml 327 ml -431 ml medications Current Medications Medications Dose Ordered Sig/Aranza Route Start Time Stop Time Status Last Admin Dose Admin Acetaminophen/ Hydrocodone Bitart 1 tab Q4HP PRN PO 09/25/24 12:00 09/30/24 01:10 1 TAB Ondansetron HCl 4 mg Q4HP PRN IV 09/25/24 12:00 09/25/24 13:39 4 MG Acetaminophen 650 mg Q6HP PRN PO 09/25/24 12:00 Piperacillin Sod/ Tazobactam Sod 100 ml @ 25 mls/hr Q8HR IV 09/25/24 14:00 09/30/24 06:53 25 MLS/HR Amlodipine Besylate 5 mg BID PO 09/25/24 22:00 09/30/24 09:04 5 MG Calcium Acetate 667 mg TIDWM PO 09/25/24 12:00 09/30/24 12:03 667 MG Hydralazine HCl 10 mg TID PO 09/25/24 14:00 09/30/24 06:51 10 MG Nifedipine 30 mg BID PO 09/25/24 22:00 UNV Sertraline HCl 50 mg DAILY PO 09/26/24 10:00 09/30/24 09:03 50 MG Sucralfate 1 gm QID PO 09/25/24 12:00 09/30/24 12:03 1 GM Aspirin 81 mg DAILY PO 09/26/24 10:00 09/30/24 09:04 81 MG Atorvastatin Calcium 40 mg HS PO 09/25/24 22:00 09/29/24 21:53 40 MG Clonidine HCl 0.3 mg BID PO 09/25/24 22:00 09/30/24 09:03 0.3 MG Hyoscyamine 0.125 mg BID PO 09/25/24 22:00 09/30/24 09:05 0.125 MG Metoprolol Succinate 25 mg DAILY PO 09/26/24 10:00 09/30/24 09:05 25 MG Pregabalin 100 mg BID PO 09/25/24 22:00 09/30/24 09:02 100 MG Patient Own Medication 1 tab BID PO 09/25/24 22:00 Patient Own Medication 1 tab TID PO 09/25/24 14:00 Patient Own Medication 1 tab DAILY PO 09/26/24 10:00 Pantoprazole Sodium 40 mg DAILY IV 09/25/24 12:00 09/30/24 09:01 40 MG Hydralazine HCl 10 mg Q6HP PRN IV 09/25/24 12:15 09/29/24 17:09 10 MG Lorazepam 0.25 mg Q6HP PRN IV 09/25/24 19:45 09/29/24 15:41 0.25 MG Labetalol HCl 10 mg Q2HPRN PRN IV 09/26/24 08:45 09/28/24 17:56 10 MG Lorazepam 0.25 mg Q6HP PRN IV 09/26/24 22:45 Cancel Amino Acids 0 ml @ 0 mls/hr PER PHARMACY IV 09/27/24 15:45 Diagnostic Test (Pha) 1 strip Q6HR 09/27/24 18:00 09/30/24 11:55 1 STRIP Insulin Human Regular FOLLOW SLIDING SCALE Q6HR SC 09/27/24 18:00 Dextrose 50 ml UD IV 09/27/24 17:00 Hydromorphone HCl 1 mg Q2HPRN PRN IV 09/28/24 09:15 09/30/24 12:04 1 MG Amino Acids/ Electrolytes/ Dextrose 1,000 ml @ 41 mls/hr DAILY@2200 IV 09/29/24 22:00 09/30/24 21:59 09/29/24 21:51 41 MLS/HR Sodium Chloride 10 ml QSHIFT@10,22 IV 09/29/24 22:00 09/30/24 09:05 10 ML Examination Pt is lying on bed General Appearance: Alert, Oriented X3, Cooperative, Not in acute distress HEENT: Atraumatic, Mucous membranes moist/pink Respiratory: lungs are clear to auscultation, no added sounds heard Abdominal: placement of abdominal binder around abdomen, on removal a sterile gauze extending from epigastric area to suprapubic region seen- absence of any soakage; abdomen is soft on palpation and active bowel sounds heard on auscultation Extremities: No edema, Normal pulses, No tenderness/swelling Skin: No Significant rash, breakage in skin Neuro: Normal speech, sensorimotor deficits none Psych/Mental Status: Mental status NL, Mood NL laboratory and microbiology Laboratory Tests 09/30/24 05:47 09/27/24 05:55 Test 09/30/24 05:47 Range/Units Serum Glucose 94 74-106 mg/dL Labs and/or images reviewed: Labs reviewed by me, Image(s) reviewed by me Problem List/Assessment/Plan Problem List/Assessment/Plan # SBO, s/p day 3 EXP LAP for adhesiolysis with closure of 2 enterotomies # ruled out small-bowel ischemia # Suspected sepsis due to intraabdominal infection - CT ABD/pelvis showed high-grade SBO with a transfusion had tried lower quadrant - pain management and antiemetics - IVF - Continue TPN for today - empiric antibiotic Zosyn - hydromorphone 2 hourly - Surgery came and saw the patient, recommended patient to start on clear liquid diet from today - physical therapy evaluation done, advised home health for physical therapy # Hypokalemia - Repleting - Monitor lab # Hypertensive urgency possible secondary to history of hypertension and uncontrolled pain -resolving - pain management - continuously monitor blood pressure - hydralazine and IV labetalol p.r.n. - oral medications begun as NG tube removed # Mild RAUL d/t VMN likely, resolved - monitor lab for now # chronic systolic/diastolic CHF not in exacerbation -resume home meds -consult Dr. Rausch # hypercalcemia -Resolved GI PPX: Protonix VTE ppx: SCDs Diet: Clear liquid Home meds: reconciled Case discussed with , patient and nurse Plan discussed with: Patient, Other (rn) Dietary Evaluation Review Comments: 1. TPN per pharmacy meeting 75% of her needs 2, TF Glucerna@65ml/hr (94g Protein 1872 kcal, 1256ml free water) if EN feasible, [facility]. [facility] if [facility] accessible and medically feasible. Expected Outcomes/Goals: avoid wt loss. avoid hyperglycemia and uremic syndrome Addendum Addendum Addendum I was physically present for the lai portions of the service provided to patient by THE RESIDENT. I have reviewed the documentation, discussed the case with resident and agree with the resident's documentation except as noted. Also the patient's clinical case was discussed with the patient's nurse. This medical document was created using an electronic medical record system with computerized dictation system. Although this document has been carefully reviewed, there might still be some phonetic and typographical errors. These areas are purely typographical due to imperfections of the software programs, and do not reflect any compromise in the patient's medical care. Late signature. Date of Service: Sep 30, 2024 Billing Provider: LISSA BABIN MD Common Visit Codes: [id number] INP/OBS CARE(HIGH) DESEAN LESTER RESIDENT Sep 30, 2024 12:55 ROHIT ROTH RESIDENT Sep 30, 2024 16:43 LISSA BABIN MD Oct 01, 2024 04:28
--- NOTE | 2024-09-30 19:27 | DVHPN2 ---
Progress Note Date Seen: Sep 30, 2024 Medical Necessity Reason Pt with a Central, PICC or Fol: No The following are medically ne: Laird Catheter Objective vital signs Vital Sign Date Time Temp Pulse Resp B/P (MAP) Pulse Ox O2 Delivery O2 Flow Rate FiO2 09/30/24 17:55 65 19 138/77 09/30/24 16:24 98.7 95 98.7 09/30/24 08:10 Room Air* 0 21 Total Intake and Output 09/29/24 09/29/24 09/30/24 15:00 23:00 07:00 Intake Total 100 ml 877 ml 469 ml Output Total 550 ml 900 ml Balance 100 ml 327 ml -431 ml medications Current Medications Medications Dose Ordered Sig/Aranza Route Start Time Stop Time Status Last Admin Dose Admin Acetaminophen/ Hydrocodone Bitart 1 tab Q4HP PRN PO 09/25/24 12:00 09/30/24 01:10 1 TAB Ondansetron HCl 4 mg Q4HP PRN IV 09/25/24 12:00 09/25/24 13:39 4 MG Acetaminophen 650 mg Q6HP PRN PO 09/25/24 12:00 Piperacillin Sod/ Tazobactam Sod 100 ml @ 25 mls/hr Q8HR IV 09/25/24 14:00 09/30/24 13:47 25 MLS/HR Amlodipine Besylate 5 mg BID PO 09/25/24 22:00 09/30/24 09:04 5 MG Calcium Acetate 667 mg TIDWM PO 09/25/24 12:00 09/30/24 17:24 667 MG Hydralazine HCl 10 mg TID PO 09/25/24 14:00 09/30/24 13:47 10 MG Nifedipine 30 mg BID PO 09/25/24 22:00 UNV Sertraline HCl 50 mg DAILY PO 09/26/24 10:00 09/30/24 09:03 50 MG Sucralfate 1 gm QID PO 09/25/24 12:00 09/30/24 17:24 1 GM Aspirin 81 mg DAILY PO 09/26/24 10:00 09/30/24 09:04 81 MG Atorvastatin Calcium 40 mg HS PO 09/25/24 22:00 09/29/24 21:53 40 MG Clonidine HCl 0.3 mg BID PO 09/25/24 22:00 09/30/24 09:03 0.3 MG Hyoscyamine 0.125 mg BID PO 09/25/24 22:00 09/30/24 09:05 0.125 MG Metoprolol Succinate 25 mg DAILY PO 09/26/24 10:00 09/30/24 09:05 25 MG Pregabalin 100 mg BID PO 09/25/24 22:00 09/30/24 09:02 100 MG Patient Own Medication 1 tab BID PO 09/25/24 22:00 Patient Own Medication 1 tab TID PO 09/25/24 14:00 Patient Own Medication 1 tab DAILY PO 09/26/24 10:00 Pantoprazole Sodium 40 mg DAILY IV 09/25/24 12:00 09/30/24 09:01 40 MG Hydralazine HCl 10 mg Q6HP PRN IV 09/25/24 12:15 09/29/24 17:09 10 MG Lorazepam 0.25 mg Q6HP PRN IV 09/25/24 19:45 09/29/24 15:41 0.25 MG Labetalol HCl 10 mg Q2HPRN PRN IV 09/26/24 08:45 09/28/24 17:56 10 MG Lorazepam 0.25 mg Q6HP PRN IV 09/26/24 22:45 Cancel Amino Acids 0 ml @ 0 mls/hr PER PHARMACY IV 09/27/24 15:45 Diagnostic Test (Pha) 1 strip Q6HR 09/27/24 18:00 09/30/24 17:13 1 STRIP Insulin Human Regular FOLLOW SLIDING SCALE Q6HR SC 09/27/24 18:00 Dextrose 50 ml UD IV 09/27/24 17:00 Hydromorphone HCl 1 mg Q2HPRN PRN IV 09/28/24 09:15 09/30/24 17:25 1 MG Amino Acids/ Electrolytes/ Dextrose 1,000 ml @ 41 mls/hr DAILY@2200 IV 09/29/24 22:00 09/30/24 21:59 09/29/24 21:51 41 MLS/HR Sodium Chloride 10 ml QSHIFT@10,22 IV 09/29/24 22:00 09/30/24 09:05 10 ML Amino Acids 1,000 ml @ 41 mls/hr DAILY@2200 IV 09/30/24 22:00 laboratory and microbiology Laboratory Tests 09/30/24 05:47 09/27/24 05:55 Test 09/30/24 05:47 Range/Units Serum Glucose 94 74-106 mg/dL Problem List/Assessment/Plan Problem List/Assessment/Plan AFEBRILE VSS C/O OF LOWER ABD PAIN BUT CONTROLLED AMBULATED NO BM FLATUS + ALLOW CLEAR LIQUIDS CLOSE OBSERVATION NURSE AT BEDSIDE Plan discussed with: Patient My Orders My Orders Orders - AG MENDOZA MD Procedure Category Date Status Time Clear Liq Diet DIET 09/30/24 Transmitted Breakfast Dietary Evaluation Review Comments: 1. TPN per pharmacy meeting 75% of her needs 2, TF Glucerna@65ml/hr (94g Protein 1872 kcal, 1256ml free water) if EN feasible, 3. advance to [facility]-60 diet if GI accessible and medically feasible. Expected Outcomes/Goals: avoid wt loss. avoid hyperglycemia and uremic syndrome AG MENDOZA MD Sep 30, 2024 19:27
[2024-09-30] MEDS: AMINO ACID INFUSION IN D5W 1,000 ML IV SCH (22:33)
[2024-10-01] VITALS (7 sets, daily range): BP systolic 107–164; BP diastolic 66–99; PULSE 52–63; RESP 16–20; TEMP 97.6–98.1; O2SAT 91–97
[2024-10-01 06:38] LABS: Hematocrit 31.3 % (36.0-46.0); Hemoglobin 10.3 g/dL (12.2-16.2); Mean Corpuscular Hemoglobin 30.1 pg (28.0-32.0); Mean Corpuscular Volume 91.4 fL (80.0-100.0); Nucleated Red Blood Cells % 0.0 %
[2024-10-01 06:53] LABS: Alanine Aminotransferase 12 U/L (7-40); Albumin 3.3 g/dL (3.2-4.8); Alkaline Phosphatase 66 U/L (46-116); Anion Gap 8 (5-15); BUN/Creatinine Ratio 16.0 (10.0-20.0); Blood Urea Nitrogen 16 mg/dL (9-23); Calcium 9.5 mg/dL (8.7-10.4); Carbon Dioxide 22 mmol/L (20-31); Glucose 91 mg/dL (74-106); Magnesium 1.7 mg/dL (1.6-2.6); Potassium 3.6 mmol/L (3.5-5.1); Sodium 138 mmol/L (136-145)
[2024-10-01 06:54] LABS: Bilirubin, Total 0.4 mg/dL (0.2-1.0)
[2024-10-01 06:59] LABS: Chloride 108 mmol/L (98-107); Total Protein 5.4 g/dL (5.7-8.2)
--- NOTE | 2024-10-01 14:09 | DVHPN2 ---
Progress Note - Dictate Date Seen: Oct 01, 2024 Medical Necessity Reason Pt with a Central, PICC or Fol: No Subjective PT WITH ABD PAIN NAUSEA VOMITING HEMATEMESIS PMH; HX SEVERE HYPOKALEMIA ? DYSRHYTHMIA DIARRHEA PT WELL KNOWN TO ME HX OF CAD DIABETES HTN HYPERLIPIDEMIA S/P [facility] 04/09 * Left main normal. * Left anterior descending artery without any flow restrictive lesion. * Circumflex dominant vessel without any flow restrictive lesion. * Right coronary artery nondominant vessel without any flow restrictive lesion. * Left ventricular function showed hyperdynamic contractility with an LV. Left ventricular ejection fraction greater than 65%. * LVEDP was 5 mmHg. Left ventricular systolic pressure 160. Right heart catheterization, Skytop-Randall reading shows RA pressure of 4, RV pressure of 26/10, PA pressure of 26/10, and capillary wedge pressure of 5. * Left ventricular end-diastolic pressure as mentioned above was also 5. * At this time, no surgical intervention. No catheter-based intervention is warranted. The patient's blood pressure needs absolutely to be controlled. At this time, beta blockade may be a good option for this patient. TROPONIN NEGATIVE BNP WNL HX OF LIVER RESECTION LUNG NODULE THICKENED COLONIC WALL COLITIS HX OF OPEN HEART SURGERY ANEMIA vital signs Vital Sign Date Time Temp Pulse Resp B/P (MAP) Pulse Ox O2 Delivery O2 Flow Rate FiO2 10/01/24 13:32 60 16 138/86 10/01/24 13:00 97.6 97 97.6 10/01/24 08:15 Room Air* 0 21 Total Intake and Output 09/30/24 09/30/24 10/01/24 15:00 23:00 07:00 Intake Total 100 ml 1831.5 ml 1548 ml Output Total 1375 ml Balance 100 ml 456.5 ml 1548 ml medications Current Medications Medications Dose Ordered Sig/Aranza Route Start Time Stop Time Status Last Admin Dose Admin Acetaminophen/ Hydrocodone Bitart 1 tab Q4HP PRN PO 09/25/24 12:00 10/01/24 12:35 1 TAB Ondansetron HCl 4 mg Q4HP PRN IV 09/25/24 12:00 09/25/24 13:39 4 MG Acetaminophen 650 mg Q6HP PRN PO 09/25/24 12:00 Piperacillin Sod/ Tazobactam Sod 100 ml @ 25 mls/hr Q8HR IV 09/25/24 14:00 10/01/24 13:33 25 MLS/HR Amlodipine Besylate 5 mg BID PO 09/25/24 22:00 10/01/24 09:38 5 MG Calcium Acetate 667 mg TIDWM PO 09/25/24 12:00 10/01/24 11:27 667 MG Hydralazine HCl 10 mg TID PO 09/25/24 14:00 10/01/24 13:32 10 MG Nifedipine 30 mg BID PO 09/25/24 22:00 UNV Sertraline HCl 50 mg DAILY PO 09/26/24 10:00 10/01/24 09:36 50 MG Sucralfate 1 gm QID PO 09/25/24 12:00 10/01/24 11:27 1 GM Aspirin 81 mg DAILY PO 09/26/24 10:00 10/01/24 09:36 81 MG Atorvastatin Calcium 40 mg HS PO 09/25/24 22:00 09/30/24 22:11 40 MG Clonidine HCl 0.3 mg BID PO 09/25/24 22:00 10/01/24 09:37 0.3 MG Hyoscyamine 0.125 mg BID PO 09/25/24 22:00 10/01/24 09:36 0.125 MG Metoprolol Succinate 25 mg DAILY PO 09/26/24 10:00 10/01/24 09:39 25 MG Pregabalin 100 mg BID PO 09/25/24 22:00 10/01/24 09:36 100 MG Patient Own Medication 1 tab BID PO 09/25/24 22:00 Patient Own Medication 1 tab TID PO 09/25/24 14:00 Patient Own Medication 1 tab DAILY PO 09/26/24 10:00 Pantoprazole Sodium 40 mg DAILY IV 09/25/24 12:00 10/01/24 09:35 40 MG Hydralazine HCl 10 mg Q6HP PRN IV 09/25/24 12:15 09/30/24 20:01 10 MG Lorazepam 0.25 mg Q6HP PRN IV 09/25/24 19:45 09/29/24 15:41 0.25 MG Labetalol HCl 10 mg Q2HPRN PRN IV 09/26/24 08:45 09/28/24 17:56 10 MG Lorazepam 0.25 mg Q6HP PRN IV 09/26/24 22:45 Cancel Amino Acids 0 ml @ 0 mls/hr PER PHARMACY IV 09/27/24 15:45 Diagnostic Test (Pha) 1 strip Q6HR 09/27/24 18:00 10/01/24 11:20 1 STRIP Insulin Human Regular FOLLOW SLIDING SCALE Q6HR SC 09/27/24 18:00 10/01/24 00:23 2 UNITS Dextrose 50 ml UD IV 09/27/24 17:00 Hydromorphone HCl 1 mg Q2HPRN PRN IV 09/28/24 09:15 10/01/24 13:32 1 MG Sodium Chloride 10 ml QSHIFT@10,22 IV 09/29/24 22:00 10/01/24 09:42 10 ML Amino Acids 1,000 ml @ 41 mls/hr DAILY@2200 IV 09/30/24 22:00 09/30/24 22:33 41 MLS/HR Enteral Nutritional Formula 240 ml TIDWM PO 10/01/24 18:00 laboratory and microbiology Laboratory Tests 10/01/24 06:06 Test 10/01/24 06:06 Range/Units Serum Glucose 91 74-106 mg/dL Problem List ABD PAIN NAUSEA VOMITING HEMATEMESIS PMH; HX SEVERE HYPOKALEMIA ? DYSRHYTHMIA DIARRHEA PT WELL KNOWN TO ME HX OF CAD DIABETES HTN HYPERLIPIDEMIA S/P [facility] 04/09 * Left main normal. * Left anterior descending artery without any flow restrictive lesion. * Circumflex dominant vessel without any flow restrictive lesion. * Right coronary artery nondominant vessel without any flow restrictive lesion. * Left ventricular function showed hyperdynamic contractility with an LV. Left ventricular ejection fraction greater than 65%. * LVEDP was 5 mmHg. Left ventricular systolic pressure 160. Right heart catheterization, [place]yt[place]-Randall reading shows RA pressure of 4, RV pressure of 26/10, PA pressure of 26/10, and capillary wedge pressure of 5. * Left ventricular end-diastolic pressure as mentioned above was also 5. * At this time, no surgical intervention. No catheter-based intervention is warranted. The patient's blood pressure needs absolutely to be controlled. At this time, beta blockade may be a good option for this patient. TROPONIN NEGATIVE BNP WNL HX OF LIVER RESECTION LUNG NODULE THICKENED COLONIC WALL COLITIS HX OF OPEN HEART SURGERY ANEMIA Assessment/Plan S/P EXP LAP LYSIS OF ADHESIONS CLOSURE OF 2 ENTEROTOMIES SERIAL LAB START TPN INCREASE PAIN MANAGEMENT TPN STARTED LASIX 40 MG IV SECONDARY TO INCREASE FLUID RETENTION NOW STARTED ON CLEAR LIQUID ONCE DIET IS ADVANCED CAN DC TPN WROTE FOR FENTANYL PATCH BUT PHARMACY REFUSES TO DISPENSE THERE WILL BE DELAY IN PTs [facility] PH[facility]Y HAS DECIDED TO MANAGE PAIN MANAGEMENT AND COMPLICATIONS ASSOCIATED WITH SURGICAL PAIN Dietary Evaluation Review Comments: 1. TPN per pharmacy meeting 75% of her needs 2, TF Glucerna@65ml/hr (94g Protein 1872 kcal, 1256ml free water) if EN feasible, 3. advance to CCHO-60 diet if GI accessible and medically feasible. Expected Outcomes/Goals: avoid wt loss. avoid hyperglycemia and uremic syndrome Plan discussed with: Patient ELICIA ROBERTSON MD Oct 01, 2024 14:09
[2024-10-01 16:45] LABS: Chloride 105.0 mmol/L (98-107)
[2024-10-01 16:46] LABS: Anion Gap 6.0 (5-15); Calcium 9.5 mg/dL (8.7-10.4); Carbon Dioxide 21.0 mmol/L (20-31); Potassium 3.4 mmol/L (3.5-5.1); Sodium 132.0 mmol/L (136-145)
[2024-10-01 16:51] LABS: BUN/Creatinine Ratio 14.7 (10.0-20.0); Blood Urea Nitrogen 14.0 mg/dL (9-23)
[2024-10-01 16:52] LABS: Albumin 3.4 g/dL (3.2-4.8); Magnesium 1.7 mg/dL (1.6-2.6)
[2024-10-01 16:56] LABS: Glucose 191.0 mg/dL (74-106)
--- NOTE | 2024-10-01 17:04 | DVHPNRES ---
Progress Note Date Seen: Oct 01, 2024 Resident Creating Document: DESEAN LESTER RESIDENT Medical Necessity Reason Pt with a Central, PICC or Fol: No Subjective Review of Systems 69 years old female with a PMH of CHF, chronic respiratory failure on 2 L home oxygen, HTN, liver cancer s/p resection, right ankle surgery, history of laparotomy, cholecystectomy, PUD, untreated hepatitis-C , history of laparotomy presented to the ED with the chief complaints of abdominal pain and vomiting since Friday. patient reported she has been having this abdominal pain for past 2-3 months for which PCP thinks it might be gastric ulcer enteritis oral medications but no results were seen. Eventually pain got worsen over the past month and for past couple of days patient started having severe abdominal pain 10/10 mostly in umbilical area associated with severe vomiting initially orange: And sometimes blood also seen which prompted her to visit ED. on my assessment patient denies fever, diarrhea, chest pain, shortness of breath, sick contacts, recent travel and other associated symptoms. PMH: CHF, chronic respiratory failure on 2 L home oxygen, HTN, liver cancer s/p resection, right ankle surgery, history of laparotomy, cholecystectomy, PUD, untreated hepatitis-C , history of laparotomy PSH: Appendectomy, cholecystectomy, CABG, tonsillectomy Family history: Cancer, Hypertension, Other (Mom with hypertension and breast cancer. Dad with hypertension.) Personal history: Lives at home with the family. Denies smoking, alcohol and other drug abuse Allergies: no known allergies ROS: Patient seen and examined by me at the bedside. Overnight events reviewed. Patient reports feeling much better and that she had a bowel movement today morning which was little in the amount, yellow in color and not mixed with any dark or fresh blood. She says she has abdominal pain after the clear liquid diet and still requires pain medication. Rest of the ROS is negative Objective vital signs Vital Sign Date Time Temp Pulse Resp B/P (MAP) Pulse Ox O2 Delivery O2 Flow Rate FiO2 10/01/24 16:44 98.1 57 17 150/94 (112) 96 98.1 10/01/24 08:15 Room Air* 0 21 Total Intake and Output 09/30/24 09/30/24 10/01/24 15:00 23:00 07:00 Intake Total 100 ml 1831.5 ml 1548 ml Output Total 1375 ml Balance 100 ml 456.5 ml 1548 ml medications Current Medications Medications Dose Ordered Sig/Aranza Route Start Time Stop Time Status Last Admin Dose Admin Acetaminophen/ Hydrocodone Bitart 1 tab Q4HP PRN PO 09/25/24 12:00 10/01/24 12:35 1 TAB Ondansetron HCl 4 mg Q4HP PRN IV 09/25/24 12:00 09/25/24 13:39 4 MG Acetaminophen 650 mg Q6HP PRN PO 09/25/24 12:00 Piperacillin Sod/ Tazobactam Sod 100 ml @ 25 mls/hr Q8HR IV 09/25/24 14:00 10/01/24 13:33 25 MLS/HR Amlodipine Besylate 5 mg BID PO 09/25/24 22:00 10/01/24 09:38 5 MG Calcium Acetate 667 mg TIDWM PO 09/25/24 12:00 10/01/24 11:27 667 MG Hydralazine HCl 10 mg TID PO 09/25/24 14:00 10/01/24 13:32 10 MG Nifedipine 30 mg BID PO 09/25/24 22:00 UNV Sertraline HCl 50 mg DAILY PO 09/26/24 10:00 10/01/24 09:36 50 MG Sucralfate 1 gm QID PO 09/25/24 12:00 10/01/24 11:27 1 GM Aspirin 81 mg DAILY PO 09/26/24 10:00 10/01/24 09:36 81 MG Atorvastatin Calcium 40 mg HS PO 09/25/24 22:00 09/30/24 22:11 40 MG Clonidine HCl 0.3 mg BID PO 09/25/24 22:00 10/01/24 09:37 0.3 MG Hyoscyamine 0.125 mg BID PO 09/25/24 22:00 10/01/24 09:36 0.125 MG Metoprolol Succinate 25 mg DAILY PO 09/26/24 10:00 10/01/24 09:39 25 MG Pregabalin 100 mg BID PO 09/25/24 22:00 10/01/24 09:36 100 MG Patient Own Medication 1 tab BID PO 09/25/24 22:00 Patient Own Medication 1 tab TID PO 09/25/24 14:00 Patient Own Medication 1 tab DAILY PO 09/26/24 10:00 Pantoprazole Sodium 40 mg DAILY IV 09/25/24 12:00 10/01/24 09:35 40 MG Hydralazine HCl 10 mg Q6HP PRN IV 09/25/24 12:15 09/30/24 20:01 10 MG Lorazepam 0.25 mg Q6HP PRN IV 09/25/24 19:45 09/29/24 15:41 0.25 MG Labetalol HCl 10 mg Q2HPRN PRN IV 09/26/24 08:45 09/28/24 17:56 10 MG Lorazepam 0.25 mg Q6HP PRN IV 09/26/24 22:45 Cancel Amino Acids 0 ml @ 0 mls/hr PER PHARMACY IV 09/27/24 15:45 Diagnostic Test (Pha) 1 strip Q6HR 09/27/24 18:00 10/01/24 11:20 1 STRIP Insulin Human Regular FOLLOW SLIDING SCALE Q6HR SC 09/27/24 18:00 10/01/24 00:23 2 UNITS Dextrose 50 ml UD IV 09/27/24 17:00 Hydromorphone HCl 1 mg Q2HPRN PRN IV 09/28/24 09:15 10/01/24 16:34 1 MG Sodium Chloride 10 ml QSHIFT@10,22 IV 09/29/24 22:00 10/01/24 09:42 10 ML Amino Acids 1,000 ml @ 41 mls/hr DAILY@2200 IV 09/30/24 22:00 09/30/24 22:33 41 MLS/HR Enteral Nutritional Formula 240 ml TIDWM PO 10/01/24 18:00 Examination General Appearance: Alert, Oriented X3, Cooperative, Not in acute distress HEENT: Atraumatic, Mucous membranes moist/pink Respiratory: lungs are clear to auscultation, no added sounds heard Abdominal: placement of abdominal binder around abdomen, on removal a sterile gauze extending from epigastric area to suprapubic region seen- absence of any soakage; abdomen is soft on palpation and active bowel sounds heard on auscultation Extremities: No edema, Normal pulses, No tenderness/swelling Skin: No Significant rash, breakage in skin Neuro: Normal speech, sensorimotor deficits none Psych/Mental Status: Mental status NL, Mood NL laboratory and microbiology Laboratory Tests 10/01/24 16:20 10/01/24 06:06 Test 10/01/24 16:20 Range/Units Serum Glucose 191 H 74-106 mg/dL Labs and/or images reviewed: Labs reviewed by me, Image(s) reviewed by me Problem List/Assessment/Plan Problem List/Assessment/Plan # SBO, s/p day 5 EXP LAP for adhesiolysis with closure of 2 enterotomies # Ruled out small-bowel ischemia # Suspected sepsis due to intraabdominal infection - CT ABD/pelvis showed high-grade SBO with a transfusion had tried lower quadrant - pain management and antiemetics - IVF - Continue TPN for today (we can discontinue if we advance oral feeds) as per Dr. Rausch - Advance diet as tolerated as per surgery - empiric antibiotic Zosyn - hydromorphone 2 hourly - advancing diet as per consultant education recommendations - physical therapy evaluation done, advised home health for physical therapy -surgery is following # Hypokalemia - Repleted from 3.2 to now 3.6 - Monitor labs # Hypertensive urgency possible secondary to history of hypertension and uncontrolled pain -resolving - pain management - continuously monitor blood pressure - hydralazine and IV labetalol p.r.n. - oral medications begun, NG tube removed # Mild RAUL d/t VMN likely, resolved - monitor lab for now # Chronic systolic/diastolic CHF not in exacerbation - resume home meds - consult Dr. Rausch # hypercalcemia - resolved GI PPX: Protonix VTE ppx: SCDs Diet: Clear liquids Case discussed with Dr. Babin, patient and nurse Plan discussed with: Patient, Other (rn) Dietary Evaluation Review Comments: 1. TPN per pharmacy meeting 75% of her needs 2, TF Glucerna@65ml/hr (94g Protein 1872 kcal, 1256ml free water) if EN feasible, 3. advance to CCHO-60 diet if GI accessible and medically feasible. Expected Outcomes/Goals: avoid wt loss. avoid hyperglycemia and uremic syndrome Addendum Addendum Addendum I was physically present for the lai portions of the service provided to patient by THE RESIDENT. I have reviewed the documentation, discussed the case with resident and agree with the resident's documentation except as noted. Also the patient's clinical case was discussed with the patient's nurse. This medical document was created using an electronic medical record system with computerized dictation system. Although this document has been carefully reviewed, there might still be some phonetic and typographical errors. These areas are purely typographical due to imperfections of the software programs, and do not reflect any compromise in the patient's medical care. Late signature. Date of Service: Oct 01, 2024 Billing Provider: LISSA BABIN MD Common Visit Codes: [id number] INP/OBS CARE(HIGH) DESEAN LESTER RESIDENT Oct 01, 2024 17:04 ROHIT ROTH RESIDENT Oct 01, 2024 18:15 LISSA BABIN MD Oct 02, 2024 06:33
[2024-10-01] MEDS: ENSURE CLEAR Mixed Berry 8oz Carton PO SCH (18:00)
--- NOTE | 2024-10-01 18:17 | DVHPN2 ---
Progress Note Date Seen: Oct 01, 2024 Medical Necessity Reason Pt with a Central, PICC or Fol: No Objective vital signs Vital Sign Date Time Temp Pulse Resp B/P (MAP) Pulse Ox O2 Delivery O2 Flow Rate FiO2 10/01/24 16:44 98.1 57 17 150/94 (112) 96 98.1 10/01/24 08:15 Room Air* 0 21 Total Intake and Output 09/30/24 09/30/24 10/01/24 15:00 23:00 07:00 Intake Total 100 ml 1831.5 ml 1548 ml Output Total 1375 ml Balance 100 ml 456.5 ml 1548 ml medications Current Medications Medications Dose Ordered Sig/Aranza Route Start Time Stop Time Status Last Admin Dose Admin Acetaminophen/ Hydrocodone Bitart 1 tab Q4HP PRN PO 09/25/24 12:00 10/01/24 12:35 1 TAB Ondansetron HCl 4 mg Q4HP PRN IV 09/25/24 12:00 09/25/24 13:39 4 MG Acetaminophen 650 mg Q6HP PRN PO 09/25/24 12:00 Piperacillin Sod/ Tazobactam Sod 100 ml @ 25 mls/hr Q8HR IV 09/25/24 14:00 10/01/24 13:33 25 MLS/HR Amlodipine Besylate 5 mg BID PO 09/25/24 22:00 10/01/24 09:38 5 MG Calcium Acetate 667 mg TIDWM PO 09/25/24 12:00 10/01/24 18:03 667 MG Hydralazine HCl 10 mg TID PO 09/25/24 14:00 10/01/24 13:32 10 MG Nifedipine 30 mg BID PO 09/25/24 22:00 UNV Sertraline HCl 50 mg DAILY PO 09/26/24 10:00 10/01/24 09:36 50 MG Sucralfate 1 gm QID PO 09/25/24 12:00 10/01/24 18:03 1 GM Aspirin 81 mg DAILY PO 09/26/24 10:00 10/01/24 09:36 81 MG Atorvastatin Calcium 40 mg HS PO 09/25/24 22:00 09/30/24 22:11 40 MG Clonidine HCl 0.3 mg BID PO 09/25/24 22:00 10/01/24 09:37 0.3 MG Hyoscyamine 0.125 mg BID PO 09/25/24 22:00 10/01/24 09:36 0.125 MG Metoprolol Succinate 25 mg DAILY PO 09/26/24 10:00 10/01/24 09:39 25 MG Pregabalin 100 mg BID PO 09/25/24 22:00 10/01/24 09:36 100 MG Patient Own Medication 1 tab BID PO 09/25/24 22:00 Patient Own Medication 1 tab TID PO 09/25/24 14:00 Patient Own Medication 1 tab DAILY PO 09/26/24 10:00 Pantoprazole Sodium 40 mg DAILY IV 09/25/24 12:00 10/01/24 09:35 40 MG Hydralazine HCl 10 mg Q6HP PRN IV 09/25/24 12:15 09/30/24 20:01 10 MG Lorazepam 0.25 mg Q6HP PRN IV 09/25/24 19:45 09/29/24 15:41 0.25 MG Labetalol HCl 10 mg Q2HPRN PRN IV 09/26/24 08:45 09/28/24 17:56 10 MG Lorazepam 0.25 mg Q6HP PRN IV 09/26/24 22:45 Cancel Amino Acids 0 ml @ 0 mls/hr PER PHARMACY IV 09/27/24 15:45 Diagnostic Test (Pha) 1 strip Q6HR 09/27/24 18:00 10/01/24 18:02 1 STRIP Insulin Human Regular FOLLOW SLIDING SCALE Q6HR SC 09/27/24 18:00 10/01/24 00:23 2 UNITS Dextrose 50 ml UD IV 09/27/24 17:00 Hydromorphone HCl 1 mg Q2HPRN PRN IV 09/28/24 09:15 10/01/24 16:34 1 MG Sodium Chloride 10 ml QSHIFT@10,22 IV 09/29/24 22:00 10/01/24 09:42 10 ML Amino Acids 1,000 ml @ 41 mls/hr DAILY@2200 IV 09/30/24 22:00 09/30/24 22:33 41 MLS/HR Enteral Nutritional Formula 240 ml TIDWM PO 10/01/24 18:00 laboratory and microbiology Laboratory Tests 10/01/24 16:20 10/01/24 06:06 Test 10/01/24 16:20 Range/Units Serum Glucose 191 H 74-106 mg/dL Problem List/Assessment/Plan Problem List/Assessment/Plan AFEBRILE VSS C/O OF LOWER ABD PAIN BUT CONTROLLED AMBULATED BM+ FLATUS + ALLOW FULL LIQUIDS CLOSE OBSERVATION NURSE AT BEDSIDE Plan discussed with: Patient My Orders My Orders Orders - AG MENDOZA MD Procedure Category Date Status Time Full Liq Diet DIET 10/01/24 Transmitted Dinner Soft Diet DIET 10/02/24 Transmitted Breakfast Dietary Evaluation Review Comments: 1. TPN per pharmacy meeting 75% of her needs 2, TF Glucerna@65ml/hr (94g Protein 1872 kcal, 1256ml free water) if EN feasible, 3. advance to CCHO-60 diet if GI accessible and medically feasible. Expected Outcomes/Goals: avoid wt loss. avoid hyperglycemia and uremic syndrome AG MENDOZA MD Oct 01, 2024 18:17
[2024-10-02] VITALS (8 sets, daily range): BP systolic 110–138; BP diastolic 59–86; PULSE 50–61; RESP 16–20; TEMP 88.5–98.8; O2SAT 94–99
[2024-10-02 06:28] LABS: Hematocrit 30.5 % (36.0-46.0); Hemoglobin 10.2 g/dL (12.2-16.2); Mean Corpuscular Hemoglobin 30.9 pg (28.0-32.0); Mean Corpuscular Volume 92.7 fL (80.0-100.0); Nucleated Red Blood Cells % 0.1 %
[2024-10-02 06:45] LABS: Alanine Aminotransferase 11 U/L (7-40); Albumin 3.5 g/dL (3.2-4.8); Alkaline Phosphatase 70 U/L (46-116); Anion Gap 11 (5-15); BUN/Creatinine Ratio 11.9 (10.0-20.0); Blood Urea Nitrogen 12 mg/dL (9-23); Calcium 9.0 mg/dL (8.7-10.4); Carbon Dioxide 20 mmol/L (20-31); Glucose 88 mg/dL (74-106); Sodium 138 mmol/L (136-145); Total Protein 5.7 g/dL (5.7-8.2)
[2024-10-02 06:53] LABS: Bilirubin, Total 0.3 mg/dL (0.2-1.0); Chloride 107 mmol/L (98-107); Potassium 3.3 mmol/L (3.5-5.1)
[2024-10-02] MEDS: POTASSIUM CHL 20MEQ/100ML 100 ML IV SCH (09:17)
--- NOTE | 2024-10-02 11:14 | DVHPNRES ---
Progress Note Date Seen: Oct 02, 2024 Resident Creating Document: JOHNIE DESAI RESIDENT Medical Necessity Reason Pt with a Central, PICC or Fol: No Subjective Review of Systems A 69 years old female with a PMH of CHF, chronic respiratory failure on 2 L home oxygen, HTN, liver cancer s/p resection, right ankle surgery, history of laparotomy, cholecystectomy, PUD, untreated hepatitis-C , history of laparotomy presented to the ED with the chief complaints of abdominal pain and vomiting since Friday. patient reported she has been having this abdominal pain for past 2-3 months for which PCP thinks it might be gastric ulcer enteritis oral medications but no results were seen. Eventually pain got worsen over the past month and for past couple of days patient started having severe abdominal pain 10/10 mostly in umbilical area associated with severe vomiting initially orange: And sometimes blood also seen which prompted her to visit ED. on my assessment patient denies fever, diarrhea, chest pain, shortness of breath, sick contacts, recent travel and other associated symptoms. PMH: CHF, chronic respiratory failure on 2 L home oxygen, HTN, liver cancer s/p resection, right ankle surgery, history of laparotomy, cholecystectomy, PUD, untreated hepatitis-C , history of laparotomy PSH: Appendectomy, cholecystectomy, CABG, tonsillectomy Family history: Cancer, Hypertension, Other (Mom with hypertension and breast cancer. Dad with hypertension.) Personal history: Lives at home with the family. Denies smoking, alcohol and other drug abuse Allergies: no known allergies 10/02 interval events: ROS: Patient was seen and examined at the bedside today. Overnight events reviewed. Initially this morning the patient was complaining of 7/10 abdominal pain, reports feeling much better after her regular dose of morphine. She had two bowel movements within last 24 hours, which which was moderate in amount, brown in color and not mixed with any dark or fresh blood. She denies any chest pain, shortness of breath, abdominal pain or any other complaints. Objective vital signs Vital Sign Date Time Temp Pulse Resp B/P (MAP) Pulse Ox O2 Delivery O2 Flow Rate FiO2 10/02/24 10:48 60 152/90 10/02/24 10:46 18 10/02/24 08:48 97.9 94 97.9 10/02/24 08:00 Nasal Cannula* 2 28 Total Intake and Output 10/01/24 10/01/24 10/02/24 15:00 23:00 07:00 Intake Total 100 ml 2271.5 ml 1200 ml Output Total 200 ml Balance 100 ml 2271.5 ml 1000 ml medications Current Medications Medications Dose Ordered Sig/Aranza Route Start Time Stop Time Status Last Admin Dose Admin Acetaminophen/ Hydrocodone Bitart 1 tab Q4HP PRN PO 09/25/24 12:00 10/02/24 09:17 1 TAB Ondansetron HCl 4 mg Q4HP PRN IV 09/25/24 12:00 09/25/24 13:39 4 MG Acetaminophen 650 mg Q6HP PRN PO 09/25/24 12:00 Piperacillin Sod/ Tazobactam Sod 100 ml @ 25 mls/hr Q8HR IV 09/25/24 14:00 10/02/24 05:35 25 MLS/HR Amlodipine Besylate 5 mg BID PO 09/25/24 22:00 10/02/24 10:47 5 MG Calcium Acetate 667 mg TIDWM PO 09/25/24 12:00 10/02/24 09:17 667 MG Hydralazine HCl 10 mg TID PO 09/25/24 14:00 10/02/24 06:09 10 MG Nifedipine 30 mg BID PO 09/25/24 22:00 UNV Sertraline HCl 50 mg DAILY PO 09/26/24 10:00 10/02/24 10:46 50 MG Sucralfate 1 gm QID PO 09/25/24 12:00 10/02/24 06:09 1 GM Aspirin 81 mg DAILY PO 09/26/24 10:00 10/02/24 10:48 81 MG Atorvastatin Calcium 40 mg HS PO 09/25/24 22:00 10/01/24 21:56 40 MG Clonidine HCl 0.3 mg BID PO 09/25/24 22:00 10/02/24 10:43 0.3 MG Hyoscyamine 0.125 mg BID PO 09/25/24 22:00 10/02/24 10:47 0.125 MG Metoprolol Succinate 25 mg DAILY PO 09/26/24 10:00 10/02/24 10:48 25 MG Pregabalin 100 mg BID PO 09/25/24 22:00 10/02/24 10:40 100 MG Patient Own Medication 1 tab BID PO 09/25/24 22:00 Patient Own Medication 1 tab TID PO 09/25/24 14:00 Patient Own Medication 1 tab DAILY PO 09/26/24 10:00 Pantoprazole Sodium 40 mg DAILY IV 09/25/24 12:00 10/02/24 10:51 40 MG Hydralazine HCl 10 mg Q6HP PRN IV 09/25/24 12:15 09/30/24 20:01 10 MG Lorazepam 0.25 mg Q6HP PRN IV 09/25/24 19:45 10/01/24 23:14 0.25 MG Labetalol HCl 10 mg Q2HPRN PRN IV 09/26/24 08:45 09/28/24 17:56 10 MG Lorazepam 0.25 mg Q6HP PRN IV 09/26/24 22:45 Cancel Amino Acids 0 ml @ 0 mls/hr PER PHARMACY IV 09/27/24 15:45 Diagnostic Test (Pha) 1 strip Q6HR 09/27/24 18:00 10/02/24 06:00 1 STRIP Insulin Human Regular FOLLOW SLIDING SCALE Q6HR SC 09/27/24 18:00 10/01/24 00:23 2 UNITS Dextrose 50 ml UD IV 09/27/24 17:00 Hydromorphone HCl 1 mg Q2HPRN PRN IV 09/28/24 09:15 10/02/24 10:46 1 MG Sodium Chloride 10 ml QSHIFT@10,22 IV 09/29/24 22:00 10/02/24 10:00 10 ML Amino Acids 1,000 ml @ 41 mls/hr DAILY@2200 IV 09/30/24 22:00 10/01/24 22:00 41 MLS/HR Enteral Nutritional Formula 240 ml TIDWM PO 10/01/24 18:00 Potassium Chloride 100 ml @ 50 mls/hr Q2H IV 10/02/24 07:45 10/02/24 11:44 10/02/24 09:17 50 MLS/HR Examination General Appearance: Alert, Oriented X3, Cooperative, Not in acute distress HEENT: Atraumatic, Mucous membranes moist/pink Respiratory: lungs are clear to auscultation, no added sounds heard Abdominal: placement of abdominal binder around abdomen, on removal a sterile gauze extending from epigastric area to suprapubic region seen- absence of any soakage; abdomen is soft on palpation and active bowel sounds heard on auscultation. Extremities: No edema, Normal pulses, No tenderness/swelling Skin: No Significant rash, breakage in skin Neuro: Normal speech, sensorimotor deficits none Psych/Mental Status: Mental status NL, Mood NL laboratory and microbiology Laboratory Tests 10/02/24 05:54 Test 10/02/24 05:54 Range/Units Serum Glucose 88 74-106 mg/dL Labs and/or images reviewed: Labs reviewed by me, Image(s) reviewed by me Problem List/Assessment/Plan Problem List/Assessment/Plan # SBO, s/p day 6 EXP LAP for adhesiolysis with closure of 2 enterotomies # Ruled out small-bowel ischemia # Suspected sepsis due to intraabdominal infection - CT ABD/pelvis showed high-grade SBO with a transfusion had tried lower quadrant - pain management and antiemetics - IVF - Discontinued Clinimix, patient is on soft diet as per Sx consult. - advancing diet as per surgical scheduler recommendations - empiric antibiotic Zosyn - hydromorphone 2 hourly - physical therapy evaluation done, advised home health for physical therapy - surgery is following # Hypokalemia - Repleting - Monitor labs # Hypertensive urgency possible secondary to history of hypertension and uncontrolled pain -resolving - pain management - continuously monitor blood pressure - hydralazine and IV labetalol p.r.n. - oral medications begun, NG tube removed # Mild RAUL d/t VMN likely, resolved - monitor lab for now # Chronic systolic/diastolic CHF not in exacerbation - resume home meds - consult Dr. Rausch # hypercalcemia - resolved GI PPX: Protonix VTE ppx: SCDs Diet: Clear liquids PT evaluation suggested home health for physical therapy Consults: Sustainability Coordinator on board for home health for physical therapy Case discussed with Dr. Babin, patient and nurse Plan discussed with: Patient, Other (RN ) My Orders My Orders Orders - JOHNIE DESAI RESIDENT Procedure Category Date Status Time Potassium Chl PHA 10/02/24 In Process 20meq/100ml 07:45 Dietary Evaluation Review Comments: 1. TPN per pharmacy meeting 75% of her needs 2, TF Glucerna@65ml/hr (94g Protein 1872 kcal, 1256ml free water) if EN feasible, [facility]. [facility] if GI accessible and medically feasible. Expected Outcomes/Goals: avoid wt loss. avoid hyperglycemia and uremic syndrome Addendum Addendum Addendum I was physically present for the lai portions of the service provided to patient by THE RESIDENT. I have reviewed the documentation, discussed the case with resident and agree with the resident's documentation except as noted. Also the patient's clinical case was discussed with the patient's nurse. This medical document was created using an electronic medical record system with computerized dictation system. Although this document has been carefully reviewed, there might still be some phonetic and typographical errors. These areas are purely typographical due to imperfections of the software programs, and do not reflect any compromise in the patient's medical care. Late signature. Date of Service: Oct 02, 2024 Billing Provider: LISSA BABIN MD Common Visit Codes: [id number] INP/OBS CARE(HIGH) JOHNIE DESAI RESIDENT Oct 02, 2024 11:14 ROHIT ROTH RESIDENT Oct 02, 2024 15:21 LISSA BABIN MD Oct 03, 2024 14:32
[2024-10-02] MEDS: MAGNESIUM SULFATE 1GM/100ML 100 ML IV SCH (12:25)
[2024-10-03] VITALS (9 sets, daily range): BP systolic 136–183; BP diastolic 54–99; PULSE 55–65; RESP 16–19; TEMP 97.3–99; O2SAT 94–100
[2024-10-03 07:38] LABS: Hematocrit 30.2 % (36.0-46.0); Hemoglobin 10.2 g/dL (12.2-16.2); Mean Corpuscular Hemoglobin 31.0 pg (28.0-32.0); Mean Corpuscular Volume 91.8 fL (80.0-100.0); Nucleated Red Blood Cells % 0.0 %
[2024-10-03 07:51] LABS: Potassium 3.8 mmol/L (3.5-5.1); Sodium 140 mmol/L (136-145)
[2024-10-03 07:52] LABS: Anion Gap 7 (5-15); Carbon Dioxide 22 mmol/L (20-31)
[2024-10-03 07:53] LABS: Calcium 9.7 mg/dL (8.7-10.4)
[2024-10-03 07:57] LABS: BUN/Creatinine Ratio 14.0 (10.0-20.0); Blood Urea Nitrogen 14 mg/dL (9-23); Glucose 93 mg/dL (74-106)
[2024-10-03 07:58] LABS: Chloride 111 mmol/L (98-107)
--- NOTE | 2024-10-03 09:52 | DVHPN2 ---
Progress Note Date Seen: Oct 03, 2024 Medical Necessity Reason Pt with a Central, PICC or Fol: No Objective vital signs Vital Sign Date Time Temp Pulse Resp B/P (MAP) Pulse Ox O2 Delivery O2 Flow Rate FiO2 10/03/24 08:36 97.6 65 16 166/99 (121) 98 97.6 10/03/24 08:00 Room Air* 0 21 Total Intake and Output 10/02/24 10/02/24 10/03/24 14:59 22:59 06:59 Intake Total 100 ml 1500 ml 475 ml Output Total 400 ml Balance 100 ml 1500 ml 75 ml medications Current Medications Medications Dose Ordered Sig/Aranza Route Start Time Stop Time Status Last Admin Dose Admin Acetaminophen/ Hydrocodone Bitart 1 tab Q4HP PRN PO 09/25/24 12:00 10/03/24 08:48 1 TAB Ondansetron HCl 4 mg Q4HP PRN IV 09/25/24 12:00 09/25/24 13:39 4 MG Acetaminophen 650 mg Q6HP PRN PO 09/25/24 12:00 Piperacillin Sod/ Tazobactam Sod 100 ml @ 25 mls/hr Q8HR IV 09/25/24 14:00 10/03/24 05:16 25 MLS/HR Amlodipine Besylate 5 mg BID PO 09/25/24 22:00 10/02/24 10:47 5 MG Calcium Acetate 667 mg TIDWM PO 09/25/24 12:00 10/03/24 08:48 667 MG Hydralazine HCl 10 mg TID PO 09/25/24 14:00 10/03/24 05:15 10 MG Nifedipine 30 mg BID PO 09/25/24 22:00 UNV Sertraline HCl 50 mg DAILY PO 09/26/24 10:00 10/02/24 10:46 50 MG Sucralfate 1 gm QID PO 09/25/24 12:00 10/03/24 05:16 1 GM Aspirin 81 mg DAILY PO 09/26/24 10:00 10/02/24 10:48 81 MG Atorvastatin Calcium 40 mg HS PO 09/25/24 22:00 10/02/24 21:53 40 MG Clonidine HCl 0.3 mg BID PO 09/25/24 22:00 10/02/24 22:10 0.3 MG Hyoscyamine 0.125 mg BID PO 09/25/24 22:00 10/02/24 21:54 0.125 MG Metoprolol Succinate 25 mg DAILY PO 09/26/24 10:00 10/02/24 10:48 25 MG Pregabalin 100 mg BID PO 09/25/24 22:00 10/02/24 21:53 100 MG Patient Own Medication 1 tab BID PO 09/25/24 22:00 Patient Own Medication 1 tab TID PO 09/25/24 14:00 Patient Own Medication 1 tab DAILY PO 09/26/24 10:00 Pantoprazole Sodium 40 mg DAILY IV 09/25/24 12:00 10/02/24 10:51 40 MG Hydralazine HCl 10 mg Q6HP PRN IV 09/25/24 12:15 09/30/24 20:01 10 MG Lorazepam 0.25 mg Q6HP PRN IV 09/25/24 19:45 10/01/24 23:14 0.25 MG Labetalol HCl 10 mg Q2HPRN PRN IV 09/26/24 08:45 09/28/24 17:56 10 MG Lorazepam 0.25 mg Q6HP PRN IV 09/26/24 22:45 Cancel Diagnostic Test (Pha) 1 strip Q6HR 09/27/24 18:00 10/03/24 05:17 1 STRIP Insulin Human Regular FOLLOW SLIDING SCALE Q6HR SC 09/27/24 18:00 10/01/24 00:23 2 UNITS Dextrose 50 ml UD IV 09/27/24 17:00 Hydromorphone HCl 1 mg Q2HPRN PRN IV 09/28/24 09:15 10/03/24 06:43 1 MG Sodium Chloride 10 ml QSHIFT@10,22 IV 09/29/24 22:00 10/02/24 22:02 10 ML Enteral Nutritional Formula 240 ml TIDWM PO 10/01/24 18:00 10/03/24 08:00 240 ML laboratory and microbiology Laboratory Tests 10/03/24 07:22 Test 10/03/24 07:22 Range/Units Serum Glucose 93 74-106 mg/dL Problem List/Assessment/Plan Problem List/Assessment/Plan AFEBRILE VSS C/O OF LOWER ABD PAIN BUT CONTROLLED AMBULATED BM+ FLATUS + ALLOW SOFT DIET LUCINA CONTINUE AMBULATION CLOSE OBSERVATION NURSE AT BEDSIDE Plan discussed with: Patient My Orders My Orders Orders - AG MENDOZA MD Procedure Category Date Status Time Soft Diet DIET 10/03/24 Transmitted Breakfast Dietary Evaluation Review Comments: 1. TPN per pharmacy meeting 75% of her needs 2, TF Glucerna@65ml/hr (94g Protein 1872 kcal, 1256ml free water) if EN feasible, [facility]. [facility] if GI accessible and medically feasible. Expected Outcomes/Goals: avoid wt loss. avoid hyperglycemia and uremic syndrome AG MENDOZA MD Oct 03, 2024 09:52
--- NOTE | 2024-10-03 11:31 | DVH ---
CT CT AB PEL WO CON-NO ORAL OR IV INDICATION: abdominal pain s/p ex lap EXAM DATE: 10/03/2024 10:49 AM COMPARISON: CT CT AB PEL WO CON-NO ORAL OR IV on DOS: 07/08/24, CT CT AB PEL WO CON-NO ORAL OR IV on D OS: 11/20/23, CT [facility] AB PEL WO CON-NO IV/ORAL on DOS: 11/10/23 RADIATION DOSE: CTDIvol: 16.66 mGy, DLP: 894.33 mGy*cm PROCEDURE: Helical CT images were obtained of the abdomen and pelvis without IV contrast Sagittal and coronal reconstructions are provided. ORAL CONTRAST: None. ADDITIONAL IMAGES / REFORMATS: None All C T scans at this medical facility are performed using dose modulation techniques as appropriate to a p erformed exam including the following: Automated exposure control was utilized; adjustment of the MA and/or KV according to patient size; and use of iterative reconstruction technique. FINDINGS: LUNG BASE: Bibasilar atelectasis with small right effusion. LIVER: 1.4 cm hepatic cystic lesion. GALLBLADDER AND BILIARY TREE: Jeanine clips are seen. No intra- or extrahepatic biliary ductal dilation . PANCREAS: Normal. SPLEEN: Normal. BOWEL: Interval decompression of previously seen bowel obstruction. No residual small bowel dilation seen. Mild colonic diverticulosis. ADRENALS: Normal. KIDNEYS AND URETER: 2.8 cm right kidney cyst. Tiny nonobstructive left kidney stone. BLADDER: Normal. REPRODUCTIVE ORGANS: Normal. LYMPH NODES:No lymphadenopathy. PERITONEUM: No ascites or free air. No other fluid collection. Pelvic fluid, likely post surgical in nature. VESSELS: Scattered atherosclerotic calcifications are noted. RETROPERITONEUM: Normal. ABDOMINAL WALL: Post surgical change from ex lap. BONES: Scattered osseous degenerative changes are noted. IMPRESSION: Interval decompression of previously seen bowel obstruction. No residual small bowel dilation seen. Mild colonic diverticulosis. Pelvic fluid, likely post surgical in nature. Tiny nonobstructive left kidney stone.
[2024-10-03] MEDS: MAGNESIUM CITRATE SOLUTION 300 ML BTL PO ONE (12:27)
--- NOTE | 2024-10-03 15:18 | DVHPNRES ---
Progress Note Date Seen: Oct 03, 2024 Resident Creating Document: DESEAN LESTER RESIDENT Medical Necessity Reason Pt with a Central, PICC or Fol: No Subjective Review of Systems A 69 years old female with a PMH of CHF, chronic respiratory failure on 2 L home oxygen, HTN, liver cancer s/p resection, right ankle surgery, history of laparotomy, cholecystectomy, PUD, untreated hepatitis-C , history of laparotomy presented to the ED with the chief complaints of abdominal pain and vomiting since Friday. patient reported she has been having this abdominal pain for past 2-3 months for which PCP thinks it might be gastric ulcer enteritis oral medications but no results were seen. Eventually pain got worsen over the past month and for past couple of days patient started having severe abdominal pain 10/10 mostly in umbilical area associated with severe vomiting initially orange: And sometimes blood also seen which prompted her to visit ED. on my assessment patient denies fever, diarrhea, chest pain, shortness of breath, sick contacts, recent travel and other associated symptoms. PMH: CHF, chronic respiratory failure on 2 L home oxygen, HTN, liver cancer s/p resection, right ankle surgery, history of laparotomy, cholecystectomy, PUD, untreated hepatitis-C , history of laparotomy PSH: Appendectomy, cholecystectomy, CABG, tonsillectomy Family history: Cancer, Hypertension, Other (Mom with hypertension and breast cancer. Dad with hypertension.) Personal history: Lives at home with the family. Denies smoking, alcohol and other drug abuse Allergies: no known allergies Patient was seen and examined by me at the bedside today. Overnight events reviewed. Patient says that she still has abdominal pain which is 10/0 in intensity but the pain medications help. She reports that she has been ambulating, hydrating and eating but she complains that she has pain in the abdomen after eating. She has passed flatus but complains that she has not had any bowel movements since day before yesterday. She also reports that once she gets up from urinating from the bedside commode she feels a little dizzy. No other active complaints. Rest of the ROS is negative. Objective vital signs Vital Sign Date Time Temp Pulse Resp B/P (MAP) Pulse Ox O2 Delivery O2 Flow Rate FiO2 10/03/24 14:43 51 18 131/69 10/03/24 13:00 97.5 96 97.5 10/03/24 08:00 Room Air* 0 21 Total Intake and Output 10/02/24 10/02/24 10/03/24 15:00 23:00 07:00 Intake Total 100 ml 1500 ml 475 ml Output Total 400 ml Balance 100 ml 1500 ml 75 ml medications Current Medications Medications Dose Ordered Sig/Aranza Route Start Time Stop Time Status Last Admin Dose Admin Acetaminophen/ Hydrocodone Bitart 1 tab Q4HP PRN PO 09/25/24 12:00 10/03/24 08:48 1 TAB Ondansetron HCl 4 mg Q4HP PRN IV 09/25/24 12:00 09/25/24 13:39 4 MG Acetaminophen 650 mg Q6HP PRN PO 09/25/24 12:00 Piperacillin Sod/ Tazobactam Sod 100 ml @ 25 mls/hr Q8HR IV 09/25/24 14:00 10/03/24 14:46 25 MLS/HR Amlodipine Besylate 5 mg BID PO 09/25/24 22:00 10/03/24 10:22 5 MG Calcium Acetate 667 mg TIDWM PO 09/25/24 12:00 10/03/24 12:27 667 MG Hydralazine HCl 10 mg TID PO 09/25/24 14:00 10/03/24 14:43 10 MG Nifedipine 30 mg BID PO 09/25/24 22:00 UNV Sertraline HCl 50 mg DAILY PO 09/26/24 10:00 10/03/24 10:21 50 MG Sucralfate 1 gm QID PO 09/25/24 12:00 10/03/24 12:27 1 GM Aspirin 81 mg DAILY PO 09/26/24 10:00 10/03/24 10:24 81 MG Atorvastatin Calcium 40 mg HS PO 09/25/24 22:00 10/02/24 21:53 40 MG Clonidine HCl 0.3 mg BID PO 09/25/24 22:00 10/03/24 10:21 0.3 MG Hyoscyamine 0.125 mg BID PO 09/25/24 22:00 10/03/24 10:22 0.125 MG Metoprolol Succinate 25 mg DAILY PO 09/26/24 10:00 10/03/24 10:22 25 MG Pregabalin 100 mg BID PO 09/25/24 22:00 10/03/24 10:20 100 MG Patient Own Medication 1 tab BID PO 09/25/24 22:00 Patient Own Medication 1 tab TID PO 09/25/24 14:00 Patient Own Medication 1 tab DAILY PO 09/26/24 10:00 Pantoprazole Sodium 40 mg DAILY IV 09/25/24 12:00 10/03/24 10:24 40 MG Hydralazine HCl 10 mg Q6HP PRN IV 09/25/24 12:15 09/30/24 20:01 10 MG Lorazepam 0.25 mg Q6HP PRN IV 09/25/24 19:45 10/01/24 23:14 0.25 MG Labetalol HCl 10 mg Q2HPRN PRN IV 09/26/24 08:45 09/28/24 17:56 10 MG Lorazepam 0.25 mg Q6HP PRN IV 09/26/24 22:45 Cancel Diagnostic Test (Pha) 1 strip Q6HR 09/27/24 18:00 10/03/24 12:00 1 STRIP Insulin Human Regular FOLLOW SLIDING SCALE Q6HR SC 09/27/24 18:00 10/01/24 00:23 2 UNITS Dextrose 50 ml UD IV 09/27/24 17:00 Hydromorphone HCl 1 mg Q2HPRN PRN IV 09/28/24 09:15 10/03/24 14:43 1 MG Sodium Chloride 10 ml QSHIFT@10,22 IV 09/29/24 22:00 10/03/24 10:24 10 ML Enteral Nutritional Formula 240 ml TIDWM PO 10/01/24 18:00 10/03/24 12:00 240 ML Examination General Appearance: Alert, Oriented to person, place and time, mild distress HEENT: Atraumatic, Mucous membranes moist/pink Respiratory: Lungs are clear to auscultation, no added sounds heard Abdominal: abdominal binder around the abdomen, on removal a clean sterile gauze extending from epigastric to suprapubic region present- no soakage; abdomen is soft on palpation, active bowel sounds heard, mild swelling on the right lower quadrant. Extremities: No edema, Normal pulses, No tenderness/swelling Skin: No Significant rash, no breakage in skin Neuro: Normal speech, no sensorimotor deficits Psych/Mental Status: Mental status NL, Mood NL laboratory and microbiology Laboratory Tests 10/03/24 07:22 Test 10/03/24 07:22 Range/Units Serum Glucose 93 74-106 mg/dL Labs and/or images reviewed: Labs reviewed by me, Image(s) reviewed by me Problem List/Assessment/Plan Problem List/Assessment/Plan # SBO, s/p day 7 EXP LAP for adhesiolysis with closure of 2 enterotomies # Ruled out small-bowel ischemia # Suspected sepsis due to intraabdominal infection - CT ABD/pelvis showed high-grade SBO with a transfusion had tried lower quadrant - pain management and antiemetics - IVF - Discontinued Clinimix, patient is on soft diet as per Sx consult. - advancing diet as per operating room surgical technologist recommendations, patient on soft diet - patient has been ambulating with a walker - empiric antibiotic Zosyn - hydromorphone 2 hourly - physical therapy evaluation done, advised home health for physical therapy - surgery is following - lactic acid, normal (0.8mMol/L) - Repeat CT abdomen / pelvis shows:interval decompression of previously seen bowel obstruction. No residual small bowel dilation seen. Mild colonic diverticulosis. Pelvic fluid, likely post surgical in nature. # Hypokalemia - Repleting - Monitor labs # Hypertensive urgency possible secondary to history of hypertension and uncontrolled pain -resolving - pain management - continuously monitor blood pressure - hydralazine and IV labetalol p.r.n. - oral medications begun, NG tube removed # Mild RAUL d/t VMN likely, resolved - monitor lab for now # Chronic systolic/diastolic CHF not in exacerbation - resume home meds - consult Dr. Rausch # hypercalcemia - resolved #Tiny nonobstructive left kidney stone - as seen in CT abdomen and pelvis - outpatient follow up GI PPX: Protonix VTE ppx: SCDs Diet: Soft diet PT evaluation suggested home health for physical therapy Consults: [employer] [facility] on board for home health for physical therapy Case discussed with Dr. Babin, patient and nurse Plan discussed with: Patient, Other (rn) My Orders My Orders Orders - DESEAN LESTER RESIDENT Procedure Category Date Status Time Ct Ab Pel Wo Con-No CT 10/03/24 Resulted Oral Or Iv 10:34 Complete Blood Count LAB 10/04/24 Verified 04:00 Basic Metabolic Panel LAB 10/04/24 Verified 04:00 Dietary Evaluation Review Comments: 1. TPN per pharmacy meeting 75% of her needs 2, TF Glucerna@65ml/hr (94g Protein 1872 kcal, 1256ml free water) if EN feasible, 3. advance to CCHO-60 diet if GI accessible and medically feasible. Expected Outcomes/Goals: avoid wt loss. avoid hyperglycemia and uremic syndrome Addendum Addendum Addendum I was physically present for the lai portions of the service provided to patient by THE RESIDENT. I have reviewed the documentation, discussed the case with resident and agree with the resident's documentation except as noted. Also the patient's clinical case was discussed with the patient's nurse. This medical document was created using an electronic medical record system with computerized dictation system. Although this document has been carefully reviewed, there might still be some phonetic and typographical errors. These areas are purely typographical due to imperfections of the software programs, and do not reflect any compromise in the patient's medical care. Late signature. Date of Service: Oct 03, 2024 Billing Provider: LISSA BABIN MD Common Visit Codes: [id number] INP/OBS CARE(HIGH) DESEAN LESTER RESIDENT Oct 03, 2024 15:18 LISSA BABIN MD Oct 04, 2024 07:39
[2024-10-04] VITALS (8 sets, daily range): BP systolic 113–198; BP diastolic 69–98; PULSE 43–72; RESP 15–20; TEMP 97.3–98.7; O2SAT 98–100
[2024-10-04 06:28] LABS: Hematocrit 28.1 % (36.0-46.0); Hemoglobin 9.2 g/dL (12.2-16.2); Mean Corpuscular Hemoglobin 30.2 pg (28.0-32.0); Mean Corpuscular Volume 91.8 fL (80.0-100.0); Nucleated Red Blood Cells % 0.0 %
[2024-10-04 06:35] LABS: Potassium 3.8 mmol/L (3.5-5.1); Sodium 140 mmol/L (136-145)
[2024-10-04 06:36] LABS: Anion Gap 8 (5-15); Calcium 9.6 mg/dL (8.7-10.4); Carbon Dioxide 23 mmol/L (20-31)
[2024-10-04 06:41] LABS: BUN/Creatinine Ratio 12.9 (10.0-20.0); Blood Urea Nitrogen 13 mg/dL (9-23); Glucose 96 mg/dL (74-106)
[2024-10-04 06:42] LABS: Chloride 109 mmol/L (98-107)
[2024-10-04] MEDS: HYDROmorphone HCL 2 MG/ML VL/or syr IV PRN (14:34)
--- NOTE | 2024-10-04 16:10 | DVHPN2 ---
Progress Note - Dictate Date Seen: Oct 03, 2024 Medical Necessity Reason Pt with a Central, PICC or Fol: No Subjective PT WITH ABD PAIN NAUSEA VOMITING HEMATEMESIS PMH; HX SEVERE HYPOKALEMIA ? DYSRHYTHMIA DIARRHEA PT WELL KNOWN TO ME HX OF CAD DIABETES HTN HYPERLIPIDEMIA S/P LHC 04/09 * Left main normal. * Left anterior descending artery without any flow restrictive lesion. * Circumflex dominant vessel without any flow restrictive lesion. * Right coronary artery nondominant vessel without any flow restrictive lesion. * Left ventricular function showed hyperdynamic contractility with an LV. Left ventricular ejection fraction greater than 65%. * LVEDP was 5 mmHg. Left ventricular systolic pressure 160. Right heart catheterization, [facility] reading shows RA pressure of 4, RV pressure of 26/10, PA pressure of 26/10, and capillary wedge pressure of 5. * Left ventricular end-diastolic pressure as mentioned above was also 5. * At this time, no surgical intervention. No catheter-based intervention is warranted. The patient's blood pressure needs absolutely to be controlled. At this time, beta blockade may be a good option for this patient. TROPONIN NEGATIVE BNP WNL HX OF LIVER RESECTION LUNG NODULE THICKENED COLONIC WALL COLITIS HX OF OPEN HEART SURGERY ANEMIA vital signs Vital Sign Date Time Temp Pulse Resp B/P (MAP) Pulse Ox O2 Delivery O2 Flow Rate FiO2 10/04/24 15:04 47 16 119/75 10/04/24 13:00 97.8 98 97.8 10/04/24 08:11 Nasal Cannula* 2 28 Total Intake and Output 10/03/24 10/03/24 10/04/24 15:00 23:00 07:00 Intake Total 100 ml 850 ml 1300 ml Balance 100 ml 850 ml 1300 ml medications Current Medications Medications Dose Ordered Sig/Aranza Route Start Time Stop Time Status Last Admin Dose Admin Ondansetron HCl 4 mg Q4HP PRN IV 09/25/24 12:00 09/25/24 13:39 4 MG Acetaminophen 650 mg Q6HP PRN PO 09/25/24 12:00 Piperacillin Sod/ Tazobactam Sod 100 ml @ 25 mls/hr Q8HR IV 09/25/24 14:00 10/04/24 14:32 25 MLS/HR Amlodipine Besylate 5 mg BID PO 09/25/24 22:00 10/04/24 08:51 5 MG Calcium Acetate 667 mg TIDWM PO 09/25/24 12:00 10/04/24 11:43 667 MG Hydralazine HCl 10 mg TID PO 09/25/24 14:00 10/03/24 14:43 10 MG Nifedipine 30 mg BID PO 09/25/24 22:00 UNV Sertraline HCl 50 mg DAILY PO 09/26/24 10:00 10/04/24 08:48 50 MG Sucralfate 1 gm QID PO 09/25/24 12:00 10/04/24 11:43 1 GM Aspirin 81 mg DAILY PO 09/26/24 10:00 10/04/24 08:49 81 MG Atorvastatin Calcium 40 mg HS PO 09/25/24 22:00 10/03/24 21:59 40 MG Clonidine HCl 0.3 mg BID PO 09/25/24 22:00 10/04/24 09:19 0.3 MG Hyoscyamine 0.125 mg BID PO 09/25/24 22:00 10/04/24 08:49 0.125 MG Metoprolol Succinate 25 mg DAILY PO 09/26/24 10:00 10/03/24 10:22 25 MG Pregabalin 100 mg BID PO 09/25/24 22:00 10/04/24 08:48 100 MG Patient Own Medication 1 tab BID PO 09/25/24 22:00 Patient Own Medication 1 tab TID PO 09/25/24 14:00 Patient Own Medication 1 tab DAILY PO 09/26/24 10:00 Pantoprazole Sodium 40 mg DAILY IV 09/25/24 12:00 10/04/24 08:45 40 MG Hydralazine HCl 10 mg Q6HP PRN IV 09/25/24 12:15 09/30/24 20:01 10 MG Lorazepam 0.25 mg Q6HP PRN IV 09/25/24 19:45 10/01/24 23:14 0.25 MG Labetalol HCl 10 mg Q2HPRN PRN IV 09/26/24 08:45 09/28/24 17:56 10 MG Lorazepam 0.25 mg Q6HP PRN IV 09/26/24 22:45 Cancel Diagnostic Test (Pha) 1 strip Q6HR 09/27/24 18:00 10/04/24 12:23 1 STRIP Insulin Human Regular FOLLOW SLIDING SCALE Q6HR SC 09/27/24 18:00 10/01/24 00:23 2 UNITS Dextrose 50 ml UD IV 09/27/24 17:00 Sodium Chloride 10 ml QSHIFT@10,22 IV 09/29/24 22:00 10/04/24 08:49 10 ML Enteral Nutritional Formula 240 ml TIDWM PO 10/01/24 18:00 10/04/24 11:43 240 ML Hydromorphone HCl 1 mg Q4HPRN PRN IV 10/04/24 14:00 10/04/24 14:34 1 MG laboratory and microbiology Laboratory Tests 10/04/24 05:49 Test 10/04/24 05:49 Range/Units Serum Glucose 96 74-106 mg/dL Problem List ABD PAIN NAUSEA VOMITING HEMATEMESIS PMH; HX SEVERE HYPOKALEMIA ? DYSRHYTHMIA DIARRHEA PT WELL KNOWN TO ME HX OF CAD DIABETES HTN HYPERLIPIDEMIA S/P C 04/09 * Left main normal. * Left anterior descending artery without any flow restrictive lesion. * Circumflex dominant vessel without any flow restrictive lesion. * Right coronary artery nondominant vessel without any flow restrictive lesion. * Left ventricular function showed hyperdynamic contractility with an LV. Left ventricular ejection fraction greater than 65%. * LVEDP was 5 mmHg. Left ventricular systolic pressure 160. Right heart catheterization, [facility] reading shows RA pressure of 4, RV pressure of 26/10, PA pressure of 26/10, and capillary wedge pressure of 5. * Left ventricular end-diastolic pressure as mentioned above was also 5. * At this time, no surgical intervention. No catheter-based intervention is warranted. The patient's blood pressure needs absolutely to be controlled. At this time, beta blockade may be a good option for this patient. TROPONIN NEGATIVE BNP WNL HX OF LIVER RESECTION LUNG NODULE THICKENED COLONIC WALL COLITIS HX OF OPEN HEART SURGERY ANEMIA Assessment/Plan S/P EXP LAP LYSIS OF ADHESIONS CLOSURE OF 2 ENTEROTOMIES SERIAL LAB START TPN INCREASE PAIN MANAGEMENT TPN STARTED LASIX 40 MG IV SECONDARY TO INCREASE FLUID RETENTION NOW STARTED ON CLEAR LIQUID ONCE DIET IS ADVANCED CAN DC TPN WROTE FOR FENTANYL PATCH BUT PHARMACY REFUSES TO DISPENSE THERE WILL BE DELAY IN PTs RECOVERY PHARMACY HAS DECIDED TO MANAGE PAIN MANAGEMENT AND COMPLICATIONS ASSOCIATED WITH SURGICAL PAIN CT OF ABD PELVIS Interval decompression of previously seen bowel obstruction. No residual small bowel dilation seen. Mild colonic diverticulosis. Pelvic fluid, likely post surgical in nature.Tiny nonobstructive left kidney stone. Dietary Evaluation Review Comments: 1. TPN per pharmacy meeting 75% of her needs 2, TF Glucerna@65ml/hr (94g Protein 1872 kcal, 1256ml free water) if EN feasible, 3. advance to CCHO-60 diet if GI accessible and medically feasible. Expected Outcomes/Goals: avoid wt loss. avoid hyperglycemia and uremic syndrome Plan discussed with: Patient ELICIA ROBERTSON MD Oct 04, 2024 16:10
--- NOTE | 2024-10-04 16:29 | DVHPNRES ---
Progress Note Date Seen: Oct 04, 2024 Resident Creating Document: DESEAN LESTER RESIDENT Medical Necessity Reason Pt with a Central, PICC or Fol: No Subjective Review of Systems 69 years old female with a PMH of CHF, chronic respiratory failure on 2 L home oxygen, HTN, liver cancer s/p resection, right ankle surgery, history of laparotomy, cholecystectomy, PUD, untreated hepatitis-C , history of laparotomy presented to the ED with the chief complaints of abdominal pain and vomiting since Friday. patient reported she has been having this abdominal pain for past 2-3 months for which PCP thinks it might be gastric ulcer enteritis oral medications but no results were seen. Eventually pain got worsen over the past month and for past couple of days patient started having severe abdominal pain 10/10 mostly in umbilical area associated with severe vomiting initially orange: And sometimes blood also seen which prompted her to visit ED. on my assessment patient denies fever, diarrhea, chest pain, shortness of breath, sick contacts, recent travel and other associated symptoms. PMH: CHF, chronic respiratory failure on 2 L home oxygen, HTN, liver cancer s/p resection, right ankle surgery, history of laparotomy, cholecystectomy, PUD, untreated hepatitis-C , history of laparotomy PSH: Appendectomy, cholecystectomy, CABG, tonsillectomy Family history: Cancer, Hypertension, Other (Mom with hypertension and breast cancer. Dad with hypertension.) Personal history: Lives at home with the family. Denies smoking, alcohol and other drug abuse Allergies: none ROS: Patient seen and examined by me at the bedside. Overnight events reviewed. Patient reports feeling much better and that she had a bowel movement today morning which was little in the amount, soft. she however did not look at the stool to notice any blood. She says she continues to have pain and today morning at 4:30 a.m. she had sharp pains that woke her up. She reports that she has been ambulating and tolerating a soft diet. rest of the ROS is negative Objective vital signs Vital Sign Date Time Temp Pulse Resp B/P (MAP) Pulse Ox O2 Delivery O2 Flow Rate FiO2 10/04/24 15:04 47 16 119/75 10/04/24 13:00 97.8 98 97.8 10/04/24 08:11 Nasal Cannula* 2 28 Total Intake and Output 10/03/24 10/03/24 10/04/24 15:00 23:00 07:00 Intake Total 100 ml 850 ml 1300 ml Balance 100 ml 850 ml 1300 ml medications Current Medications Medications Dose Ordered Sig/Aranza Route Start Time Stop Time Status Last Admin Dose Admin Ondansetron HCl 4 mg Q4HP PRN IV 09/25/24 12:00 09/25/24 13:39 4 MG Acetaminophen 650 mg Q6HP PRN PO 09/25/24 12:00 Piperacillin Sod/ Tazobactam Sod 100 ml @ 25 mls/hr Q8HR IV 09/25/24 14:00 10/04/24 14:32 25 MLS/HR Amlodipine Besylate 5 mg BID PO 09/25/24 22:00 10/04/24 08:51 5 MG Calcium Acetate 667 mg TIDWM PO 09/25/24 12:00 10/04/24 11:43 667 MG Hydralazine HCl 10 mg TID PO 09/25/24 14:00 10/03/24 14:43 10 MG Nifedipine 30 mg BID PO 09/25/24 22:00 UNV Sertraline HCl 50 mg DAILY PO 09/26/24 10:00 10/04/24 08:48 50 MG Sucralfate 1 gm QID PO 09/25/24 12:00 10/04/24 11:43 1 GM Aspirin 81 mg DAILY PO 09/26/24 10:00 10/04/24 08:49 81 MG Atorvastatin Calcium 40 mg HS PO 09/25/24 22:00 10/03/24 21:59 40 MG Clonidine HCl 0.3 mg BID PO 09/25/24 22:00 10/04/24 09:19 0.3 MG Hyoscyamine 0.125 mg BID PO 09/25/24 22:00 10/04/24 08:49 0.125 MG Metoprolol Succinate 25 mg DAILY PO 09/26/24 10:00 10/03/24 10:22 25 MG Pregabalin 100 mg BID PO 09/25/24 22:00 10/04/24 08:48 100 MG Patient Own Medication 1 tab BID PO 09/25/24 22:00 Patient Own Medication 1 tab TID PO 09/25/24 14:00 Patient Own Medication 1 tab DAILY PO 09/26/24 10:00 Pantoprazole Sodium 40 mg DAILY IV 09/25/24 12:00 10/04/24 08:45 40 MG Hydralazine HCl 10 mg Q6HP PRN IV 09/25/24 12:15 09/30/24 20:01 10 MG Lorazepam 0.25 mg Q6HP PRN IV 09/25/24 19:45 10/01/24 23:14 0.25 MG Labetalol HCl 10 mg Q2HPRN PRN IV 09/26/24 08:45 09/28/24 17:56 10 MG Lorazepam 0.25 mg Q6HP PRN IV 09/26/24 22:45 Cancel Diagnostic Test (Pha) 1 strip Q6HR 09/27/24 18:00 10/04/24 12:23 1 STRIP Insulin Human Regular FOLLOW SLIDING SCALE Q6HR SC 09/27/24 18:00 10/01/24 00:23 2 UNITS Dextrose 50 ml UD IV 09/27/24 17:00 Sodium Chloride 10 ml QSHIFT@10,22 IV 09/29/24 22:00 10/04/24 08:49 10 ML Enteral Nutritional Formula 240 ml TIDWM PO 10/01/24 18:00 10/04/24 11:43 240 ML Hydromorphone HCl 1 mg Q4HPRN PRN IV 10/04/24 14:00 10/04/24 14:34 1 MG Examination Patient is lying down in the bed General Appearance: Alert, Oriented X3, Cooperative, Not in acute distress HEENT: Atraumatic, Mucous membranes moist/pink Respiratory: lungs are clear to auscultation, no added sounds heard Abdominal: placement of abdominal binder around abdomen, on removal a sterile gauze extending from epigastric area to suprapubic region seen- absence of any soakage; abdomen is soft on palpation and active bowel sounds heard on auscultation Extremities: No edema, Normal pulses, No tenderness/swelling Skin: No Significant rash, breakage in skin Neuro: Normal speech, sensorimotor deficits none Psych/Mental Status: Mental status NL, Mood NL laboratory and microbiology Laboratory Tests 10/04/24 05:49 Test 10/04/24 05:49 Range/Units Serum Glucose 96 74-106 mg/dL Labs and/or images reviewed: Labs reviewed by me, Image(s) reviewed by me Problem List/Assessment/Plan Problem List/Assessment/Plan # SBO, s/p day 5 EXP LAP for adhesiolysis with closure of 2 enterotomies # Ruled out small-bowel ischemia # Suspected sepsis due to intraabdominal infection - CT ABD/pelvis showed high-grade SBO with a transfusion had tried lower quadrant - pain management and antiemetics - Hydromorphone converted from 2 hourly to 4 hourly today - IVF - TPN discontinued - empiric antibiotic Zosyn - advancing diet as per surgical technology instructor recommendations- soft diet - physical therapy evaluation done, advised home health for physical therapy - surgery is following - lactic acid, normal (0.8mMol/L) - Repeat CT abdomen / pelvis shows: interval decompression of previously seen bowel obstruction. No residual small bowel dilation seen. Mild colonic diverticulosis. Pelvic fluid, likely post surgical in nature. # Hypokalemia- improving - Repleted from 3.2 to now 3.6 - Monitor labs # Hypertensive urgency possible secondary to history of hypertension and uncontrolled pain -resolving - pain management - continuously monitor blood pressure - hydralazine and IV labetalol p.r.n. - oral medications begun, NG tube removed # Mild RAUL d/t VMN likely, resolved - monitor lab for now # Chronic systolic/diastolic CHF not in exacerbation - resume home meds - consult Dr. Rausch # hypercalcemia - resolved GI PPX: Protonix VTE ppx: SCDs Diet: soft diet Goals of care addressed with the patient for more than 27 minutes: Full code status Case discussed with Dr. Yin, patient and nurse Plan discussed with: Patient, Other (rn) My Orders My Orders Orders - DESEAN LESTER Procedure Category Date Status Time Hydromorphone PHA 10/04/24 In Process Injection (Dilaudid 14:00 Dietary Evaluation Review Comments: 1. TPN per pharmacy meeting 75% of her needs 2, TF Glucerna@65ml/hr (94g Protein 1872 kcal, 1256ml free water) if EN feasible, 3. advance to [facility]-60 diet if GI accessible and medically feasible. Expected Outcomes/Goals: avoid wt loss. avoid hyperglycemia and uremic syndrome Date of Service: Oct 04, 2024 Billing Provider: FLORENTINO YIN MD Common Visit Codes: [id number] INP/OBS CARE(HIGH) DESEAN LESTER RESIDENT Oct 04, 2024 16:29 FLORENTINO YIN MD Oct 04, 2024 22:52
--- NOTE | 2024-10-04 20:21 | DVHPN2 ---
Progress Note Date Seen: Oct 04, 2024 Medical Necessity Reason Pt with a Central, PICC or Fol: No Objective vital signs Vital Sign Date Time Temp Pulse Resp B/P (MAP) Pulse Ox O2 Delivery O2 Flow Rate FiO2 10/04/24 18:39 49 18 117/74 10/04/24 17:00 97.3 100 97.3 10/04/24 08:11 Nasal Cannula* 2 28 Total Intake and Output 10/03/24 10/03/24 10/04/24 15:00 23:00 07:00 Intake Total 100 ml 850 ml 1300 ml Balance 100 ml 850 ml 1300 ml medications Current Medications Medications Dose Ordered Sig/Aranza Route Start Time Stop Time Status Last Admin Dose Admin Ondansetron HCl 4 mg Q4HP PRN IV 09/25/24 12:00 09/25/24 13:39 4 MG Acetaminophen 650 mg Q6HP PRN PO 09/25/24 12:00 Piperacillin Sod/ Tazobactam Sod 100 ml @ 25 mls/hr Q8HR IV 09/25/24 14:00 10/04/24 14:32 25 MLS/HR Amlodipine Besylate 5 mg BID PO 09/25/24 22:00 10/04/24 08:51 5 MG Calcium Acetate 667 mg TIDWM PO 09/25/24 12:00 10/04/24 17:36 667 MG Hydralazine HCl 10 mg TID PO 09/25/24 14:00 10/03/24 14:43 10 MG Nifedipine 30 mg BID PO 09/25/24 22:00 UNV Sertraline HCl 50 mg DAILY PO 09/26/24 10:00 10/04/24 08:48 50 MG Sucralfate 1 gm QID PO 09/25/24 12:00 10/04/24 17:36 1 GM Aspirin 81 mg DAILY PO 09/26/24 10:00 10/04/24 08:49 81 MG Atorvastatin Calcium 40 mg HS PO 09/25/24 22:00 10/03/24 21:59 40 MG Clonidine HCl 0.3 mg BID PO 09/25/24 22:00 10/04/24 09:19 0.3 MG Hyoscyamine 0.125 mg BID PO 09/25/24 22:00 10/04/24 08:49 0.125 MG Metoprolol Succinate 25 mg DAILY PO 09/26/24 10:00 10/03/24 10:22 25 MG Pregabalin 100 mg BID PO 09/25/24 22:00 10/04/24 08:48 100 MG Patient Own Medication 1 tab BID PO 09/25/24 22:00 Patient Own Medication 1 tab TID PO 09/25/24 14:00 Patient Own Medication 1 tab DAILY PO 09/26/24 10:00 Pantoprazole Sodium 40 mg DAILY IV 09/25/24 12:00 10/04/24 08:45 40 MG Hydralazine HCl 10 mg Q6HP PRN IV 09/25/24 12:15 09/30/24 20:01 10 MG Lorazepam 0.25 mg Q6HP PRN IV 09/25/24 19:45 10/01/24 23:14 0.25 MG Labetalol HCl 10 mg Q2HPRN PRN IV 09/26/24 08:45 09/28/24 17:56 10 MG Lorazepam 0.25 mg Q6HP PRN IV 09/26/24 22:45 Cancel Diagnostic Test (Pha) 1 strip Q6HR 09/27/24 18:00 10/04/24 16:32 1 STRIP Insulin Human Regular FOLLOW SLIDING SCALE Q6HR SC 09/27/24 18:00 10/01/24 00:23 2 UNITS Dextrose 50 ml UD IV 09/27/24 17:00 Sodium Chloride 10 ml QSHIFT@10,22 IV 09/29/24 22:00 10/04/24 08:49 10 ML Enteral Nutritional Formula 240 ml TIDWM PO 10/01/24 18:00 10/04/24 17:36 240 ML Hydromorphone HCl 1 mg Q4HPRN PRN IV 10/04/24 14:00 10/04/24 18:09 1 MG laboratory and microbiology Laboratory Tests 10/04/24 05:49 Test 10/04/24 05:49 Range/Units Serum Glucose 96 74-106 mg/dL Problem List/Assessment/Plan Problem List/Assessment/Plan AFEBRILE VSS C/O OF LOWER ABD PAIN BUT CONTROLLED AMBULATED BM+ FLATUS + LUCINA SOFT DIET CONTINUE AMBULATION CLOSE OBSERVATION NURSE AT BEDSIDE Plan discussed with: Patient Dietary Evaluation Review Comments: 1. TPN per pharmacy meeting 75% of her needs 2, TF Glucerna@65ml/hr (94g Protein 1872 kcal, 1256ml free water) if EN feasible, 3. [facility] if GI accessible and medically feasible. Expected Outcomes/Goals: avoid wt loss. avoid hyperglycemia and uremic syndrome AG MENDOZA MD Oct 04, 2024 20:20
[2024-10-04] MEDS: HYDROmorphone HCL 2 MG/ML VL/or syr IV ONE (21:33)
[2024-10-05] VITALS (9 sets, daily range): BP systolic 115–162; BP diastolic 67–102; PULSE 48–69; RESP 14–18; TEMP 97.5–98.3; O2SAT 94–98
[2024-10-05 07:27] LABS: Hematocrit 29.9 % (36.0-46.0); Hemoglobin 10.0 g/dL (12.2-16.2); Mean Corpuscular Hemoglobin 30.6 pg (28.0-32.0); Mean Corpuscular Volume 91.3 fL (80.0-100.0); Nucleated Red Blood Cells % 0.1 %
[2024-10-05 07:36] LABS: Potassium 3.6 mmol/L (3.5-5.1); Sodium 142 mmol/L (136-145)
[2024-10-05 07:37] LABS: Anion Gap 9 (5-15); Calcium 9.8 mg/dL (8.7-10.4); Carbon Dioxide 25 mmol/L (20-31)
[2024-10-05 07:42] LABS: BUN/Creatinine Ratio 11.5 (10.0-20.0); Blood Urea Nitrogen 12 mg/dL (9-23); Glucose 86 mg/dL (74-106)
[2024-10-05 07:44] LABS: Chloride 108 mmol/L (98-107)
--- NOTE | 2024-10-05 15:13 | DVHPN2 ---
Progress Note - Dictate Date Seen: Oct 05, 2024 Medical Necessity Reason Pt with a Central, PICC or Fol: No Subjective PT WITH ABD PAIN NAUSEA VOMITING HEMATEMESIS PMH; HX SEVERE HYPOKALEMIA ? DYSRHYTHMIA DIARRHEA PT WELL KNOWN TO ME HX OF CAD DIABETES HTN HYPERLIPIDEMIA S/P [facility] 04/09 * Left main normal. * Left anterior descending artery without any flow restrictive lesion. * Circumflex dominant vessel without any flow restrictive lesion. * Right coronary artery nondominant vessel without any flow restrictive lesion. * Left ventricular function showed hyperdynamic contractility with an LV. Left ventricular ejection fraction greater than 65%. * LVEDP was 5 mmHg. Left ventricular systolic pressure 160. Right heart catheterization, [place] reading shows RA pressure of 4, RV pressure of 26/10, PA pressure of 26/10, and capillary wedge pressure of 5. * Left ventricular end-diastolic pressure as mentioned above was also 5. * At this time, no surgical intervention. No catheter-based intervention is warranted. The patient's blood pressure needs absolutely to be controlled. At this time, beta blockade may be a good option for this patient. TROPONIN NEGATIVE BNP WNL HX OF LIVER RESECTION LUNG NODULE THICKENED COLONIC WALL COLITIS HX OF OPEN HEART SURGERY ANEMIA vital signs Vital Sign Date Time Temp Pulse Resp B/P (MAP) Pulse Ox O2 Delivery O2 Flow Rate FiO2 10/05/24 14:16 115/72 10/05/24 13:52 97.9 48 14 96 97.9 10/05/24 07:54 Nasal Cannula* 2 28 Total Intake and Output 10/04/24 10/04/24 10/05/24 15:00 23:00 07:00 Intake Total 950 ml 700 ml Output Total 650 ml Balance 300 ml 700 ml medications Current Medications Medications Dose Ordered Sig/Aranza Route Start Time Stop Time Status Last Admin Dose Admin Ondansetron HCl 4 mg Q4HP PRN IV 09/25/24 12:00 09/25/24 13:39 4 MG Acetaminophen 650 mg Q6HP PRN PO 09/25/24 12:00 Piperacillin Sod/ Tazobactam Sod 100 ml @ 25 mls/hr Q8HR IV 09/25/24 14:00 10/05/24 14:16 25 MLS/HR Amlodipine Besylate 5 mg BID PO 09/25/24 22:00 10/05/24 09:24 5 MG Calcium Acetate 667 mg TIDWM PO 09/25/24 12:00 10/05/24 11:33 667 MG Hydralazine HCl 10 mg TID PO 09/25/24 14:00 10/05/24 14:16 10 MG Nifedipine 30 mg BID PO 09/25/24 22:00 UNV Sertraline HCl 50 mg DAILY PO 09/26/24 10:00 10/05/24 09:23 50 MG Sucralfate 1 gm QID PO 09/25/24 12:00 10/05/24 11:33 1 GM Aspirin 81 mg DAILY PO 09/26/24 10:00 10/05/24 09:22 81 MG Atorvastatin Calcium 40 mg HS PO 09/25/24 22:00 10/04/24 22:21 40 MG Clonidine HCl 0.3 mg BID PO 09/25/24 22:00 10/05/24 09:25 0.3 MG Hyoscyamine 0.125 mg BID PO 09/25/24 22:00 10/05/24 09:26 0.125 MG Metoprolol Succinate 25 mg DAILY PO 09/26/24 10:00 10/03/24 10:22 25 MG Pregabalin 100 mg BID PO 09/25/24 22:00 10/05/24 09:23 100 MG Patient Own Medication 1 tab BID PO 09/25/24 22:00 Patient Own Medication 1 tab TID PO 09/25/24 14:00 Patient Own Medication 1 tab DAILY PO 09/26/24 10:00 Pantoprazole Sodium 40 mg DAILY IV 09/25/24 12:00 10/05/24 09:22 40 MG Hydralazine HCl 10 mg Q6HP PRN IV 09/25/24 12:15 09/30/24 20:01 10 MG Lorazepam 0.25 mg Q6HP PRN IV 09/25/24 19:45 10/05/24 11:28 0.25 MG Labetalol HCl 10 mg Q2HPRN PRN IV 09/26/24 08:45 09/28/24 17:56 10 MG Lorazepam 0.25 mg Q6HP PRN IV 09/26/24 22:45 Cancel Diagnostic Test (Pha) 1 strip Q6HR 09/27/24 18:00 10/05/24 12:00 1 STRIP Insulin Human Regular FOLLOW SLIDING SCALE Q6HR SC 09/27/24 18:00 10/01/24 00:23 2 UNITS Dextrose 50 ml UD IV 09/27/24 17:00 Sodium Chloride 10 ml QSHIFT@10,22 IV 09/29/24 22:00 10/05/24 09:26 10 ML Enteral Nutritional Formula 240 ml TIDWM PO 10/01/24 18:00 10/05/24 11:33 240 ML Hydromorphone HCl 1 mg Q4HPRN PRN IV 10/04/24 14:00 10/05/24 04:57 1 MG Acetaminophen/ Hydrocodone Bitart 1 tab Q4HP PRN PO 10/05/24 09:15 laboratory and microbiology Laboratory Tests 10/05/24 05:25 Test 10/05/24 05:25 Range/Units Serum Glucose 86 74-106 mg/dL Problem List ABD PAIN NAUSEA VOMITING HEMATEMESIS PMH; HX SEVERE HYPOKALEMIA ? DYSRHYTHMIA DIARRHEA PT WELL KNOWN TO ME HX OF CAD DIABETES HTN HYPERLIPIDEMIA S/P [facility] 04/09 * Left main normal. * Left anterior descending artery without any flow restrictive lesion. * Circumflex dominant vessel without any flow restrictive lesion. * Right coronary artery nondominant vessel without any flow restrictive lesion. * Left ventricular function showed hyperdynamic contractility with an LV. Left ventricular ejection fraction greater than 65%. * LVEDP was 5 mmHg. Left ventricular systolic pressure 160. Right heart catheterization, [place] reading shows RA pressure of 4, RV pressure of 26/10, PA pressure of 26/10, and capillary wedge pressure of 5. * Left ventricular end-diastolic pressure as mentioned above was also 5. * At this time, no surgical intervention. No catheter-based intervention is warranted. The patient's blood pressure needs absolutely to be controlled. At this time, beta blockade may be a good option for this patient. TROPONIN NEGATIVE BNP WNL HX OF LIVER RESECTION LUNG NODULE THICKENED COLONIC WALL COLITIS HX OF OPEN HEART SURGERY ANEMIA Assessment/Plan S/P EXP LAP LYSIS OF ADHESIONS CLOSURE OF 2 ENTEROTOMIES SERIAL LAB START TPN INCREASE PAIN MANAGEMENT TPN STARTED LASIX 40 MG IV SECONDARY TO INCREASE FLUID RETENTION NOW STARTED ON CLEAR LIQUID ONCE DIET IS ADVANCED CAN DC TPN WROTE FOR FENTANYL PATCH BUT PHARMACY REFUSES TO DISPENSE THERE WILL BE DELAY IN PTs RECOVERY PHARMACY HAS DECIDED TO MANAGE PAIN MANAGEMENT AND COMPLICATIONS ASSOCIATED WITH SURGICAL PAIN CT OF ABD PELVIS Interval decompression of previously seen bowel obstruction. No residual small bowel dilation seen. Mild colonic diverticulosis. Pelvic fluid, likely post surgical in nature.Tiny nonobstructive left kidney stone. PROTRACTED ILEUS SECONDARY TO NARCOTICS USE. PT WOULD HAVE RECOVERED IF FENTANYL WAS PROVIDED Dietary Evaluation Review Comments: 1. TPN per pharmacy meeting 75% of her needs 2, TF Glucerna@65ml/hr (94g Protein 1872 kcal, 1256ml free water) if EN feasible, 3. [facility] if GI accessible and medically feasible. Expected Outcomes/Goals: avoid wt loss. avoid hyperglycemia and uremic syndrome Plan discussed with: Patient ELICIA ROBERTSON MD Oct 05, 2024 15:12
--- NOTE | 2024-10-05 15:24 | DVHPNRES ---
Progress Note Date Seen: Oct 05, 2024 Resident Creating Document: DESEAN LESTER RESIDENT Medical Necessity Reason Pt with a Central, PICC or Fol: No Subjective Review of Systems 69 years old female with a PMH of CHF, chronic respiratory failure on 2 L home oxygen, HTN, liver cancer s/p resection, right ankle surgery, history of laparotomy, cholecystectomy, PUD, untreated hepatitis-C , history of laparotomy presented to the ED with the chief complaints of abdominal pain and vomiting since Friday. patient reported she has been having this abdominal pain for past 2-3 months for which PCP thinks it might be gastric ulcer enteritis oral medications but no results were seen. Eventually pain got worsen over the past month and for past couple of days patient started having severe abdominal pain 10/10 mostly in umbilical area associated with severe vomiting initially orange: And sometimes blood also seen which prompted her to visit ED. on my assessment patient denies fever, diarrhea, chest pain, shortness of breath, sick contacts, recent travel and other associated symptoms. PMH: CHF, chronic respiratory failure on 2 L home oxygen, HTN, liver cancer s/p resection, right ankle surgery, history of laparotomy, cholecystectomy, PUD, untreated hepatitis-C , history of laparotomy PSH: Appendectomy, cholecystectomy, CABG, tonsillectomy Family history: Cancer, Hypertension, Other (Mom with hypertension and breast cancer. Dad with hypertension.) Personal history: Lives at home with the family. Denies smoking, alcohol and other drug abuse Allergies: no known allergies ROS: Patient was seen and examined by me at the bedside today. Overnight events reviewed. Patient says that she still has abdominal pain which is 10/0 in intensity but the pain medications help. She reports that she has been ambulating, hydrating and eating but she complains that she has pain in the abdomen after eating. She has passed flatus but complains that she has not had any bowel movements since day before yesterday. She also reports that once she gets up from urinating from the bedside commode she feels a little dizzy. No other active complaints. Rest of the ROS is negative. Objective vital signs Vital Sign Date Time Temp Pulse Resp B/P (MAP) Pulse Ox O2 Delivery O2 Flow Rate FiO2 10/05/24 15:17 58 18 117/71 10/05/24 13:52 97.9 96 97.9 10/05/24 07:54 Nasal Cannula* 2 28 Total Intake and Output 10/04/24 10/04/24 10/05/24 15:00 23:00 07:00 Intake Total 950 ml 700 ml Output Total 650 ml Balance 300 ml 700 ml medications Current Medications Medications Dose Ordered Sig/Aranza Route Start Time Stop Time Status Last Admin Dose Admin Ondansetron HCl 4 mg Q4HP PRN IV 09/25/24 12:00 09/25/24 13:39 4 MG Acetaminophen 650 mg Q6HP PRN PO 09/25/24 12:00 Piperacillin Sod/ Tazobactam Sod 100 ml @ 25 mls/hr Q8HR IV 09/25/24 14:00 10/05/24 14:16 25 MLS/HR Amlodipine Besylate 5 mg BID PO 09/25/24 22:00 10/05/24 09:24 5 MG Calcium Acetate 667 mg TIDWM PO 09/25/24 12:00 10/05/24 11:33 667 MG Hydralazine HCl 10 mg TID PO 09/25/24 14:00 10/05/24 14:16 10 MG Nifedipine 30 mg BID PO 09/25/24 22:00 UNV Sertraline HCl 50 mg DAILY PO 09/26/24 10:00 10/05/24 09:23 50 MG Sucralfate 1 gm QID PO 09/25/24 12:00 10/05/24 11:33 1 GM Aspirin 81 mg DAILY PO 09/26/24 10:00 10/05/24 09:22 81 MG Atorvastatin Calcium 40 mg HS PO 09/25/24 22:00 10/04/24 22:21 40 MG Clonidine HCl 0.3 mg BID PO 09/25/24 22:00 10/05/24 09:25 0.3 MG Hyoscyamine 0.125 mg BID PO 09/25/24 22:00 10/05/24 09:26 0.125 MG Metoprolol Succinate 25 mg DAILY PO 09/26/24 10:00 10/03/24 10:22 25 MG Pregabalin 100 mg BID PO 09/25/24 22:00 10/05/24 09:23 100 MG Patient Own Medication 1 tab BID PO 09/25/24 22:00 Patient Own Medication 1 tab TID PO 09/25/24 14:00 Patient Own Medication 1 tab DAILY PO 09/26/24 10:00 Pantoprazole Sodium 40 mg DAILY IV 09/25/24 12:00 10/05/24 09:22 40 MG Hydralazine HCl 10 mg Q6HP PRN IV 09/25/24 12:15 09/30/24 20:01 10 MG Lorazepam 0.25 mg Q6HP PRN IV 09/25/24 19:45 10/05/24 11:28 0.25 MG Labetalol HCl 10 mg Q2HPRN PRN IV 09/26/24 08:45 09/28/24 17:56 10 MG Lorazepam 0.25 mg Q6HP PRN IV 09/26/24 22:45 Cancel Diagnostic Test (Pha) 1 strip Q6HR 09/27/24 18:00 10/05/24 12:00 1 STRIP Insulin Human Regular FOLLOW SLIDING SCALE Q6HR SC 09/27/24 18:00 10/01/24 00:23 2 UNITS Dextrose 50 ml UD IV 09/27/24 17:00 Sodium Chloride 10 ml QSHIFT@10,22 IV 09/29/24 22:00 10/05/24 09:26 10 ML Enteral Nutritional Formula 240 ml TIDWM PO 10/01/24 18:00 10/05/24 11:33 240 ML Hydromorphone HCl 1 mg Q4HPRN PRN IV 10/04/24 14:00 10/05/24 15:17 1 MG Acetaminophen/ Hydrocodone Bitart 1 tab Q4HP PRN PO 10/05/24 09:15 Examination General Appearance: Alert, Oriented to person, place and time, mild distress HEENT: Atraumatic, Mucous membranes moist/pink Respiratory: Lungs are clear to auscultation, no added sounds heard Abdominal: abdominal binder around the abdomen, on removal a clean sterile gauze extending from epigastric to suprapubic region present- no soakage; abdomen is soft on palpation, active bowel sounds heard, mild swelling on the right lower quadrant. Extremities: No edema, Normal pulses, No tenderness/swelling Skin: No Significant rash, no breakage in skin Neuro: Normal speech, no sensorimotor deficits Psych/Mental Status: Mental status NL, Mood NL laboratory and microbiology Laboratory Tests 10/05/24 05:25 Test 10/05/24 05:25 Range/Units Serum Glucose 86 74-106 mg/dL Labs and/or images reviewed: Labs reviewed by me, Image(s) reviewed by me Problem List/Assessment/Plan Problem List/Assessment/Plan # SBO, s/p day 6 EXP LAP for adhesiolysis with closure of 2 enterotomies # Ruled out small-bowel ischemia # Suspected sepsis due to intraabdominal infection - CT ABD/pelvis showed high-grade SBO with a transfusion had tried lower quadrant - pain management and antiemetics - IVF - Discontinued Clinimix, patient is on soft diet as per Sx consult. - advancing diet as per home energy consultant supervisor recommendations, patient on soft diet - patient has been ambulating with a walker - empiric antibiotic Zosyn - hydromorphone 2 hourly - Hydrocodone 4 hourly PRN - physical therapy evaluation done, advised home health for physical therapy - surgery is following - lactic acid, normal (0.8mMol/L) - Repeat CT abdomen / pelvis shows:interval decompression of previously seen bowel obstruction. No residual small bowel dilation seen. Mild colonic diverticulosis. Pelvic fluid, likely post surgical in nature. # Hypokalemia- correcting - Repleting - Monitor labs # Hypertensive urgency possible secondary to history of hypertension and uncontrolled pain -resolving - pain management - continuously monitor blood pressure - hydralazine and IV labetalol p.r.n. - oral medications begun, NG tube removed # Mild RAUL d/t VMN likely, resolved - monitor lab for now # Chronic systolic/diastolic CHF not in exacerbation - resume home meds - consult Dr. Rausch # hypercalcemia - resolved #Tiny nonobstructive left kidney stone - as seen in CT abdomen and pelvis - outpatient follow up GI PPX: Protonix VTE ppx: SCDs Diet: Soft diet PT evaluation suggested home health for physical therapy Consults: [employer] Setup Worker on board for home health for physical therapy Goals of care addressed with the patient for more than 20 minutes: Full code status Case discussed with Dr. Quigley, patient and nurse Plan discussed with: Patient, Other (rn) Dietary Evaluation Review Comments: 1. TPN per pharmacy meeting 75% of her needs 2, TF Glucerna@65ml/hr (94g Protein 1872 kcal, 1256ml free water) if EN feasible, [facility]. [facility] if GI accessible and medically feasible. Expected Outcomes/Goals: avoid wt loss. avoid hyperglycemia and uremic syndrome Date of Service: Oct 05, 2024 Billing Provider: FLORENTINO YIN MD Common Visit Codes: [id number] INP/OBS CARE(HIGH) DESEAN LESTER RESIDENT Oct 05, 2024 15:24 FLORENTINO YIN MD Oct 05, 2024 18:08
[2024-10-05] MEDS: HYDROcodone-ACET 10/325MG TAB PO PRN (16:47)
--- NOTE | 2024-10-05 20:12 | DVHPN2 ---
Progress Note Date Seen: Oct 05, 2024 Medical Necessity Reason Pt with a Central, PICC or Fol: No Objective vital signs Vital Sign Date Time Temp Pulse Resp B/P (MAP) Pulse Ox O2 Delivery O2 Flow Rate FiO2 10/05/24 19:04 58 18 127/74 10/05/24 17:11 98.3 94 98.3 10/05/24 07:54 Nasal Cannula* 2 28 Total Intake and Output 10/04/24 10/04/24 10/05/24 15:00 23:00 07:00 Intake Total 950 ml 700 ml Output Total 650 ml Balance 300 ml 700 ml medications Current Medications Medications Dose Ordered Sig/Aranza Route Start Time Stop Time Status Last Admin Dose Admin Ondansetron HCl 4 mg Q4HP PRN IV 09/25/24 12:00 09/25/24 13:39 4 MG Acetaminophen 650 mg Q6HP PRN PO 09/25/24 12:00 Piperacillin Sod/ Tazobactam Sod 100 ml @ 25 mls/hr Q8HR IV 09/25/24 14:00 10/05/24 14:16 25 MLS/HR Amlodipine Besylate 5 mg BID PO 09/25/24 22:00 10/05/24 09:24 5 MG Calcium Acetate 667 mg TIDWM PO 09/25/24 12:00 10/05/24 16:47 667 MG Hydralazine HCl 10 mg TID PO 09/25/24 14:00 10/05/24 14:16 10 MG Nifedipine 30 mg BID PO 09/25/24 22:00 UNV Sertraline HCl 50 mg DAILY PO 09/26/24 10:00 10/05/24 09:23 50 MG Sucralfate 1 gm QID PO 09/25/24 12:00 10/05/24 16:47 1 GM Aspirin 81 mg DAILY PO 09/26/24 10:00 10/05/24 09:22 81 MG Atorvastatin Calcium 40 mg HS PO 09/25/24 22:00 10/04/24 22:21 40 MG Clonidine HCl 0.3 mg BID PO 09/25/24 22:00 10/05/24 09:25 0.3 MG Hyoscyamine 0.125 mg BID PO 09/25/24 22:00 10/05/24 09:26 0.125 MG Metoprolol Succinate 25 mg DAILY PO 09/26/24 10:00 10/03/24 10:22 25 MG Pregabalin 100 mg BID PO 09/25/24 22:00 10/05/24 09:23 100 MG Patient Own Medication 1 tab BID PO 09/25/24 22:00 Patient Own Medication 1 tab TID PO 09/25/24 14:00 Patient Own Medication 1 tab DAILY PO 09/26/24 10:00 Pantoprazole Sodium 40 mg DAILY IV 09/25/24 12:00 10/05/24 09:22 40 MG Hydralazine HCl 10 mg Q6HP PRN IV 09/25/24 12:15 09/30/24 20:01 10 MG Lorazepam 0.25 mg Q6HP PRN IV 09/25/24 19:45 10/05/24 11:28 0.25 MG Labetalol HCl 10 mg Q2HPRN PRN IV 09/26/24 08:45 09/28/24 17:56 10 MG Lorazepam 0.25 mg Q6HP PRN IV 09/26/24 22:45 Cancel Diagnostic Test (Pha) 1 strip Q6HR 09/27/24 18:00 10/05/24 18:00 1 STRIP Insulin Human Regular FOLLOW SLIDING SCALE Q6HR SC 09/27/24 18:00 10/01/24 00:23 2 UNITS Dextrose 50 ml UD IV 09/27/24 17:00 Sodium Chloride 10 ml QSHIFT@10,22 IV 09/29/24 22:00 10/05/24 09:26 10 ML Enteral Nutritional Formula 240 ml TIDWM PO 10/01/24 18:00 10/05/24 16:48 240 ML Hydromorphone HCl 1 mg Q4HPRN PRN IV 10/04/24 14:00 10/05/24 19:04 1 MG Acetaminophen/ Hydrocodone Bitart 1 tab Q4HP PRN PO 10/05/24 09:15 10/05/24 16:47 1 TAB laboratory and microbiology Laboratory Tests 10/05/24 05:25 Test 10/05/24 05:25 Range/Units Serum Glucose 86 74-106 mg/dL Problem List/Assessment/Plan Problem List/Assessment/Plan AFEBRILE VSS AMBULATED BM+ FLATUS + LUCINA SOFT DIET CONTINUE AMBULATION CLOSE OBSERVATION NURSE AT BEDSIDE Plan discussed with: Patient Dietary Evaluation Review Comments: 1. TPN per pharmacy meeting 75% of her needs 2, TF Glucerna@65ml/hr (94g Protein 1872 kcal, 1256ml free water) if EN feasible, [facility]. [facility] if GI accessible and medically feasible. Expected Outcomes/Goals: avoid wt loss. avoid hyperglycemia and uremic syndrome AG MENDOZA MD Oct 05, 2024 20:12
[2024-10-06] VITALS (8 sets, daily range): BP systolic 108–158; BP diastolic 47–89; PULSE 51–71; RESP 16–20; TEMP 96.4–98.5; O2SAT 90–97
[2024-10-06] MEDS: POTASSIUM CHLORIDE 40 MEQ, LIDOCAINE 1% (LOCAL ANESTH.) 4 ML in SODIUM CHL 0.9% 250 ML IV ONE (10:57)
[2024-10-06] MEDS ORDERED: IOHEXOL 300 MG/ML 100ML BOTTLE IJ ONE (12:17)
--- NOTE | 2024-10-06 12:52 | DVHPN2 ---
Progress Note - Dictate Date Seen: Oct 06, 2024 Medical Necessity Reason Pt with a Central, PICC or Fol: No Subjective PT WITH ABD PAIN NAUSEA VOMITING HEMATEMESIS PMH; HX SEVERE HYPOKALEMIA ? DYSRHYTHMIA DIARRHEA PT WELL KNOWN TO ME HX OF CAD DIABETES HTN HYPERLIPIDEMIA S/P LHC 04/09 * Left main normal. * Left anterior descending artery without any flow restrictive lesion. * Circumflex dominant vessel without any flow restrictive lesion. * Right coronary artery nondominant vessel without any flow restrictive lesion. * Left ventricular function showed hyperdynamic contractility with an LV. Left ventricular ejection fraction greater than 65%. * LVEDP was 5 mmHg. Left ventricular systolic pressure 160. Right heart catheterization, [facility]all reading shows RA pressure of 4, RV pressure of 26/10, PA pressure of 26/10, and capillary wedge pressure of 5. * Left ventricular end-diastolic pressure as mentioned above was also 5. * At this time, no surgical intervention. No catheter-based intervention is warranted. The patient's blood pressure needs absolutely to be controlled. At this time, beta blockade may be a good option for this patient. TROPONIN NEGATIVE BNP WNL HX OF LIVER RESECTION LUNG NODULE THICKENED COLONIC WALL COLITIS HX OF OPEN HEART SURGERY ANEMIA vital signs Vital Sign Date Time Temp Pulse Resp B/P (MAP) Pulse Ox O2 Delivery O2 Flow Rate FiO2 10/06/24 11:21 45 16 132/71 10/06/24 08:41 98.5 95 98.5 10/06/24 08:00 Nasal Cannula* 2 28 Total Intake and Output 10/05/24 10/05/24 10/06/24 15:00 23:00 07:00 Intake Total 400 ml 900 ml 250 ml Output Total 700 ml Balance 400 ml 900 ml -450 ml medications Current Medications Medications Dose Ordered Sig/Aranza Route Start Time Stop Time Status Last Admin Dose Admin Ondansetron HCl 4 mg Q4HP PRN IV 09/25/24 12:00 09/25/24 13:39 4 MG Acetaminophen 650 mg Q6HP PRN PO 09/25/24 12:00 Piperacillin Sod/ Tazobactam Sod 100 ml @ 25 mls/hr Q8HR IV 09/25/24 14:00 10/06/24 05:17 25 MLS/HR Amlodipine Besylate 5 mg BID PO 09/25/24 22:00 10/06/24 09:54 5 MG Calcium Acetate 667 mg TIDWM PO 09/25/24 12:00 10/06/24 12:46 667 MG Hydralazine HCl 10 mg TID PO 09/25/24 14:00 10/06/24 05:16 10 MG Nifedipine 30 mg BID PO 09/25/24 22:00 UNV Sertraline HCl 50 mg DAILY PO 09/26/24 10:00 10/06/24 10:03 50 MG Sucralfate 1 gm QID PO 09/25/24 12:00 10/06/24 09:55 1 GM Aspirin 81 mg DAILY PO 09/26/24 10:00 10/06/24 09:55 81 MG Atorvastatin Calcium 40 mg HS PO 09/25/24 22:00 10/05/24 21:59 40 MG Clonidine HCl 0.3 mg BID PO 09/25/24 22:00 10/06/24 09:56 0.3 MG Hyoscyamine 0.125 mg BID PO 09/25/24 22:00 10/06/24 10:03 0.125 MG Metoprolol Succinate 25 mg DAILY PO 09/26/24 10:00 10/06/24 09:55 25 MG Pregabalin 100 mg BID PO 09/25/24 22:00 10/06/24 09:52 100 MG Patient Own Medication 1 tab BID PO 09/25/24 22:00 Patient Own Medication 1 tab TID PO 09/25/24 14:00 Patient Own Medication 1 tab DAILY PO 09/26/24 10:00 Pantoprazole Sodium 40 mg DAILY IV 09/25/24 12:00 10/06/24 10:02 40 MG Hydralazine HCl 10 mg Q6HP PRN IV 09/25/24 12:15 09/30/24 20:01 10 MG Lorazepam 0.25 mg Q6HP PRN IV 09/25/24 19:45 10/05/24 22:07 0.25 MG Labetalol HCl 10 mg Q2HPRN PRN IV 09/26/24 08:45 09/28/24 17:56 10 MG Lorazepam 0.25 mg Q6HP PRN IV 09/26/24 22:45 Cancel Diagnostic Test (Pha) 1 strip Q6HR 09/27/24 18:00 10/06/24 12:00 1 STRIP Insulin Human Regular FOLLOW SLIDING SCALE Q6HR SC 09/27/24 18:00 10/01/24 00:23 2 UNITS Dextrose 50 ml UD IV 09/27/24 17:00 Sodium Chloride 10 ml QSHIFT@10,22 IV 09/29/24 22:00 10/06/24 10:02 10 ML Enteral Nutritional Formula 240 ml TIDWM PO 10/01/24 18:00 10/06/24 12:00 240 ML Hydromorphone HCl 1 mg Q4HPRN PRN IV 10/04/24 14:00 10/06/24 10:51 1 MG Acetaminophen/ Hydrocodone Bitart 1 tab Q4HP PRN PO 10/05/24 09:15 10/06/24 09:54 1 TAB laboratory and microbiology Laboratory Tests 10/05/24 05:25 Test 10/05/24 05:25 Range/Units Serum Glucose 86 74-106 mg/dL Problem List ABD PAIN NAUSEA VOMITING HEMATEMESIS PMH; HX SEVERE HYPOKALEMIA ? DYSRHYTHMIA DIARRHEA PT WELL KNOWN TO ME HX OF CAD DIABETES HTN HYPERLIPIDEMIA S/P C 04/09 * Left main normal. * Left anterior descending artery without any flow restrictive lesion. * Circumflex dominant vessel without any flow restrictive lesion. * Right coronary artery nondominant vessel without any flow restrictive lesion. * Left ventricular function showed hyperdynamic contractility with an LV. Left ventricular ejection fraction greater than 65%. * LVEDP was 5 mmHg. Left ventricular systolic pressure 160. Right heart catheterization, [facility]all reading shows RA pressure of 4, RV pressure of 26/10, PA pressure of 26/10, and capillary wedge pressure of 5. * Left ventricular end-diastolic pressure as mentioned above was also 5. * At this time, no surgical intervention. No catheter-based intervention is warranted. The patient's blood pressure needs absolutely to be controlled. At this time, beta blockade may be a good option for this patient. TROPONIN NEGATIVE BNP WNL HX OF LIVER RESECTION LUNG NODULE THICKENED COLONIC WALL COLITIS HX OF OPEN HEART SURGERY ANEMIA Assessment/Plan S/P EXP LAP LYSIS OF ADHESIONS CLOSURE OF 2 ENTEROTOMIES SERIAL LAB START TPN INCREASE PAIN MANAGEMENT TPN STARTED LASIX 40 MG IV SECONDARY TO INCREASE FLUID RETENTION NOW STARTED ON CLEAR LIQUID ONCE DIET IS ADVANCED CAN DC TPN WROTE FOR FENTANYL PATCH BUT PHARMACY REFUSES TO DISPENSE THERE WILL BE DELAY IN PTs RECOVERY PHARMACY HAS DECIDED TO MANAGE PAIN MANAGEMENT AND COMPLICATIONS ASSOCIATED WITH SURGICAL PAIN CT OF ABD PELVIS Interval decompression of previously seen bowel obstruction. No residual small bowel dilation seen. Mild colonic diverticulosis. Pelvic fluid, likely post surgical in nature.Tiny nonobstructive left kidney stone. PROTRACTED ILEUS SECONDARY TO NARCOTICS USE. PT WOULD HAVE RECOVERED IF FENTANYL WAS PROVIDED DC HOME WITH HOME HEALTH AND PT Dietary Evaluation Review Comments: 1. TPN per pharmacy meeting 75% of her needs 2, TF Glucerna@65ml/hr (94g Protein 1872 kcal, 1256ml free water) if EN feasible, 3. advance to [facility]-60 diet if GI accessible and medically feasible. Expected Outcomes/Goals: avoid wt loss. avoid hyperglycemia and uremic syndrome Plan discussed with: Patient ELICIA ROBERTSON MD Oct 06, 2024 12:52
--- NOTE | 2024-10-06 13:55 | DVH ---
Exam: CT CT AB PEL WITH IV CON ONLY History: severe abdominal pain s/p ex lap Comparison Study: CT CT AB PEL WITH IV CON ONLY on DOS: 09/25/24, CT CT CHEST/AB/PL W CON- IV ONLY on DOS: 11/10/23 TECHNIQUE: Multidetector CT of the abdomen and pelvis with IV contrast. Axial, coronal and sagittal m ultiplanar reformats were obtained from the axial data set by the technologist. Radiation Dose Information: CT Dose: CTDI volume is 8.82 mGy. Dose-length product is 499.01 mGy*cm FINDINGS: Small right with trace left-sided pleural effusion and associated atelectasis. Partially visualized h eart is unremarkable. Status post cholecystectomy. Mild hepatomegaly. 1.4 cm hepatic cyst. There appears to be a possible r esection of the left hepatic lobe. Spleen, pancreas and adrenal glands unremarkable. Common bile duct is within normal limits in size for post cholecystectomy state. 3.2 cm right renal cyst with additional 1.6 cm right renal cyst. There are subcentimeter hypodense ri ght renal lesions that are too small to characterize. No hydronephrosis or renal calculi bilaterally. Bilateral ureters and urinary bladder are unremarkable. Uterus is unremarkable. 5.4 by 8.9 x 5 cm cy stic structure /fluid collection between the urinary bladder and uterus. Mild wall thickening of the distal esophagus. Small hiatal hernia. Mild gastric wall thickening. Segm ental wall thickening of proximal small bowel within the left hemiabdomen. The small bowel loops are fluid-filled with distention of the left hemiabdomen up to 3.6 cm. The appendix is not definitely vis ualized. Sigmoid diverticulosis without diverticulitis. Moderate amount of fecal material within the colon. No evidence of intraperitoneal free air. Trace ascites. Retroperitoneal lymphadenopathy measuring up to 1.1 cm which may be reactive or lymph or neoplastic. Moderate body wall edema. Small fat containing right inguinal hernia. Bilateral inguinal lymphadenopa thy measuring 1.2 cm in short axis which may be reactive. Calcified and of the left gluteal region. S urgical clips are noted over the midline abdomen consistent with recent surgery. Mild loss of superio r vertebral body height of L4 which appears chronic IMPRESSION: Mild wall thickening of the distal esophagus. Correlate for esophagitis. Mild gastric wall thickening mild wall thickening of small bowel loops within left hemiabdomen which may be due to inadequate distention with gastroenteritis not excluded. Fluid-filled small bowel loops with distention of a segment within the left hemiabdomen up to 3.5 cm. Correlate for ileus with bowel obstruction not completely excluded. Trace ascites with redemonstration moderate amount of fluid within the pelvis in between the urinary bladder uterus which is most likely postsurgical. Moderate amount of fecal material within the colon. Right renal cysts with additional subcentimeter hypodense right renal lesions that are too small to c haracterize. Moderate abdominal, pelvic proximal thigh soft tissue edema. Additional findings as above.
--- NOTE | 2024-10-06 14:41 | DVHPN2 ---
Progress Note Date Seen: Oct 06, 2024 Medical Necessity Reason Pt with a Central, PICC or Fol: No Objective vital signs Vital Sign Date Time Temp Pulse Resp B/P (MAP) Pulse Ox O2 Delivery O2 Flow Rate FiO2 10/06/24 14:00 132/78 10/06/24 13:02 98.4 51 18 97 98.4 10/06/24 08:00 Nasal Cannula* 2 28 Total Intake and Output 10/05/24 10/05/24 10/06/24 15:00 23:00 07:00 Intake Total 400 ml 900 ml 250 ml Output Total 700 ml Balance 400 ml 900 ml -450 ml medications Current Medications Medications Dose Ordered Sig/Aranaz Route Start Time Stop Time Status Last Admin Dose Admin Ondansetron HCl 4 mg Q4HP PRN IV 09/25/24 12:00 09/25/24 13:39 4 MG Acetaminophen 650 mg Q6HP PRN PO 09/25/24 12:00 Piperacillin Sod/ Tazobactam Sod 100 ml @ 25 mls/hr Q8HR IV 09/25/24 14:00 10/06/24 14:07 25 MLS/HR Amlodipine Besylate 5 mg BID PO 09/25/24 22:00 10/06/24 09:54 5 MG Calcium Acetate 667 mg TIDWM PO 09/25/24 12:00 10/06/24 14:07 667 MG Hydralazine HCl 10 mg TID PO 09/25/24 14:00 10/06/24 05:16 10 MG Nifedipine 30 mg BID PO 09/25/24 22:00 UNV Sertraline HCl 50 mg DAILY PO 09/26/24 10:00 10/06/24 10:03 50 MG Sucralfate 1 gm QID PO 09/25/24 12:00 10/06/24 14:07 1 GM Aspirin 81 mg DAILY PO 09/26/24 10:00 10/06/24 09:55 81 MG Atorvastatin Calcium 40 mg HS PO 09/25/24 22:00 10/05/24 21:59 40 MG Clonidine HCl 0.3 mg BID PO 09/25/24 22:00 10/06/24 09:56 0.3 MG Hyoscyamine 0.125 mg BID PO 09/25/24 22:00 10/06/24 10:03 0.125 MG Metoprolol Succinate 25 mg DAILY PO 09/26/24 10:00 10/06/24 09:55 25 MG Pregabalin 100 mg BID PO 09/25/24 22:00 10/06/24 09:52 100 MG Patient Own Medication 1 tab BID PO 09/25/24 22:00 Patient Own Medication 1 tab TID PO 09/25/24 14:00 Patient Own Medication 1 tab DAILY PO 09/26/24 10:00 Pantoprazole Sodium 40 mg DAILY IV 09/25/24 12:00 10/06/24 10:02 40 MG Hydralazine HCl 10 mg Q6HP PRN IV 09/25/24 12:15 09/30/24 20:01 10 MG Lorazepam 0.25 mg Q6HP PRN IV 09/25/24 19:45 10/05/24 22:07 0.25 MG Labetalol HCl 10 mg Q2HPRN PRN IV 09/26/24 08:45 09/28/24 17:56 10 MG Lorazepam 0.25 mg Q6HP PRN IV 09/26/24 22:45 Cancel Diagnostic Test (Pha) 1 strip Q6HR 09/27/24 18:00 10/06/24 12:00 1 STRIP Insulin Human Regular FOLLOW SLIDING SCALE Q6HR SC 09/27/24 18:00 10/01/24 00:23 2 UNITS Dextrose 50 ml UD IV 09/27/24 17:00 Sodium Chloride 10 ml QSHIFT@10,22 IV 09/29/24 22:00 10/06/24 10:02 10 ML Enteral Nutritional Formula 240 ml TIDWM PO 10/01/24 18:00 10/06/24 12:00 240 ML Hydromorphone HCl 1 mg Q4HPRN PRN IV 10/04/24 14:00 10/06/24 10:51 1 MG Acetaminophen/ Hydrocodone Bitart 1 tab Q4HP PRN PO 10/05/24 09:15 10/06/24 09:54 1 TAB laboratory and microbiology Laboratory Tests 10/05/24 05:25 Test 10/05/24 05:25 Range/Units Serum Glucose 86 74-106 mg/dL Problem List/Assessment/Plan Problem List/Assessment/Plan AFEBRILE VSS AMBULATED BM+ FLATUS + LUCINA SOFT DIET REPEAT CT SCAN ABD PELVIS NO AC FINDINGS CONSTIPATION CONTINUE AMBULATION CLOSE OBSERVATION NURSE AT BEDSIDE Plan discussed with: Patient Dietary Evaluation Review Comments: 1. TPN per pharmacy meeting 75% of her needs 2, TF Glucerna@65ml/hr (94g Protein 1872 kcal, 1256ml free water) if EN feasible, [facility]. [facility] if GI accessible and medically feasible. Expected Outcomes/Goals: avoid wt loss. avoid hyperglycemia and uremic syndrome AG MENDOZA MD Oct 06, 2024 14:41
--- NOTE | 2024-10-06 16:37 | DVHPNRES ---
Progress Note Date Seen: Oct 06, 2024 Resident Creating Document: DESEAN LESTER RESIDENT Medical Necessity Reason Pt with a Central, PICC or Fol: No Subjective Review of Systems 69 years old female with a PMH of CHF, chronic respiratory failure on 2 L home oxygen, HTN, liver cancer s/p resection, right ankle surgery, history of laparotomy, cholecystectomy, PUD, untreated hepatitis-C , history of laparotomy presented to the ED with the chief complaints of abdominal pain and vomiting since Friday. patient reported she has been having this abdominal pain for past 2-3 months for which PCP thinks it might be gastric ulcer enteritis oral medications but no results were seen. Eventually pain got worsen over the past month and for past couple of days patient started having severe abdominal pain 10/10 mostly in umbilical area associated with severe vomiting initially orange: And sometimes blood also seen which prompted her to visit ED. on my assessment patient denies fever, diarrhea, chest pain, shortness of breath, sick contacts, recent travel and other associated symptoms. PMH: CHF, chronic respiratory failure on 2 L home oxygen, HTN, liver cancer s/p resection, right ankle surgery, history of laparotomy, cholecystectomy, PUD, untreated hepatitis-C , history of laparotomy PSH: Appendectomy, cholecystectomy, CABG, tonsillectomy Family history: Cancer, Hypertension, Other (Mom with hypertension and breast cancer. Dad with hypertension.) Personal history: Lives at home with the family. Denies smoking, alcohol and other drug abuse Allergies: no known allergies ROS: Patient was seen and examined by me at the bedside today. Overnight events reviewed. Patient reports that she is still having abdominal pain which is 10/10 in intensity and after tapering her pain medication it is getting worse. She also complains of abdominal distention and increased pain in the left lower quadrant. She has not passed any stool after yesterday but has been passing flatus. Rest of the ROS is negative Objective vital signs Vital Sign Date Time Temp Pulse Resp B/P (MAP) Pulse Ox O2 Delivery O2 Flow Rate FiO2 10/06/24 14:00 132/78 10/06/24 13:02 98.4 51 18 97 98.4 10/06/24 08:00 Nasal Cannula* 2 28 Total Intake and Output 10/05/24 10/05/24 10/06/24 15:00 23:00 07:00 Intake Total 400 ml 900 ml 250 ml Output Total 700 ml Balance 400 ml 900 ml -450 ml medications Current Medications Medications Dose Ordered Sig/Aranza Route Start Time Stop Time Status Last Admin Dose Admin Ondansetron HCl 4 mg Q4HP PRN IV 09/25/24 12:00 09/25/24 13:39 4 MG Acetaminophen 650 mg Q6HP PRN PO 09/25/24 12:00 Piperacillin Sod/ Tazobactam Sod 100 ml @ 25 mls/hr Q8HR IV 09/25/24 14:00 10/06/24 14:07 25 MLS/HR Amlodipine Besylate 5 mg BID PO 09/25/24 22:00 10/06/24 09:54 5 MG Calcium Acetate 667 mg TIDWM PO 09/25/24 12:00 10/06/24 14:07 667 MG Hydralazine HCl 10 mg TID PO 09/25/24 14:00 10/06/24 05:16 10 MG Nifedipine 30 mg BID PO 09/25/24 22:00 UNV Sertraline HCl 50 mg DAILY PO 09/26/24 10:00 10/06/24 10:03 50 MG Sucralfate 1 gm QID PO 09/25/24 12:00 10/06/24 14:07 1 GM Aspirin 81 mg DAILY PO 09/26/24 10:00 10/06/24 09:55 81 MG Atorvastatin Calcium 40 mg HS PO 09/25/24 22:00 10/05/24 21:59 40 MG Clonidine HCl 0.3 mg BID PO 09/25/24 22:00 10/06/24 09:56 0.3 MG Hyoscyamine 0.125 mg BID PO 09/25/24 22:00 10/06/24 10:03 0.125 MG Metoprolol Succinate 25 mg DAILY PO 09/26/24 10:00 10/06/24 09:55 25 MG Pregabalin 100 mg BID PO 09/25/24 22:00 10/06/24 09:52 100 MG Patient Own Medication 1 tab BID PO 09/25/24 22:00 Patient Own Medication 1 tab TID PO 09/25/24 14:00 Patient Own Medication 1 tab DAILY PO 09/26/24 10:00 Pantoprazole Sodium 40 mg DAILY IV 09/25/24 12:00 10/06/24 10:02 40 MG Hydralazine HCl 10 mg Q6HP PRN IV 09/25/24 12:15 09/30/24 20:01 10 MG Lorazepam 0.25 mg Q6HP PRN IV 09/25/24 19:45 10/05/24 22:07 0.25 MG Labetalol HCl 10 mg Q2HPRN PRN IV 09/26/24 08:45 09/28/24 17:56 10 MG Lorazepam 0.25 mg Q6HP PRN IV 09/26/24 22:45 Cancel Diagnostic Test (Pha) 1 strip Q6HR 09/27/24 18:00 10/06/24 16:15 1 STRIP Insulin Human Regular FOLLOW SLIDING SCALE Q6HR SC 09/27/24 18:00 10/01/24 00:23 2 UNITS Dextrose 50 ml UD IV 09/27/24 17:00 Sodium Chloride 10 ml QSHIFT@10,22 IV 09/29/24 22:00 10/06/24 10:02 10 ML Enteral Nutritional Formula 240 ml TIDWM PO 10/01/24 18:00 10/06/24 12:00 240 ML Acetaminophen/ Hydrocodone Bitart 1 tab Q4HP PRN PO 10/05/24 09:15 10/06/24 16:29 1 TAB Hydromorphone HCl 0.5 mg Q4HPRN PRN IV 10/06/24 16:00 UNV Examination General Appearance: Alert, Oriented to person, place and time, mild distress HEENT: Atraumatic, Mucous membranes moist/pink Respiratory: Lungs are clear to auscultation, no added sounds heard Abdominal: abdominal binder around the abdomen, on removal a clean sterile gauze extending from epigastric to suprapubic region present- no soakage; abdomen is soft on palpation, tenderness left lower quadrant,active bowel sounds heard, mild distention, swelling more in the lower abdomen seen Extremities: No edema, Normal pulses, No tenderness/swelling Skin: No Significant rash, no breakage in skin Neuro: Normal speech, no sensorimotor deficits Psych/Mental Status: Mental status NL, Mood NL laboratory and microbiology Laboratory Tests 10/05/24 05:25 Test 10/05/24 05:25 Range/Units Serum Glucose 86 74-106 mg/dL Labs and/or images reviewed: Labs reviewed by me, Image(s) reviewed by me Problem List/Assessment/Plan Problem List/Assessment/Plan # SBO, s/p day 6 EXP LAP for adhesiolysis with closure of 2 enterotomies # Ruled out small-bowel ischemia # Suspected sepsis due to intraabdominal infection - CT ABD/pelvis showed high-grade SBO with a transfusion had tried lower quadrant - pain management and antiemetics - IVF - Discontinued Clinimix, patient is on soft diet as per Sx consult. - advancing diet as per surgical dental assistant recommendations, patient on soft diet - patient has been ambulating with a walker - empiric antibiotic Zosyn - hydromorphone 2 hourly - Hydrocodone 4 hourly PRN - physical therapy evaluation done, advised home health for physical therapy - surgery is following - lactic acid, normal (0.8mMol/L) - Repeat CT abdomen / pelvis (10/03/2024) shows: interval decompression of previously seen bowel obstruction. No residual small bowel dilation seen. Mild colonic diverticulosis. Pelvic fluid, likely post surgical in nature. -Repeat CT abdomen/pelvis today (10/06/2024) showed: - Mild wall thickening of the distal esophagus. Correlate for esophagitis. -Mild gastric wall thickening mild wall thickening of small bowel loops within left hemiabdomen which may be due to inadequate distention with gastroenteritis not excluded. -Fluid-filled small bowel loops with distention of a segment within the left hemiabdomen up to 3.5 cm. Correlate for ileus with bowel obstruction not completely excluded. -Trace ascites with redemonstration moderate amount of fluid within the pelvis in between the urinary bladder uterus which is most likely postsurgical. -Moderate amount of fecal material within the colon. -Moderate abdominal, pelvic proximal thigh soft tissue edema. # Hypokalemia- correcting - Repleting - Monitor labs # Hypertensive urgency possible secondary to history of hypertension and uncontrolled pain -resolving - pain management - continuously monitor blood pressure - hydralazine and IV labetalol p.r.n. - oral medications begun, NG tube removed # Mild RAUL d/t VMN likely, resolved - monitor lab for now # Chronic systolic/diastolic CHF not in exacerbation - resume home meds - consult Dr. Rausch # hypercalcemia - resolved #Tiny nonobstructive left kidney stone #Right renal cyst with additional subcentimeter hypodense right renal lesions that are too small to characterize. - as seen in CT abdomen and pelvis - outpatient follow up GI PPX: Protonix VTE ppx: SCDs Diet: Soft diet PT evaluation suggested home health for physical therapy Consults: Executive Administrator on board for home health for physical therapy Goals of care addressed with the patient for more than 20 minutes: Full code status Case discussed with Dr. Yin, patient and nurse Plan discussed with: Patient, Other (tn) Dietary Evaluation Review Comments: 1. TPN per pharmacy meeting 75% of her needs 2, TF Glucerna@65ml/hr (94g Protein 1872 kcal, 1256ml free water) if EN feasible, 3. advance to [facility] diet if GI accessible and medically feasible. Expected Outcomes/Goals: avoid wt loss. avoid hyperglycemia and uremic syndrome Date of Service: Oct 06, 2024 Billing Provider: FLORENTINO YIN MD Common Visit Codes: [id number] INP/OBS CARE(HIGH) DESEAN LESTER RESIDENT Oct 06, 2024 16:36 FLORENTINO YIN MD Oct 06, 2024 23:36
[2024-10-06] MEDS: HYDROmorphone HCL 2 MG/ML VL/or syr IV PRN (18:17)
[2024-10-07 00:55] VITALS: BP 128/78; PULSE 51; RESP 17; TEMP 97.5; O2SAT 93
[2024-10-07 05:00] VITALS: BP 150/72; PULSE 59; RESP 17; TEMP 98; O2SAT 99
[2024-10-07 06:34] LABS: Alanine Aminotransferase 11 U/L (7-40); Albumin 3.8 g/dL (3.2-4.8); Alkaline Phosphatase 85 U/L (46-116); Anion Gap 12 (5-15); BUN/Creatinine Ratio 12.4 (10.0-20.0); Blood Urea Nitrogen 12 mg/dL (9-23); Calcium 8.9 mg/dL (8.7-10.4); Carbon Dioxide 22 mmol/L (20-31); Glucose 102 mg/dL (74-106); Potassium 3.8 mmol/L (3.5-5.1); Sodium 142 mmol/L (136-145); Total Protein 6.2 g/dL (5.7-8.2)
[2024-10-07 06:37] LABS: Chloride 108 mmol/L (98-107)
[2024-10-07 06:45] LABS: Bilirubin, Total 0.2 mg/dL (0.2-1.0)
[2024-10-07 08:00] VITALS: PULSE 52; PULSE 70; RESP 16; O2SAT 93
[2024-10-07 09:00] VITALS: BP 120/80; PULSE 49; RESP 16; TEMP 97.8; O2SAT 93
[2024-10-07 09:15] LABS: Hematocrit 28.3 % (36.0-46.0); Hemoglobin 9.7 g/dL (12.2-16.2); Mean Corpuscular Hemoglobin 31.2 pg (28.0-32.0); Mean Corpuscular Volume 90.8 fL (80.0-100.0); Nucleated Red Blood Cells % 0.1 %
--- NOTE | 2024-10-07 10:07 | DVHPN2 ---
Progress Note - Dictate Date Seen: Oct 07, 2024 Medical Necessity Reason Pt with a Central, PICC or Fol: No Subjective PT WITH ABD PAIN NAUSEA VOMITING HEMATEMESIS PMH; HX SEVERE HYPOKALEMIA ? DYSRHYTHMIA DIARRHEA PT WELL KNOWN TO ME HX OF CAD DIABETES HTN HYPERLIPIDEMIA S/P [facility] 04/09 * Left main normal. * Left anterior descending artery without any flow restrictive lesion. * Circumflex dominant vessel without any flow restrictive lesion. * Right coronary artery nondominant vessel without any flow restrictive lesion. * Left ventricular function showed hyperdynamic contractility with an LV. Left ventricular ejection fraction greater than 65%. * LVEDP was 5 mmHg. Left ventricular systolic pressure 160. Right heart catheterization, [place] reading shows RA pressure of 4, RV pressure of 26/10, PA pressure of 26/10, and capillary wedge pressure of 5. * Left ventricular end-diastolic pressure as mentioned above was also 5. * At this time, no surgical intervention. No catheter-based intervention is warranted. The patient's blood pressure needs absolutely to be controlled. At this time, beta blockade may be a good option for this patient. TROPONIN NEGATIVE BNP WNL HX OF LIVER RESECTION LUNG NODULE THICKENED COLONIC WALL COLITIS HX OF OPEN HEART SURGERY ANEMIA vital signs Vital Sign Date Time Temp Pulse Resp B/P (MAP) Pulse Ox O2 Delivery O2 Flow Rate FiO2 10/07/24 09:00 120/74 10/07/24 08:00 70 16 93 Room Air* 0 N/A Nasal Cannula* 10/07/24 05:00 98.0 98.0 Total Intake and Output 10/06/24 10/06/24 10/07/24 15:00 23:00 07:00 Intake Total 100 ml 645 ml 250 ml Output Total 300 ml 300 ml Balance 100 ml 345 ml -50 ml medications Current Medications Medications Dose Ordered Sig/Aranza Route Start Time Stop Time Status Last Admin Dose Admin Ondansetron HCl 4 mg Q4HP PRN IV 09/25/24 12:00 09/25/24 13:39 4 MG Acetaminophen 650 mg Q6HP PRN PO 09/25/24 12:00 Amlodipine Besylate 5 mg BID PO 09/25/24 22:00 10/07/24 09:00 5 MG Calcium Acetate 667 mg TIDWM PO 09/25/24 12:00 10/07/24 08:54 667 MG Hydralazine HCl 10 mg TID PO 09/25/24 14:00 10/07/24 05:58 10 MG Nifedipine 30 mg BID PO 09/25/24 22:00 UNV Sertraline HCl 50 mg DAILY PO 09/26/24 10:00 10/07/24 09:03 50 MG Sucralfate 1 gm QID PO 09/25/24 12:00 10/07/24 05:58 1 GM Aspirin 81 mg DAILY PO 09/26/24 10:00 10/07/24 08:57 81 MG Atorvastatin Calcium 40 mg HS PO 09/25/24 22:00 10/06/24 22:21 40 MG Clonidine HCl 0.3 mg BID PO 09/25/24 22:00 10/06/24 22:21 0.3 MG Hyoscyamine 0.125 mg BID PO 09/25/24 22:00 10/07/24 08:55 0.125 MG Metoprolol Succinate 25 mg DAILY PO 09/26/24 10:00 10/06/24 09:55 25 MG Pregabalin 100 mg BID PO 09/25/24 22:00 10/07/24 08:55 100 MG Patient Own Medication 1 tab BID PO 09/25/24 22:00 Patient Own Medication 1 tab TID PO 09/25/24 14:00 Patient Own Medication 1 tab DAILY PO 09/26/24 10:00 Pantoprazole Sodium 40 mg DAILY IV 09/25/24 12:00 10/07/24 08:54 40 MG Hydralazine HCl 10 mg Q6HP PRN IV 09/25/24 12:15 09/30/24 20:01 10 MG Lorazepam 0.25 mg Q6HP PRN IV 09/25/24 19:45 10/05/24 22:07 0.25 MG Labetalol HCl 10 mg Q2HPRN PRN IV 09/26/24 08:45 09/28/24 17:56 10 MG Lorazepam 0.25 mg Q6HP PRN IV 09/26/24 22:45 Cancel Diagnostic Test (Pha) 1 strip Q6HR 09/27/24 18:00 10/07/24 05:53 1 STRIP Insulin Human Regular FOLLOW SLIDING SCALE Q6HR SC 09/27/24 18:00 10/01/24 00:23 2 UNITS Dextrose 50 ml UD IV 09/27/24 17:00 Sodium Chloride 10 ml QSHIFT@10,22 IV 09/29/24 22:00 10/07/24 09:02 10 ML Enteral Nutritional Formula 240 ml TIDWM PO 10/01/24 18:00 10/07/24 08:27 240 ML Acetaminophen/ Hydrocodone Bitart 1 tab Q4HP PRN PO 10/05/24 09:15 10/07/24 01:07 1 TAB Hydromorphone HCl 0.5 mg Q4HPRN PRN IV 10/06/24 16:00 10/07/24 04:18 0.5 MG laboratory and microbiology Laboratory Tests 10/07/24 08:30 10/07/24 05:28 Test 10/07/24 05:28 Range/Units Serum Glucose 102 74-106 mg/dL Problem List ABD PAIN NAUSEA VOMITING HEMATEMESIS PMH; HX SEVERE HYPOKALEMIA ? DYSRHYTHMIA DIARRHEA PT WELL KNOWN TO ME HX OF CAD DIABETES HTN HYPERLIPIDEMIA S/P [facility] 04/09 * Left main normal. * Left anterior descending artery without any flow restrictive lesion. * Circumflex dominant vessel without any flow restrictive lesion. * Right coronary artery nondominant vessel without any flow restrictive lesion. * Left ventricular function showed hyperdynamic contractility with an LV. Left ventricular ejection fraction greater than 65%. * LVEDP was 5 mmHg. Left ventricular systolic pressure 160. Right heart catheterization, [place] reading shows RA pressure of 4, RV pressure of 26/10, PA pressure of 26/10, and capillary wedge pressure of 5. * Left ventricular end-diastolic pressure as mentioned above was also 5. * At this time, no surgical intervention. No catheter-based intervention is warranted. The patient's blood pressure needs absolutely to be controlled. At this time, beta blockade may be a good option for this patient. TROPONIN NEGATIVE BNP WNL HX OF LIVER RESECTION LUNG NODULE THICKENED COLONIC WALL COLITIS HX OF OPEN HEART SURGERY ANEMIA Assessment/Plan S/P EXP LAP LYSIS OF ADHESIONS CLOSURE OF 2 ENTEROTOMIES SERIAL LAB START TPN INCREASE PAIN MANAGEMENT TPN STARTED LASIX 40 MG IV SECONDARY TO INCREASE FLUID RETENTION NOW STARTED ON CLEAR LIQUID ONCE DIET IS ADVANCED CAN DC TPN WROTE FOR FENTANYL PATCH BUT PHARMACY REFUSES TO DISPENSE THERE WILL BE DELAY IN PTs RECOVERY PHARMACY HAS DECIDED TO MANAGE PAIN MANAGEMENT AND COMPLICATIONS ASSOCIATED WITH SURGICAL PAIN CT OF ABD PELVIS Interval decompression of previously seen bowel obstruction. No residual small bowel dilation seen. Mild colonic diverticulosis. Pelvic fluid, likely post surgical in nature.Tiny nonobstructive left kidney stone. PROTRACTED ILEUS SECONDARY TO NARCOTICS USE. PT WOULD HAVE RECOVERED IF FENTANYL WAS PROVIDED DC HOME WITH HOME HEALTH AND PT DC TPN Dietary Evaluation Review Comments: 1. TPN per pharmacy meeting 75% of her needs 2, TF Glucerna@65ml/hr (94g Protein 1872 kcal, 1256ml free water) if EN feasible, 3. advance to [facility]-60 diet if GI accessible and medically feasible. Expected Outcomes/Goals: avoid wt loss. avoid hyperglycemia and uremic syndrome Plan discussed with: Patient ELICIA ROBERTSON MD Oct 07, 2024 10:07
[2024-10-07] MEDS ORDERED: HYDR-4798 PO (12:04)
--- NOTE | 2024-10-07 12:57 | DVHDSRES ---
Discharge Summary Date of Admission Resident Creating Document: DESEAN LESTER RESIDENT Sep 25, 2024 at 11:52 Date of Discharge: Oct 07, 2024 Admitting Diagnosis # SBO, s/p day 6 EXP LAP for adhesiolysis with closure of 2 enterotomies Labs/Diagnostic Data: Laboratory Results Test 10/07/24 10:41 10/07/24 08:30 10/07/24 05:28 10/06/24 12:45 POC Glucose 99 mg/dl (70-106) White Blood Count 7.5 10^3/uL (4.4-10.8) Red Blood Count 3.12 10^6/uL (4.0-5.20) Hemoglobin 9.7 g/dL (12.2-16.2) Hematocrit 28.3 % (36.0-46.0) Mean Corpuscular Volume 90.8 fL (80.0-100.0) Mean Corpuscular Hemoglobin 31.2 pg (28.0-32.0) Mean Corpuscular Hemoglobin Concent 34.4 g/dL (32.0-36.0) Red Cell Distribution Width 15.4 % (11.8-14.3) Platelet Count 237 10^3/uL (140-450) Mean Platelet Volume 8.6 fL (6.9-10.8) Neutrophils (%) (Auto) 67.1 % (37.0-80.0) Lymphocytes (%) (Auto) 21.5 % (10.0-50.0) Monocytes (%) (Auto) 8.9 % (0.0-12.0) Eosinophils (%) (Auto) 2.0 % (0.0-7.0) Basophils (%) (Auto) 0.5 % (0.0-2.0) Neutrophils # (Auto) 5.0 10 ^3/uL (1.6-8.6) Lymphocytes # (Auto) 1.6 10 ^3/uL (0.4-5.4) Monocytes # (Auto) 0.7 10 ^3/uL (0-1.3) Eosinophils # (Auto) 0.2 10 ^3/uL (0-0.8) Basophils # (Auto) 0 10 ^3/uL (0-0.2) Nucleated Red Blood Cells 0.1 % Sodium Level 142 mmol/L (136-145) Potassium Level 3.8 mmol/L (3.5-5.1) Chloride Level 108 mmol/L (98-107) Carbon Dioxide Level 22 mmol/L (20-31) Anion Gap 12 (5-15) Blood Urea Nitrogen 12 mg/dL (9-23) Creatinine 0.97 mg/dL (0.550-1.02) Glomerular Filtration Rate Calc 64 mL/min (>90) BUN/Creatinine Ratio 12.4 (10.0-20.0) Serum Glucose 102 mg/dL (74-106) Calcium Level 8.9 mg/dL (8.7-10.4) Total Bilirubin 0.2 mg/dL (0.2-1.0) Aspartate Amino Transferase (AST) 22 U/L (13-40) Alanine Aminotransferase (ALT) 11 U/L (7-40) Alkaline Phosphatase 85 U/L (46-116) Total Protein 6.2 g/dL (5.7-8.2) Albumin 3.8 g/dL (3.2-4.8) Stool Occult Blood Negative (Negative) Stool Occult Blood Sample #3 (Negative) Test 10/03/24 13:53 10/03/24 07:22 10/01/24 16:20 09/27/24 05:55 Lactic Acid Level 0.8 mmol/L (0.4-2.0) Magnesium Level 2.0 mg/dL (1.6-2.6) Estimated GFR () 75 mL/min Estimated GFR (Non- 62 mL/min Phosphorus Level 2.9 mg/dL (2.4-5.1) Triglycerides Level 109 mg/dL (< 150) Test 09/26/24 12:54 09/26/24 06:00 09/25/24 07:15 Prothrombin Time 13.1 sec (9.3-11.8) Prothrombin Time INR 1.26 (0.9-1.15) Urine Color Yellow (Yellow) Urine Clarity Clear (Clear) Urine pH 6.0 (5.0-9.0) Urine Specific [place] > 1.050 (1.001-1.035) Urine Protein 2+ (Negative) Urine Ketones Trace (Negative) Urine Blood Trace /uL (Negative) Urine Nitrite Negative (Negative) Urine Bilirubin Negative (Negative) Urine Urobilinogen Normal mg/dL (Negative) Urine Leukocyte Esterase Negative /uL (Negative) Urine RBC 4 /hpf (0 - 4) Urine Microscopic WBC 1 /HPF (0-5) Urine Squamous Epithelial Cells Few /hpf (<5) Urine Bacteria None seen /hpf (None Seen) Urine Glucose Normal mg/dL (Normal) Hemoglobin A1c 5.8 % A1C (<5.7) Lipase 31 U/L (12-53) Hepatitis B Surface Antigen Negative (Negative) Other Laboratory Tests 10/07/24 08:30 10/07/24 05:28 Brief Hx & Hospital Course: 69 years old female with a PMH of CHF, chronic respiratory failure on 2 L home oxygen, HTN, liver cancer s/p resection, right ankle surgery, history of laparotomy, cholecystectomy, PUD, untreated hepatitis-C , history of laparotomy presented to the ED with the chief complaints of abdominal pain and vomiting since Friday. patient reported she has been having this abdominal pain for past 2-3 months for which PCP thinks it might be gastric ulcer enteritis oral medications but no results were seen. Eventually pain got worsen over the past month and for past couple of days patient started having severe abdominal pain 10/10 mostly in umbilical area associated with severe vomiting initially orange: And sometimes blood also seen which prompted her to visit ED. on my assessment patient denies fever, diarrhea, chest pain, shortness of breath, sick contacts, recent travel and other associated symptoms. Brief history of hospitalization: Patient had Exploratory laparotomy for SBO, adhesiolysis and closure of [address] abdomen pelvis showed high-grade small-bowel obstruction with transition point at the right lower quadrant. Patient was given pain management and antiemetics. Besides her [place] home medication, pain was managed with Hydromorphone 4 hourly, later weaned to 2 hourly. Intravenous fluids were given, TPN was started and later discontinued when patient began tolerating liquid diet. Patient was initially on NG tube which was removed and diet was advanced as per surgical consultation from TPN to liquid to soft diet. we began her on empiric antibiotic Zosyn. A physical therapy evaluation was done and patient was able to ambulate and advised home health for physical therapy as well. Surgery Department continue to follow, as did Dr. Rausch who is her primary care physician. Lactic acid reports normalized and a repeat CT abdomen pelvis showed interval decompression of previously seen bowel obstruction. No residual small bowel dilation was seen. Mild colonic diverticulosis was noted and pelvic fluid likely postsurgical in nature was seen. For patient's hypokalemia, we repleted the potassium which is now normal and monitored labs. For hypertensive urgency possibly secondary to history of hypertension and uncontrolled pain, pain management was given and blood pressure was continuously monitored. IV Hydralazine and IV labetalol PRN was ordered. For patient's mild RAUL due to VMN, labs were monitored and RAUL was resolved. For chronic diastolic/ systolic CHF not in exacerbation we resumed home medications and consulted Dr. Rausch, her primary care physician. For her hypocalcemia we monitored labs and gave fluids. patient still complained of abdominal pain out of proportion for which we repeated another CT scan (10/06/24) which showed fluid-filled small bowel loops with distention of segments within left hemiabdomen up to 3.5 cm. Relate for ileus and bowel obstruction not completely excluded; there was moderate amount of fecal material within the colon as well. After the CT scan patient had bowel movement twice which was a considerable amount. She is now stable for discharge. She is able to tolerate soft food, is ambulating, has passed stool and flatus, is able to urinate and stable for discharge. we have counseled her to continue with her home medications along with [place] for pain and to follow up Dr. Rausch outpatient. Patient communicated understanding. General Appearance: Alert, Oriented to person, place and time, mild distress HEENT: Atraumatic, Mucous membranes moist/pink Respiratory: Lungs are clear to auscultation, no added sounds heard Abdominal: abdominal binder around the abdomen, on removal a clean sterile gauze extending from epigastric to suprapubic region present- no soakage; abdomen is soft on palpation, active bowel sounds heard, mild swelling on the lower quadrants. Extremities: No edema, Normal pulses, No tenderness/swelling Skin: No Significant rash, no breakage in skin Neuro: Normal speech, no sensorimotor deficits Psych/Mental Status: Mental status NL, Mood NL Operations or Procedures CT AB PEL WITH IV CON ONLY IMPRESSION: 1. Findings suspicious for high grade small bowel obstruction with transition point at the right lower quadrant. There are also findings concerning for impending small bowel schema. Recommend emergent surgical evaluation. 2. Status post left hepatectomy and cholecystectomy. Critical findings discussed with Dr. Daren Day by Dr. Decker via phone on 09/25/2024 at 10:25 AM. CHEST RADIOGRAPH IMPRESSION: Nasogastric tube in satisfactory position CT CT AB PEL WO CON-NO ORAL OR IV IMPRESSION: Interval decompression of previously seen bowel obstruction. No residual small bowel dilation seen. Mild colonic diverticulosis. Pelvic fluid, likely post surgical in nature. Tiny nonobstructive left kidney stone. Exam: CT CT AB PEL WITH IV CON ONLY IMPRESSION: -Mild wall thickening of the distal esophagus. Correlate for esophagitis. -Mild gastric wall thickening mild wall thickening of small bowel loops within left hemiabdomen which may be due to inadequate distention with gastroenteritis not excluded. -Fluid-filled small bowel loops with distention of a segment within the left hemiabdomen up to 3.5 cm. Correlate for ileus with bowel obstruction not completely excluded. -Trace ascites with redemonstration moderate amount of fluid within the pelvis in between the urinary bladder uterus which is most likely postsurgical. -Moderate amount of fecal material within the colon. -Right renal cysts with additional subcentimeter hypodense right renal lesions that are too small to characterize. -Moderate abdominal, pelvic proximal thigh soft tissue edema. -Additional findings as above. Condition at Discharge: Stable Final Diagnosis/Problems List # SBO, s/p day 6 EXP LAP for adhesiolysis with closure of 2 enterotomies # Ruled out small-bowel ischemia # Suspected sepsis due to intraabdominal infection # Hypokalemia- correcting # Hypertensive urgency possible secondary to history of hypertension and uncontrolled pain -resolving # Mild RAUL d/t VMN likely, resolved # Chronic systolic/diastolic CHF not in exacerbation # hypercalcemia #Tiny nonobstructive left kidney stone Discharge Disposition: Home with Health Services Discharge Instruct/Medications Diet: Consistent carbohydrate, Cardiac 2g Na,low cholest Activity: No Restrictions, As Tolerated Follow Up/Referral: followup with PCP within 1 week Medications: as per emr continue home medications Scheduled Amlodipine Besylate (Amlodipine Besylate), 1 TAB PO BID, (Reported) Aspirin (Aspirin Low Dose), 1 TAB PO DAILY, (Reported) Atorvastatin Calcium (Lipitor), 1 TAB PO DAILY, (Reported) Calcium Acetate (Phosphate Bin (Calcium Acetate), 1 CAP PO TIDWM, (Reported) Cephalexin Monohydrate (Cephalexin), 1 CAP PO BID Cephalexin Monohydrate (Cephalexin), 500 MG PO BID Clonidine Hydrochloride (Clonidine Hcl), 1 TAB PO BID, (Reported) Clonidine Hydrochloride (Clonidine Hcl), 0.3 MG PO BID Furosemide (Furosemide), 1 TAB PO DAILY, (Reported) Hydralazine Hcl (Hydralazine Hcl), 1 TAB PO TID, (Reported) Hydrocodone-Acetaminophen (Hydrocodone/Acetaminophen 10-325 mg), 1 TAB PO TID, (Reported) Hyoscyamine Sulfate (Hyoscyamine Sulfate), 1 TAB PO BID, (Reported) Lactulose (Lactulose), 10 GM PO TID Melatonin (Kp Melatonin), 3 MG PO HS Metoprolol Succinate (Metoprolol Succinate Er), 1 TAB PO DAILY, (Reported) Nifedipine (Nifedipine Er), 1 TAB PO BID, (Reported) Ondansetron Odt 4MG Tab (Zofran Po), 1 TAB PO DAILY, (Reported) Pantoprazole Sodium Sesquihydr (Pantoprazole Sodium), 1 TAB PO BID, (Reported) Pantoprazole Sodium Sesquihydr (Protonix), 40 MG PO DAILY Potassium Chloride (Potassium Chloride ER), 1 TAB PO DAILY, (Reported) Pregabalin (Pregabalin), 1 CAP PO BID, (Reported) Sacubitril-Valsartan (Entresto 49-51 mg), 1 TAB PO BID, (Reported) Sertraline Hcl (Sertraline Hcl), 1 TAB PO DAILY, (Reported) Sucralfate (Sucralfate), 1 TAB PO QID, (Reported) Sucralfate (Carafate), 1 GM PO BID Sumatriptan Succinate (Sumatriptan Succinate), 1 TAB PO PRN, (Reported) Tizanidine Hydrochloride (Tizanidine Hcl), 1 TAB PO TID, (Reported) Vonoprazan Fumarate (Voquezna), 1 TAB PO DAILY, (Reported) Zolpidem Tartrate (Zolpidem Tartrate), 1 TAB PO QHSP, (Reported) Zolpidem Tartrate (Ambien), 10 MG PO HS, (Reported) Scheduled PRN Hydrocodone-Acetaminophen (Hydrocodone Bitartrate/AC 5-325 mg), 1 TAB PO TIDP PRN Hydrocodone-Acetaminophen (Hydrocodone Bitartrate/AC 10-325 mg), 1 TAB PO Q4HP PRN Discharge Statement: "Patient was advised to return to the ER or call 911 if any headaches, dizziness, shortness of breath, chest pain, abdominal pain, bleeding, fevers, or worsening of medical condition. Patient was counseled about treatment plan, medications, possible side effects, patientverbalized understanding. All questions were answered to the best of my ability. This discharge took greater then 30 minutes in planning, reviewing documentation, counseling the patient, and discussing with other team members." ASSESSMENT ASSESSMENT Assessment # SBO, s/p day 6 EXP LAP for adhesiolysis with closure of 2 enterotomies # Ruled out small-bowel ischemia # Suspected sepsis due to intraabdominal infection # Hypokalemia- correcting # Hypertensive urgency possible secondary to history of hypertension and uncontrolled pain -resolving # Mild RAUL d/t VMN likely, resolved # Chronic systolic/diastolic CHF not in exacerbation # hypercalcemia #Tiny nonobstructive left kidney stone Date of Service: Oct 07, 2024 Billing Provider: FLORENTINO YIN MD Common Visit Codes: 05128-CQF/OBS DISCH DAY >30min DESEAN LESTER RESIDENT Oct 07, 2024 12:57 FLORENTINO YIN MD Oct 08, 2024 23:56
[2024-10-07 13:00] VITALS: BP 150/84; PULSE 66; RESP 17; TEMP 97.8; O2SAT 95
[2024-10-07 17:00] VITALS: BP_SYST 144; BP_SYST 176; BP_DIAS 104; BP_DIAS 78; PULSE 67; PULSE 68; RESP 17; RESP 18; TEMP 97.9; TEMP 98; O2SAT 94; O2SAT 95
== END 2024-10-07 20:00 | disposition home health service (06) | DRG 853 ==
LOC: EDUNIT# 05:59 → ER 05:59 → EDBD 05:59 → OVERFLOW 11:52 → CENTRAL 17:28 → TELE-CENTR 09-28 08:10
PROVIDERS: ADMIT Internal Medicine; ATTEND Emergency Medicine
PROC: 0D9670Z Drainage of Stomach with Drainage Device, Via Natural or Artificial Opening (ICD-10-PCS; 2024-09-25)
PROC: 30233N1 Transfusion of Nonautologous Red Blood Cells into Peripheral Vein, Percutaneous Approach (ICD-10-PCS; 2024-09-26)
PROC: 0DN80ZZ Release Small Intestine, Open Approach (ICD-10-PCS; principal; 2024-09-26 12:56)
PROC: 02HV33Z Insertion of Infusion Device into Superior Vena Cava, Percutaneous Approach (ICD-10-PCS; 2024-09-29)
PROC: B548ZZA Ultrasonography of Superior Vena Cava, Guidance (ICD-10-PCS; 2024-09-29)
DX: A41.9 Sepsis, unspecified organism (principal); N17.0 Acute kidney failure with tubular necrosis; K56.50 Intestinal adhesions [bands], unspecified as to partial versus complete obstruction; K56.699 Other intestinal obstruction unspecified as to partial versus complete obstruction; I50.42 Chronic combined systolic (congestive) and diastolic (congestive) heart failure; I16.0 Hypertensive urgency; I11.0 Hypertensive heart disease with heart failure; E11.65 Type 2 diabetes mellitus with hyperglycemia; I69.398 Other sequelae of cerebral infarction; D64.9 Anemia, unspecified; E83.52 Hypercalcemia; E78.5 Hyperlipidemia, unspecified; N73.6 Female pelvic peritoneal adhesions (postinfective); K57.30 Diverticulosis of large intestine without perforation or abscess without bleeding; I25.10 Atherosclerotic heart disease of native coronary artery without angina pectoris; E87.6 Hypokalemia; N20.0 Calculus of kidney; N28.1 Cyst of kidney, acquired; T40.605A Adverse effect of unspecified narcotics, initial encounter; I25.2 Old myocardial infarction; Z95.1 Presence of aortocoronary bypass graft; Z90.49 Acquired absence of other specified parts of digestive tract; Z87.11 Personal history of peptic ulcer disease; Z86.711 Personal history of pulmonary embolism; Z85.05 Personal history of malignant neoplasm of liver; Z82.49 Family history of ischemic heart disease and other diseases of the circulatory system; Z80.3 Family history of malignant neoplasm of breast; Y92.89 Other specified places as the place of occurrence of the external cause
CPT/HCPCS: 36415; 36569; 71045; 74176; 74177; 76937; 80048; 80053; 80069; 81001; 82270; 82962; 83036; 83605; 83690; 83735; 84100; 84478; 85025; 85610; 86850; 86900; 86901; 86920; 87340; 96361; 96374; 96375; 97110; 97116; 97163; 97530; G0378; J0131; J1100; J1815; J1885; J2003; J2250; J2405; J2470; J2543; J2704; J3480

== ENCOUNTER 2024-10-18 15:22 | Outpatient (CLI) | payer MEDICARE, MEDICAID ==
[~2024-10-18 15:22] MED LIST changes: +HYDR-4798 PO
[2024-10-18 15:25] VITALS: BP 148/89; PULSE 43; RESP 16; O2SAT 93
[2024-10-18] MEDS: BUMETANIDE INJECTION 10 ML ONE (15:29)
[2024-10-18] MEDS: POTASSIUM CHL 10 Meq TABLET PO ONE (15:29)
[2024-10-18] MEDS: BUMETANIDE 2.5mg/10ml (0.25 mg/ml) INJ IV ONE (16:00)
[2024-10-18] MEDS: POTASSIUM CHL 20 Meq TABLET PO ONE (16:01)
[2024-10-18 16:10] VITALS: BP 159/82; PULSE 45; RESP 16; O2SAT 93
== END 2024-10-18 17:00 | disposition home or self-care (01) ==
LOC: CHF HDHVI 15:22
PROVIDERS: ATTEND Internal Medicine Cardiovascular Disease
DX: I11.0 Hypertensive heart disease with heart failure (principal); I50.42 Chronic combined systolic (congestive) and diastolic (congestive) heart failure; E11.65 Type 2 diabetes mellitus with hyperglycemia; I25.10 Atherosclerotic heart disease of native coronary artery without angina pectoris; K57.30 Diverticulosis of large intestine without perforation or abscess without bleeding; N20.0 Calculus of kidney; E78.5 Hyperlipidemia, unspecified; I25.2 Old myocardial infarction; R60.9 Edema, unspecified; Z95.1 Presence of aortocoronary bypass graft; Z90.49 Acquired absence of other specified parts of digestive tract; Z85.05 Personal history of malignant neoplasm of liver; Z87.11 Personal history of peptic ulcer disease; Z86.711 Personal history of pulmonary embolism
CPT/HCPCS: 96374; G0463

== ENCOUNTER 2024-12-31 11:39 | Outpatient (CLI) | payer MEDICARE, MEDICAID ==
[2024-12-31 11:40] VITALS: BP 199/104; PULSE 85; RESP 18; O2SAT 97
[2024-12-31 14:03] VITALS: BP 175/119; PULSE 81; RESP 18; O2SAT 97
== END 2024-12-31 17:00 | disposition home or self-care (01) ==
LOC: CHF HDHVI 11:39
PROVIDERS: ATTEND Internal Medicine Cardiovascular Disease
DX: I11.0 Hypertensive heart disease with heart failure (principal); I50.9 Heart failure, unspecified
CPT/HCPCS: G0463